=== PATIENT | female | born 1945 | race Caucasian/White ===

== ENCOUNTER 2017-10-25 14:22 | Emergency (ER) | payer MEDICARE, MEDICAID, SELFPAY ==
[2017-10-25 14:23] VITALS: BP 144/94; PULSE 105; RESP 16; TEMP 36.6; O2SAT 96; BMI 36.9
[2017-10-25 14:27] VITALS: O2SAT 96
--- NOTE | 2017-10-25 14:27 | EKG12_ITS ---
Test Reason : AFIB Blood Pressure : / mmHG Vent. Rate : 103 BPM Atrial Rate : 115 BPM P-R Int : 000 ms QRS Dur : 092 ms QT Int : 360 ms P-R-T Axes : 000 -31 049 degrees QTc Int : 471 ms Atrial fibrillation Left axis deviation Septal infarct , age undetermined Abnormal ECG Confirmed by JESSICA MONTE, RANJANA ([id number]), news videotape editor JENARO YOON ([id number]) on 10/27/2017 2:18:30 PM Referred By: VALDO Confirmed By:RANJANA LOPEZ MD
--- NOTE | 2017-10-25 14:29 | RAD_ITS ---
STUDY: X-RAY CHEST REASON FOR EXAM: Female, 72 years old. Increasing shortness of breath. TECHNIQUE: Single AP portable view of the chest. COMPARISON: Comparison is made with prior examination dated March 11, 2014. FINDINGS: Scattered calcified granulomas. Stable mild increased linear markings at the lung bases suggestive of mild bibasilar scarring. There is no demonstrated pleural abnormality. There is moderate cardiac enlargement. Normal mediastinum and destiny. Normal visualized pulmonary arteries. There is atherosclerotic calcification of the aortic arch with tortuosity. There are diffuse degenerative changes of the visualized thoracic spine. Normal visualized ribs, clavicles, and shoulders. There is no demonstrated abnormality of the visualized soft tissue structures of the upper abdomen. RAD/Chest 1 View (Portable) IMPRESSION: Cardiomegaly. Stable mild increased linear markings at the lung bases suggestive of scarring. Electronically Signed: Kristofer Nation MD at 14:45 EDT Tel [phone], Service support ,
[2017-10-25 17:08] LABS: Absolute Neutrophil Count 4.1 X10^3/uL (2.0-7.7); Basophil# 0.02 X10^3/uL; Basophil% 0.3 % (0-1); Eosinophils% 3.2 % (0-5); Hematocrit 26.6 % (37-47); Hemoglobin 8.3 g/dl (12.0-15.0); Lymphocyte % 24.1 % (19-41); Mean Corp Hgb Conc 31.2 g/gl (32-36); Mean Corpuscular Hgb 31.3 pg (27.0-32.0); Mean Corpuscular Volume 100.4 fL (81-99); Mean Platelet Vol. 10.3 fl (6.2-12.0); Monocyte# 0.44 X10^3/uL; Monocyte% 7.1 % (0-10); Neutrophil # 4.06 X10^3/uL (2.7-7.7); Neutrophil % 65.1 % (47-70); Platelet Count 228 K/mm3 (150-450); RBC Distribution Width CV 16.6 % (11.6-14.6); RBC Distribution Width SD 60.5 fl (35.1-43.9); Red Blood Count 2.65 M/mm3 (4.2-5.4); White Blood Count 6.2 K/mm3 (4.4-11.0)
[2017-10-25 17:11] LABS: POSITIVE COUNT NO; POSITIVE DIFFERENTIAL NO; POSITIVE MORPHOLOGY NO
[2017-10-25 17:19] VITALS: BP 132/100; PULSE 106; RESP 19; O2SAT 97
[2017-10-25 17:22] VITALS: O2SAT 98
[2017-10-25 17:27] LABS: Anion Gap 10 (5-15); BUN 23 mg/dL (7-18); BUN/Creat Ratio 15.8 RATIO (10-20); Calcium,Total 9.2 mg/dL (8.5-10.1); Chloride 104 mmol/L (98-107); Creatinine, Serum 1.46 mg/dL (0.55-1.02); EST Glomerular Filtration Rate 38 mL/min (>60); Est Glom Filt Rate - Afr Amer 45 mL/min (>60); Estimated Creatinine Clearance 34.37 ml/min; Glucose 142 mg/dL (74-106); Potassium 4.2 mmol/L (3.5-5.1); Sodium Level 139 mmol/L (136-145)
--- NOTE | 2017-10-25 17:50 | ED.DCSUM_ITS ---
- ER Visit Summary Date of Service: 10/25/17 Chief Complaint: Shortness of breath History of Present Illness: The patient is a 72 F who presents with shortness of breath. She has felt more short of breath over the past 4 days. This is worse when she lays flat. She also can planes of increased dyspnea on exertion. She states she has very little cough. She denies any URI-like illness such as congestion rhinorrhea sore throat. She denies any chest pain. No fevers vomiting diarrhea. She does have a history of atrial fibrillation on Eliquis. This was held because she was developing anemia. She underwent upper and lower endoscopies and had gastritis. She was restarted on low-dose Eliquis. Physical Examination: Afebrile initial heart rate 105 vitals otherwise unremarkable Moist mucous membranes Heart irregularly irregular and slightly tachycardic Lungs are clear Abdomen soft 1+ symmetric pitting lower extremity edema Alert Test Results: EKG shows atrial fibrillation at a rate of 103. Chest x-ray shows cardiomegaly and stable lung base markings likely scarring. Labs notable for hemoglobin of 8.3. Creatinine is 1.46. Troponin is negative. Emergency Department Course and Treatment: I discussed the patient with Dr. Schaefer. He does note that the last hemoglobin was 9.2. We suspect that she is having some recurrent bleeding from gastritis. However pulse oximetry and vital signs are stable and troponin is undetectable with several days of pain. He states she does not have active coronary artery disease. We do not feel that she needs admitted at this time. We will hold off on transfusion but will have the patient hold on her Eliquis and also increase her Lasix for the next couple of days and patient will follow-up closely as an outpatient with Dr. Schaefer. She is Raf scheduled for blood work on . Understands to return for new or worsening symptoms and was instructed on specific signs and symptoms to monitor for. Treatment Plan: [] Disposition: Discharge Impression: Anemia Atrial fibrillation Dyspnea This note was generated with [employer] dictation software. It may contain incorrect words, spelling, and punctuation that were not noted in review of the chart prior to signing ED Disposition - Plan for ED Patient: Chief Complaint: Shortness of Breath Referrals: Anu Fairbanks MD [Primary Care Provider] -
--- NOTE | 2017-10-25 17:50 | ED.DEP ---
ED Disposition - Plan for ED Patient: Chief Complaint: Shortness of Breath Instructions: Anemia, ED Gastritis Referrals: Anu Fairbanks MD [Primary Care Provider] - Additional Instructions: Stop your Eliquis. Double your Lasix for the next 3 days. Follow-up with Dr. Schaefer as an outpatient. Call in the morning for an appointment.
[2017-10-25 18:19] VITALS: BP 143/84; PULSE 92; RESP 18; O2SAT 97
--- NOTE | 2017-10-27 13:49 | CM.ED ---
ED CALLBACK: Follow-up call placed to patient. Patient states she is still not feeling well. She tells me she still has some shortness of breath. She denies swelling of extremities. Patient states her BP today is 136/82 and heart rate of 101. Patient states she had blood work done today, per Dr. Pastor's request. She tells me he ordered a stress test to be performed in one week, on Wednesday. Patient denies black tarry stools or bright red blood in stools. She states understanding to come to ED if symptoms worsen. Patient accepted my phone number to call with any needs. I informed patient that I will contact her tomorrow for further follow-up.
--- NOTE | 2017-10-28 15:15 | CM.ED ---
ED CALLBACK: Second follow-up call placed to patient. Prior call yesterday, 10/27/17. Patient states that she is feeling a little less shortness of breath today. She tells me that Dr. Pastor has asked her to take her Lasix twice a day. Per the patient, her lab work revealed elevated potassium and her hemoglobin is up some from the hospital. She states that Dr. Pastor would like for her to have a stress test performed. Her insurance does not cover having this test performed at [facility]. She tells me she verified this with her insurance company this morning. Dr. Pastor's office is working with [facility] to find a location that is able to perform test in a timely manner. Patient states she will have transportation to [facility] site, stating that her daughter can drive her. Patient acknowledges that she does have CM contact information. She states Dr. Pastor's office has been very helpful and in frequent contact with her. I asked her to please contact me if she needs any other assistance.
== END 2017-10-25 18:20 | disposition home or self-care (01) ==
PROVIDERS: Emergency Provider Emergency Medicine; Family Provider Internal Medicine; PCP Internal Medicine
DX: D64.9 Anemia, unspecified (principal); I48.91 Unspecified atrial fibrillation; R06.00 Dyspnea, unspecified; R05 Cough; I25.10 Atherosclerotic heart disease of native coronary artery without angina pectoris; K21.9 Gastro-esophageal reflux disease without esophagitis; E11.9 Type 2 diabetes mellitus without complications; I10 Essential (primary) hypertension; I25.2 Old myocardial infarction; I51.7 Cardiomegaly
CPT/HCPCS: 71045; 80048; 84484; 85025; 93005; 94760; 99284; A4216

== ENCOUNTER → 2018-05-27 08:21 | Outpatient (CLI) | payer MEDICAID, SELFPAY ==
[2018-05-12 13:48] VITALS: BMI 36.6
[2018-05-27 08:27] LABS: Mucous, Urine 0 SEEN /hpf (<or=2+)
[2018-05-27 10:13] LABS: Absolute Lymphocyte Count 1.37 X10^3/ul (0.83-4.51); Absolute Neutrophil Count 2.6 X10^3/uL (2.0-7.7); Basophil# 0.02 X10^3/uL; Basophil% 0.4 % (0-1); Eosinophil# 0.29 X10^3/uL; Hematocrit 33.3 % (37-47); Hemoglobin 11.1 g/dl (12.0-15.0); Lymphocyte # 1.37 X10^3/ul (4.0); Lymphocyte % 28.2 % (19-41); Mean Corp Hgb Conc 33.3 g/gl (32-36); Mean Platelet Vol. 11.4 fl (6.2-12.0); Monocyte# 0.57 X10^3/uL; Monocyte% 11.8 % (0-10); Neutrophil # 2.59 X10^3/uL (2.7-7.7); Neutrophil % 53.4 % (47-70); POSITIVE COUNT NO; POSITIVE DIFFERENTIAL NO; POSITIVE MORPHOLOGY NO; Platelet Count 189 K/mm3 (150-450); RBC Distribution Width CV 12.5 % (11.6-14.6); White Blood Count 4.9 K/mm3 (4.4-11.0)
[2018-05-27 10:14] LABS: Color, Urine Yellow (Yellow); Glucose, Dipstick Normal (Normal); Ketone-Dipstick Negative (Negative); Leukocyte Esterase-Dipstick 100 /ul (Negative); Nitrite-Dipstick Negative (Negative); Occult Blood-Urine 10 /ul (Negative); Protein-Dipstick 15 mg/dl (Negative); Urine Bilirubin Dipstick Negative (Negative); Urine Clarity Sl. Cloudy (Clear); Urine Urobilinogen Normal (Normal)
[2018-05-27 10:33] LABS: Microalbumin,Random Urine 57.1 mg/L (NO RANGE EST.); Microalbumin:Creatinine Ratio 31.5 mg/g CRE (<30 mg/g CRE); Protein, Urine (Random) 37.7 mg/dL (<11.9); Protein:Creat Ratio 208 mg/g CRE (0-200)
[2018-05-27 10:36] LABS: Bacteria 2+ /hpf (None Seen); Red Blood Cells-Urine 0-5 SEEN /hpf (0-5); Squamous Epithelial Cells - UA 5-10 SEEN /hpf (5-10); White Blood Cells 0-5 SEEN /hpf (0-5)
[2018-05-27 10:47] LABS: PTHIN 35.5 pg/mL (18.4-80.1); Vitamin B12 903 pg/mL (211-911); Vitamin D,25 Hydroxy 29.3 ng/mL (29.95-100.01)
[2018-05-27 10:51] LABS: Hemoglobin A1c 7.9 % (4.2-6.3)
[2018-05-27 10:52] LABS: BUN 19 mg/dL (7-18); Creatinine, Serum 1.11 mg/dL (0.55-1.02); Glucose 211 mg/dL (74-106)
[2018-05-27 10:53] LABS: ALB/GLOB Ratio 0.9 RATIO (0.9-2.4); AST(SGOT) 68 U/L (15-37); Alanine Aminotransfer ALT/SGPT 62 U/L (13-56); Albumin, Serum 3.5 g/dL (3.2-5.0); Alkaline Phosphatase 48 U/L (45-117); Anion Gap 11 (5-15); BUN/Creat Ratio 17.1 RATIO (10-20); Calcium,Total 8.7 mg/dL (8.5-10.1); Chloride 103 mmol/L (98-107); Cholesterol 147 mg/dL (200); EST Glomerular Filtration Rate 51 mL/min (>60); Est Glom Filt Rate - Afr Amer 62 mL/min (>60); Ferritin 55 ng/mL (8-252); High Density Lipoprotein 26 mg/dL; Iron 101 ug/dL (50-170); Iron Binding Capacity,Total 336 ug/dL (250-450); Magnesium 1.4 mg/dL (1.6-2.6); Potassium 4.3 mmol/L (3.5-5.1); Protein, Total 7.5 g/dL (6.4-8.2); Sodium Level 140 mmol/L (136-145); Triglycerides 275 mg/dL; Very Low Density Lipoprotein 55 mg/dL (5-40)
== END ==
PROVIDERS: Family Provider Family Medicine; PCP Family Medicine; Visit Provider Family Medicine
DX: N18.3 Chronic kidney disease, stage 3 (moderate) (principal); E55.9 Vitamin D deficiency, unspecified; E11.9 Type 2 diabetes mellitus without complications; D64.9 Anemia, unspecified
CPT/HCPCS: 80053; 80061; 81001; 82043; 82306; 82570; 82607; 82728; 82746; 83036; 83540; 83550; 83735; 83970; 84156; 85025

== ENCOUNTER → 2018-06-09 10:13 | Outpatient (CLI) | payer MEDICAID, SELFPAY ==
[2018-05-12 13:48] VITALS: BMI 36.6
[2018-06-09 13:20] LABS: Magnesium 1.6 mg/dL (1.6-2.6)
== END ==
PROVIDERS: Family Provider Family Medicine; PCP Family Medicine; Referring Provider Family Medicine; Visit Provider Family Medicine
DX: E83.42 Hypomagnesemia (principal)
CPT/HCPCS: 36415; 83735

== ENCOUNTER → 2018-07-15 13:37 | Outpatient (CLI) | payer MEDICAID, SELFPAY ==
[2018-05-12 13:48] VITALS: BMI 36.6
[2018-07-15 16:21] LABS: Anion Gap 8 (5-15); BUN 22 mg/dL (7-18); BUN/Creat Ratio 14.4 RATIO (10-20); Calcium,Total 8.8 mg/dL (8.5-10.1); Chloride 103 mmol/L (98-107); Creatinine, Serum 1.53 mg/dL (0.55-1.02); EST Glomerular Filtration Rate 36 mL/min (>60); Est Glom Filt Rate - Afr Amer 43 mL/min (>60); Glucose 127 mg/dL (74-106); Magnesium 1.7 mg/dL (1.6-2.6); Potassium 4.3 mmol/L (3.5-5.1); Sodium Level 138 mmol/L (136-145)
== END ==
PROVIDERS: Family Provider Family Medicine; PCP Family Medicine; Referring Provider Family Medicine; Visit Provider Family Medicine
DX: I10 Essential (primary) hypertension (principal); E83.42 Hypomagnesemia
CPT/HCPCS: 36415; 80048; 83735

== ENCOUNTER → 2018-07-25 10:30 | Outpatient (CLI) | payer MEDICAID, SELFPAY ==
[2018-07-22 13:39] VITALS: BMI 36.8
[2018-07-25 12:55] LABS: Anion Gap 6 (5-15); BUN 23 mg/dL (7-18); BUN/Creat Ratio 15.1 RATIO (10-20); Chloride 102 mmol/L (98-107); Creatinine, Serum 1.52 mg/dL (0.55-1.02); EST Glomerular Filtration Rate 36 mL/min (>60); Est Glom Filt Rate - Afr Amer 43 mL/min (>60); Glucose 245 mg/dL (74-106); Potassium 4.5 mmol/L (3.5-5.1); Sodium Level 136 mmol/L (136-145)
== END ==
PROVIDERS: Family Provider Family Medicine; PCP Family Medicine; Referring Provider Family Medicine; Visit Provider Family Medicine
DX: I10 Essential (primary) hypertension (principal)
CPT/HCPCS: 36415; 80048

== ENCOUNTER → 2018-08-08 10:51 | Outpatient (CLI) | payer MEDICAID, SELFPAY ==
[2018-07-22 13:39] VITALS: BMI 36.8
[2018-08-08 13:28] LABS: Magnesium 1.9 mg/dL (1.6-2.6)
== END ==
PROVIDERS: PCP Family Medicine; Visit Provider Family Medicine
DX: E83.42 Hypomagnesemia (principal)
CPT/HCPCS: 36415; 83735

== ENCOUNTER → 2018-09-07 10:13 | Outpatient (CLI) | payer MEDICAID, SELFPAY ==
[2018-07-22 13:39] VITALS: BMI 36.8
[2018-09-07 12:52] LABS: Absolute Lymphocyte Count 1.08 X10^3/ul (0.83-4.51); Absolute Neutrophil Count 4.1 X10^3/uL (2.0-7.7); Basophil# 0.02 X10^3/uL; Basophil% 0.3 % (0-1); Eosinophil# 0.19 X10^3/uL; Eosinophils% 3.2 % (0-5); Hematocrit 32.8 % (37-47); Lymphocyte # 1.08 X10^3/ul (4.0); Mean Corp Hgb Conc 33.5 g/gl (32-36); Mean Corpuscular Hgb 36.2 pg (27.0-32.0); Mean Corpuscular Volume 107.9 fL (81-99); Mean Platelet Vol. 11.5 fl (6.2-12.0); Monocyte# 0.63 X10^3/uL; Monocyte% 10.5 % (0-10); Neutrophil # 4.06 X10^3/uL (2.7-7.7); Neutrophil % 67.8 % (47-70); Platelet Count 192 K/mm3 (150-450); RBC Distribution Width CV 12.6 % (11.6-14.6); RBC Distribution Width SD 48.2 fl (35.1-43.9); Red Blood Count 3.04 M/mm3 (4.2-5.4)
[2018-09-07 12:52] LABS: Color, Urine Yellow (Yellow); Glucose, Dipstick Normal (Normal); Ketone-Dipstick 5 mg/dl (Negative); Leukocyte Esterase-Dipstick 500 /ul (Negative); Nitrite-Dipstick Negative (Negative); Occult Blood-Urine 10 /ul (Negative); Protein-Dipstick 30 mg/dl (Negative); Specific Gravity, Urine 1.015 (1.002-1.030); Urine Bilirubin Dipstick Negative (Negative); Urine Clarity Clear (Clear); Urine Urobilinogen Normal (Normal)
[2018-09-07 12:55] LABS: POSITIVE COUNT NO; POSITIVE DIFFERENTIAL NO; POSITIVE MORPHOLOGY NO
[2018-09-07 13:01] LABS: Microalbumin:Creatinine Ratio 37.1 mg/g CRE (<30 mg/g CRE); Protein, Urine (Random) 29.4 mg/dL (<11.9); Protein:Creat Ratio 168 mg/g CRE (0-200)
[2018-09-07 13:13] LABS: Hemoglobin A1c 7.9 % (4.2-6.3)
[2018-09-07 13:22] LABS: BUN 20 mg/dL (7-18); Creatinine, Serum 1.21 mg/dL (0.55-1.02); Glucose 199 mg/dL (74-106); Vitamin D,25 Hydroxy 64.1 ng/mL (29.95-100.01)
[2018-09-07 13:23] LABS: ALB/GLOB Ratio 0.7 RATIO (0.9-2.4); AST(SGOT) 62 U/L (15-37); Alanine Aminotransfer ALT/SGPT 50 U/L (13-56); Albumin, Serum 3.5 g/dL (3.2-5.0); Alkaline Phosphatase 54 U/L (45-117); Anion Gap 9 (5-15); BUN/Creat Ratio 16.5 RATIO (10-20); Calcium,Total 9.7 mg/dL (8.5-10.1); Chloride 101 mmol/L (98-107); Cholesterol 142 mg/dL (200); EST Glomerular Filtration Rate 47 mL/min (>60); Est Glom Filt Rate - Afr Amer 56 mL/min (>60); Globulin 4.8 g/dL (2.2-4.2); High Density Lipoprotein 24 mg/dL; Magnesium 1.4 mg/dL (1.6-2.6); Potassium 4.5 mmol/L (3.5-5.1); Protein, Total 8.3 g/dL (6.4-8.2); Sodium Level 136 mmol/L (136-145); Triglycerides 261 mg/dL; Very Low Density Lipoprotein 52 mg/dL (5-40)
== END ==
PROVIDERS: Family Provider Family Medicine; PCP Family Medicine; Referring Provider Family Medicine; Visit Provider Family Medicine
DX: E78.5 Hyperlipidemia, unspecified (principal); E83.42 Hypomagnesemia; E55.9 Vitamin D deficiency, unspecified; E11.22 Type 2 diabetes mellitus with diabetic chronic kidney disease; I12.9 Hypertensive chronic kidney disease with stage 1 through stage 4 chronic kidney disease, or unspecified chronic kidney disease; N18.3 Chronic kidney disease, stage 3 (moderate)
CPT/HCPCS: 36415; 80053; 80061; 81001; 81002; 82043; 82306; 82570; 83036; 83735; 84156; 85025

== ENCOUNTER → 2018-09-07 13:33 | Outpatient (CLI) | payer MEDICAID, SELFPAY ==
[2018-07-22 13:39] VITALS: BMI 36.8
[2018-09-07 15:17] LABS: Bacteria 0 SEEN /hpf (None Seen); Mucous, Urine 0 SEEN /hpf (<or=2+); Red Blood Cells-Urine 0 SEEN /hpf (0-5)
[2018-09-07 15:26] LABS: Color, Urine Yellow (Yellow); Glucose, Dipstick Normal (Normal); Ketone-Dipstick Negative (Negative); Leukocyte Esterase-Dipstick 25 /ul (Negative); Nitrite-Dipstick Negative (Negative); Occult Blood-Urine Negative /ul (Negative); Protein-Dipstick 15 mg/dl (Negative); Urine Bilirubin Dipstick Negative (Negative); Urine Clarity Clear (Clear); Urine Urobilinogen Normal (Normal)
[2018-09-07 15:39] LABS: Squamous Epithelial Cells - UA 0-5 SEEN /hpf (5-10); White Blood Cells 0-5 SEEN /hpf (0-5)
== END ==
PROVIDERS: Family Provider Family Medicine; PCP Family Medicine; Referring Provider Family Medicine; Visit Provider Family Medicine
DX: N18.3 Chronic kidney disease, stage 3 (moderate) (principal)
CPT/HCPCS: 81001

== ENCOUNTER → 2018-12-28 08:06 | Outpatient (CLI) | payer MEDICAID, SELFPAY ==
[2018-07-22 13:39] VITALS: BMI 36.8
[2018-12-28 10:16] LABS: Absolute Lymphocyte Count 1.09 X10^3/uL (0.83-4.51); Absolute Neutrophil Count 3.9 X10^3/uL (2.0-7.7); Basophil# 0.04 X10^3/uL; Basophil% 0.7 % (0-1); Eosinophil# 0.24 X10^3/uL; Eosinophils% 4.1 % (0-5); Hematocrit 31.3 % (37-47); Hemoglobin 9.8 g/dL (12.0-15.0); Lymphocyte # 1.09 X10^3/ul (4.0); Lymphocyte % 18.7 % (19-41); Mean Corp Hgb Conc 31.3 g/dL (32-36); Mean Corpuscular Hgb 33.6 pg (27.0-32.0); Mean Corpuscular Volume 107.2 fL (81-99); Mean Platelet Vol. 11.2 fl (6.2-12.0); Monocyte# 0.55 X10^3/uL; Monocyte% 9.4 % (0-10); NRBC Flagged by Analyzer 0 % (0-5); Neutrophil # 3.88 X10^3/uL (2.7-7.7); Neutrophil % 66.6 % (47-70); Platelet Count 201 K/mm3 (150-450); RBC Distribution Width CV 13.9 % (11.6-14.6); RBC Distribution Width SD 55.1 fl (35.1-43.9); Red Blood Count 2.92 M/mm3 (4.2-5.4); White Blood Count 5.8 K/mm3 (4.4-11.0)
[2018-12-28 10:37] LABS: Hemoglobin A1c 8.5 % (4.2-6.3)
[2018-12-28 10:41] LABS: ALB/GLOB Ratio 0.7 RATIO (0.9-2.4); AST(SGOT) 88 U/L (15-37); Alanine Aminotransfer ALT/SGPT 63 U/L (13-56); Albumin, Serum 3.4 g/dL (3.2-5.0); Alkaline Phosphatase 63 U/L (45-117); Anion Gap 11 (5-15); BUN 19 mg/dL (7-18); BUN/Creat Ratio 15.8 RATIO (10-20); Calcium,Total 9.5 mg/dL (8.5-10.1); Chloride 101 mmol/L (98-107); Cholesterol 150 mg/dL (200); EST Glomerular Filtration Rate 47 mL/min (>60); Est Glom Filt Rate - Afr Amer 57 mL/min (>60); Globulin 4.9 g/dL (2.2-4.2); Glucose 225 mg/dL (74-106); High Density Lipoprotein 22 mg/dL; Magnesium 1.8 mg/dL (1.6-2.6); Potassium 4.2 mmol/L (3.5-5.1); Protein, Total 8.3 g/dL (6.4-8.2); Sodium Level 138 mmol/L (136-145); Triglycerides 316 mg/dL; Very Low Density Lipoprotein 63 mg/dL (5-40)
[2018-12-28 10:45] LABS: Vitamin D,25 Hydroxy 66.2 ng/mL (29.95-100.01)
[2018-12-28 17:26] LABS: Ferritin 38 ng/mL (8-252); Iron 121 ug/dL (50-170); Iron Binding Capacity,Total 399 ug/dL (250-450); PERCENT IRON SATURATION 30.3 % (15.0-55.0)
[2018-12-28 18:17] LABS: Vitamin B12 320 pg/mL (211-911)
== END ==
PROVIDERS: Family Provider Family Medicine; PCP Family Medicine; Referring Provider Family Medicine; Visit Provider Family Medicine
DX: E55.9 Vitamin D deficiency, unspecified (principal); E78.5 Hyperlipidemia, unspecified; I10 Essential (primary) hypertension; E11.9 Type 2 diabetes mellitus without complications
CPT/HCPCS: 36415; 80053; 80061; 82306; 82607; 82728; 82746; 83036; 83540; 83550; 83735; 85025

== ENCOUNTER → 2019-01-09 11:41 | Outpatient (CLI) | payer MEDICAID, SELFPAY ==
[2018-07-22 13:39] VITALS: BMI 36.8
[2019-01-09 14:05] LABS: Anion Gap 8 (5-15); BUN 21 mg/dL (7-18); BUN/Creat Ratio 16.4 RATIO (10-20); Calcium,Total 9.7 mg/dL (8.5-10.1); Chloride 102 mmol/L (98-107); Creatinine, Serum 1.28 mg/dL (0.55-1.02); EST Glomerular Filtration Rate 44 mL/min (>60); Est Glom Filt Rate - Afr Amer 53 mL/min (>60); Glucose 295 mg/dL (74-106); Potassium 4.3 mmol/L (3.5-5.1); Sodium Level 137 mmol/L (136-145)
== END ==
PROVIDERS: Family Provider Family Medicine; PCP Family Medicine; Referring Provider Family Medicine; Visit Provider Family Medicine
DX: N18.3 Chronic kidney disease, stage 3 (moderate) (principal)
CPT/HCPCS: 36415; 80048

== ENCOUNTER → 2019-03-27 10:25 | Outpatient (CLI) | payer MEDICAID, SELFPAY ==
[2018-07-22 13:39] VITALS: BMI 36.8
[2019-03-27 12:24] LABS: Absolute Lymphocyte Count 1.36 X10^3/uL (0.83-4.51); Absolute Neutrophil Count 3.8 X10^3/uL (2.0-7.7); Basophil# 0.05 X10^3/uL; Basophil% 0.8 % (0-1); Eosinophil# 0.21 X10^3/uL; Eosinophils% 3.4 % (0-5); Hematocrit 35.8 % (37-47); Hemoglobin 11.9 g/dL (12.0-15.0); Lymphocyte # 1.36 X10^3/ul (4.0); Mean Corp Hgb Conc 33.2 g/dL (32-36); Mean Corpuscular Hgb 37.1 pg (27.0-32.0); Mean Corpuscular Volume 111.5 fL (81-99); Mean Platelet Vol. 11.7 fl (6.2-12.0); Monocyte# 0.64 X10^3/uL; Monocyte% 10.4 % (0-10); NRBC Flagged by Analyzer 0 % (0-5); Neutrophil # 3.83 X10^3/uL (2.7-7.7); Neutrophil % 61.9 % (47-70); Platelet Count 204 K/mm3 (150-450); RBC Distribution Width CV 15.8 % (11.6-14.6); RBC Distribution Width SD 64.9 fl (35.1-43.9); Red Blood Count 3.21 M/mm3 (4.2-5.4); White Blood Count 6.2 K/mm3 (4.4-11.0)
[2019-03-27 12:28] LABS: Protein, Urine (Random) 21.1 mg/dL (<11.9); Protein:Creat Ratio 180 mg/g CRE (0-200)
[2019-03-27 12:34] LABS: Vitamin D,25 Hydroxy 69.2 ng/mL (29.95-100.01)
[2019-03-27 12:47] LABS: ALB/GLOB Ratio 0.7 RATIO (0.9-2.4); AST(SGOT) 119 U/L (15-37); Alanine Aminotransfer ALT/SGPT 96 U/L (13-56); Albumin, Serum 3.7 g/dL (3.2-5.0); Alkaline Phosphatase 65 U/L (45-117); Anion Gap 9 (5-15); BUN 22 mg/dL (7-18); BUN/Creat Ratio 17.9 RATIO (10-20); Calcium,Total 9.6 mg/dL (8.5-10.1); Chloride 101 mmol/L (98-107); Cholesterol 118 mg/dL (200); Creatinine, Serum 1.23 mg/dL (0.55-1.02); EST Glomerular Filtration Rate 46 mL/min (>60); Est Glom Filt Rate - Afr Amer 55 mL/min (>60); Glucose 118 mg/dL (74-106); High Density Lipoprotein 28 mg/dL; Magnesium 1.3 mg/dL (1.6-2.6); Potassium 4.3 mmol/L (3.5-5.1); Protein, Total 8.7 g/dL (6.4-8.2); Sodium Level 136 mmol/L (136-145); Thyroid Stim Hormone (TSH) 3.44 uIU/mL (0.358-3.74); Triglycerides 201 mg/dL; Very Low Density Lipoprotein 40 mg/dL (5-40)
[2019-03-27 13:45] LABS: Hemoglobin A1c 6.7 % (4.2-6.3)
== END ==
PROVIDERS: Family Provider Family Medicine; PCP Family Medicine; Visit Provider Family Medicine
DX: E83.42 Hypomagnesemia (principal); I12.9 Hypertensive chronic kidney disease with stage 1 through stage 4 chronic kidney disease, or unspecified chronic kidney disease; N18.3 Chronic kidney disease, stage 3 (moderate); E78.5 Hyperlipidemia, unspecified; E11.9 Type 2 diabetes mellitus without complications; E55.9 Vitamin D deficiency, unspecified
CPT/HCPCS: 36415; 80053; 80061; 82306; 82570; 83036; 83735; 84156; 84443; 85025

== ENCOUNTER → 2019-04-13 13:40 | Outpatient (CLI) | payer MEDICARE, SELFPAY ==
[2019-04-07 10:41] VITALS: BMI 34.7
[2019-04-13 16:36] LABS: Magnesium 1.7 mg/dL (1.6-2.6)
== END ==
PROVIDERS: Family Provider Family Medicine; PCP Family Medicine; Referring Provider Family Medicine; Visit Provider Family Medicine
DX: E83.42 Hypomagnesemia (principal)
CPT/HCPCS: 36415; 83735

== ENCOUNTER 2019-04-21 10:36 | Day surgery (SDC) | payer MEDICARE, SELFPAY ==
[2019-04-07 10:41] VITALS: BMI 34.7
--- NOTE | 2019-04-17 10:56 | RAD_ITS ---
STUDY: X-RAY CHEST REASON FOR EXAM: Female, 73 years old. ATRIAL FIB, CARDIOVERSION TECHNIQUE: PA and lateral views of the chest. COMPARISON: Comparison is made with prior examination dated October 25, 2017. FINDINGS: Scattered calcified granulomas. Stable mild increased linear markings at the lung bases suggests above the bibasilar scarring. There is no demonstrated pleural abnormality. There is mild cardiac enlargement. Normal mediastinum and destiny. Normal visualized pulmonary arteries. There is atherosclerotic calcification of the aortic arch with tortuosity. There are diffuse degenerative changes of the visualized thoracic spine. Mild degree of dextroscoliosis. Normal visualized ribs, clavicles, and shoulders. There is no demonstrated abnormality of the visualized soft tissue structures of the upper abdomen. RAD/Chest PA and Lateral IMPRESSION: Stable mild increased markings at the lung bases suggestive of scarring. Mild cardiomegaly. Electronically Signed: Kristofer Nation, at 10:51 EST , Service support ,
[2019-04-17 11:51] LABS: Anion Gap 4 (5-15); BUN 23 mg/dL (7-18); BUN/Creat Ratio 18.9 RATIO (10-20); Chloride 106 mmol/L (98-107); Creatinine, Serum 1.22 mg/dL (0.55-1.02); EST Glomerular Filtration Rate 46 mL/min (>60); Est Glom Filt Rate - Afr Amer 56 mL/min (>60); Glucose 113 mg/dL (74-106); Potassium 4.5 mmol/L (3.5-5.1); Sodium Level 137 mmol/L (136-145)
[2019-04-17 12:39] LABS: International Normalized Ratio 1.4; Prothrombin Time (Protime)PT. 16.6 SECONDS (11.7-14.9)
[2019-04-20 08:45] VITALS: BMI 34.7
--- NOTE | 2019-04-21 10:55 | PCM.HP.BLA ---
Problem List (1) Persistent atrial fibrillation Status: Chronic (2) Atherosclerotic heart disease of [place] coronary artery without angina pectoris Status: Chronic Qualifiers: (3) Presence of stent in coronary artery Status: Chronic Comment: PCI/stent of the LAD 1995; PCI/MELISSA of the ostium RCA 12/29/02 (4) Mixed hyperlipidemia Status: Chronic (5) Essential hypertension Status: Chronic (6) CKD (chronic kidney disease) stage 3, GFR 30-59 ml/min Status: Chronic History and Physical Date of Admission: 04/21/19 [facility] [address] [place] [address] OFFICE VISIT Date of Service: 04/07/19 MR#: [id number] Acct: [id number] Name: GRIS RODRIGUEZ Rep #: [id number] : 1945 Provider: TANIA Sommers Age/Sex: 73/F Location: [facility] Status: Signed HPI HPI History of Present Illness Details: GRIS RODRIGUEZ, is a 73 F who presents to the office today for Outpatient cardiovascular consultation to establish outpatient cardiovascular care for a history of underlying CAD, PA, LAD PCI -1995, RCA PCI -2002, atrial fibrillation status post recent DC cardioversion performed at [facility], superimposed on a history of hyperlipidemia, hypertension, and diabetes mellitus. She had been previously followed by [facility] cardiology. She states at the moment she is feeling better since she is back in sinus rhythm. She noted prior to that she was tired and fatigued. Patient recently contacted our office stating that she felt as if she returned to atrial fibrillation. She was asked to present to the office for further evaluation. Her EKG on 04/07/2019, today, showed atrial fibrillation at a rate of 113 bpm and a QTC of [address] or T wave changes. Pt denies chest, arm, jaw, or neck discomfort. His exercise tolerance is stable. Pt denies symptoms of CHF, palpitations, near syncopal or syncopal episodes. Pt denies edema or claudication issues. Pt. denies orthopnea, PND, fever, chills, blood in urine, blood in stool, or myalgia. She states feeling more fatigue, lightheadedness, dizziness, and SOB since PAF. She acknowledges snoring and day time fatigue. She denies napping as a passenger in a car or watching TV. She states difficulty falling and staying asleep. She states waking with her headaches. Intake Vital Signs 04/07/19 Height 5 ft 7 in 04/07/19 Weight: 222 lb 04/07/19 BMI 34.7 04/07/19 BP 117/77 04/07/19 Blood Pressure Location Lt brachial 04/07/19 Position Sitting 04/07/19 Respiration 18 04/07/19 Pulse 93 04/07/19 Pulse Source Monitor 04/07/19 Pulse Oximetry (%) 100 Intake Visit Reasons: A-fib Sediment Remediation Consultant Required: No Is patient in pain?: No Allergies fenofibrate nanocrystallized [From Tricor] Allergy (Verified 04/07/19 10:41) Rash fenofibrate,micronized [From Tricor] Allergy (Verified 04/07/19 10:41) Rash ramipril Allergy (Verified 04/07/19 10:41) Rash adhesive Adverse Reaction (Verified 04/07/19 10:41) Rash sertraline HCl [From Zoloft] Adverse Reaction (Verified 04/07/19 10:41) Other sulindac [From Clinoril] Adverse Reaction (Verified 04/07/19 10:41) Other CARDIAC CATH DYE Allergy (Uncoded 07/22/18 13:40) Rash Medications Albuterol IH (ProAir) [Proair Hfa (SP)Vent Pts] 2 puff INHALATION Q6H PRN PRN 10/25/17 [History Confirmed 04/07/19] atenolol 50 mg tablet 50 mg PO BID tab 05/10/18 [History Confirmed 04/07/19] glimepiride 4 mg tablet 4 mg PO BID tab 05/10/18 [History Confirmed 04/07/19] loperamide 2 mg tablet 2 mg PO Q1-4H PRN 05/10/18 [History Confirmed 04/07/19] losartan 25 mg tablet 25 mg PO DAILY 05/10/18 [History Confirmed 04/07/19] metformin 1,000 mg tablet 1,000 mg PO BID 05/10/18 [History Confirmed 04/07/19] nitroglycerin 0.4 mg sublingual tablet 0.4 mg SUBLINGUAL Q5-15M PRN 05/10/18 [History Confirmed 04/07/19] vitamin E (dl, acetate) 100 unit capsule 100 unit PO DAILY 05/10/18 [History Confirmed 07/22/18] cholecalciferol (vitamin D3) 5,000 unit tablet 5,000 unit PO DAILY 07/22/18 [History Confirmed 04/07/19] furosemide 20 mg tablet 20 mg PO BID tab 07/22/18 [History Confirmed 04/07/19] linagliptin 5 mg tablet 5 mg PO DAILY 07/22/18 [History Confirmed 04/07/19] pantoprazole 40 mg tablet,delayed release 20 mg PO DAILY tab 07/22/18 [History Confirmed 04/07/19] apixaban 5 mg tablet 5 mg PO BID #180 tab 02/06/19 [Rx Confirmed 04/07/19] dulaglutide 0.75 mg/0.5 mL subcutaneous pen injector 0.75 mg SC QWEEK 04/07/19 [History Confirmed 04/07/19] exenatide microspheres 2 mg/0.65 mL subcutaneous pen injector 2 mg SC Q7D 04/07/19 [History Confirmed 04/07/19] magnesium oxide 400 mg (241.3 mg magnesium) tablet 400 mg PO DAILY 04/07/19 [History Confirmed 04/07/19] pravastatin 40 mg tablet 40 mg PO DAILY 04/07/19 [History Confirmed 04/07/19] PFSH Social History (Updated 04/07/19 @ 12:58 by MALGORZATA WardC) Smoking Status: Former smoker alcohol intake: never substance use type: does not use ROS Const Const: Positive for fatigue and headache(s); negative for weakness, body ache, fever(s) or chills ENT ENT: Positive for headache(s) and dizziness Cardio Chest Pain: No Palpitations: No Edema: None Muscle aches with walking: None Resp Respiratory: Positive for SOB with activity and snoring; negative for SOB at rest, SOB orthopnea\SOB lying down or paroxysmal nocturnal dyspnea GI GI: Negative nausea, vomiting blood/hematemesis, bright, red blood in stools or black,tarry stools : Negative for hematuria or frequent nighttime urination/ nocturia Musc Musc: Negative for muscle aches/ myalgia Skin Skin: Negative non-healing lesions or rash Neuro Neuro: Positive for dizziness, lightheadedness and headache(s); negative for near syncope, syncope, orthostatic symptoms or weakness Endo Endo: Positive for fatigue Allergy Allergy/Immunology: Negative for rash Cardiology Exam Const Appearance: cooperative, healthy appearing, comfortable and no acute distress Nutritional Appearance: average body habitus and well nourished Orientation: alert, awake and oriented x3 Head Head: normal to inspection Ears: hearing grossly normal bilaterally Nose: external nose normal Face and Sinus: face symmetric Mouth: oral mucosae normal Eyes General: appearance normal, both eyes and all related structures Eyelids: eyelids normal EOM: EOM intact bilaterally Neck Neck: normal visual inspection and no JVD Carotids: normal carotid upstroke Chest Chest inspection: normal inspection of the chest, symmetric chest movement and normal respiratory effort; negative cough Auscultation: Bilateral: Clear to Auscultation Cardio Rate: tachycardic Rhythm: irregularly irregular Heart sounds: S1 normal and S2 normal; negative rub, gallop or murmur GI GI: normal to inspection Neuro General: alert, awake, oriented x3 and CN's II-XI intact bilaterally Skin Skin: no rashes or lesions noted Extremities Pulses: Normal: Right Posterior Tibial Pulse, Left Posterior Tibial Pulse, Right Radial Pulse, Left Radial Pulse Lower Extremity Edema: None: Bilateral Psych Psychological: normal affect Assessment & Plan 1. Atherosclerosis of creek coronary artery of creek heart without angina pectoris I25.10 Plan Patient denies any chest pain, arm pain, jaw pain, or neck pain suggestive of angina at this time. We will continue to monitor this. We will not make any medication regimen changes and will continue risk factor modification. Her stress test on 11/01/2017 was negative for ischemia. At this time, her symptoms appear consistent with her atrial fibrillation. However, she may require repeat evaluation if symptoms persist despite rhythm improvements. Her last echocardiogram March 2018 showed ejection unction of 51% and mild left atrial enlargement. 2. Presence of stent in coronary artery Z95.5 PCI/stent of the LAD 1995; PCI/MELISSA of the ostium RCA 12/29/02 Plan At this time, she will continue current medical therapy. 3. Paroxysmal atrial fibrillation I48.0 DCCV on 04/29/2018; Plan As noted above, her EKG today in office shows atrial fibrillation at a rate of 113 bpm. It appears that her heart rate has fluctuated between the 90s to 110s. She is currently on atenolol 50 mg p.o. twice daily. Options discussed included repeat cardioversion plus or minus antiarrhythmic medication electrophysiology consult. Given her history of coronary artery disease it was recommended to consider such medication as amiodarone, Tikosyn, or sotalol. She does have slight renal impairment with a creatinine of 1.23 and underlying liver disease. Her case will be reviewed with Dr. Singh for further medical options. Patient does not understand that this may require hospitalization. She will be contacted after office in regards to further plan. She was asked to discuss polysomnogram/REGGIE evaluation with primary care physician. 4. Essential (primary) hypertension I10 Plan Patient's blood pressure is well-controlled. We will continue to monitor. We will not make any medication regimen changes. 5. Mixed hyperlipidemia E78.2 Plan Lipid panel from 03/27/2019 showed cholesterol: 118, HDL: 28, LDL: 50, and triglycerides: 201. She will continue current statin medication. 6. Nonalcoholic steatohepatitis (PATRICK) K75.81 Plan This may complicate such decisions as amiodarone therapy. Her primary care physician will be contacted via fax in regards to reservations with amiodarone therapy. This will help better decide on most appropriate antiarrhythmic medication if indicated. Plan Detail Other Orders Orders: 12 Lead EKG performed by [facility] Today I48.1 Additional Comments She will keep her May [address] Singh for further evaluation. Thank you for allowing us to participate in the patients plan of care, if you have any questions please do not hesitate to call. This note was generated using a voice recognition system and there may be incorrect words, spelling or punctuation that were not noted when reviewing the office note prior to saving. Coding Level of Care Code Off vis,est,level 3 Diagnoses Atherosclerosis of creek coronary artery of creek heart without angina pectoris I25.10 ??[place] vs. transplanted heart: creek heart Presence of stent in coronary artery Z95.5 Paroxysmal atrial fibrillation I48.0 Essential (primary) hypertension I10 Mixed hyperlipidemia E78.2 Nonalcoholic steatohepatitis (PATRICK) K75.81 Coding Level of Care Code Off vis,est,level 3 Diagnoses Atherosclerosis of creek coronary artery of creek heart without angina pectoris I25.10 ??[place] vs. transplanted heart: creek heart Presence of stent in coronary artery Z95.5 Paroxysmal atrial fibrillation I48.0 Essential (primary) hypertension I10 Mixed hyperlipidemia E78.2 Nonalcoholic steatohepatitis (PATRICK) K75.81 Supplemental Info Supplemental Information She did have a transthoracic echocardiogram performed through the [facility] system on 03/18/2018. At that time her left ventricle was reported as demonstrating mild LV hypertrophy, mildly decreased LV systolic function, LVEF of 51%, mild left atrial enlargement, and no significant valvular abnormalities. On 11/01/2017 she had a pharmacologic stress nuclear imaging study performed through the [facility] system. According to her perfusion study is abnormal with a fixed perfusion defect in the LAD territory. She had no evidence of inducible myocardial ischemia. Her most recent cardiac catheterization/PCI procedure appears to been performed at [facility] on 12/29/2002. At that time she had PTCA/stent of the ostial right coronary artery facilitated by a cutting balloon. Labs LDL Cholesterol 50 mg/dL (0-130) 03/27/19 HDL Cholesterol 28 mg/dL (40-) L 03/27/19 Triglycerides 201 mg/dL (-199) H 03/27/19 VLDL Cholesterol 40 mg/dL (5-40) 03/27/19 Diagnostics Electrocardiogram 04/07/19 04/07/19 1258 <Electronically signed by Farhan MARIN> Date Farhan MARIN Cosigner Signature: Date (if applicable) CC: Farhan Mendiola MD ~ I have re-examined the patient. There are no clinical changes since date of exam.
--- NOTE | 2019-04-21 12:14 | CARDIOVERS ---
Cardioversion Cardioversion: Date: 04-21-2019 Procedure: Synchronized Biphasic DC Cardioversion Indications: Atrial fibrillation Consent: Per the Patient Anesthesia: per Dr. Luna of pulmonology and critical care medicine with propofol 40 mg IV push total Procedure: Synchronized Biphasic DC Cardioversion: 200 J x1: Result: Sinus rhythm; PACs Complications: no apparent complications This note was generated with [employer] software. It may contain incorrect words, spelling, and punctuation that were not noted in checking the note before signing.
--- NOTE | 2019-04-21 12:23 | PCM.OP.PRO ---
Problem List (1) Atherosclerotic heart disease of [place] coronary artery without angina pectoris Status: Chronic Qualifiers: (2) CKD (chronic kidney disease) stage 3, GFR 30-59 ml/min Status: Chronic (3) Essential hypertension Status: Chronic (4) Mixed hyperlipidemia Status: Chronic (5) Nonalcoholic steatohepatitis (PATRICK) Status: Chronic (6) Persistent atrial fibrillation Status: Chronic (7) Presence of stent in coronary artery Status: Chronic Comment: PCI/stent of the LAD 1995; PCI/MELISSA of the ostium RCA 12/29/02 Procedure Report Date of Procedure: 04/21/19 - Conscious sedation CONSCIOUS SEDATION REPORT BRIEF HISTORY OF PRESENT ILLNESS: The patient is a 73-year-old [female] who presented to [facility] for an elective outpatient cardioversion due to underlying atrial fibrillation. The patient reports no PO intake since midnight. The patient does [not] have a history of [obstructive sleep apnea]. The patient reports [a] history of smoking, but not COPD. The patient denies any recent constitutional symptoms such as fevers, chills, nausea or vomiting. The patient denies previous anesthetic complications. She has had cardioversion previously in [place] and tolerated well. Patient's last known EF was greater than 50%. PHYSICAL EXAMINATION: VITAL SIGNS: Reviewed and were acceptable. GENERAL: The patient is a [female], in no apparent distress, speaking in full sentences. HEENT: Normocephalic, atraumatic. Mucous membranes are moist and pink. Edentulous with good mouth opening noted. Trachea is midline. Good neck mobility. MP [IV] CHEST: S1, S2 irregularly irregular. No murmurs, rubs or gallops were noted. LUNGS: Clear to auscultation bilaterally without appreciable wheezes, rales or rhonchi. ABDOMEN: Soft, nontender, nondistended. Positive bowel sounds. EXTREMITIES: There is no clubbing, cyanosis or edema. ASA Class: II DESCRIPTION OF PROCEDURE: After confirmation of informed consent, the patient's anesthesia plan was reviewed in detail. [Propofol] was chosen. Risks and benefits were reviewed and the patient agreed to proceed. At 11:28 AM, the patient was given [40 mg of propofol]. The patient achieved an appropriate level of sedation and received 1 attempt synchronized cardioversion, at [200 J respectively] by [Dr. Moodispaw] at the bedside. This was [successful] in achieving normal sinus rhythm. The patient was monitored until 11:38 AM, at which time the patient reached their baseline mental status and function. The patient tolerated the procedure well. COMPLICATIONS: None ESTIMATED BLOOD LOSS: None RECOMMENDATIONS: Okay to recover in usual fashion. Code Visit 9xxxx: Other Procedure See Report - 00442 -10 minutes conscious sedation
== END 2019-04-21 12:50 | disposition home or self-care (01) ==
PROVIDERS: Family Provider Family Medicine; PCP Family Medicine; Referring Provider Internal Medicine Cardiovascular Disease; Visit Provider Internal Medicine Cardiovascular Disease
DX: I48.19 Other persistent atrial fibrillation (principal); I25.10 Atherosclerotic heart disease of native coronary artery without angina pectoris; E78.2 Mixed hyperlipidemia; Z95.5 Presence of coronary angioplasty implant and graft; I12.9 Hypertensive chronic kidney disease with stage 1 through stage 4 chronic kidney disease, or unspecified chronic kidney disease; N18.3 Chronic kidney disease, stage 3 (moderate); E11.22 Type 2 diabetes mellitus with diabetic chronic kidney disease; G47.33 Obstructive sleep apnea (adult) (pediatric); I25.2 Old myocardial infarction; I48.0 Paroxysmal atrial fibrillation; K75.81 Nonalcoholic steatohepatitis (NASH); Z68.34 Body mass index [BMI] 34.0-34.9, adult; Z79.01 Long term (current) use of anticoagulants; Z79.84 Long term (current) use of oral hypoglycemic drugs; Z87.891 Personal history of nicotine dependence
CPT/HCPCS: 36415; 71046; 80048; 85610; 92960; 93005; J7040

== ENCOUNTER → 2019-06-26 08:52 | Outpatient (CLI) | payer MEDICARE, SELFPAY ==
[2019-05-17 15:47] VITALS: BMI 34.9
[2019-06-26 10:03] LABS: Absolute Lymphocyte Count 1.32 X10^3/uL (0.83-4.51); Absolute Neutrophil Count 3.6 X10^3/uL (2.0-7.7); Basophil# 0.04 X10^3/uL; Basophil% 0.7 % (0-1); Eosinophil# 0.24 X10^3/uL; Eosinophils% 4.2 % (0-5); Hematocrit 32.7 % (37-47); Hemoglobin 10.9 g/dL (12.0-15.0); Lymphocyte # 1.32 X10^3/ul (4.0); Lymphocyte % 22.9 % (19-41); Mean Corp Hgb Conc 33.3 g/dL (32-36); Mean Corpuscular Hgb 38.4 pg (27.0-32.0); Mean Corpuscular Volume 115.1 fL (81-99); Mean Platelet Vol. 11.5 fl (6.2-12.0); Monocyte# 0.53 X10^3/uL; Monocyte% 9.2 % (0-10); NRBC Flagged by Analyzer 0 % (0-5); Neutrophil % 62.5 % (47-70); Platelet Count 171 K/mm3 (150-450); RBC Distribution Width CV 12.9 % (11.6-14.6); RBC Distribution Width SD 53.3 fl (35.1-43.9); Red Blood Count 2.84 M/mm3 (4.2-5.4); White Blood Count 5.8 K/mm3 (4.4-11.0)
[2019-06-26 10:37] LABS: Vitamin D,25 Hydroxy 64.6 ng/mL
[2019-06-26 11:13] LABS: ALB/GLOB Ratio 0.7 RATIO (0.9-2.4); AST(SGOT) 124 U/L (15-37); Alanine Aminotransfer ALT/SGPT 82 U/L (13-56); Albumin, Serum 3.3 g/dL (3.2-5.0); Alkaline Phosphatase 68 U/L (45-117); Anion Gap 10 (5-15); BUN 21 mg/dL (7-18); BUN/Creat Ratio 17.8 RATIO (10-20); Calcium,Total 9.4 mg/dL (8.5-10.1); Chloride 104 mmol/L (98-107); Cholesterol 121 mg/dL (200); Creatinine, Serum 1.18 mg/dL (0.55-1.02); EST Glomerular Filtration Rate 48 mL/min (>60); Est Glom Filt Rate - Afr Amer 58 mL/min (>60); Globulin 4.8 g/dL (2.2-4.2); Glucose 221 mg/dL (74-106); High Density Lipoprotein 24 mg/dL; Magnesium 1.4 mg/dL (1.6-2.6); Potassium 4.5 mmol/L (3.5-5.1); Protein, Total 8.1 g/dL (6.4-8.2); Sodium Level 139 mmol/L (136-145); Triglycerides 259 mg/dL; Very Low Density Lipoprotein 52 mg/dL (5-40)
== END ==
PROVIDERS: PCP Family Medicine; Referring Provider Family Medicine; Visit Provider Family Medicine
DX: E55.9 Vitamin D deficiency, unspecified (principal); E83.42 Hypomagnesemia; E78.5 Hyperlipidemia, unspecified; I10 Essential (primary) hypertension; D64.9 Anemia, unspecified; E11.9 Type 2 diabetes mellitus without complications
CPT/HCPCS: 36415; 80053; 80061; 82306; 83036; 83735; 85025

== ENCOUNTER → 2019-09-25 08:35 | Outpatient (CLI) | payer MEDICARE, MEDICAID, SELFPAY ==
[2019-05-17 15:47] VITALS: BMI 34.9
[2019-09-25 10:00] LABS: Absolute Lymphocyte Count 1.22 X10^3/uL (0.83-4.51); Basophil# 0.03 X10^3/uL; Basophil% 0.6 % (0-1); Eosinophil# 0.26 X10^3/uL; Eosinophils% 5.1 % (0-5); Hematocrit 30.4 % (37-47); Hemoglobin 9.9 g/dL (12.0-15.0); Lymphocyte # 1.22 X10^3/ul (4.0); Lymphocyte % 24.1 % (19-41); Mean Corp Hgb Conc 32.6 g/dL (32-36); Mean Corpuscular Hgb 37.5 pg (27.0-32.0); Mean Corpuscular Volume 115.2 fL (81-99); Mean Platelet Vol. 11.1 fl (6.2-12.0); Monocyte# 0.52 X10^3/uL; Monocyte% 10.3 % (0-10); NRBC Flagged by Analyzer 0 % (0-5); Neutrophil # 3.02 X10^3/uL (2.7-7.7); Neutrophil % 59.5 % (47-70); Platelet Count 173 K/mm3 (150-450); RBC Distribution Width CV 13.2 % (11.6-14.6); RBC Distribution Width SD 55.1 fl (35.1-43.9); Red Blood Count 2.64 M/mm3 (4.2-5.4); White Blood Count 5.1 K/mm3 (4.4-11.0)
[2019-09-25 10:20] LABS: Hemoglobin A1c 6.7 % (3.8-5.6)
[2019-09-25 10:22] LABS: ALB/GLOB Ratio 0.7 RATIO (0.9-2.4); AST(SGOT) 65 U/L (15-37); Alanine Aminotransfer ALT/SGPT 55 U/L (13-56); Albumin, Serum 3.4 g/dL (3.2-5.0); Alkaline Phosphatase 55 U/L (45-117); Anion Gap 9 (5-15); BUN 27 mg/dL (7-18); BUN/Creat Ratio 21.4 RATIO (10-20); Calcium,Total 9.5 mg/dL (8.5-10.1); Chloride 103 mmol/L (98-107); Cholesterol 116 mg/dL (200); Creatinine, Serum 1.26 mg/dL (0.55-1.02); EST Glomerular Filtration Rate 44 mL/min (>60); Est Glom Filt Rate - Afr Amer 54 mL/min (>60); Globulin 4.9 g/dL (2.2-4.2); Glucose 175 mg/dL (74-106); High Density Lipoprotein 23 mg/dL; Magnesium 1.3 mg/dL (1.6-2.6); Potassium 4.5 mmol/L (3.5-5.1); Protein, Total 8.3 g/dL (6.4-8.2); Sodium Level 139 mmol/L (136-145); Triglycerides 198 mg/dL; Very Low Density Lipoprotein 40 mg/dL (5-40)
[2019-09-25 10:31] LABS: Microalbumin,Random Urine 46.4 mg/L (NO RANGE EST.); Microalbumin:Creatinine Ratio 28.6 mg/g CRE (<30 mg/g CRE); Protein, Urine (Random) 22.3 mg/dL (<11.9); Protein:Creat Ratio 138 mg/g CRE (0-200)
== END ==
PROVIDERS: PCP Family Medicine; Referring Provider Family Medicine; Visit Provider Family Medicine
DX: I12.9 Hypertensive chronic kidney disease with stage 1 through stage 4 chronic kidney disease, or unspecified chronic kidney disease (principal); N18.3 Chronic kidney disease, stage 3 (moderate); E11.22 Type 2 diabetes mellitus with diabetic chronic kidney disease; E78.5 Hyperlipidemia, unspecified; E83.42 Hypomagnesemia
CPT/HCPCS: 36415; 80053; 80061; 82043; 82570; 83036; 83735; 84156; 85025

== ENCOUNTER → 2019-11-28 09:35 | Outpatient (CLI) | payer MEDICARE, SELFPAY ==
[2019-11-24 15:11] VITALS: BMI 34.3
[2019-11-28 12:30] LABS: Absolute Lymphocyte Count 1.54 X10^3/uL (0.83-4.51); Absolute Neutrophil Count 4.6 X10^3/uL (2.0-7.7); Basophil# 0.04 X10^3/uL; Basophil% 0.6 % (0-1); Eosinophil# 0.27 X10^3/uL; Eosinophils% 3.8 % (0-5); Hematocrit 29.3 % (37-47); Hemoglobin 9.6 g/dL (12.0-15.0); Lymphocyte # 1.54 X10^3/ul (4.0); Lymphocyte % 21.7 % (19-41); Mean Corp Hgb Conc 32.8 g/dL (32-36); Mean Corpuscular Hgb 35.8 pg (27.0-32.0); Mean Corpuscular Volume 109.3 fL (81-99); Mean Platelet Vol. 11.5 fl (6.2-12.0); Monocyte# 0.64 X10^3/uL; NRBC Flagged by Analyzer 0 % (0-5); Neutrophil # 4.56 X10^3/uL (2.7-7.7); Neutrophil % 64.2 % (47-70); Platelet Count 208 K/mm3 (150-450); RBC Distribution Width CV 13.7 % (11.6-14.6); RBC Distribution Width SD 54.8 fl (35.1-43.9); Red Blood Count 2.68 M/mm3 (4.2-5.4); White Blood Count 7.1 K/mm3 (4.4-11.0)
[2019-11-28 12:48] LABS: Vitamin B12 343 pg/mL (211-911)
[2019-11-28 13:03] LABS: ALB/GLOB Ratio 0.7 RATIO (0.9-2.4); AST(SGOT) 72 U/L (15-37); Alanine Aminotransfer ALT/SGPT 65 U/L (13-56); Albumin, Serum 3.3 g/dL (3.2-5.0); Alkaline Phosphatase 60 U/L (45-117); Anion Gap 9 (5-15); BUN 22 mg/dL (7-18); BUN/Creat Ratio 16.3 RATIO (10-20); Calcium,Total 9.4 mg/dL (8.5-10.1); Chloride 103 mmol/L (98-107); Creatinine, Serum 1.35 mg/dL (0.55-1.02); EST Glomerular Filtration Rate 41 mL/min (>60); Est Glom Filt Rate - Afr Amer 49 mL/min (>60); Ferritin 31 ng/mL (8-252); Globulin 4.7 g/dL (2.2-4.2); Glucose 220 mg/dL (74-106); Magnesium 1.4 mg/dL (1.6-2.6); Potassium 4.3 mmol/L (3.5-5.1); Sodium Level 135 mmol/L (136-145)
== END ==
PROVIDERS: PCP Family Medicine; Referring Provider Family Medicine; Visit Provider Family Medicine
DX: R42 Dizziness and giddiness (principal); D64.9 Anemia, unspecified
CPT/HCPCS: 36415; 80053; 82607; 82728; 82746; 83735; 85025

== ENCOUNTER → 2019-12-29 08:31 | Outpatient (CLI) | payer MEDICARE, MEDICAID, SELFPAY ==
[2019-11-28 10:38] VITALS: BMI 34.7
[2019-12-29 10:16] LABS: Absolute Lymphocyte Count 1.29 X10^3/uL (0.83-4.51); Basophil# 0.03 X10^3/uL; Basophil% 0.5 % (0-1); Eosinophils% 3.3 % (0-5); Hematocrit 22.4 % (37-47); Hemoglobin 6.8 g/dL (12.0-15.0); Lymphocyte # 1.29 X10^3/ul (4.0); Lymphocyte % 21.1 % (19-41); Mean Corp Hgb Conc 30.4 g/dL (32-36); Mean Corpuscular Hgb 32.5 pg (27.0-32.0); Mean Corpuscular Volume 107.2 fL (81-99); Mean Platelet Vol. 11.4 fl (6.2-12.0); Monocyte# 0.59 X10^3/uL; Monocyte% 9.7 % (0-10); NRBC Flagged by Analyzer 0 % (0-5); Neutrophil # 3.96 X10^3/uL (2.7-7.7); Neutrophil % 64.9 % (47-70); Platelet Count 199 K/mm3 (150-450); RBC Distribution Width SD 57.9 fl (35.1-43.9); Red Blood Count 2.09 M/mm3 (4.2-5.4); White Blood Count 6.1 K/mm3 (4.4-11.0)
[2019-12-29 10:35] LABS: Hemoglobin A1c 8.4 % (3.8-5.6)
[2019-12-29 10:36] LABS: Vitamin D,25 Hydroxy 64.2 ng/mL
[2019-12-29 10:51] LABS: ALB/GLOB Ratio 0.7 RATIO (0.9-2.4); AST(SGOT) 83 U/L (15-37); Alanine Aminotransfer ALT/SGPT 52 U/L (13-56); Albumin, Serum 3.2 g/dL (3.2-5.0); Alkaline Phosphatase 63 U/L (45-117); Anion Gap 10 (5-15); BUN 22 mg/dL (7-18); BUN/Creat Ratio 17.9 RATIO (10-20); Calcium,Total 9.6 mg/dL (8.5-10.1); Chloride 102 mmol/L (98-107); Cholesterol 116 mg/dL (200); Creatinine, Serum 1.23 mg/dL (0.55-1.02); EST Glomerular Filtration Rate 45 mL/min (>60); Est Glom Filt Rate - Afr Amer 55 mL/min (>60); Globulin 4.7 g/dL (2.2-4.2); Glucose 269 mg/dL (74-106); High Density Lipoprotein 24 mg/dL; Magnesium 1.7 mg/dL (1.6-2.6); Potassium 4.4 mmol/L (3.5-5.1); Protein, Total 7.9 g/dL (6.4-8.2); Sodium Level 135 mmol/L (136-145); Triglycerides 201 mg/dL; Very Low Density Lipoprotein 40 mg/dL (5-40)
[2019-12-29 11:03] LABS: Microalbumin,Random Urine 38.9 mg/L (NO RANGE EST.); Microalbumin:Creatinine Ratio 32.1 mg/g CRE (<30 mg/g CRE); Protein, Urine (Random) 27.3 mg/dL (<11.9); Protein:Creat Ratio 226 mg/g CRE (0-200)
== END ==
PROVIDERS: PCP Family Medicine; Referring Provider Family Medicine; Visit Provider Family Medicine
DX: E11.9 Type 2 diabetes mellitus without complications (principal); N18.3 Chronic kidney disease, stage 3 (moderate); E78.5 Hyperlipidemia, unspecified; E55.9 Vitamin D deficiency, unspecified; I12.9 Hypertensive chronic kidney disease with stage 1 through stage 4 chronic kidney disease, or unspecified chronic kidney disease
CPT/HCPCS: 36415; 80053; 80061; 82043; 82306; 82570; 83036; 83735; 84156; 85025

== ENCOUNTER 2019-12-29 15:44 | Inpatient (IN) | payer MEDICARE, MEDICAID, SELFPAY ==
[2019-11-28 10:38] VITALS: BMI 34.7
[2019-12-29] VITALS (10 sets, daily range): BP systolic 135–183; BP diastolic 63–87; PULSE 78–102; RESP 16–20; TEMP 36.1–36.8; O2SAT 97–99; BMI 34.1
--- NOTE | 2019-12-29 16:11 | EKG12_ITS ---
Test Reason : ABNL LABS Blood Pressure : / mmHG Vent. Rate : 089 BPM Atrial Rate : 089 BPM P-R Int : 190 ms QRS Dur : 090 ms QT Int : 390 ms P-R-T Axes : 080 -31 034 degrees QTc Int : 474 ms Sinus rhythm with Premature atrial complexes Left axis deviation Pulmonary disease pattern Minimal voltage criteria for LVH, may be normal variant Septal infarct , age undetermined Abnormal ECG Confirmed by JESSICA MONTE, RANJANA ([id number]), assignment desk editor JARETT RAMIREZ ([id number]) on 01/01/2020 1:48:41 PM Referred By: EMMETT Confirmed By:RANJANA LOPEZ MD
--- NOTE | 2019-12-29 16:14 | ED.DCSUM_ITS ---
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 Patient had routine outpatient blood work done today which showed a hemoglobin of 6.3. Patient notes that she is been feeling lightheaded for the past week or so, had mild shortness of breath and has been having dark stools for the past week. States her symptoms are worse when she is moving around however she had she was feeling fine today. Patient does note that she gets mild intermittent pain in her mid epigastric area after eating for a while. She is on Eliquis because of a history of atrial fibrillation. She does take Advil approximately twice a week for headaches however. She has had multiple EGDs in the last month because of her neuroendocrine tumor. The most recent was 12/[address] Hall at [facility]. Patient also had a biopsy of her pancreas which was nondiagnostic. She was told that after having body scans she does not have any further tumor. Patient has no other complaints at this time. Past Medical History - Allergies and Home Meds Allergies/Adverse Reactions: Allergies adhesive Allergy (Verified 12/29/19 16:54) Rash fenofibrate nanocrystallized [From Tricor] Allergy (Verified 12/29/19 15:48) Rash fenofibrate,micronized [From Tricor] Allergy (Verified 12/29/19 15:48) Rash Iodinated Contrast Media [CONTRASTS] Allergy (Verified 12/29/19 16:55) Rash ramipril Allergy (Verified 12/29/19 15:48) Rash sertraline HCl [From Zoloft] Adverse Reaction (Verified 12/29/19 16:54) made me more depressed sulindac [From Clinoril] Adverse Reaction (Verified 12/29/19 16:54) PT UNSURE OF REACTION CARDIAC CATH DYE Allergy (Uncoded 12/29/19 15:48) Rash Past Medical History: - - Hypertension, coronary artery disease, atrial fibrillation, diverticular disease, 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 Surgical History: - - History of cholecystectomy and appendectomy, cardiac stents Smoking Status: Former smoker - Family History Maternal Family History: Family History (Last Reviewed 12/29/19 @ 19:[address] Bozena Nash DO) Mother CAD (coronary artery disease) Father CAD (coronary artery disease) Sister CAD (coronary artery disease) Brother Heart disease Brother Heart disease Brother Heart disease Family History: Reports: Unknown Review of Systems General: Reports: Malaise, - - lightheaded . Denies: Chills, Fever, Sweats Eyes: Denies: Visual changes - bilaterally, Diplopia ENT: Denies: Rhinorrhea, Sore throat Cardiovascular: Denies: Chest pain, Palpitations Respiratory: Reports: Dyspnea, Dyspnea on exertion. Denies: Cough, Orthopnea Gastrointestinal: Reports: Abdominal pain - epigastric, Melena. Denies: Nausea, Vomiting, Diarrhea, Hematochezia Genitourinary: Denies: Dysuria, Hematuria, Frequency Musculoskeletal: Denies: Back pain, Extremity Pain Skin: Denies: Rash, Wounds Neurological: Denies: Headache, Weakness, Numbness Physical Exam Vital Signs/Narrative: Vital Signs Temp Pulse Resp BP Pulse Ox 12/29/19 15:45 97.6 F L 102 H 20 H 135/68 H 98 Inital Vital Signs reviewed: Yes General: Well nourished, Well developed, No Acute Distress Head: Normocephalic, Atraumatic Eyes: Perrl, EOMI ENT: Moist mucous membranes, No rhinorrhea Neck: Supple, Nontender, No JVD Cardiovascular: Regular rate, Regular rhythm, No murmurs Respiratory: No distress, CTA bilaterally, Chest nontender Abdomen: Soft, Nontender, Nondistended, Normal bowel sounds Rectal: Guaiac positive, Nontender, - - External hemorrhoids with mild bleeding noted on rectal exam. No thrombosed hemorrhoids. Stool is light brown in color Back: Nontender, Normal Inspection. Negative for: CVA tenderness Extremities: Nontender, No edema Skin: No rash, Pallor - mild Neurological: Alert, Oriented x3, Cranial nerves II-XII grossly intact, Normal Strength, Normal Sensation Psychological: Normal affect, Normal Mood Diagnostic/Tx/Re-eval Laboratory Data 12/29/19 12/29/19 12/29/19 16:18 16:18 16:18 WBC 7.3 RBC 2.05 L Hgb 7.0 L Hct 21.9 L MCV 106.8 H MCH 34.1 H MCHC 32.0 D RDW Std Deviation 57.5 H RDW Coeff of Pina 14.9 H Plt Count 207 MPV 11.2 Immature Gran % (Auto) 1.000 H Neut % (Auto) 68.8 Lymph % (Auto) 18.2 L [place] % (Auto) 9.2 Eos % (Auto) 2.2 Baso % (Auto) 0.6 Absolute Neuts (auto) 5.0 Absolute Lymphs (auto) 1.32 Nucleated RBC % 0 PT INR Sodium 136 Potassium 4.1 Chloride 101 Carbon Dioxide 20.0 L Anion Gap 15 BUN 22 H Creatinine 1.47 H Estim Creat Clear Calc 33.15 Est GFR (MDRD) Af Amer 45 L Est GFR (MDRD) Non-Af 37 L BUN/Creatinine Ratio 15.0 Glucose 299 H Calcium 9.0 Total Bilirubin 0.50 AST 112 H ALT 59 H Alkaline Phosphatase 65 Troponin I < 0.015 B-Natriuretic Peptide Total Protein 7.8 Albumin 3.2 Globulin 4.6 H Albumin/Globulin Ratio 0.7 L Lipase 437 H Blood Type O NEGATIVE Antibody Screen NEGATIVE Crossmatch See Detail 12/29/19 12/29/19 12/29/19 16:18 16:18 16:18 WBC RBC Hgb Hct MCV MCH MCHC RDW Std Deviation RDW Coeff of Pina Plt Count MPV Immature Gran % (Auto) Neut % (Auto) Lymph % (Auto) [place] % (Auto) Eos % (Auto) Baso % (Auto) Absolute Neuts (auto) Absolute Lymphs (auto) Nucleated RBC % PT 16.6 H INR 1.4 Sodium Potassium Chloride Carbon Dioxide Anion Gap BUN Creatinine Estim Creat Clear Calc Est GFR (MDRD) Af Amer Est GFR (MDRD) Non-Af BUN/Creatinine Ratio Glucose Calcium Total Bilirubin AST ALT Alkaline Phosphatase Troponin I B-Natriuretic Peptide 90.7 Total Protein Albumin Globulin Albumin/Globulin Ratio Lipase Blood Type Antibody Screen Crossmatch See Detail - Rhythm Strip Rhythm Strip: Sinus Rhythm Rate: 89 Ectopy: PAC(s) - EKG Initial EKG Interpretation: Sinus Rhythm, - - Normal sinus rhythm with PACs at a rate of 89 Left axis deviation LVH with pulmonary disease pattern Normal ST segments - Medical Decision Making Patient evaluated for lightheadedness, shortness of breath and anemia. Patient's hemoglobin outpatient today was 6.8. Is repeated and is 7.0. She is hemodynamically stable in the emergency room. She states she has had some very dark stools the past few days however on rectal exam she has brown stool but does have a slight bleeding hemorrhoid. Given patient's symptomatology and the fact that she is on Eliquis, she will be admitted for further evaluation of her anemia as well as transfusion. She started on 1 unit of blood in the ER. Patient's BUN is normal which makes out upper GI bleed less likely. Her troponin and other cardiac work-up is largely negative. I suspect her lightheadedness and shortness of breath is associated with her anemia. She has had almost three-point drop in her hemoglobin in the last month. ED Disposition - Plan for ED Patient: Disposition: Acute Care [facility] Diagnosis: Anemia, CKD (chronic kidney disease) stage 3, GFR 30-59 ml/min, Paroxysmal atrial fibrillation, Chronic anticoagulation
[2019-12-29 16:34] LABS: Absolute Lymphocyte Count 1.32 X10^3/uL (0.83-4.51); Basophil# 0.04 X10^3/uL; Basophil% 0.6 % (0-1); Eosinophil# 0.16 X10^3/uL; Eosinophils% 2.2 % (0-5); Hematocrit 21.9 % (37-47); Lymphocyte # 1.32 X10^3/ul (4.0); Lymphocyte % 18.2 % (19-41); Mean Corpuscular Hgb 34.1 pg (27.0-32.0); Mean Corpuscular Volume 106.8 fL (81-99); Mean Platelet Vol. 11.2 fl (6.2-12.0); Monocyte# 0.67 X10^3/uL; Monocyte% 9.2 % (0-10); NRBC Flagged by Analyzer 0 % (0-5); Neutrophil # 5.01 X10^3/uL (2.7-7.7); Neutrophil % 68.8 % (47-70); Platelet Count 207 K/mm3 (150-450); RBC Distribution Width CV 14.9 % (11.6-14.6); RBC Distribution Width SD 57.5 fl (35.1-43.9); Red Blood Count 2.05 M/mm3 (4.2-5.4); White Blood Count 7.3 K/mm3 (4.4-11.0)
[2019-12-29 16:43] LABS: International Normalized Ratio 1.4; Prothrombin Time (Protime)PT. 16.6 SECONDS (11.7-14.9)
--- NOTE | 2019-12-29 17:16 | NURSING ---
DR DEBBIE CHRISTINE
[2019-12-29 17:18] LABS: BNP,B-Type NATRIURETIC PEPTIDE 90.7 pg/mL (0-100)
[2019-12-29 17:23] LABS: ALB/GLOB Ratio 0.7 RATIO (0.9-2.4); AST(SGOT) 112 U/L (15-37); Alanine Aminotransfer ALT/SGPT 59 U/L (13-56); Albumin, Serum 3.2 g/dL (3.2-5.0); Alkaline Phosphatase 65 U/L (45-117); Anion Gap 15 (5-15); BUN 22 mg/dL (7-18); Chloride 101 mmol/L (98-107); Creatinine, Serum 1.47 mg/dL (0.55-1.02); EST Glomerular Filtration Rate 37 mL/min (>60); Est Glom Filt Rate - Afr Amer 45 mL/min (>60); Estimated Creatinine Clearance 33.15 ml/min; Globulin 4.6 g/dL (2.2-4.2); Glucose 299 mg/dL (74-106); Lipase 437 U/L (73-393); Potassium 4.1 mmol/L (3.5-5.1); Protein, Total 7.8 g/dL (6.4-8.2); Sodium Level 136 mmol/L (136-145)
--- NOTE | 2019-12-29 17:27 | NURSING ---
PCU ANEMIA DEBBIE
[2019-12-29] MEDS: 0.9% Normal Saline 1,000 ML 50 ML IV (19:00)
--- NOTE | 2019-12-29 19:10 | HP.PCM_ITS ---
Problem List (1) Anemia Status: Acute (2) JEREMI (acute kidney injury) Status: Acute History of Present Illness Date of Admission: 12/29/19 The patient is a 74 year old F with a medical hx outlined in the assessment and plan who presented to the ED on 12/29/2019 because her doctor called her and told her to come in 2/2 anemia that showed up on routine blood work that was done today. Her CBC showed a hgb of 6.8 with a repeat of 7.0 today (baseline 9-11). She complained of some lightheadedness but was overall feeling like her normal self. She does states that her stool has been darker and sticky over the last few days and she admitted, when asked, to having some nausea this am x2 when she awoke. This however resolved and she was able to eat a normal breakfast and lunch. She states that she gets some intermittent epigastric pain after eating at times. She has had no emesis. She has had multiple EGD's recently as she was dx with an distal esophageal neuroendocrine tumor that was resected by Dr. Rock and that she had a pancreatic bx for what was though to be a mass but the pathology came back negative. PET scan showed no further concern for malignancy. She has also had a recent C-scope in which she was told her colon looked perfect. Her hgb in the ED was 7.0, her plts are WNL and the rest of her lab appears close to baseline for her. She does follow with Dr. De La Vega for chronic macrocytic anemia and tells me he has recommended a BMAB but she doesnt want to do it until COVID is over and she doesn't have to be tested again. She is on Eliquis at baseline for PAF. Past Medical History Past Medical History (Chronic Problems): Chronic Problems (Last Reviewed 12/29/19 @ 19:[address] Bozena Nash, ) Paroxysmal atrial fibrillation (Chronic) DCCV on 04/29/2018; Presence of stent in coronary artery (Chronic ~12/29/02) PCI/stent of the LAD 1995; PCI/MELISSA of the ostium RCA 12/29/02 CKD (chronic kidney disease) stage 3, GFR 30-59 ml/min (Chronic) Nonalcoholic steatohepatitis (PATRICK) (Chronic) Essential hypertension (Chronic) Mixed hyperlipidemia (Chronic) Persistent atrial fibrillation (Chronic) Atherosclerotic heart disease of [place] coronary artery without angina pectoris (Chronic) Medical History: Medical History (Last Reviewed 12/29/19 @ 19:[address] Bozena Nash, DO) Presence of stent in coronary artery (Chronic) Onset Date: ~12/29/02 Z95.5 PCI/stent of the LAD 1995; PCI/MELISSA of the ostium RCA 12/29/02 CKD (chronic kidney disease) stage 3, GFR 30-59 ml/min (Chronic) N18.3 Nonalcoholic steatohepatitis (PATRICK) (Chronic) K75.81 Essential hypertension (Chronic) I10 Mixed hyperlipidemia (Chronic) E78.2 Acute myocardial infarction (Acute) I21.9 Persistent atrial fibrillation (Chronic) I48.1 Atherosclerotic heart disease of [place] coronary artery without angina pectoris (Chronic) I25.10 Vertigo R42 Diverticulosis K57.90 Hepatic cirrhosis K74.60 Neuroendocrine carcinoma C7A.8 lower esophagus History of cardioversion Onset Date: ~04/21/19 Z98.890 Allergies adhesive Allergy (Verified 12/29/19 16:54) Rash fenofibrate nanocrystallized [From Tricor] Allergy (Verified 12/29/19 15:48) Rash fenofibrate,micronized [From Tricor] Allergy (Verified 12/29/19 15:48) Rash Iodinated Contrast Media [CONTRASTS] Allergy (Verified 12/29/19 16:55) Rash ramipril Allergy (Verified 12/29/19 15:48) Rash sertraline HCl [From Zoloft] Adverse Reaction (Verified 12/29/19 16:54) made me more depressed sulindac [From Clinoril] Adverse Reaction (Verified 12/29/19 16:54) PT UNSURE OF REACTION CARDIAC CATH DYE Allergy (Uncoded 12/29/19 15:48) Rash Home Medications: Ambulatory Orders Medication Instructions Recorded Albuterol IH (ProAir) [Proair Hfa 2 puff INHALATION Q6H PRN PRN 10/25/17 (SP)Vent Pts] glimepiride 4 mg tablet 4 mg PO BID tab 05/10/18 losartan 25 mg tablet 25 mg PO DAILY 05/10/18 metformin 1,000 mg tablet 1,000 mg PO BID 05/10/18 nitroglycerin 0.4 mg sublingual 0.4 mg SUBLINGUAL Q5-15M PRN 05/10/18 tablet cholecalciferol (vitamin D3) 125 5,000 unit PO DAILY 07/22/18 mcg (5,000 unit) tablet dulaglutide 0.75 mg/0.5 mL 0.75 mg SC MO 04/07/19 subcutaneous pen injector magnesium oxide 400 mg (241.3 mg 400 mg PO BID 04/07/19 magnesium) tablet pravastatin 40 mg tablet 40 mg PO QHS 04/07/19 furosemide 20 mg tablet 20 mg PO DAILY tab 05/17/19 metoprolol succinate 25 mg 25 mg PO DAILY 11/24/19 tablet,extended release 24 hr Apixaban [Eliquis] 5 mg PO BID 12/29/19 Pantoprazole Sodium [Protonix] 40 mg PO DAILY 12/29/19 Surgical History: Surgical History (Last Reviewed 12/29/19 @ 19:[address] 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 Bozena Nash DO) Mother CAD (coronary artery disease) Father CAD (coronary artery disease) Sister CAD (coronary artery disease) Brother Heart disease Brother Heart disease Brother Heart disease History Items: Unknown Review of Systems Constitutional: Reports: Weakness, Fatigue. Denies: Anorexia, Chills, Fever, Night Sweats, Malaise, Weight Change Eyes: Denies: Blurred vision, Cataracts, Conjunctivae Inflammation, Double vision, Drainage, Eyelid Inflammation, Pain, Redness, Vision Change HEENT: Denies: Difficulty Hearing, Difficulty Swallowing, Head Aches, Nasal bleeding, Nasal Congestion, Post Nasal Drip, Sinus Congestion, Sinus Drainage, Sore Throat, Visual Changes Cardiovascular: Denies: Chest Pain, Claudication, Chest Pressure, Chest Tightness, Edema, Heaviness, Light Headedness, Orthopnea, Palpitations, Paroxysmal Noc. Dyspnea, Syncope Respiratory: Denies: Cough, Hemoptysis, Pleuritic Pain, Shortness of Breath, Shortness of breath at rest, Shortness of breath upon exertion, Sputum production, Wheezing Gastrointestinal: Reports: Melena. Denies: Abdominal Pain, Constipation, Diarrhea, Dyspepsia, Hematemesis, Hematochezia, Nausea, Vomiting Genitourinary: Denies: Dysuria, Frequency, Hematuria, Hesitancy, Incontinence, Nocturia, Retention Musculoskeletal: Denies: Back Pain, Joint Pain, Joint stiffness, Joint swelling, Joint Tenderness, Leg Pain, Muscle pain, Neck Pain, Shoulder Pain Skin: Denies: Dryness, Jaundice, Lesions, Pruritis, Rash, Skin Changes, Wounds Neurological: Denies: Balance problems, Blurred vision, Double vision, Change in Speech, Slurred speech, Confusion, Difficulty swallowing, Focal weakness, Headaches, Incoordination, Numbness, Tingling, Tremor, Seizures Psychiatric: Denies: Anxiety, Depression Endocrine: Denies: Heat/ Cold Intolerance, Polydipsia, Polyuria Hematologic/ Lymphatic: Reports: Anemia, Hx of blood transfusion. Denies: Adenopathy, Easy Bruising, Easy Bleeding, Petechiae, Purpura VTE Information - Inpt Only VTE Present on Admission: No VTE Mechan Device Prophylaxis: None VTE Pharm Prophylaxis ordered?: No Reason prophylaxis not ordered:: Treatment Not Indicated - anemia Patient Problems: Active and Suspected Problems (Last Reviewed 12/29/19 @ 19:[address] Bozena Nash, DO) Anemia (Acute) JEREMI (acute kidney injury) (Acute) - Physical Exam Vitals/I&O's: Vital Signs Temp Pulse Resp BP Pulse Ox 98 F 84 16 142/74 H 97 12/29/19 18:30 12/29/19 18:37 12/29/19 18:30 12/29/19 18:30 12/29/19 18:30 Oxygen Delivery Method Room Air Weight: 98.792 kg Body Mass Index (BMI) 34.1 Intake and Output for Last 24 Hours 12/27/19 12/28/19 12/29/19 23:59 23:59 23:59 Intake Total 35 / 35 Balance General: Alert, Oriented x3, Cooperative, No apparent distress, Well developed, Well nourished, - - older WF lying in bed, appears comfortable, nontoxic and friend at bedside HEENT: Atraumatic, PERRLA, EOMI, Normocephalic, EAC Clear Oral: Moist Mucosa, No Gingival or Mucosal Lesions/ Ulcerations, - - dentures in place Neck: Supple, No JVD, Negative Carotid Bruits, Negative Hepatojugular Reflux, No Nodes, Trachea Midline, Thyroid Normal Size and Texture, Carotid Bruit, Left Lungs: Clear to auscultation, No rhonchi, No wheeze, No rales, Diminished - diffusely Cardiovascular: Regular rate, Normal S1, Normal S2, No murmurs, No Ectopic Ac tivity, - - irreg rhythm Abdomen: Bowel Sounds Present, Soft, Non Tender, Non-Distended, No Hepato- splenomegaly, No hernias noted Extremities: No clubbing, No cyanosis, No edema Skin: No rashes, No breakdown Musculoskeletal: No Tenderness to Palpation of Joints or Extremities, No Muscle Wasting, Arthritic Changes Lymphatic: No Cervical, Supraclavicular, or Inguinal Adenopathy Neurological: Cranial nerves II-XII grossly intact, Deep Tendon Reflexes 2+/4 and Symmetrical, Neuro grossly intact, Motor Exam 5/5 strength throughout, Muscle tone normal, Sensory exam intact to light touch and pain, Coordination normal Psych/Mental Status: Normal Affect, Appropriate, Alert and oriented to time, place, person, mood and affect Microbiology Past 72 Hours 12/29/19 17:10 Stool Stool Occult Blood (KEV) - Final Occult Blood Positive Laboratory Results 12/29/19 16:18: WBC 7.3, RBC 2.05 L, Hgb 7.0 L, Hct 21.9 L, MCV 106.8 H, MCH 34.1 H, MCHC 32.0 D, RDW Std Deviation 57.5 H, RDW Coeff of Pina 14.9 H, Plt Count 207, MPV 11.2, Immature Gran % (Auto) 1.000 H, Neut % (Auto) 68.8, Lymph % (Auto) 18.2 L, [place] % (Auto) 9.2, Eos % (Auto) 2.2, Baso % (Auto) 0.6, Absolute Neuts (auto) 5.0, Absolute Lymphs (auto) 1.32, Nucleated RBC % 0 12/29/19 16:18: Sodium 136, Potassium 4.1, Chloride 101, Carbon Dioxide 20.0 L, Anion Gap 15, BUN 22 H, Creatinine 1.47 H, Estim Creat Clear Calc 33.15, Est GFR (MDRD) Af Amer 45 L, Est GFR (MDRD) Non-Af 37 L, BUN/Creatinine Ratio 15.0, Glucose 299 H, Calcium 9.0, Total Bilirubin 0.50, AST 112 H, ALT 59 H, Alkaline Phosphatase 65, Troponin I < 0.015, Total Protein 7.8, Albumin 3.2, Globulin 4.6 H, Albumin/Globulin Ratio 0.7 L, Lipase 437 H 12/29/19 16:18: Blood Type O NEGATIVE, Antibody Screen NEGATIVE, Crossmatch See Detail 12/29/19 16:18: PT 16.6 H, INR 1.4 12/29/19 16:18: B-Natriuretic Peptide 90.7 12/29/19 16:18: Crossmatch See Detail Current Medications Acetaminophen (Tylenol) 650 mg PO Q6H PRN PRN PRN Reason: Pain Score 1-10/Temp > 100.7 F Albuterol Sulfate (Ventolin Aerosols) 2.5 mg INHALATION Q6H PRN PRN PRN Reason: SOB &/OR WHEEZING Cholecalciferol (Vitamin D (25mcg)) 5,000 unit PO DAILY [facility] Furosemide (Lasix) 20 mg PO DAILY [facility] Sodium Chloride () 1,000 mls @ 50 mls/hr IV .Q20H ADDY Last Admin: 12/29/19 19:00 Dose: 50 mls/hr Documented by: Pantoprazole Sodium 40 mg/ (Sodium Chloride) 110 mls @ 330 mls/hr IV Q12 [facility] Influenza Virus Vaccine Quadrival (Flucelvax /Fluzone ) 0.5 ml IM .ONCE ONE Stop: 12/30/19 10:01 Insulin Human Lispro (Humalog Kwikpen (Bkc)) 0 unit SC TIDAC ADDY; Protocol Losartan Potassium (Cozaar) 25 mg PO DAILY [facility] Metoprolol Succinate (Toprol Xl (Beta Dennis)) 25 mg PO DAILY [facility] Pravastatin Sodium (Pravachol) 40 mg PO QHS ADDY Sodium Chloride () 10 - 40 ml IV UD PRN PRN Reason: SALINE FLUSH Assessment/Plan All Active Problems (Last Reviewed 12/29/19 @ 19:[address] Bozena Nash, DO) Anemia (Acute) JEREMI (acute kidney injury) (Acute) Acute myocardial infarction (Acute) Acute on Chronic Macrocytic Anemia -transfuse 1 unit -trend hgb -check Hemoccult with dark stools -had recent EGD and C-Scope that were unremarkable -case d/w Dr. Black by the ED and states that is she was not actively bleeding she could f/u as out pt -pt has seen Dr. De La Vega for her chronic Macrocytic anemia and he has pushed for a BMAB but she has refused until COVID is over because she does not want another test -will give PPI IV BID for now with recent surgery and h/o neuroendocrine surgery -hold NOAC for now JEREMI on CKD stage 3 -mild sCr elevation -will get blood today and recheck in am DM-2 Uncontrolled -pt states that her BGT have been elevated more lately -? related to recent pancreatic bx -on trulicity at home with glimepiride and metformin -hold oral agents form now and use SSI -Carb controlled diet CAD with h/o PCI 1992 and 2002/HTN/HPL -currently not on any Antiplt therapy at baseline -continue statin -continue lasix, losartan and metoprolol -sees Dr. Singh PAF -curently in Afib but rate is controlled -on NOAC at baseline -hold for now until guaiac back or noted stability of hgb -has had DCC in past Lower Esophageal Neuroendocrine Carcinoma -had surgery done by Dr. Rock recently with pancreatic bx to follow and has had a surgical cure -f/u with Dr. Rock as instructed PATRICK -control risk factors H/O vertigo -monitor COPD -prn inhalers DVT prophylaxis -SCD's Code status -Full Inpatient E&M: 67140 Init Hosp L3
[2019-12-29] MEDS: Pravastatin 40 MG Tablet PO (20:35)
[2019-12-29] MEDS: 0.9% Saline Lock 10 ML Syringe IV (22:04)
[2019-12-29] MEDS: Labetalol (Prefilled) 20 MG/4 ML 10 MG IV (22:05)
[2019-12-30] VITALS (16 sets, daily range): BP systolic 112–166; BP diastolic 62–94; PULSE 70–89; RESP 14–18; TEMP 36.4–36.8; O2SAT 96–98
[2019-12-30 02:19] LABS: Hematocrit 23.1 % (37-47); Hemoglobin 7.2 g/dL (12.0-15.0)
[2019-12-30] MEDS: Insulin Lispro 100 UNIT/ML INSULN.PEN SC ×3 (06:45→17:13)
[2019-12-30 06:50] LABS: Bedside Glucose 224 mg/dL (70-110)
[2019-12-30 06:50] LABS: Absolute Lymphocyte Count 1.31 X10^3/uL (0.83-4.51); Absolute Neutrophil Count 3.4 X10^3/uL (2.0-7.7); Basophil# 0.03 X10^3/uL; Basophil% 0.5 % (0-1); Eosinophil# 0.17 X10^3/uL; Eosinophils% 3.1 % (0-5); Hematocrit 22.2 % (37-47); Lymphocyte # 1.31 X10^3/ul (4.0); Lymphocyte % 23.9 % (19-41); Mean Corp Hgb Conc 31.5 g/dL (32-36); Mean Corpuscular Hgb 31.8 pg (27.0-32.0); Mean Corpuscular Volume 100.9 fL (81-99); Mean Platelet Vol. 11.7 fl (6.2-12.0); Monocyte# 0.54 X10^3/uL; Monocyte% 9.8 % (0-10); NRBC Flagged by Analyzer 0 % (0-5); Neutrophil # 3.39 X10^3/uL (2.7-7.7); Neutrophil % 61.8 % (47-70); POSITIVE MORPHOLOGY YES; Platelet Count 165 K/mm3 (150-450); RBC Distribution Width CV 19.4 % (11.6-14.6); RBC Distribution Width SD 72.2 fl (35.1-43.9); White Blood Count 5.5 K/mm3 (4.4-11.0)
[2019-12-30 07:07] LABS: Anion Gap 9 (5-15); BUN 20 mg/dL (7-18); BUN/Creat Ratio 17.4 RATIO (10-20); Chloride 106 mmol/L (98-107); Creatinine, Serum 1.15 mg/dL (0.55-1.02); EST Glomerular Filtration Rate 49 mL/min (>60); Est Glom Filt Rate - Afr Amer 59 mL/min (>60); Estimated Creatinine Clearance 42.37 ml/min; Glucose 239 mg/dL (74-106); Potassium 3.9 mmol/L (3.5-5.1); Sodium Level 138 mmol/L (136-145)
[2019-12-30 07:09] LABS: Differential Comment SCANNED; Differential Indicated SCAN CRITERIA MET
[2019-12-30 07:11] LABS: Anisocytosis 1+; Macrocytosis 1+
[2019-12-30 07:12] LABS: Hypochromasia RARE; Schistocytes RARE; Tear Drop Cell RARE
--- NOTE | 2019-12-30 09:06 | CASEMGMT ---
RN CM Assessment Note Intro role of CM to patient in room. The patient is awake, alert and able to participate in assessment. Patient states she has no care needs, is independent. Presentation: anemia noted @ doctors office Diagnosis: anemia, JEREMI PCP: Dr. Sumit Winter Specialists: Dr. De La Vega, oncologist; Dr. Cooley, Surgeon Insurance: [employer] Preferred [facility]acy: [facility] Prescription Benefit: yes LNOK: Daughters, Calli Modi and Kim Grace Living Arrangements: Lives in apartment, no stairs into apartment. Patient states she is independent, no care needs. Tranportation: patient drives, however states her daughter drives now as she has had dizziness over past few months. DME: has walker and cane, does not use. HHC: none SNF: none Patient DC Goals: Home DC Plan: Home. CM available for discharge planning coordination. Contact CM for any concerns/needs that may arise. Lico IZAGUIRREN RN ACM
[2019-12-30] MEDS: Losartan Potassium 25 MG Tablet PO (10:07)
[2019-12-30] MEDS: Furosemide 20 MG Tablet PO (10:07)
[2019-12-30] MEDS: Metoprolol(XL)Succ 25 MG Tablet PO (10:07)
[2019-12-30 12:40] LABS: Bedside Glucose 345 mg/dL (70-110)
--- NOTE | 2019-12-30 13:32 | PCM.PN.HOSP ---
<Mitch Ray - Last Filed: 12/30/19 13:32> Patient Problems: Active and Suspected Problems (Last Reviewed 12/29/19 @ 19:[address] Bozena Nash DO) Anemia (Acute) JEREMI (acute kidney injury) (Acute) Chronic anticoagulation (Acute) Reason for Visit: Anemia Subjective: Pt notes improvement in her lightheadedness and tolerance of ambulation. She is concerned about going home too soon as she is home alone. She has no SOB at rest. She has no CP. No fever/chills. No abdominal pain. Vitals/I&O's: Vital Signs Temp Pulse Resp BP Pulse Ox 97.7 F L 88 16 118/74 96 12/30/19 13:05 12/30/19 13:05 12/30/19 13:05 12/30/19 13:05 12/30/19 13:05 Oxygen Delivery Method Room Air Weight: 217 lb 12.8 oz Body Mass Index (BMI) 34.1 Intake and Output for Last 24 Hours 12/28/19 12/29/19 12/30/19 23:59 23:59 23:59 Intake Total 620.83 / 620.83 1538.33 / 1538.33 Balance 620.83 / 620.83 1538.33 / 1538.33 General: Alert, Oriented x3, Cooperative HEENT: Atraumatic, PERRLA, EOMI, Normocephalic Neck: Supple, No JVD, Negative Carotid Bruits Lungs: Clear to auscultation, Normal air movement Cardiovascular: Regular rate, No murmurs Abdomen: Bowel Sounds Present, Soft, Non Tender Extremities: No edema, Capillary Refill Less than 3 Seconds Skin: No rashes, No breakdown Musculoskeletal: No Tenderness to Palpation of Joints or Extremities Neurological: Cranial nerves II-XII grossly intact Psych/Mental Status: Normal Affect, Appropriate, Alert and oriented to time, place, person, mood and affect Microbiology Past 72 Hours 12/29/19 17:10 Stool Stool Occult Blood (KEV) - Final Occult Blood Positive Laboratory Results 12/29/19 16:18: WBC 7.3, RBC 2.05 L, Hgb 7.0 L, Hct 21.9 L, MCV 106.8 H, MCH 34.1 H, MCHC 32.0 D, RDW Std Deviation 57.5 H, RDW Coeff of Pina 14.9 H, Plt Count 207, MPV 11.2, Immature Gran % (Auto) 1.000 H, Neut % (Auto) 68.8, Lymph % (Auto) 18.2 L, [place] % (Auto) 9.2, Eos % (Auto) 2.2, Baso % (Auto) 0.6, Absolute Neuts (auto) 5.0, Absolute Lymphs (auto) 1.32, Nucleated RBC % 0 12/29/19 16:18: Sodium 136, Potassium 4.1, Chloride 101, Carbon Dioxide 20.0 L, Anion Gap 15, BUN 22 H, Creatinine 1.47 H, Estim Creat Clear Calc 33.15, Est GFR (MDRD) Af Amer 45 L, Est GFR (MDRD) Non-Af 37 L, BUN/Creatinine Ratio 15.0, Glucose 299 H, Calcium 9.0, Total Bilirubin 0.50, AST 112 H, ALT 59 H, Alkaline Phosphatase 65, Troponin I < 0.015, Total Protein 7.8, Albumin 3.2, Globulin 4.6 H, Albumin/Globulin Ratio 0.7 L, Lipase 437 H 12/29/19 16:18: Blood Type O NEGATIVE, Antibody Screen NEGATIVE, Crossmatch See Detail 12/29/19 16:18: PT 16.6 H, INR 1.4 12/29/19 16:18: B-Natriuretic Peptide 90.7 12/29/19 16:18: Crossmatch See Detail 12/30/19 02:13: Hgb 7.2 L, Hct 23.1 L 12/30/19 05:35: WBC 5.5, RBC 2.20 L, Hgb 7.0 L, Hct 22.2 L, MCV 100.9 H D, MCH 31.8, MCHC 31.5 L, RDW Std Deviation 72.2 H, RDW Coeff of Pina 19.4 H, Plt Count 165, MPV 11.7, Immature Gran % (Auto) 0.900, Neut % (Auto) 61.8, Lymph % (Auto) 23.9, [place] % (Auto) 9.8, Eos % (Auto) 3.1, Baso % (Auto) 0.5, Absolute Neuts (auto) 3.4, Absolute Lymphs (auto) 1.31, Nucleated RBC % 0, Differential Comment SCANNED, Hypochromasia RARE, Anisocytosis 1+, Macrocytosis 1+, Tear Drop Cells RARE, Schistocytes RARE 12/30/19 05:35: Sodium 138, Potassium 3.9, Chloride 106, Carbon Dioxide 23.0, Anion Gap 9, BUN 20 H, Creatinine 1.15 H, Estim Creat Clear Calc 42.37, Est GFR (MDRD) Af Amer 59 L, Est GFR (MDRD) Non-Af 49 L, BUN/Creatinine Ratio 17.4, Glucose 239 H, Calcium 9.0 12/30/19 06:40: POC Glucose 224 H 12/30/19 11:35: POC Glucose 345 H Current Medications Acetaminophen (Tylenol) 650 mg PO Q6H PRN PRN PRN Reason: Pain Score 1-10/Temp > 100.7 F Albuterol Sulfate (Ventolin Aerosols) 2.5 mg INHALATION Q6H PRN PRN PRN Reason: SOB &/OR WHEEZING Cholecalciferol (Vitamin D (25mcg)) 5,000 unit PO DAILY [facility] Last Admin: 12/30/19 10:07 Dose: 5,000 unit Documented by: Furosemide (Lasix) 20 mg PO DAILY [facility] Last Admin: 12/30/19 10:07 Dose: 20 mg Documented by: Sodium Chloride () 1,000 mls @ 50 mls/hr IV .Q20H [facility] Last Infusion: 12/30/19 10:17 Dose: 0 mls/hr Documented by: Pantoprazole Sodium 40 mg/ (Sodium Chloride) 110 mls @ 330 mls/hr IV Q12 [facility] Last Infusion: 12/29/19 23:55 Dose: Infused Documented by: Insulin Human Lispro (Humalog Kwikpen (Bkc)) 0 unit SC TIDAC [facility]; Protocol Last Admin: 12/30/19 11:40 Dose: 5 u Documented by: Labetalol HCl (Trandate) 10 mg IV Q6H PRN PRN PRN Reason: SBP > 160 OR DBP > 120 Last Admin: 12/29/19 22:05 Dose: 10 mg Documented by: Losartan Potassium (Cozaar) 25 mg PO DAILY [facility] Last Admin: 12/30/19 10:07 Dose: 25 mg Documented by: Metoprolol Succinate (Toprol Xl (Beta Dennis)) 25 mg PO DAILY [facility] Last Admin: 12/30/19 10:07 Dose: 25 mg Documented by: Pravastatin Sodium (Pravachol) 40 mg PO QHS [facility] Last Admin: 12/29/19 20:35 Dose: 40 mg Documented by: Sodium Chloride () 10 - 40 ml IV UD PRN PRN Reason: SALINE FLUSH Last Admin: 12/29/19 22:04 Dose: 20 ml Documented by: STROKE Vital Signs/Narrative: Vital Signs Temp Pulse Resp BP Pulse Ox 12/30/19 13:05 97.7 F L 88 16 118/74 96 12/30/19 12:35 98.2 F 81 16 136/84 H 96 12/30/19 11:35 97.6 F L 75 15 149/81 H 97 12/30/19 10:32 97.8 F 81 18 166/82 H 98 12/30/19 10:07 75 12/30/19 10:05 98 F 75 16 126/68 H 98 Medical Necessity - Tobacco Use Smoking Status: Former smoker Tobacco Use: Cigarettes Assessment/Plan All Active Problems (Last Reviewed 12/29/19 @ 19:[address] Bozena Nash, DO) Anemia (Acute) JEREMI (acute kidney injury) (Acute) Chronic anticoagulation (Acute) Acute myocardial infarction (Acute) 1. Acute on chronic macrocytic anemia 2/2 occult GI blood - she has had extensive endoscopy done in the past and general surgery wants her to follow up as an outpatient for consideration of further studies. The patient follows Dr. De La Vega and has been told she needs a bone marrow biopsy which she has been reluctant to have done - after much discussion this admission with providers and her family she is now agreeable and will need close follow up with Dr. De La Vega to arrange this. Pt with good sympomatic improvement. She has been transfused with 2 units prbc. She is receiving IV protonix and is on this (PO) at home as well.Will keep overnight and recheck H/H. b12 / folate recently normal. Platelets are normal. 2. Hx Neuroendocrine tumor - follow up with Dr. De La Vega 3. pAfib - eliquis held for above. 4. JEREMI on CKDIII - improved. metformin held. 5. CAD - prior stent. continue losartan, metoprolol, statin 6. hx PATRICK - AST/ALT mildly elevated. Platelets normal. 7. COPD - no exacerbation - prn aerosols 8. DMt2 - SSI DVT ppx: SCDs DC planning - home if Hgb stable in AM This patient was seen by Mitch Ray PA-C under the supervision of Doctor Deejay. <Miguel A Villalba F - Last Filed: 12/30/19 13:58> Vitals/I&O's: Vital Signs Temp Pulse Resp BP Pulse Ox 97.7 F L 89 16 122/79 H 97 12/30/19 13:44 12/30/19 13:44 12/30/19 13:44 12/30/19 13:44 12/30/19 13:44 Oxygen Delivery Method Room Air Weight: 217 lb 12.8 oz Body Mass Index (BMI) 34.1 Intake and Output for Last 24 Hours 12/28/19 12/29/19 12/30/19 23:59 23:59 23:59 Intake Total 620.83 / 620.83 1538.33 / 1538.33 Balance 620.83 / 620.83 1538.33 / 1538.33 Microbiology Past 72 Hours 12/29/19 17:10 Stool Stool Occult Blood (KEV) - Final Occult Blood Positive Laboratory Results 12/29/19 16:18: WBC 7.3, RBC 2.05 L, Hgb 7.0 L, Hct 21.9 L, MCV 106.8 H, MCH 34.1 H, MCHC 32.0 D, RDW Std Deviation 57.5 H, RDW Coeff of Pina 14.9 H, Plt Count 207, MPV 11.2, Immature Gran % (Auto) 1.000 H, Neut % (Auto) 68.8, Lymph % (Auto) 18.2 L, [place] % (Auto) 9.2, Eos % (Auto) 2.2, Baso % (Auto) 0.6, Absolute Neuts (auto) 5.0, Absolute Lymphs (auto) 1.32, Nucleated RBC % 0 12/29/19 16:18: Sodium 136, Potassium 4.1, Chloride 101, Carbon Dioxide 20.0 L, Anion Gap 15, BUN 22 H, Creatinine 1.47 H, Estim Creat Clear Calc 33.15, Est GFR (MDRD) Af Amer 45 L, Est GFR (MDRD) Non-Af 37 L, BUN/Creatinine Ratio 15.0, Glucose 299 H, Calcium 9.0, Total Bilirubin 0.50, AST 112 H, ALT 59 H, Alkaline Phosphatase 65, Troponin I < 0.015, Total Protein 7.8, Albumin 3.2, Globulin 4.6 H, Albumin/Globulin Ratio 0.7 L, Lipase 437 H 12/29/19 16:18: Blood Type O NEGATIVE, Antibody Screen NEGATIVE, Crossmatch See Detail 12/29/19 16:18: PT 16.6 H, INR 1.4 12/29/19 16:18: B-Natriuretic Peptide 90.7 12/29/19 16:18: Crossmatch See Detail 12/30/19 02:13: Hgb 7.2 L, Hct 23.1 L 12/30/19 05:35: WBC 5.5, RBC 2.20 L, Hgb 7.0 L, Hct 22.2 L, MCV 100.9 H D, MCH 31.8, MCHC 31.5 L, RDW Std Deviation 72.2 H, RDW Coeff of Pina 19.4 H, Plt Count 165, MPV 11.7, Immature Gran % (Auto) 0.900, Neut % (Auto) 61.8, Lymph % (Auto) 23.9, [place] % (Auto) 9.8, Eos % (Auto) 3.1, Baso % (Auto) 0.5, Absolute Neuts (auto) 3.4, Absolute Lymphs (auto) 1.31, Nucleated RBC % 0, Differential Comment SCANNED, Hypochromasia RARE, Anisocytosis 1+, Macrocytosis 1+, Tear Drop Cells RARE, Schistocytes RARE 12/30/19 05:35: Sodium 138, Potassium 3.9, Chloride 106, Carbon Dioxide 23.0, Anion Gap 9, BUN 20 H, Creatinine 1.15 H, Estim Creat Clear Calc 42.37, Est GFR (MDRD) Af Amer 59 L, Est GFR (MDRD) Non-Af 49 L, BUN/Creatinine Ratio 17.4, Glucose 239 H, Calcium 9.0 12/30/19 06:40: POC Glucose 224 H 12/30/19 11:35: POC Glucose 345 H Current Medications Acetaminophen (Tylenol) 650 mg PO Q6H PRN PRN PRN Reason: Pain Score 1-10/Temp > 100.7 F Albuterol Sulfate (Ventolin Aerosols) 2.5 mg INHALATION Q6H PRN PRN PRN Reason: SOB &/OR WHEEZING Cholecalciferol (Vitamin D (25mcg)) 5,000 unit PO DAILY [facility] Last Admin: 12/30/19 10:07 Dose: 5,000 unit Documented by: Furosemide (Lasix) 20 mg PO DAILY [facility] Last Admin: 12/30/19 10:07 Dose: 20 mg Documented by: Sodium Chloride () 1,000 mls @ 50 mls/hr IV .Q20H [facility] Last Infusion: 12/30/19 10:17 Dose: 0 mls/hr Documented by: Pantoprazole Sodium 40 mg/ (Sodium Chloride) 110 mls @ 330 mls/hr IV Q12 [facility] Last Infusion: 12/29/19 23:55 Dose: Infused Documented by: Insulin Human Lispro (Humalog Kwikpen (Bkc)) 0 unit SC TIDAC [facility]; Protocol Last Admin: 12/30/19 11:40 Dose: 5 u Documented by: Labetalol HCl (Trandate) 10 mg IV Q6H PRN PRN PRN Reason: SBP > 160 OR DBP > 120 Last Admin: 12/29/19 22:05 Dose: 10 mg Documented by: Losartan Potassium (Cozaar) 25 mg PO DAILY [facility] Last Admin: 12/30/19 10:07 Dose: 25 mg Documented by: Metoprolol Succinate (Toprol Xl (Beta Dennis)) 25 mg PO DAILY [facility] Last Admin: 12/30/19 10:07 Dose: 25 mg Documented by: Pravastatin Sodium (Pravachol) 40 mg PO QHS [facility] Last Admin: 12/29/19 20:35 Dose: 40 mg Documented by: Sodium Chloride () 10 - 40 ml IV UD PRN PRN Reason: SALINE FLUSH Last Admin: 12/29/19 22:04 Dose: 20 ml Documented by: STROKE Vital Signs/Narrative: Vital Signs Temp Pulse Resp BP Pulse Ox 12/30/19 13:44 97.7 F L 89 16 122/79 H 97 12/30/19 13:05 97.7 F L 88 16 118/74 96 12/30/19 12:35 98.2 F 81 16 136/84 H 96 12/30/19 11:35 97.6 F L 75 15 149/81 H 97 12/30/19 10:32 97.8 F 81 18 166/82 H 98 12/30/19 10:07 75 12/30/19 10:05 98 F 75 16 126/68 H 98 Addendum: Dr. Villalba I personally examined the patient and reviewed the chart. I agree with the above. 74-year-old female with macrocytic anemia presents with a acute blood loss anemia secondary to recent surgery. She has had multiple EGDs in the last month for an esophageal cancer, neuroendocrine tumor. The case was discussed with surgery and they felt that she had stopped bleeding and therefore did not feel like they needed to perform an EEG while here in the hospital and that she could follow-up with them as an outpatient. We will continue with twice daily PPI, as well as continued blood transfusions. She is already on p.o. Lasix which we will continue and may need another dose of IV Lasix after her packed red blood cells. We will recheck a hemoglobin after her transfusions are finished. She understands that she has had a bone marrow biopsy done to further evaluate her microcytic anemia, since her vitamin B12 and folate are normal. She hesitates because she does not want the discomfort of another COVID test. Inpatient E&M: 90444 Subs Hosp L2
[2019-12-30] MEDS: 0.9% Normal Saline 1,000 ML 50 ML IV (17:17)
[2019-12-30 17:20] LABS: Bedside Glucose 325 mg/dL (70-110)
[2019-12-30 19:11] LABS: Hematocrit 27.1 % (37-47); Hemoglobin 8.8 g/dL (12.0-15.0)
--- NOTE | 2019-12-30 20:40 | NURSING ---
verbal report given to Nataly Davidson RN at this time
[2019-12-30] MEDS: Pravastatin 40 MG Tablet PO (21:58)
[2019-12-31] VITALS (7 sets, daily range): BP systolic 130–156; BP diastolic 77–86; PULSE 61–71; RESP 16; TEMP 36.2–36.8; O2SAT 94–97
[2019-12-31 05:44] LABS: Absolute Lymphocyte Count 1.04 X10^3/uL (0.83-4.51); Absolute Neutrophil Count 3.2 X10^3/uL (2.0-7.7); Basophil# 0.04 X10^3/uL; Basophil% 0.8 % (0-1); Eosinophil# 0.19 X10^3/uL; Eosinophils% 3.7 % (0-5); Hematocrit 25.9 % (37-47); Hemoglobin 8.6 g/dL (12.0-15.0); Lymphocyte # 1.04 X10^3/ul (4.0); Lymphocyte % 20.4 % (19-41); Mean Corp Hgb Conc 33.2 g/dL (32-36); Mean Corpuscular Hgb 31.6 pg (27.0-32.0); Mean Corpuscular Volume 95.2 fL (81-99); Mean Platelet Vol. 10.9 fl (6.2-12.0); Monocyte# 0.55 X10^3/uL; Monocyte% 10.8 % (0-10); NRBC Flagged by Analyzer 0.4 % (0-5); Neutrophil # 3.24 X10^3/uL (2.7-7.7); Neutrophil % 63.7 % (47-70); POSITIVE MORPHOLOGY YES; Platelet Count 161 K/mm3 (150-450); RBC Distribution Width CV 20.5 % (11.6-14.6); RBC Distribution Width SD 69.9 fl (35.1-43.9); Red Blood Count 2.72 M/mm3 (4.2-5.4); White Blood Count 5.1 K/mm3 (4.4-11.0)
[2019-12-31 05:55] LABS: Differential Indicated SCAN CRITERIA MET
[2019-12-31 06:31] LABS: Anisocytosis 1+
[2019-12-31] MEDS: Insulin Lispro 100 UNIT/ML INSULN.PEN SC ×2 (06:56→11:43)
[2019-12-31 07:06] LABS: Bedside Glucose 312 mg/dL (70-110)
[2019-12-31] MEDS: Losartan Potassium 25 MG Tablet PO (09:17)
[2019-12-31] MEDS: Metoprolol(XL)Succ 25 MG Tablet PO (09:17)
[2019-12-31] MEDS: Furosemide 20 MG Tablet PO (09:17)
--- NOTE | 2019-12-31 10:46 | DCINST_ITS ---
- Discharge Diagnoses Current Active Problems: Current Active and Chronic Problems (Last Reviewed 12/29/19 @ 19:[address] Bozena Nash, DO) Anemia (Acute) JEREMI (acute kidney injury) (Acute) Chronic anticoagulation (Acute) Paroxysmal atrial fibrillation (Chronic) DCCV on 04/29/2018; CKD (chronic kidney disease) stage 3, GFR 30-59 ml/min (Chronic) You will use the following diet at home:: Calorie/Carbohydrate Controlled (specify 1200, 1400, etc) - 1800 madyson / day, Cardiac Your food should be the consistency of: Regular Your liquids should be the consistency of: Regular/Thin Discharge Activity: Return to Normal Activity Additional Instructions: Hold eliquis until further instructions which you will need at follow up. You should have a CBC (lab) within a week, call your family medicine doctor to arrange this. Allergies/Adverse Reactions: Allergies adhesive Allergy (Verified 12/29/19 16:54) Rash fenofibrate nanocrystallized [From Tricor] Allergy (Verified 12/29/19 15:48) Rash fenofibrate,micronized [From Tricor] Allergy (Verified 12/29/19 15:48) Rash Iodinated Contrast Media [CONTRASTS] Allergy (Verified 12/29/19 16:55) Rash ramipril Allergy (Verified 12/29/19 15:48) Rash sertraline HCl [From Zoloft] Adverse Reaction (Verified 12/29/19 16:54) made me more depressed sulindac [From Clinoril] Adverse Reaction (Verified 12/29/19 16:54) PT UNSURE OF REACTION CARDIAC CATH DYE Allergy (Uncoded 12/29/19 15:48) Rash Medications to take at Discharge Albuterol IH (ProAir) [Proair Hfa] 2 puff INHALATION Q6H PRN PRN 10/25/17 glimepiride 4 mg tablet 4 mg PO BID tab 05/10/18 losartan 25 mg tablet 25 mg PO DAILY 05/10/18 metformin 1,000 mg tablet 1,000 mg PO BID 05/10/18 nitroglycerin 0.4 mg sublingual tablet 0.4 mg SUBLINGUAL Q5-15M PRN 05/10/18 cholecalciferol (vitamin D3) 125 mcg (5,000 unit) tablet 5,000 unit PO DAILY 07/22/18 dulaglutide 0.75 mg/0.5 mL subcutaneous pen injector 0.75 mg SC MO 04/07/19 magnesium oxide 400 mg (241.3 mg magnesium) tablet 400 mg PO BID 04/07/19 pravastatin 40 mg tablet 40 mg PO QHS 04/07/19 furosemide 20 mg tablet 20 mg PO DAILY tab 05/17/19 metoprolol succinate 25 mg tablet,extended release 24 hr 25 mg PO DAILY 11/24/19 Pantoprazole Sodium [Protonix] 40 mg PO DAILY 12/29/19 Primary Care Physician: Farhan Mendiola MD [Primary Care Provider] - Please follow up with your Primary Care Physician in: 1 week Test Results: Test results from this visit will be discussed in further detail at your follow- up appointment, if applicable. Please Follow Up With: Joe De La Vega DO When: 1 week Proposed Discharge Date: 12/31/19
--- NOTE | 2019-12-31 11:13 | DS.PCM_ITS ---
<Mitch Ray - Last Filed: 12/31/19 11:13> Discharge Date and Diagnosis - Problem List Patient Problems: Active and Suspected Problems (Last Reviewed 12/29/19 @ 19:[address] Bozena Nash DO) Anemia (Acute) JEREMI (acute kidney injury) (Acute) Chronic anticoagulation (Acute) Date of Admission: 12/29/19 Date of Discharge: 12/31/19 - Primary Discharge Diagnosis Acute Problems: Active Problems (Last Reviewed 12/29/19 @ 19:[address] Bozena Nash DO) Acute on chronic blood loss Anemia (Acute) JEREMI (acute kidney injury) (Acute) - Secondary Discharge Diagnosis Chronic Problems: Chronic Problems (Last Reviewed 12/29/19 @ 19:[address] Bozena Nash DO) Paroxysmal atrial fibrillation (Chronic) DCCV on 04/29/2018; Presence of stent in coronary artery (Chronic ~12/29/02) PCI/stent of the LAD 1995; PCI/MELISSA of the ostium RCA 12/29/02 CKD (chronic kidney disease) stage 3, GFR 30-59 ml/min (Chronic) Nonalcoholic steatohepatitis (PATRICK) (Chronic) Essential hypertension (Chronic) Mixed hyperlipidemia (Chronic) Persistent atrial fibrillation (Chronic) Atherosclerotic heart disease of [place] coronary artery without angina pectoris (Chronic) Hospital Course and Treatment Operations: None Procedures: None Summary of Care Provided: Hospital course: The patient is a 74 year old F with pmhx of neuroendocrine tumor on EGD previously resected, GI bleed, extensive GI workup, chronic anticoagulation for pAfib, PATRICK, CAD with prior stent, who presented to the ER with c/o abnormal labs - low Hgb. She normally runs 9-11 however she had Hgb of 6.8 and in the ER was 7.0 She did have c/o LH and dark stools. She follows with Dr. De La Vega and is supposed to have a bone marrow bx however has been putting it off. She has had recent upper and lower endoscopies. Hemoccult was +. She was taken off eliquis and admitted to the PCU. She was transfused with 2 units of PRBC. Hgb remained stable. She agreed to follow up with Dr. De La Vega and at this time states that she plans to pursue the bone marrow Bx. I have advised her to hold her eliquis until she follows up and has her blood counts rechecked. She should follow up with her PCP this week and with Dr. Correa in 1 week. She was discharged home in stable condition. This patient was seen by Mitch Ray PA-C under the supervision of Doctor []. [] Patient Problems: Active and Suspected Problems (Last Reviewed 12/29/19 @ 19:[address] Bozena Nash, DO) Anemia (Acute) JEREMI (acute kidney injury) (Acute) Chronic anticoagulation (Acute) - Physical Exam Vitals/I&O's: Vital Signs Temp Pulse Resp BP Pulse Ox 97.1 F L 61 16 156/86 H 97 12/31/19 09:06 12/31/19 11:06 12/31/19 09:06 12/31/19 09:06 12/31/19 09:06 Oxygen Delivery Method Room Air Weight: 217 lb 12.8 oz Body Mass Index (BMI) 34.1 Intake and Output for Last 24 Hours 12/29/19 12/30/19 12/31/19 23:59 23:59 23:59 Intake Total 620.83 / 620.83 3419.17 / 3479.17 960 / 960 Balance 620.83 / 620.83 3419.17 / 3479.17 960 / 960 General: Alert, Oriented x3, Cooperative HEENT: Atraumatic, PERRLA, EOMI, Normocephalic Neck: Supple, No JVD, Negative Carotid Bruits Lungs: Clear to auscultation, Normal air movement Cardiovascular: Regular rate, No murmurs Abdomen: Bowel Sounds Present, Soft, Non Tender Extremities: No edema, Capillary Refill Less than 3 Seconds Skin: No rashes, No breakdown Musculoskeletal: No Tenderness to Palpation of Joints or Extremities Neurological: Cranial nerves II-XII grossly intact Psych/Mental Status: Normal Affect, Appropriate, Alert and oriented to time, place, person, mood and affect Microbiology Past 72 Hours 12/29/19 17:10 Stool Stool Occult Blood (KEV) - Final Occult Blood Positive Laboratory Results 12/29/19 16:18: Crossmatch See Detail 12/29/19 16:18: Crossmatch See Detail 12/30/19 11:35: POC Glucose 345 H 12/30/19 17:11: POC Glucose 325 H 12/30/19 18:44: Hgb 8.8 L, Hct 27.1 L 12/31/19 05:10: WBC 5.1, RBC 2.72 L, Hgb 8.6 L, Hct 25.9 L, MCV 95.2 D, MCH 31.6, MCHC 33.2 D, RDW Std Deviation 69.9 H, RDW Coeff of Pina 20.5 H, Plt Count 161, MPV 10.9, Immature Gran % (Auto) 0.600, Neut % (Auto) 63.7, Lymph % (Auto) 20.4, Butler % (Auto) 10.8 H, Eos % (Auto) 3.7, Baso % (Auto) 0.8, Absolute Neuts (auto) 3.2, Absolute Lymphs (auto) 1.04, Nucleated RBC % 0.4, Anisocytosis 1+ 12/31/19 06:55: POC Glucose 312 H Current Medications Acetaminophen (Tylenol) 650 mg PO Q6H PRN PRN PRN Reason: Pain Score 1-10/Temp > 100.7 F Albuterol Sulfate (Ventolin Aerosols) 2.5 mg INHALATION Q6H PRN PRN PRN Reason: SOB &/OR WHEEZING Cholecalciferol (Vitamin D (25mcg)) 5,000 unit PO DAILY [facility] Last Admin: 12/31/19 09:18 Dose: 5,000 unit Documented by: Furosemide (Lasix) 20 mg PO DAILY [facility] Last Admin: 12/31/19 09:17 Dose: 20 mg Documented by: Sodium Chloride () 1,000 mls @ 50 mls/hr IV .Q20H [facility] Last Infusion: 12/31/19 09:40 Dose: 50 mls/hr Documented by: Pantoprazole Sodium 40 mg/ (Sodium Chloride) 110 mls @ 330 mls/hr IV Q12 [facility] Last Infusion: 12/31/19 09:40 Dose: Infused Documented by: Insulin Human Lispro (Humalog Kwikpen (Bkc)) 0 unit SC TIDAC [facility]; Protocol Last Admin: 12/31/19 06:56 Dose: 5 u Documented by: Labetalol HCl (Trandate) 10 mg IV Q6H PRN PRN PRN Reason: SBP > 160 OR DBP > 120 Last Admin: 12/29/19 22:05 Dose: 10 mg Documented by: Losartan Potassium (Cozaar) 25 mg PO DAILY [facility] Last Admin: 12/31/19 09:17 Dose: 25 mg Documented by: Metoprolol Succinate (Toprol Xl (Beta Dennis)) 25 mg PO DAILY [facility] Last Admin: 12/31/19 09:17 Dose: 25 mg Documented by: Pravastatin Sodium (Pravachol) 40 mg PO QHS [facility] Last Admin: 12/30/19 21:58 Dose: 40 mg Documented by: Sodium Chloride () 10 - 40 ml IV UD PRN PRN Reason: SALINE FLUSH Last Admin: 12/29/19 22:04 Dose: 20 ml Documented by: Discharge Diet: Low fat/ Low Cholesterol, 2000 mg Sodium Diet Discharge Activity: Return to Normal Activity Home Medications: Medications to take at Discharge Albuterol IH (ProAir) [Proair Hfa] 2 puff INHALATION Q6H PRN PRN 10/25/17 glimepiride 4 mg tablet 4 mg PO BID tab 05/10/18 losartan 25 mg tablet 25 mg PO DAILY 05/10/18 metformin 1,000 mg tablet 1,000 mg PO BID 05/10/18 nitroglycerin 0.4 mg sublingual tablet 0.4 mg SUBLINGUAL Q5-15M PRN 05/10/18 cholecalciferol (vitamin D3) 125 mcg (5,000 unit) tablet 5,000 unit PO DAILY 07/22/18 dulaglutide 0.75 mg/0.5 mL subcutaneous pen injector 0.75 mg SC MO 04/07/19 magnesium oxide 400 mg (241.3 mg magnesium) tablet 400 mg PO BID 04/07/19 pravastatin 40 mg tablet 40 mg PO QHS 04/07/19 furosemide 20 mg tablet 20 mg PO DAILY tab 05/17/19 metoprolol succinate 25 mg tablet,extended release 24 hr 25 mg PO DAILY 11/24/19 Pantoprazole Sodium [Protonix] 40 mg PO DAILY 12/29/19 Primary Care Physician: Farhan Mendiola MD [Primary Care Provider] - Please follow up with your Primary Care Physician in: 1 week Please Follow Up With: Joe De La Vega DO When: 1 week Please Follow Up With: Farhan Mendiola MD Disposition: Home Minutes spent on discharge:: 35 Patient Condition:: Stable Medical Necessity - Tobacco Use Smoking Status: Former smoker Tobacco Use: Cigarettes Meaningful Use Info Meaningful Use Diagnoses (Choose all that apply): None applicable <Miguel A Villalba - Last Filed: 12/31/19 11:44> Discharge Date and Diagnosis - Primary Discharge Diagnosis Acute Problems: Active Problems (Last Reviewed 12/29/19 @ 19:[address] Bozena Nash DO) Anemia (Acute) JEREMI (acute kidney injury) (Acute) Chronic anticoagulation (Acute) - Secondary Discharge Diagnosis Chronic Problems: Chronic Problems (Last Reviewed 12/29/19 @ 19:[address] Bozena Nash DO) Paroxysmal atrial fibrillation (Chronic) DCCV on 04/29/2018; Presence of stent in coronary artery (Chronic ~12/29/02) PCI/stent of the LAD 1995; PCI/MELISSA of the ostium RCA 12/29/02 CKD (chronic kidney disease) stage 3, GFR 30-59 ml/min (Chronic) Nonalcoholic steatohepatitis (PATRICK) (Chronic) Essential hypertension (Chronic) Mixed hyperlipidemia (Chronic) Persistent atrial fibrillation (Chronic) Atherosclerotic heart disease of [place] coronary artery without angina pectoris (Chronic) Hospital Course and Treatment Summary of Care Provided: The patient is a 74 year old F [] - Physical Exam Vitals/I&O's: Vital Signs Temp Pulse Resp BP Pulse Ox 97.1 F L 61 16 156/86 H 97 12/31/19 09:06 12/31/19 11:06 12/31/19 09:06 12/31/19 09:06 12/31/19 09:06 Oxygen Delivery Method Room Air Weight: 217 lb 12.8 oz Body Mass Index (BMI) 34.1 Intake and Output for Last 24 Hours 12/29/19 12/30/19 12/31/19 23:59 23:59 23:59 Intake Total 620.83 / 620.83 3419.17 / 3479.17 960 / 960 Balance 620.83 / 620.83 3419.17 / 3479.17 960 / 960 Microbiology Past 72 Hours 12/29/19 17:10 Stool Stool Occult Blood (KEV) - Final Occult Blood Positive Laboratory Results 12/29/19 16:18: Crossmatch See Detail 12/29/19 16:18: Crossmatch See Detail 12/30/19 11:35: POC Glucose 345 H 12/30/19 17:11: POC Glucose 325 H 12/30/19 18:44: Hgb 8.8 L, Hct 27.1 L 12/31/19 05:10: WBC 5.1, RBC 2.72 L, Hgb 8.6 L, Hct 25.9 L, MCV 95.2 D, MCH 31.6, MCHC 33.2 D, RDW Std Deviation 69.9 H, RDW Coeff of Pina 20.5 H, Plt Count 161, MPV 10.9, Immature Gran % (Auto) 0.600, Neut % (Auto) 63.7, Lymph % (Auto) 20.4, Butler % (Auto) 10.8 H, Eos % (Auto) 3.7, Baso % (Auto) 0.8, Absolute Neuts (auto) 3.2, Absolute Lymphs (auto) 1.04, Nucleated RBC % 0.4, Anisocytosis 1+ 12/31/19 06:55: POC Glucose 312 H Current Medications Acetaminophen (Tylenol) 650 mg PO Q6H PRN PRN PRN Reason: Pain Score 1-10/Temp > 100.7 F Albuterol Sulfate (Ventolin Aerosols) 2.5 mg INHALATION Q6H PRN PRN PRN Reason: SOB &/OR WHEEZING Cholecalciferol (Vitamin D (25mcg)) 5,000 unit PO DAILY [facility] Last Admin: 12/31/19 09:18 Dose: 5,000 unit Documented by: Furosemide (Lasix) 20 mg PO DAILY [facility] Last Admin: 12/31/19 09:17 Dose: 20 mg Documented by: Sodium Chloride () 1,000 mls @ 50 mls/hr IV .Q20H [facility] Last Infusion: 12/31/19 09:40 Dose: 50 mls/hr Documented by: Pantoprazole Sodium 40 mg/ (Sodium Chloride) 110 mls @ 330 mls/hr IV Q12 [facility] Last Infusion: 12/31/19 09:40 Dose: Infused Documented by: Insulin Human Lispro (Humalog Kwikpen (Bkc)) 0 unit SC TIDAC [facility]; Protocol Last Admin: 12/31/19 06:56 Dose: 5 u Documented by: Labetalol HCl (Trandate) 10 mg IV Q6H PRN PRN PRN Reason: SBP > 160 OR DBP > 120 Last Admin: 12/29/19 22:05 Dose: 10 mg Documented by: Losartan Potassium (Cozaar) 25 mg PO DAILY [facility] Last Admin: 12/31/19 09:17 Dose: 25 mg Documented by: Metoprolol Succinate (Toprol Xl (Beta Dennis)) 25 mg PO DAILY [facility] Last Admin: 12/31/19 09:17 Dose: 25 mg Documented by: Pravastatin Sodium (Pravachol) 40 mg PO QHS [facility] Last Admin: 12/30/19 21:58 Dose: 40 mg Documented by: Sodium Chloride () 10 - 40 ml IV UD PRN PRN Reason: SALINE FLUSH Last Admin: 12/29/19 22:04 Dose: 20 ml Documented by: Addendum: Dr. Villalba I personally examined the patient and reviewed the chart. I agree with the above. 74-year-old female with macrocytic anemia presents with a acute blood loss anemia secondary to recent surgery. She has had multiple EGDs in the last month for an esophageal cancer, neuroendocrine tumor. The case was discussed with surgery and they felt that she had stopped bleeding and therefore did not feel like they needed to perform an EEG while here in the hospital and that she could follow-up with them as an outpatient. We will continue with twice daily PPI, as well as continued blood transfusions. She is already on p.o. Lasix which we will continue and may need another dose of IV Lasix after her packed r ed blood cells. We will recheck a hemoglobin after her transfusions are finished. She understands that she has had a bone marrow biopsy done to further evaluate her microcytic anemia, since her vitamin B12 and folate are normal. She hesitates because she does not want the discomfort of another COVID test. 12/31/2019: Feels much better today and wants to go home. Her hemoglobin is 8.6 up from 6.8. The case was discussed with surgery in the ER and did not feel like she was continuing to bleed and she states today that her stool was not dark and did not know how to bright red blood. She will follow-up as an outpatient with her PCP on Wednesday she already has an appointment on [facility] her that she needs to have lab work done before she sees him. Also she will pr oceed with getting a bone marrow biopsy and therefore can hopefully get an answer as to why she is continually so anemic. Her vitamin B12 and folate levels are normal. I discussed with the plan for discharge and she expressed understanding of the risk and benefits of going home today. I expressed to her that if she continues to bleed or get lightheaded that she is to return back to the hospital. Inpatient E&M: [id number] Disch Hosp
[2019-12-31 12:16] LABS: Bedside Glucose 409 mg/dL (70-110)
--- NOTE | 2020-01-01 13:15 | CASEMGMT ---
[facility] CM DC PHONE CALL DC DATE: 12/31/2019 DC DISPOSITION: Home DC DIAGNOSIS: LACE/STRATA: anemia, JEREMI, F/U APPTS MADE PRIOR TO DC: no, weekend dc. PRESCRIPTIONS ACQUIRED BY PT: no new medications Intro role of CM and purpose of DC call to patient via phone. Patient states she is doing well and does not have questions re: dc instructions. Appointment with PCP, Dr. Mendiola is made for tomorrow am, and appt with Dr. De La Vega is in afternoon. Patient states she needs to get another COVID test prior to scheduling the bone marrow biopsy and this will be completed tomorrow. Pt states she was appreciative of the care received at [facility] and no care improvement suggestions were given. Lico IZAGUIRREN RN ACM
--- NOTE | 2020-01-01 13:24 | CASEMGMT ---
[facility] CM DC PHONE CALL DC DATE: 12/31/2019 DC DISPOSITION: Home DC DIAGNOSIS: anemia, JEREMI LACE/STRATA: 01/12 F/U APPTS MADE PRIOR TO DC: no, weekend dc. PRESCRIPTIONS ACQUIRED BY PT: no new medications Intro role of CM and purpose of DC call to patient via phone. Patient states she is doing well and does not have questions re: dc instructions. Appointment with PCP, Dr. Mendiola is made for tomorrow am, and appt with Dr. De La Vega is in afternoon. Patient states she needs to get another COVID test prior to scheduling the bone marrow biopsy and this will be completed tomorrow. Pt states she was appreciative of the care received at [facility] and no care improvement suggestions were given. Lico IZAGUIRREN RN ACM
== END 2019-12-31 13:52 | disposition home or self-care (01) | DRG 812 ==
LOC: ED 16:25 → PCU 17:59
PROVIDERS: Physician Assistant; Admitting Provider Internal Medicine; Emergency Provider Emergency Medicine; PCP Family Medicine; Visit Provider Family Medicine
DX: D62 Acute posthemorrhagic anemia (principal); I48.19 Other persistent atrial fibrillation; N17.9 Acute kidney failure, unspecified; D3A.8 Other benign neuroendocrine tumors; D53.9 Nutritional anemia, unspecified; I25.10 Atherosclerotic heart disease of native coronary artery without angina pectoris; E11.22 Type 2 diabetes mellitus with diabetic chronic kidney disease; J44.9 Chronic obstructive pulmonary disease, unspecified; I12.9 Hypertensive chronic kidney disease with stage 1 through stage 4 chronic kidney disease, or unspecified chronic kidney disease; N18.3 Chronic kidney disease, stage 3 (moderate); E78.2 Mixed hyperlipidemia; K75.81 Nonalcoholic steatohepatitis (NASH); Z95.5 Presence of coronary angioplasty implant and graft; Z79.01 Long term (current) use of anticoagulants; Z82.49 Family history of ischemic heart disease and other diseases of the circulatory system; Z85.01 Personal history of malignant neoplasm of esophagus; Z90.49 Acquired absence of other specified parts of digestive tract; Z87.891 Personal history of nicotine dependence; Z23 Encounter for immunization
CPT/HCPCS: 36415; 80048; 80053; 80061; 82043; 82274; 82306; 82570; 82962; 83036; 83690; 83735; 83880; 84156; 84484; 85014; 85018; 85025; 85610; 86850; 86900; 86901; 86920; 86922; 93005; 97162; 99251; 99284; G0008; J7030; P9016; 90686; A4216; G0463; J3490

== ENCOUNTER 2020-02-29 10:20 | Outpatient (RCR) | payer MEDICARE, MEDICAID, SELFPAY ==
[2019-12-29 18:38] VITALS: BMI 34.1
== END 2020-03-11 23:59 ==
LOC: DC 10:20
PROVIDERS: PCP Family Medicine; Visit Provider Family Medicine
DX: Z71.3 Dietary counseling and surveillance (principal); E11.9 Type 2 diabetes mellitus without complications
CPT/HCPCS: 97802

== ENCOUNTER 2020-03-20 13:42 | Outpatient (RCR) | payer MEDICARE, MEDICAID, SELFPAY ==
[2019-12-29 18:38] VITALS: BMI 34.1
== END 2020-04-11 23:59 ==
LOC: DC 13:42
PROVIDERS: PCP Family Medicine; Visit Provider Family Medicine
DX: Z71.3 Dietary counseling and surveillance (principal); E11.9 Type 2 diabetes mellitus without complications
CPT/HCPCS: G0108

== ENCOUNTER → 2020-03-29 14:00 | Outpatient (CLI) | payer MEDICARE, MEDICAID, SELFPAY ==
[2019-12-29 18:38] VITALS: BMI 34.1
[2020-03-29 16:05] LABS: Absolute Lymphocyte Count 1.39 X10^3/uL (0.83-4.51); Absolute Neutrophil Count 3.2 X10^3/uL (2.0-7.7); Basophil# 0.03 X10^3/uL; Basophil% 0.6 % (0-1); Eosinophil# 0.21 X10^3/uL; Eosinophils% 3.9 % (0-5); Hematocrit 28.6 % (37-47); Hemoglobin 9.4 g/dL (12.0-15.0); Lymphocyte # 1.39 X10^3/ul (4.0); Lymphocyte % 26.1 % (19-41); Mean Corp Hgb Conc 32.9 g/dL (32-36); Mean Corpuscular Hgb 37.3 pg (27.0-32.0); Mean Corpuscular Volume 113.5 fL (81-99); Mean Platelet Vol. 11.1 fl (6.2-12.0); Monocyte# 0.51 X10^3/uL; Monocyte% 9.6 % (0-10); NRBC Flagged by Analyzer 0 % (0-5); Neutrophil # 3.17 X10^3/uL (2.7-7.7); Neutrophil % 59.4 % (47-70); Platelet Count 200 K/mm3 (150-450); RBC Distribution Width CV 14.9 % (11.6-14.6); RBC Distribution Width SD 61.7 fl (35.1-43.9); Red Blood Count 2.52 M/mm3 (4.2-5.4); White Blood Count 5.3 K/mm3 (4.4-11.0)
[2020-03-29 16:38] LABS: Microalbumin,Random Urine 29.7 mg/L (NO RANGE EST.); Microalbumin:Creatinine Ratio 38.1 mg/g CRE (<30 mg/g CRE); Protein, Urine (Random) 12.5 mg/dL (<11.9); Protein:Creat Ratio 160 mg/g CRE (0-200)
[2020-03-29 16:40] LABS: Vitamin D,25 Hydroxy 79.2 ng/mL
[2020-03-29 16:41] LABS: ALB/GLOB Ratio 0.7 RATIO (0.9-2.4); AST(SGOT) 62 U/L (15-37); Alanine Aminotransfer ALT/SGPT 53 U/L (13-56); Albumin, Serum 3.4 g/dL (3.2-5.0); Alkaline Phosphatase 89 U/L (45-117); Anion Gap 10 (5-15); BUN 28 mg/dL (7-18); BUN/Creat Ratio 22.8 RATIO (10-20); Calcium,Total 9.8 mg/dL (8.5-10.1); Chloride 106 mmol/L (98-107); Cholesterol 113 mg/dL (200); Creatinine, Serum 1.23 mg/dL (0.55-1.02); EST Glomerular Filtration Rate 45 mL/min (>60); Est Glom Filt Rate - Afr Amer 55 mL/min (>60); Globulin 4.9 g/dL (2.2-4.2); Glucose 110 mg/dL (74-106); High Density Lipoprotein 25 mg/dL; Magnesium 1.9 mg/dL (1.6-2.6); Phosphorus 3.2 mg/dL (2.5-4.9); Protein, Total 8.3 g/dL (6.4-8.2); Sodium Level 140 mmol/L (136-145); Triglycerides 183 mg/dL; Very Low Density Lipoprotein 37 mg/dL (5-40)
[2020-03-29 16:46] LABS: Hemoglobin A1c 6.3 % (3.8-5.6)
== END ==
PROVIDERS: PCP Family Medicine; Referring Provider Family Medicine; Visit Provider Family Medicine
DX: E55.9 Vitamin D deficiency, unspecified (principal); E11.9 Type 2 diabetes mellitus without complications; N18.30 Chronic kidney disease, stage 3 unspecified; I12.9 Hypertensive chronic kidney disease with stage 1 through stage 4 chronic kidney disease, or unspecified chronic kidney disease; E78.5 Hyperlipidemia, unspecified
CPT/HCPCS: 36415; 80053; 80061; 82043; 82306; 82570; 83036; 83735; 84100; 84156; 85025

== ENCOUNTER 2020-04-30 14:30 | Outpatient (RCR) | payer MEDICARE, MEDICAID, SELFPAY ==
[2019-12-29 18:38] VITALS: BMI 34.1
== END 2020-05-12 23:59 ==
LOC: DC 14:30
PROVIDERS: PCP Family Medicine; Visit Provider Family Medicine
DX: Z71.3 Dietary counseling and surveillance (principal); E11.9 Type 2 diabetes mellitus without complications
CPT/HCPCS: 97803; G0108

== ENCOUNTER → 2020-05-02 08:43 | Outpatient (CLI) | payer MEDICARE, MEDICAID, SELFPAY ==
[2019-12-29 18:38] VITALS: BMI 34.1
[2020-05-02] VITALS (9 sets, daily range): BP systolic 109–145; BP diastolic 60–91; PULSE 63–106; RESP 16–18; TEMP 35.8–36.2; O2SAT 94–98; BMI 32.9
[2020-05-02] MEDS: 0.9% NaCl Peripheral Flush Adult/Peds IV (08:58)
[2020-05-02] MEDS: Furosemide 20 MG/2 ML VIAL IV (12:41)
== END ==
PROVIDERS: PCP Family Medicine; Referring Provider Internal Medicine Hematology & Oncology; Visit Provider Internal Medicine Hematology & Oncology
DX: D53.9 Nutritional anemia, unspecified (principal); N18.30 Chronic kidney disease, stage 3 unspecified; D63.1 Anemia in chronic kidney disease
CPT/HCPCS: 36430; 86850; 86900; 86901; 86920; 86922; J7040; P9016; A4216; J1940

== ENCOUNTER 2020-05-21 14:00 | Outpatient (RCR) | payer MEDICARE, MEDICAID, SELFPAY ==
[2020-05-02 08:53] VITALS: BMI 32.9
== END 2020-06-09 23:59 ==
LOC: DC 14:00
PROVIDERS: PCP Family Medicine; Visit Provider Family Medicine
DX: Z71.3 Dietary counseling and surveillance (principal); E11.9 Type 2 diabetes mellitus without complications
CPT/HCPCS: 97803; G0109

== ENCOUNTER 2020-06-13 14:44 | Outpatient (RCR) | payer MEDICARE, SELFPAY ==
[2020-05-02 08:53] VITALS: BMI 32.9
[2020-06-12 14:23] VITALS: BMI 34.0
== END 2020-07-10 23:59 ==
LOC: DC 14:44
PROVIDERS: PCP Family Medicine; Visit Provider Family Medicine
DX: Z71.3 Dietary counseling and surveillance (principal); E11.9 Type 2 diabetes mellitus without complications
CPT/HCPCS: G0109

== ENCOUNTER → 2020-06-24 08:32 | Outpatient (CLI) | payer MEDICARE, SELFPAY ==
[2020-06-12 14:23] VITALS: BMI 34.0
[2020-06-24 10:14] LABS: Vitamin B12 485 pg/mL (211-911)
[2020-06-24 10:35] LABS: Ferritin 24 ng/mL (8-252); Iron Binding Capacity,Total 431 ug/dL (250-450)
== END ==
PROVIDERS: PCP Family Medicine; Visit Provider Family Medicine
DX: D64.9 Anemia, unspecified (principal)
CPT/HCPCS: 36415; 82607; 82728; 82746; 83550

== ENCOUNTER → 2020-06-27 14:37 | Outpatient (CLI) | payer MEDICARE, SELFPAY ==
[2020-06-12 14:23] VITALS: BMI 34.0
[2020-06-27 14:43] LABS: Mucous, Urine 0 SEEN /hpf (<or=2+); Red Blood Cells-Urine 0 SEEN /hpf (0-5)
[2020-06-27 17:33] LABS: Color, Urine Yellow (Yellow); Glucose, Dipstick Normal (Normal); Ketone-Dipstick Negative (Negative); Leukocyte Esterase-Dipstick 100 /ul (Negative); Nitrite-Dipstick Negative (Negative); Occult Blood-Urine Negative /ul (Negative); Protein-Dipstick Negative (Negative); Urine Bilirubin Dipstick Negative (Negative); Urine Clarity Clear (Clear); Urine Urobilinogen Normal (Normal)
[2020-06-27 17:39] LABS: Bacteria 1+ /hpf (None Seen); Squamous Epithelial Cells - UA 5-10 SEEN /hpf (5-10); White Blood Cells 0-5 SEEN /hpf (0-5)
[2020-06-27 18:01] LABS: Vitamin D,25 Hydroxy 79.2 ng/mL
[2020-06-27 18:04] LABS: Microalbumin,Random Urine 32.1 mg/L (NO RANGE EST.); Microalbumin:Creatinine Ratio 49.4 mg/g CRE (<30 mg/g CRE); Protein, Urine (Random) 10.6 mg/dL (<11.9); Protein:Creat Ratio 163 mg/g CRE (0-200)
[2020-06-27 18:09] LABS: Hemoglobin A1c 6.4 % (3.8-5.6)
[2020-06-27 18:13] LABS: Cholesterol 125 mg/dL (200); High Density Lipoprotein 28 mg/dL; Magnesium 1.4 mg/dL (1.6-2.6); Phosphorus 4.1 mg/dL (2.5-4.9); Triglycerides 298 mg/dL; Very Low Density Lipoprotein 60 mg/dL (5-40)
[2020-06-28 08:47] LABS: PTHIN 29.4 pg/mL (18.4-80.1)
== END ==
PROVIDERS: PCP Family Medicine; Referring Provider Family Medicine; Visit Provider Family Medicine
DX: E11.22 Type 2 diabetes mellitus with diabetic chronic kidney disease (principal); E11.69 Type 2 diabetes mellitus with other specified complication; E55.9 Vitamin D deficiency, unspecified
CPT/HCPCS: 36415; 80061; 81001; 82043; 82306; 82570; 83036; 83735; 83970; 84100; 84156

== ENCOUNTER → 2020-07-04 12:49 | Outpatient (CLI) | payer MEDICARE, MEDICAID, SELFPAY ==
[2020-06-12 14:23] VITALS: BMI 34.0
[2020-07-04] MEDS: 0.9% NaCl Peripheral Flush Adult/Peds IV (12:58)
[2020-07-04 13:12] VITALS: BP 136/75; PULSE 63; RESP 16; TEMP 36.5; O2SAT 97; BMI 34.4
[2020-07-04 13:48] VITALS: BP 134/71; PULSE 59; RESP 18; TEMP 36.3; O2SAT 96
[2020-07-04 14:54] VITALS: BP 131/76; PULSE 77; RESP 16; TEMP 36.3; O2SAT 97
[2020-07-04 15:28] VITALS: BP 145/87; PULSE 65; RESP 16; TEMP 36.5; O2SAT 98
== END ==
PROVIDERS: PCP Family Medicine; Referring Provider Internal Medicine Hematology & Oncology; Visit Provider Internal Medicine Hematology & Oncology
DX: D53.1 Other megaloblastic anemias, not elsewhere classified (principal); N18.30 Chronic kidney disease, stage 3 unspecified; D63.1 Anemia in chronic kidney disease; E53.8 Deficiency of other specified B group vitamins
CPT/HCPCS: 36430; 86850; 86900; 86901; 86920; 86922; J7040; P9016; A4216

== ENCOUNTER 2020-07-11 16:25 | Outpatient (RCR) | payer MEDICARE, MEDICAID, SELFPAY ==
[2020-07-04 13:12] VITALS: BMI 34.4
== END 2020-08-09 23:59 ==
LOC: DC 16:25
PROVIDERS: PCP Family Medicine; Visit Provider Family Medicine
DX: E11.9 Type 2 diabetes mellitus without complications (principal)
CPT/HCPCS: G0109

== ENCOUNTER → 2020-10-08 08:14 | Outpatient (CLI) | payer MEDICARE, MEDICAID, SELFPAY ==
[2020-07-04 13:12] VITALS: BMI 34.4
[2020-10-08 08:18] LABS: Mucous, Urine 0 SEEN /hpf (<or=2+); Red Blood Cells-Urine 0 SEEN /hpf (0-5)
[2020-10-08 10:01] LABS: Absolute Lymphocyte Count 1.33 X10^3/uL (0.83-4.51); Absolute Neutrophil Count 2.9 X10^3/uL (2.0-7.7); Basophil# 0.04 X10^3/uL; Basophil% 0.8 % (0-1); Eosinophil# 0.22 X10^3/uL; Eosinophils% 4.4 % (0-5); Hematocrit 35.2 % (37-47); Hemoglobin 11.5 g/dL (12.0-15.0); Lymphocyte # 1.33 X10^3/ul (0.83-4.51); Lymphocyte % 26.4 % (19-41); Mean Corp Hgb Conc 32.7 g/dL (32-36); Mean Corpuscular Hgb 37.6 pg (27.0-32.0); Mean Platelet Vol. 11.2 fl (6.2-12.0); Monocyte# 0.53 X10^3/uL; Monocyte% 10.5 % (0-10); NRBC Flagged by Analyzer 0 % (0-5); Neutrophil % 57.7 % (47-70); Platelet Count 176 K/mm3 (150-450); RBC Distribution Width CV 14.8 % (11.6-14.6); RBC Distribution Width SD 62.7 fl (35.1-43.9); Red Blood Count 3.06 M/mm3 (4.2-5.4)
[2020-10-08 10:13] LABS: Color, Urine Yellow (Yellow); Glucose, Dipstick Normal (Normal); Ketone-Dipstick 5 mg/dl (Negative); Leukocyte Esterase-Dipstick 100 /ul (Negative); Nitrite-Dipstick Negative (Negative); Occult Blood-Urine Negative /ul (Negative); Protein-Dipstick Negative (Negative); Urine Bilirubin Dipstick Negative (Negative); Urine Clarity Sl. Cloudy (Clear); Urine Urobilinogen Normal (Normal); Urine pH 6.5 (5.0 - 8.0)
[2020-10-08 10:20] LABS: PTHIN 29.3 pg/mL (18.4-80.1)
[2020-10-08 10:22] LABS: Vitamin D,25 Hydroxy 83.1 ng/mL
[2020-10-08 10:27] LABS: Squamous Epithelial Cells - UA 0-5 SEEN /hpf (5-10); White Blood Cells 0-5 SEEN /hpf (0-5)
[2020-10-08 10:28] LABS: Bacteria RARE /hpf (None Seen)
[2020-10-08 10:30] LABS: Hemoglobin A1c 6.1 % (3.8-5.6)
[2020-10-08 10:39] LABS: ALB/GLOB Ratio 0.7 RATIO (0.9-2.4); AST(SGOT) 59 U/L (15-37); Alanine Aminotransfer ALT/SGPT 45 U/L (13-56); Albumin, Serum 3.5 g/dL (3.2-5.0); Alkaline Phosphatase 78 U/L (45-117); Anion Gap 8 (5-15); BUN 28 mg/dL (7-18); BUN/Creat Ratio 18.5 RATIO (10-20); Calcium,Total 9.6 mg/dL (8.5-10.1); Chloride 103 mmol/L (98-107); Cholesterol 148 mg/dL (200); Creatinine, Serum 1.51 mg/dL (0.55-1.02); EST Glomerular Filtration Rate 36 mL/min (>60); Est Glom Filt Rate - Afr Amer 43 mL/min (>60); Glucose 135 mg/dL (74-106); High Density Lipoprotein 31 mg/dL; Magnesium 1.9 mg/dL (1.6-2.6); Microalbumin,Random Urine 43.5 mg/L (NO RANGE EST.); Microalbumin:Creatinine Ratio 63.6 mg/g CRE (<30 mg/g CRE); Phosphorus 4.1 mg/dL (2.5-4.9); Potassium 4.3 mmol/L (3.5-5.1); Protein, Total 8.5 g/dL (6.4-8.2); Protein:Creat Ratio 219 mg/g CRE (0-200); Sodium Level 137 mmol/L (136-145); Triglycerides 173 mg/dL; Very Low Density Lipoprotein 35 mg/dL (5-40)
== END ==
PROVIDERS: PCP Family Medicine; Visit Provider Family Medicine
DX: E55.9 Vitamin D deficiency, unspecified (principal); E11.22 Type 2 diabetes mellitus with diabetic chronic kidney disease
CPT/HCPCS: 36415; 80053; 80061; 81001; 82043; 82306; 82570; 83036; 83735; 83970; 84100; 84156; 85025

== ENCOUNTER → 2020-11-08 06:33 | Outpatient (CLI) | payer MEDICARE, MEDICAID, SELFPAY ==
[2020-10-23 11:25] VITALS: BMI 33.7
--- NOTE | 2020-11-08 06:37 | ECHOD_ITS ---
Reason For Study: DYSPNEA Procedure This was a 2D Doppler, Color Flow transthoracic echocardiogram. The exam was of adequate technical quality. Exam performed in department. Left Ventricle Mildly dilated left ventricle. Moderate segmental systolic dysfunction (see wall motion). The estimated ejection fraction is 35 %. Unable to assess diastolic dysfunction. Basal inferoseptal: Akinetic. Basal anteroseptal: Hypokinetic. Mid-Anterior : Hypokinetic. Mid-Lateral : Hypokinetic. Mid-Posterior: Hypokinetic. Mid-Inferior: Hypokinetic. Mid-inferoseptal : Akinetic. Mid- anteroseptal : Akinetic. Anterior Capron : Akinetic. Inferior Capron : Akinetic. Lateral Capron : Hypokinetic. Septal Capron : Akinetic. Right Ventricle Normal RV size. Normal systolic function. Atria The left atrium is moderately enlarged. The right atrium is moderately enlarged. No doppler evidence for ASD. Mitral Valve There is no mitral annular calcification. The mitral valve chordae are thickened and/or calcified. Moderately severe (3+) mitral valve insufficiency. Tricuspid Valve Normal tricuspid valve. Moderate (2+) tricuspid valve insufficiency. Right ventricular systolic pressure estimated to be 50 mmHg. Aortic Valve Trisinus/trileaflet aortic valve. Mild diffuse aortic valve thickening. Mild focal aortic valve calcification. Pulmonic Valve The pulmonic valve is not well visualized. Mild (1+) pulmonic valve insufficiency. Great Vessels Normal sized aortic root. Pericardium/Pleural No pericardial effusion. MMode/2D Measurements & Calculations LVIDd: 5.7 cm IVSd: 0.95 cm Ao root diam: 3.3 cm LVIDs: 4.6 cm LVPWd: 0.99 cm RVDd: 3.5 cm FS: 18.9 % LAV(MOD-bp): 90.5 ml LVAd ap4: 29.6 cm2 LVAd ap2: 26.0 cm2 LAV(MOD-bp) Indexed: 42.8 ml/m2 LVLd ap4: 7.5 cm LVLd ap2: 7.1 cm LAV(MOD-sp2): 88.5 ml EDV(MOD-sp4): 97.3 ml EDV(MOD-sp2): 82.4 ml LAV(MOD-sp4): 85.2 ml EDV(sp4-el): 99.3 ml EDV(sp2-el): 80.9 ml LVAs ap4: 22.1 cm2 LVAs ap2: 20.1 cm2 LVLs ap4: 6.9 cm LVLs ap2: 7.0 cm ESV(MOD-sp4): 58.5 ml ESV(MOD-sp2): 50.4 ml ESV(sp4-el): 60.4 ml ESV(sp2-el): 49.3 ml EF(MOD-sp4): 39.8 % EF(MOD-sp2): 38.9 % EF(sp4-el): 39.1 % SV(MOD-sp4): 38.7 ml SV(MOD-sp2): 32.1 ml SV(sp4-el): 38.9 ml LA dimension(2D): 4.5 cm LA A4 area: 26.7 cm2 RA A4 area: 24.6 cm2 Time Measurements MV dec time: 0.16 sec Doppler Measurements & Calculations MV E max darrin: 130.1 cm/sec Ao V2 max: 119.3 cm/sec LV V1 max: 97.9 cm/sec Ao max P.8 mmHg LV V1 max P.9 mmHg PA V2 max: 103.6 cm/sec PI end-d darrin: 151.1 cm/sec TR max darrin: 340.9 cm/sec TR max P.7 mmHg ECHO/Echo Complete Interpretation Summary Mildly dilated left ventricle. Moderate segmental systolic dysfunction (see wall motion). The estimated ejection fraction is 35 %. The left atrium is moderately enlarged. The right atrium is moderately enlarged. The mitral valve chordae are thickened and/or calcified. Moderately severe (3+) mitral valve insufficiency. Moderate (2+) tricuspid valve insufficiency. Mild diffuse aortic valve thickening. Mild focal aortic valve calcification. Mild (1+) pulmonic valve insufficiency. Right ventricular systolic pressure estimated to be 50 mmHg. Unable to assess diastolic dysfunction. Ordering Physician: Sydney Sommers/Joe Singh Referring Physician: SYDNEY GODWIN Performed By: Krystnya Sandoval, RDCS, RVT
--- NOTE | 2020-11-08 08:17 | STRESSREP_ITS ---
Stress Test Report Date: 11-08-2020 Procedure: Pharmacologic stress nuclear imaging study Indications: Chest pain; shortness of breath/dyspnea on exertion; atrial fibrillation; CAD; PCI Consent: Per the patient Procedure: The patient underwent pharmacologic (Regadenoson 0.4mg ) evaluation with a peak heart rate of 115 beats per minute (78%predicted maximal heart rate) and a peak blood pressure of 134/96 mmHg. The baseline ECG demonstrated atrial fibrillation; nonspecific IVCD. The peak pharmacologic ECG demonstrated no obvious ECG changes. There were no cardiac dysrhythmias pretest, during pharmacologic infusion, or recovery. There was no complaint of chest discomfort during pharmacologic infusion or recovery. The examination was discontinued secondary to completion of protocol. Impression: 1. Pharmacologic (Regadenoson) evaluation 2. Peak pharmacologic ECG with continued atrial fibrillation with nonspecific IVCD with no obvious ECG changes. 3. There were no cardiac dysrhythmias pretest, during pharmacologic infusion, or recovery. 4. Nuclear images pending Myocardial perfusion imaging study: Technique: The patient was injected with 15.0 millicuries of technetium 99m Cardiolite and subsequently rest SPECT Cardiolite nuclear imaging was obtained in the horizontal long, vertical long, and short axis views. The patient underwent pharmacologic (Regadenoson) evaluation with a peak heart rate of 115 beats per minute (78% percent predicted maximal heart rate) and a peak blood pressure of 134/90 mmHg. The patient was injected with 45.0 millicuries of technetium 99m Cardiolite and subsequently stress SPECT Cardiolite nuclear imaging was obtained in the horizontal long, vertical long, and short axis views. A gated Cardiolite study at peak stress was obtained. Interpretation: Rest and stress SPECT Cardiolite nuclear imaging status post realignment, normalization, and attenuation correction demonstrate the appearance of diminished absence of myocardial perfusion/tracer uptake in portions of the mid to distal anterior septal/septal apical segments which status post stress appears to be somewhat more prominent. There is diminished end systolic thickening and brightening in the aforementioned areas. The gated Cardiolite study demonstrates myocardial thickening and inward wall motion. The reported LVEF is 37%. Impression: 1. Rest and stress SPECT her nuclear imaging demonstrate myocardial perfusion changes appearing compatible with an area of previous myocardial injury/infarction in portions of the mid to distal anteroseptal/septal apical segments with post-rest myocardial perfusion changes compatible with mild emmie- infarct related myocardial ischemia. 2. The gated Cardiolite study reports an LVEF of 37%. This note was generated with Instant Opinionation software. It may contain incorrect words, spelling, and punctuation that were not noted in checking the note before signing.
== END ==
PROVIDERS: PCP Family Medicine; Referring Provider Nurse Practitioner Family; Visit Provider Nurse Practitioner Family
DX: I25.10 Atherosclerotic heart disease of native coronary artery without angina pectoris (principal); E07.9 Disorder of thyroid, unspecified; Z95.5 Presence of coronary angioplasty implant and graft; I48.0 Paroxysmal atrial fibrillation
CPT/HCPCS: 78452; 93017; 93306; A9500; A4216; J2785

== ENCOUNTER 2020-11-22 18:12 | Observation (INO) | payer MEDICARE, MEDICAID, SELFPAY ==
[2020-10-23 11:25] VITALS: BMI 33.7
[2020-11-22] VITALS (11 sets, daily range): BP systolic 132–232; BP diastolic 83–112; PULSE 61–128; RESP 12–20; TEMP 36.5–37.3; O2SAT 91–99; BMI 32.8; BMI 33.8
--- NOTE | 2020-11-22 18:50 | ED.RN ---
RN CALLED FOR EKG, PULLED OLD EKGS FOR
--- NOTE | 2020-11-22 18:54 | RAD_ITS ---
STUDY: X-RAY CHEST REASON FOR EXAM: Female, 75 years old. chest pain TECHNIQUE: Single AP portable view of the chest. COMPARISON: 04/17/2019. FINDINGS: The lungs are clear and expanded. There is no demonstrated pleural abnormality. Normal size heart. Normal mediastinum and destiny. Normal visualized pulmonary arteries. Normal visualized aortic arch and descending thoracic aorta. Normal visualized thoracic spine. Normal visualized ribs, clavicles, and shoulders. There is no demonstrated abnormality of the visualized soft tissue structures of the upper abdomen. RAD/Chest 1 View (Portable) IMPRESSION: Normal x-ray examination of the chest. Electronically Signed: Umberto Laird MD at 19:56 EDT , Service support ,
--- NOTE | 2020-11-22 18:54 | EKG12_ITS ---
Test Reason : CP Blood Pressure : / mmHG Vent. Rate : 120 BPM Atrial Rate : 129 BPM P-R Int : 000 ms QRS Dur : 112 ms QT Int : 344 ms P-R-T Axes : 000 -56 087 degrees QTc Int : 486 ms Atrial fibrillation Left anterior fascicular block Septal infarct , age undetermined Abnormal ECG Confirmed by JESSICA MONTE, RANJANA ([id number]), story editor JARETT RAMIREZ ([id number]) on 11/26/2020 9:48:17 AM Referred By: Confirmed By:RANJANA LOPEZ MD
[2020-11-22 19:28] LABS: Absolute Lymphocyte Count 1.03 X10^3/uL (0.83-4.51); Absolute Neutrophil Count 3.7 X10^3/uL (2.0-7.7); Basophil# 0.05 X10^3/uL; Basophil% 0.8 % (0-1); Eosinophils% 1.7 % (0-5); Hematocrit 36.2 % (37-47); Lymphocyte # 1.03 X10^3/ul (0.83-4.51); Lymphocyte % 17.5 % (19-41); Mean Corp Hgb Conc 33.1 g/dL (32-36); Mean Corpuscular Hgb 38.3 pg (27.0-32.0); Mean Corpuscular Volume 115.7 fL (81-99); Mean Platelet Vol. 11.3 fl (6.2-12.0); Monocyte# 0.98 X10^3/uL; Monocyte% 16.6 % (0-10); NRBC Flagged by Analyzer 0 % (0-5); Neutrophil # 3.72 X10^3/uL (2.7-7.7); Neutrophil % 63.1 % (47-70); Platelet Count 170 K/mm3 (150-450); RBC Distribution Width CV 13.9 % (11.6-14.6); RBC Distribution Width SD 58.5 fl (35.1-43.9); Red Blood Count 3.13 M/mm3 (4.2-5.4); White Blood Count 5.9 K/mm3 (4.4-11.0)
[2020-11-22 19:44] LABS: Anion Gap 11 (5-15); BUN 30 mg/dL (7-18); BUN/Creat Ratio 18.2 RATIO (10-20); Calcium,Total 9.7 mg/dL (8.5-10.1); Chloride 102 mmol/L (98-107); Creatinine, Serum 1.65 mg/dL (0.55-1.02); EST Glomerular Filtration Rate 32 mL/min (>60); Est Glom Filt Rate - Afr Amer 39 mL/min (>60); Estimated Creatinine Clearance 30.18 ml/min; Glucose 114 mg/dL (74-106); Potassium 4.1 mmol/L (3.5-5.1); Sodium Level 136 mmol/L (136-145); Troponin-I HS 20.5 pg/mL (3.0-53.7)
--- NOTE | 2020-11-22 19:45 | EX.ED.DYSGE1 ---
HPI History of Present Illness Chief Complaint: Chest Pain Informant: patient Onset/Context/Timing Onset: Yesterday Context: Gradual Onset Timing: Waxes and wanes Current Severity: Moderate Maximum Severity: Moderate Narrative Narrative: Patient presents secondary to chest pressure which she describes as an elephant sitting on her chest. She also complains of feeling achy all over with a mild cough and short of breath. She reports nausea but no vomiting. She denies any ill exposures and did receive the Covid vaccine. Patient has a history of paroxysmal A. fib. She feels that she has been in A. fib for the last month. She is an appointment this coming week to meet with an emc storage architect at [facility]. She will undergo a heart cath with Dr. Singh on the of this month. [facility] Medical History Acute myocardial infarction Atherosclerotic heart disease of [place] coronary artery without angina pectoris CKD (chronic kidney disease) stage 3, GFR 30-59 ml/min Diverticulosis Essential hypertension Hepatic cirrhosis History of cardioversion (~04/21/19) Macrocytic anemia Mixed hyperlipidemia Neuroendocrine carcinoma Nonalcoholic steatohepatitis (PATRICK) Persistent atrial fibrillation Presence of stent in coronary artery (~12/29/02) Vertigo Home Medications losartan 25 mg tablet 25 mg PO DAILY 05/10/18 [History Last Taken 12/29/19] nitroglycerin 0.4 mg sublingual tablet 0.4 mg SUBLINGUAL Q5-15M PRN 05/10/18 [History Last Taken Unknown] cholecalciferol (vitamin D3) 125 mcg (5,000 unit) tablet 5,000 unit PO DAILY 07/22/18 [History Last Taken 12/22/19] pravastatin 40 mg tablet 40 mg PO QHS 04/07/19 [History Last Taken 12/28/19] pantoprazole 40 mg PO DAILY 12/29/19 [History Last Taken 12/29/19] furosemide 20 mg tablet 20 mg PO DAILY tab 06/12/20 [History Last Taken Unknown] dulaglutide 0.75 mg SQ QWEEK 07/04/20 [History Last Taken Unknown] metoprolol succinate 25 mg tablet,extended release 24 hr 50 mg PO DAILY tab 10/08/20 [History Last Taken Unknown] insulin lispro 100 unit/mL subcutaneous pen See Rx Instructions SC TID 10/23/20 [History Last Taken Unknown] magnesium oxide 400 mg (241.3 mg magnesium) tablet 800 mg PO BID tab 10/23/20 [History Last Taken Unknown] metformin 500 mg tablet 1,000 mg PO BID tab 10/23/20 [History Last Taken Unknown] apixaban 5 mg tablet 5 mg PO BID #180 tab 11/14/20 [Rx Last Taken Unknown] aspirin 81 mg chewable tablet 81 mg PO ONCE #30 tab 11/19/20 [Rx Last Taken Unknown] clopidogrel 75 mg tablet 75 mg PO .COMPLEX #90 tab 11/19/20 [Rx Last Taken Unknown] diphenhydramine HCl 25 mg tablet 25 mg PO .COMPLEX #4 tab 11/19/20 [Rx Last Taken Unknown] famotidine 20 mg tablet 20 mg PO DAILY #2 tab 11/19/20 [Rx Last Taken Unknown] prednisone 20 mg tablet 20 mg PO .COMPLEX #9 tab 11/19/20 [Rx Last Taken Unknown] Allergy/AdvReac Type Severity Reaction Status Date / Time adhesive Allergy Rash Verified 11/22/20 18:14 fenofibrate nanocrystallized Allergy Rash Verified 11/22/20 18:14 [From Tricor] fenofibrate,micronized Allergy Rash Verified 11/22/20 18:14 [From Tricor] Iodinated Contrast Media Allergy Rash Verified 11/22/20 18:14 [CONTRASTS] ramipril Allergy Rash Verified 11/22/20 18:14 sertraline HCl [From Zoloft] AdvReac made me Verified 11/22/20 18:14 more depressed sulindac [From Clinoril] AdvReac PT UNSURE Verified 11/22/20 18:14 OF REACTION CARDIAC CATH DYE Allergy Rash Uncoded 11/22/20 18:14 Family History Mother CAD (coronary artery disease) Father CAD (coronary artery disease) Sister CAD (coronary artery disease) Brother Heart disease Brother Heart disease Brother Heart disease Surgical History History of appendectomy History of cataract surgery History of laparoscopic cholecystectomy History of liver biopsy Presence of coronary angioplasty implant and graft (~12/29/02) Social History Smoking Status: Former smoker alcohol intake: never substance use type: does not use ROS ROS ED Constitutional Constitutional ED: Denies chills or fever(s) Eyes Eyes: Denies change in vision ENT ENT ED: Denies sore throat Cardiovascular Cardiovascular: Reports chest pain Respiratory/Chest Respiratory/Chest: Reports cough and dyspnea Gastrointestinal Gastrointestinal: Reports nausea; Denies abdominal pain, diarrhea or vomiting Genitourinary Genitourinary ED: Denies dysuria Musculoskeletal Musculoskeletal: Denies back pain Integumentary Denies rash Neurologic Neurologic: Denies headache(s) or weakness Psychiatric Psychiatric: Denies anxiety or depression Allergic/Immunologic Allergic/Immunologic ED: Denies urticaria EXAM Physical Exam Const Vital Signs: 11/22/20 18:12 11/22/20 19:02 11/22/20 19:06 Temperature 99.1 F Temperature Source Temporal Pulse Rate 128 H 119 H Respiratory Rate 16 12 Respiratory Effort Non-Labored Respiratory Pattern Tachypnea Blood Pressure 151/112 H 157/97 H Blood Pressure Mean 125 117 Pulse Ox 97 93 Oxygen Delivery Method Room Air Room Air 11/22/20 19:43 11/22/20 20:00 11/22/20 21:00 Temperature Temperature Source Pulse Rate 120 H 88 87 Respiratory Rate 20 H 16 16 Respiratory Effort Respiratory Pattern Blood Pressure 145/106 H 133/88 H 134/90 H Blood Pressure Mean 119 103 104 Pulse Ox 91 94 93 Oxygen Delivery Method Room Air Room Air Room Air 11/22/20 21:51 11/22/20 21:52 Temperature Temperature Source Pulse Rate 61 92 Respiratory Rate 19 H 20 H Respiratory Effort Respiratory Pattern Blood Pressure 232/94 H 132/83 H Blood Pressure Mean 140 99 Pulse Ox 99 94 Oxygen Delivery Method Room Air Room Air Positive well nourished and well developed General Appearance ED: well developed HEENT Reports normocephalic and head/scalp atraumatic Eyes PERRL and EOMs intact bilaterally Neck supple Chest Wall inspection of chest normal and palpation of chest normal Resp normal respiratory effort and clear to auscultation bilaterally Cardio Rate: tachycardic Rhythm: abnormal rhythm irregularly irregular GI non-tender Auscultation: hypoactive bowel sounds Palpation: soft Extremity normal to inspection Neuro oriented x3 and no sensory deficits noted Sensorium / Orientation: alert Motor Exam: strength 5/5 throughout Psych mental status grossly normal Skin no rashes or lesions noted MDM MDM MDM Narrative Medical decision making narrative: Lab work, EKG, chest x-ray obtained. Covid swab obtained. Aspirin, Zofran, and 10 mg of Cardizem are ordered. Lab Data Attestation: I reviewed the patient's lab results. Labs: Laboratory Results - last 24 hr 11/22/20 11/22/20 18:30 18:30 WBC 5.9 RBC 3.13 L Hgb 12.0 Hct 36.2 L MCV 115.7 H MCH 38.3 H MCHC 33.1 RDW Std Deviation 58.5 H RDW Coeff of Pina 13.9 Plt Count 170 MPV 11.3 Immature Gran % (Auto) 0.300 Neut % (Auto) 63.1 Lymph % (Auto) 17.5 L [place] % (Auto) 16.6 H Eos % (Auto) 1.7 Baso % (Auto) 0.8 Absolute Neuts (auto) 3.7 Absolute Lymphs (auto) 1.03 Nucleated RBC % 0 Sodium 136 Potassium 4.1 Chloride 102 Carbon Dioxide 23.0 Anion Gap 11 BUN 30 H Creatinine 1.65 H Estim Creat Clear Calc 30.18 Est GFR (MDRD) Af Amer 39 L Est GFR (MDRD) Non-Af 32 L BUN/Creatinine Ratio 18.2 Glucose 114 H Calcium 9.7 Troponin I High Sens 20.5 Radiography Chest X-Ray - ED: 1 View, Read by ED Physician and Chronic Changes Diagnostic Testing: Radiology Impression Chest X-Ray 11/22/20 18:54 IMPRESSION: Normal x-ray examination of the chest. Electronically Signed: Umberto Laird MD at 19:56 EDT , Service support , EKG Initial EKG: Attestation: I personally reviewed and interpreted this EKG as follows: Interpretation: Atrial Fibrillation (A. fib at 120. No acute ST change.) Treatment and Re-Evaluation Comments:: On repeat evaluation heart rate is in the 90s. Patient does report the chest pressure is improved. With the patient having symptoms currently and scheduled for stress test later this month I did recommend observation for cycling of enzymes at the least. Patient be discussed with the hospitalist. Discharge Plan Triage Chief Complaint: Chest Pain ED Provider: Marlene Arenas Dx/Rx/DC Orders Clinical Impression: Chest pain Prescriptions: No Action losartan 25 mg tablet 25 mg PO DAILY RF: 0 nitroglycerin 0.4 mg tablet, sublingual 0.4 mg sublingual Q5-15M PRN (Reason: Cardiac/Chest Pain) RF: 0 cholecalciferol (vitamin D3) 5,000 unit tablet 5,000 unit PO DAILY RF: 0 pravastatin 40 mg tablet 40 mg PO QHS RF: 0 magnesium oxide 400 mg (241.3 mg magnesium) tablet 800 mg PO BID RF: 0 insulin lispro [Humalog KwikPen Insulin] 100 unit/mL insulin pen See Rx Instructions SC TID RF: 0 metformin 500 mg tablet 1,000 mg PO BID RF: 0 furosemide 20 mg tablet 20 mg PO DAILY RF: 0 pantoprazole 40 MG tablet 40 mg PO DAILY RF: 0 dulaglutide 0.75 MG/0.5 ML pen injector 0.75 mg SQ QWEEK RF: 0 metoprolol succinate 25 mg tablet extended release 24 hr 50 mg PO DAILY RF: 0 Eliquis 5 mg tablet 5 mg PO BID Qty: 180 RF: 3 prednisone 20 mg tablet 20 mg PO .COMPLEX Qty: 9 RF: 0 diphenhydramine HCl [Benadryl Allergy] 25 mg tablet 25 mg PO .COMPLEX Qty: 4 RF: 0 famotidine [Pepcid] 20 mg tablet 20 mg PO DAILY Qty: 2 RF: 0 clopidogrel [Plavix] 75 mg tablet 75 mg PO .COMPLEX Qty: 90 RF: 3 aspirin 81 mg tablet,chewable 81 mg PO ONCE Qty: 30 RF: 12 Primary Care Provider: Farhan Mendiola Referrals: Farhan Mendiola MD [Primary Care Provider] - Disposition Disposition: Acute Care Hospital [facility]
[2020-11-22] MEDS: dilTIAZem 25 MG/5 ML Vial 10 MG IV BOLUS (19:59)
[2020-11-22] MEDS: Ondansetron 4 MG/2 ML Vial IV (19:59)
[2020-11-22] MEDS: Aspirin 81 MG TAB.CHEW 324 MG PO (19:59)
--- NOTE | 2020-11-22 22:53 | HP.PCM_ITS ---
Documented by User: TANIA Nazario 11/22/20 23:10 HPI - General General Date of Admission: 11/22/20 Date of Service: 11/22/20 Chief Complaint: Chest pain HPI Narrative GRIS RODRIGUEZ, is a 75 F who presents with complaints of chest pain that started yesterday evening. Patient states that she feels like she has a crushing pressure sensation to her midsternal area that occasionally radiates through to her back. Patient denies radiation of pain to jaw or arm and denies numbness or tingling. Patient states that she has had improvement in symptoms since her heart rate has slowed down following administration of Cardizem in ER. Patient reports that she is supposed to be seeing an clinical psychiatrist on Wednesday regarding her atrial fibrillation and undergoing a heart catheterization with Dr. Singh on December 10. Patient denies fever, chills, shortness of breath, cough, nausea, vomiting. [facility] Medical History Acute myocardial infarction Atherosclerotic heart disease of [place] coronary artery without angina pectoris Atrial fibrillation Chronic pain CKD (chronic kidney disease) stage 3, GFR 30-59 ml/min Diabetes Diverticulosis Essential hypertension Former smoker GERD (gastroesophageal reflux disease) Hepatic cirrhosis History of cardioversion (~04/21/19) Hypertension Macrocytic anemia Mixed hyperlipidemia Neuroendocrine carcinoma Nonalcoholic steatohepatitis (PATRICK) Persistent atrial fibrillation Presence of stent in coronary artery (~12/29/02) Vertigo Home Medications losartan 25 mg tablet 25 mg PO DAILY 05/10/18 [History Last Taken 12/29/19] nitroglycerin 0.4 mg sublingual tablet 0.4 mg SUBLINGUAL Q5-15M PRN 05/10/18 [H istory Last Taken Unknown] cholecalciferol (vitamin D3) 125 mcg (5,000 unit) tablet 5,000 unit PO DAILY 07/22/18 [History Last Taken 12/22/19] pravastatin 40 mg tablet 40 mg PO QHS 04/07/19 [History Last Taken 12/28/19] pantoprazole 40 mg PO DAILY 12/29/19 [History Last Taken 12/29/19] furosemide 20 mg tablet 20 mg PO DAILY tab 06/12/20 [History Last Taken Unknown] dulaglutide 0.75 mg SQ QWEEK 07/04/20 [History Last Taken Unknown] metoprolol succinate 25 mg tablet,extended release 24 hr 50 mg PO DAILY tab 10/08/20 [History Last Taken Unknown] insulin lispro 100 unit/mL subcutaneous pen See Rx Instructions SC TID 10/23/20 [History Last Taken Unknown] magnesium oxide 400 mg (241.3 mg magnesium) tablet 800 mg PO BID tab 10/23/20 [History Last Taken Unknown] metformin 500 mg tablet 1,000 mg PO BID tab 10/23/20 [History Last Taken Unknown] apixaban 5 mg tablet 5 mg PO BID #180 tab 11/14/20 [Rx Last Taken Unknown] aspirin 81 mg chewable tablet 81 mg PO ONCE #30 tab 11/19/20 [Rx Last Taken Unknown] clopidogrel 75 mg tablet 75 mg PO .COMPLEX #90 tab 11/19/20 [Rx Last Taken Unknown] diphenhydramine HCl 25 mg tablet 25 mg PO .COMPLEX #4 tab 11/19/20 [Rx Last Taken Unknown] famotidine 20 mg tablet 20 mg PO DAILY #2 tab 11/19/20 [Rx Last Taken Unknown] prednisone 20 mg tablet 20 mg PO .COMPLEX #9 tab 11/19/20 [Rx Last Taken Unknown] Allergy/AdvReac Type Severity Reaction Status Date / Time adhesive Allergy Rash Verified 11/22/20 23:22 fenofibrate nanocrystallized Allergy Rash Verified 11/22/20 23:22 [From Tricor] fenofibrate,micronized Allergy Rash Verified 11/22/20 23:22 [From Tricor] Iodinated Contrast Media Allergy Rash Verified 11/22/20 23:22 [CONTRASTS] ramipril Allergy Rash Verified 11/22/20 23:22 sertraline HCl [From Zoloft] AdvReac made me Verified 11/22/20 23:22 more depressed sulindac [From [place]] AdvReac PT UNSURE Verified 11/22/20 23:22 OF REACTION CARDIAC CATH DYE Allergy Rash Uncoded 11/22/20 23:22 Family History Mother CAD (coronary artery disease) Father CAD (coronary artery disease) Sister CAD (coronary artery disease) Brother Heart disease Brother Heart disease Brother Heart disease Surgical History History of appendectomy History of cataract surgery History of cholecystectomy History of coronary artery stent placement History of laparoscopic cholecystectomy History of liver biopsy Presence of coronary angioplasty implant and graft (~12/29/02) Social History Smoking Status: Former smoker alcohol intake: never substance use type: does not use ROS Constitutional Constitutional: Denies anorexia, chills, fatigue, malaise or weakness Cardiovascular Cardiovascular: Reports chest pain; Denies edema, radiating jaw, neck or arm pain or syncope Respiratory/Chest Respiratory/Chest: Denies cough, shortness of breath at rest or shortness of breath with exertion Gastrointestinal Gastrointestinal: Denies abdominal pain, constipation, diarrhea, nausea or vomiting Genitourinary Genitourinary: Denies dysuria Musculoskeletal Musculoskeletal: Denies back pain, extremity pain, joint pain, joint stiffness or joint swelling Integumentary Integumentary: Denies dry skin Neurologic Neurologic: Denies abnormal gait, abnormal speech, confusion, dizziness or focal weakness Psychiatric Psychiatric: Denies anxiety or depression Endocrine Endocrinology: Denies change in body appearance Hematologic/Lymphatic Hematologic/Lymphatic: Denies easy bleeding or easy bruising Vital Signs Vital Signs Vital Signs: 11/22/20 18:12 11/22/20 19:02 11/22/20 19:06 Temperature 99.1 F Temperature Source Temporal Pulse Rate 128 H 119 H Respiratory Rate 16 12 Respiratory Effort Non-Labored Respiratory Pattern Tachypnea Blood Pressure 151/112 H 157/97 H Blood Pressure Mean 125 117 Pulse Ox 97 93 Oxygen Delivery Method Room Air Room Air 11/22/20 19:43 11/22/20 20:00 11/22/20 21:00 Temperature Temperature Source Pulse Rate 120 H 88 87 Respiratory Rate 20 H 16 16 Respiratory Effort Respiratory Pattern Blood Pressure 145/106 H 133/88 H 134/90 H Blood Pressure Mean 119 103 104 Pulse Ox 91 94 93 Oxygen Delivery Method Room Air Room Air Room Air 11/22/20 21:51 11/22/20 21:52 Temperature Temperature Source Pulse Rate 61 92 Respiratory Rate 19 H 20 H Respiratory Effort Respiratory Pattern Blood Pressure 232/94 H 132/83 H Blood Pressure Mean 140 99 Pulse Ox 99 94 Oxygen Delivery Method Room Air Room Air Weight Weight: 216 lb 0.848 oz Body Mass Index (BMI) 32.8 Physical Exam Const alert and oriented x3 General Appearance: cooperative HEENT normocephalic and head/scalp atraumatic Eyes conjunctivae normal and no scleral icterus Neck supple and no JVD General: trachea midline Resp normal respiratory effort, normal air movement and clear to auscultation bilaterally Cardio S1 normal heart sound, S2 normal heart sound and peripheral pulses 2+ throughout Rhythm: abnormal rhythm irregularly irregular (Patient history of atrial fibrillation) GI normal to inspection, nondistended, normoactive bowel sounds, soft to palpation and non-tender Extremity normal capillary refill and no clubbing, cyanosis or edema General Extremity: no tenderness to palpation of joints or extremities Skin General Skin Exam: no breakdown and turgor normal Lesions: no lesions Rashes: no rashes Neuro no focal motor deficits and no sensory deficits noted Speech: speech normal Motor Exam: Negative for general weakness Psych thought process normal, cooperative and affect normal Appearance: appropriate Results Lab / Micro Data Result Diagrams: 11/22/20 18:30 11/22/20 18:30 Labs: Laboratory Results - last 24 hr 11/22/20 18:30: WBC 5.9, RBC 3.13 L, Hgb 12.0, Hct 36.2 L, MCV 115.7 H, MCH 38.3 H, MCHC 33.1, RDW Std Deviation 58.5 H, RDW Coeff of Pina 13.9, Plt Count 170, MPV 11.3, Immature Gran % (Auto) 0.300, Neut % (Auto) 63.1, Lymph % (Auto) 17.5 L, [place] % (Auto) 16.6 H, Eos % (Auto) 1.7, Baso % (Auto) 0.8, Absolute Neuts (auto) 3.7, Absolute Lymphs (auto) 1.03, Nucleated RBC % 0 11/22/20 18:30: Sodium 136, Potassium 4.1, Chloride 102, Carbon Dioxide 23.0, Anion Gap 11, BUN 30 H, Creatinine 1.65 H, Estim Creat Clear Calc 30.18, Est GFR (MDRD) Af Amer 39 L, Est GFR (MDRD) Non-Af 32 L, BUN/Creatinine Ratio 18.2, Glucose 114 H, Calcium 9.7, Troponin I High Sens 20.5 Micro: Microbiology 11/22/20 20:10 Mucosa - Nose SARS-CoV-2 Antigen (Rapid) - Final Radiology Impression Chest X-Ray 11/22/20 18:54 IMPRESSION: Normal x-ray examination of the chest. Electronically Signed: Umberto Laird MD at 19:56 EDT , Service support , Assessment & Plan Assessment/Plan (1) Chest pain: QUALIFIERS: Chest pain type: unspecified Qualified Code(s): R07.9 - Chest pain, unspecified PLAN: 1. Chest pain -Admit to PCU for cardiac monitoring -Patient had stress test 11/08/2020 which shows LVEF of 37% as well as myocardial perfusion changes appearing compatible with an area of previous myocardial injury/infarction in portions of the mid to distal anteroseptal/septal apical segments with post?rest myocardial perfusion changes compatible with mild emmie-infarct related myocardial ischemia. -Patient reports that she has appointment with an clinical psychiatrist 11/26/2020 and a heart catheterization scheduled with Dr. Singh on 12/10/2020. -Will trend cardiac enzymes, initial value 20.5 -Patient received dose of IV Cardizem in ER and reports improvement of symptoms, current heart rate 92, rhythm atrial fibrillation -CBC, CMP, PT/INR ordered for a.m. 2. Acute on chronic renal insufficiency -Creatinine slightly elevated 1.61 -Normal saline 100ml/hr ordered -Daily CMP ordered, will trend 3. Hypertension -Continue home medication regimen including metoprolol, losartan, furosemide -Vital signs per protocol 4. Diabetes mellitus type 2 -Continue Lantus and mealtime Humalog -AC at bedtime blood sugars with sliding scale insulin ordered as well -Will hold Metformin due to increased creatinine 5. CAD with history of 2 stents -Continue Eliquis DVT prophylaxis-no pharmacological prophylaxis indicated, patient currently anticoagulated on Eliquis This patient was seen by TANIA Nazario under the supervision of Dr. Easton. Documented by User: Dr. Anthony Easton MD 11/22/20 23:39 HPI - General General Date of Admission: 11/22/20 Date of Service: 11/22/20 Chief Complaint: Chest pain HPI Narrative This 75-year-old female with history of paroxysmal A. fib came to ED with chest pain midsternal in location and shortness of breath. She described as constant that started yesterday for about 24 hours. She could not identify any precipitating, aggravating or relieving factor. Complain of exertional dyspnea, gets worse on laying down and slept yesterday on recliner. She denies fever or chills, cough or cold. She is COVID vaccinated. She is scheduled to see EP in [facility] on Wednesday but was told that she will need preprocedure cardiac cath if she goes for EDU for A. fib. Her heart rate in ER fluctuates between 90-100 tens. Denies dizziness, syncope. No fever or chills. She is Covid vaccinated. [facility] Medical History Acute myocardial infarction Atherosclerotic heart disease of [place] coronary artery without angina pectoris Atrial fibrillation Chronic pain CKD (chronic kidney disease) stage 3, GFR 30-59 ml/min Diabetes Diverticulosis Essential hypertension Former smoker GERD (gastroesophageal reflux disease) Hepatic cirrhosis History of cardioversion (~04/21/19) Hypertension Macrocytic anemia Mixed hyperlipidemia Neuroendocrine carcinoma Nonalcoholic steatohepatitis ([place]RICK) Persistent atrial fibrillation Presence of stent in coronary artery (~12/29/02) Vertigo Home Medications losartan 25 mg tablet 25 mg PO DAILY 05/10/18 [History Last Taken 12/29/19] nitroglycerin 0.4 mg sublingual tablet 0.4 mg SUBLINGUAL Q5-15M PRN 05/10/18 [History Last Taken Unknown] cholecalciferol (vitamin D3) 125 mcg (5,000 unit) tablet 5,000 unit PO DAILY 07/22/18 [History Last Taken 12/22/19] pravastatin 40 mg tablet 40 mg PO QHS 04/07/19 [History Last Taken 12/28/19] pantoprazole 40 mg PO DAILY 12/29/19 [History Last Taken 12/29/19] furosemide 20 mg tablet 20 mg PO DAILY tab 06/12/20 [History Last Taken Unknown] dulaglutide 0.75 mg SQ QWEEK 07/04/20 [History Last Taken Unknown] metoprolol succinate 25 mg tablet,extended release 24 hr 50 mg PO DAILY tab 10/08/20 [History Last Taken Unknown] insulin lispro 100 unit/mL subcutaneous pen See Rx Instructions SC TID 10/23/20 [History Last Taken Unknown] magnesium oxide 400 mg (241.3 mg magnesium) tablet 800 mg PO BID tab 10/23/20 [History Last Taken Unknown] metformin 500 mg tablet 1,000 mg PO BID tab 10/23/20 [History Last Taken Unknown] apixaban 5 mg tablet 5 mg PO BID #180 tab 11/14/20 [Rx Last Taken Unknown] aspirin 81 mg chewable tablet 81 mg PO ONCE #30 tab 11/19/20 [Rx Last Taken Unknown] clopidogrel 75 mg tablet 75 mg PO .COMPLEX #90 tab 11/19/20 [Rx Last Taken Unknown] diphenhydramine HCl 25 mg tablet 25 mg PO .COMPLEX #4 tab 11/19/20 [Rx Last Taken Unknown] famotidine 20 mg tablet 20 mg PO DAILY #2 tab 11/19/20 [Rx Last Taken Unknown] prednisone 20 mg tablet 20 mg PO .COMPLEX #9 tab 11/19/20 [Rx Last Taken Unknown] Allergy/AdvReac Type Severity Reaction Status Date / Time adhesive Allergy Rash Verified 11/22/20 23:22 fenofibrate nanocrystallized Allergy Rash Verified 11/22/20 23:22 [From Tricor] fenofibrate,micronized Allergy Rash Verified 11/22/20 23:22 [From Tricor] Iodinated Contrast Media Allergy Rash Verified 11/22/20 23:22 [CONTRASTS] ramipril Allergy Rash Verified 11/22/20 23:22 sertraline HCl [From Zoloft] AdvReac made me Verified 11/22/20 23:22 more depressed sulindac [From [place]] AdvReac PT UNSURE Verified 11/22/20 23:22 OF REACTION CARDIAC CATH DYE Allergy Rash Uncoded 11/22/20 23:22 Family History Mother CAD (coronary artery disease) Father CAD (coronary artery disease) Sister CAD (coronary artery disease) Brother Heart disease Brother Heart disease Brother Heart disease Surgical History History of appendectomy History of cataract surgery History of cholecystectomy History of coronary artery stent placement History of laparoscopic cholecystectomy History of liver biopsy Presence of coronary angioplasty implant and graft (~12/29/02) Social History Smoking Status: Former smoker alcohol intake: never substance use type: does not use Physical Exam Narrative General: Alert, Oriented x3, Cooperative HEENT: Atraumatic, PERRLA, EOMI, Normocephalic Oral: No Gingival or Mucosal Lesions/ Ulcerations Neck: Supple, No JVD, Negative Carotid Bruits Lungs: Air entry equal in bilateral lung bases. No crepitation/rhonchi Cardiovascular: Irregular rate and rhythm, tachycardia, normal S1, Normal S2, systolic murmur over cardiac apex Abdomen: Bowel Sounds Present, Soft, Non Tender, Non-Distended : No renal angle tenderness. No suprapubic tenderness. Extremities: No edema, Capillary Refill Less than 3 Seconds Skin: No rashes, No breakdown Musculoskeletal: No Tenderness to Palpation of Joints or Extremities Neurological: Cranial nerves II-XII grossly intact, DTR 2+/4 and Symmetrical, Neuro grossly intact Psych/Mental Status: Normal Affect, Appropriate. Results Lab / Micro Data Result Diagrams: 11/22/20 18:30 11/22/20 18:30 Assessment & Plan Assessment/Plan (1) Atypical chest pain: PLAN: This patient was seen in conjunction with LIZABETH Noe. I have independently interviewed and examined the patient and reviewed pertinent history, examination findings, laboratory and plan of management. I have reviewed the note and agree with the documented findings with the few additional points. In brief, patient is admitted to PCU for atypical chest pain, persistent for 24 hours. Serial troponin enzymes and EKG. EKG in ER and in PCU is similar shows atrial fibrillation, LAFB at rate of 97 bpm. In ER heart rate was elevated, 120/min. Patient had Cardizem 10 mg IV in ED. At home she is on Toprol-XL 50 mg daily and will change to metoprolol tartrate 50 mg twice daily for better heart rate control. Continue Eliquis. Patient requested to see Dr. Singh therefore consulted if she needs sooner heart cath. She had myocardial stress test in October 2020 which showed emmie-infarct ischemia around anteroseptal/septal apical segments. Acute kidney injury on CKD stage IIIb: Baseline creatinine runs around 1.5 with estimated creatinine clearance 42 mils per minute. IV fluid normal saline. Monitor kidney for electrolytes. Other comorbidities as mentioned above which includes hypertension, diabetes mellitus type 2, coronary artery status post 2 stents. Home medication re conciliation done Living will/advanced directive/end of life care: Patient does have living will or advanced directive. Her daughter near the bedside is next to kin. After discussion of benefits/risks procedures involved with full code, DNR CC arrest and DNR CC, the patient opted for DNR-CC Arrest with no intubation Patient does not want artificial life support including intubation, tube feed, ventilator and/chest compression, central venous catheter, vasopressor and DC shock if needed Total time spent in [id number] encounter in discussion of advanced directive 16 minutes. I have discussed my assessment with LIZABETH Noe and orders have been reviewed. Charges/Coding Visit Charges OBSV E&M: 86871 Initial observation care L3 Procedures Hospitalists Procedures: [id number] Advncd Care Plan 30 Min
--- NOTE | 2020-11-22 22:54 | EKG12_ITS ---
Test Reason : CP ADMIT Blood Pressure : / mmHG Vent. Rate : 097 BPM Atrial Rate : 288 BPM P-R Int : 000 ms QRS Dur : 112 ms QT Int : 382 ms P-R-T Axes : 000 -55 009 degrees QTc Int : 485 ms Atrial fibrillation Left anterior fascicular block Incomplete left bundle branch block Abnormal ECG Confirmed by ROMA MONTE, ILEANA ([id number]), film editor JARETT RAMIREZ ([id number]) on 11/27/2020 11:00:01 AM Referred By: DR OVALLE Confirmed By:ILEANA BRANDON MD
[2020-11-23] VITALS (13 sets, daily range): BP systolic 100–152; BP diastolic 75–114; PULSE 80–106; RESP 18; TEMP 36.4–36.9; O2SAT 93–98
[2020-11-23 00:03] LABS: Troponin-I HS 22.9 pg/mL (3.0-53.7)
[2020-11-23] MEDS: 0.9% Normal Saline 1,000 ML 100 ML IV ×3 (00:19→18:06)
[2020-11-23] MEDS: Metoprolol Tartrate 50 MG Tablet PO ×3 (00:20→21:13)
[2020-11-23 01:23] LABS: Troponin-I HS 21.8 pg/mL (3.0-53.7)
--- NOTE | 2020-11-23 05:55 | EKG12_ITS ---
Test Reason : AM EKG Blood Pressure : / mmHG Vent. Rate : 074 BPM Atrial Rate : 375 BPM P-R Int : 000 ms QRS Dur : 114 ms QT Int : 434 ms P-R-T Axes : 000 -55 -56 degrees QTc Int : 481 ms Atrial fibrillation Left anterior fascicular block Septal infarct , age undetermined ST & T wave abnormality, consider anterolateral ischemia Abnormal ECG Confirmed by ROMA MONTE, ILEANA ([id number]), editorial cartoonist JARETT RAMIREZ ([id number]) on 11/27/2020 10:16:58 AM Referred By: DR OVALLE Confirmed By:ILEANA BRANDON MD
--- NOTE | 2020-11-23 06:55 | CON.PCM.CA_ITS ---
Assessment & Plan Assessment/Plan (1) Angina pectoris: PLAN: The patient has symptoms concerning for angina pectoris. At the present time the patient is undergoing the rule out PR protocol. Her initial cardiac enzymes are negative. Her ECG is as noted. Her previous noninvasive studies were reviewed. At the present time she will continue to be followed. She will continue medical therapy. This may include the addition of nitrates. Her anticoagulation therapy will be placed on hold in anticipation of upcoming diagnostic cardiac catheterization. (2) CAD (coronary artery disease): PLAN: The patient has a history of underlying CAD. She has recently undergone noninvasive evaluation. At the moment she will continue to be followed, continue medical therapy, have her anticoagulation therapy placed on hold, and be considered for upcoming diagnostic cardiac catheterization. (3) Presence of stent in coronary artery: PLAN: The patient has a history of previous LAD and RCA PCI. Her recent stress test does raise concern of myocardial ischemia. She will continue her evaluation care as noted above. (4) Persistent atrial fibrillation: PLAN: The patient is already scheduled for outpatient EP consultation as noted to assist with evaluation and care of her atrial dysrhythmia as she continues to have issues with it despite medical therapy and despite multiple synchronized biphasic DC cardioversion attempts. Depending upon her clinical course her EP appointment may need to be altered. However she does need to follow through with it to gain the EP opinion to assist in her ongoing atrial fibrillation evaluation care. In the meantime she will continue medical therapy with rate control. Her anticoagulation is going to be temporarily interrupted in order to proceed with further evaluation with diagnostic cardiac catheterization. (5) Mixed hyperlipidemia: PLAN: The patient will continue risk factor evaluation and care. (6) Essential hypertension: PLAN: The patient's antihypertensive therapy may need to be adjusted based upon concerns of hypertension. (7) Abnormal stress test: PLAN: The patient does have a recent abnormal stress test. She had been scheduled for upcoming outpatient diagnostic cardiac catheterization. However now that she is in the hospital for the aforementioned concerns her anticoagulation therapy will be placed on hold with anticipation of an inpatient diagnostic cardiac catheterization procedure. Addt'l Comments The patient's case was discussed and reviewed with the patient with her daughter present. They were agreeable to this approach. This note was generated using a voice recognition system and there may be incorrect words, spelling or punctuation that were not noted when reviewing the office note prior to saving. HPI Consult Data Date of Consult: 11/23/20 HPI Narrative HPI Narrative: GRIS RODRIGUEZ, is a 75 year old white female who presents for evaluation of chest discomfort concerning for angina pectoris superimposed upon a history of CAD, previous PR, previous LAD PCI (1995), previous RCA PCI (2002), atrial fibrillation (status post previous synchronized biphasic DC cardioversion)-pending [facility] electrophysiology consultation on 11-26-2020, hyperlipidemia, hypertension, and diabetes mellitus. She notes recently she has been having increasing episodes of chest discomfort where she felt as if there was a heavy pressure sensation sitting on her precordium. She felt somewhat short of breath and dyspneic. She states this waxes and wanes especially over the last 1 to 2 days. She did not complain of orthopnea or PND or worsening peripheral pitting edema. There was no loss of consciousness reported. She states that she has been otherwise tired and fatigued which she has attributed to her atrial fibrillation. She presented to the emergency department for further evaluation. Her troponin I levels have been negative. Her ECG demonstrated atrial fibrillation with left axis deviation with possible left anterior fascicular block anteroseptal PR pattern of indeterminate age which cannot be excluded and a T wave abnormality potentially compatible myocardial ischemia-anterolateral. Her chest x-ray is as noted below. She has recently undergone evaluation with a transthoracic echocardiogram and an exercise tolerance test/nuclear imaging study. The results are as noted below. She has also undergone previous [facility] evaluation with echocardiogram, pharmacologic stress nuclear imaging study, and diagnostic cardiac catheterization/PCI. The results are as noted below: She did have a transthoracic echocardiogram performed through the [facility] system on 03/18/2018. At that time her left ventricle was reported as demonstrating mild LV hypertrophy, mildly decreased LV systolic function, LVEF of 51%, mild left atrial enlargement, and no significant valvular abnormalities. On 11/01/2017 she had a pharmacologic stress nuclear imaging study performed through the [facility] system. According to her perfusion study is abnormal with a fixed perfusion defect in the LAD territory. She had no evidence of inducible myocardial ischemia. Her most recent cardiac catheterization/PCI procedure appears to been performed at [facility] on 12/29/2002. At that time she had PTCA/stent of the ostial right coronary artery facilitated by a cutting balloon. [facility] Medical History (Updated 11/23/20 @ 12:[address] Joe Singh MD) Acute myocardial infarction Angina pectoris Atherosclerotic heart disease of [place] coronary artery without angina pectoris Atrial fibrillation CAD (coronary artery disease) Chronic pain CKD (chronic kidney disease) stage 3, GFR 30-59 ml/min Diabetes Diverticulosis Essential hypertension Former smoker GERD (gastroesophageal reflux disease) Hepatic cirrhosis History of cardioversion (~04/21/19) Hypertension Macrocytic anemia Mixed hyperlipidemia Neuroendocrine carcinoma Nonalcoholic steatohepatitis (PATRICK) Persistent atrial fibrillation Presence of stent in coronary artery (~12/29/02) Vertigo Home Medications losartan 25 mg tablet 25 mg PO DAILY 05/10/18 [History Last Taken 11/22/20 09:00] nitroglycerin 0.4 mg sublingual tablet 0.4 mg SUBLINGUAL Q5-15M PRN 05/10/18 [History Last Taken Unknown] cholecalciferol (vitamin D3) 125 mcg (5,000 unit) tablet 5,000 unit PO DAILY 07/22/18 [History Last Taken 11/22/20 09:00] pravastatin 40 mg tablet 40 mg PO QHS 04/07/19 [History Last Taken 11/22/20 17:00] pantoprazole 40 mg PO DAILY 12/29/19 [History Last Taken 11/22/20 09:00] furosemide 20 mg tablet 20 mg PO DAILY tab 06/12/20 [History Last Taken 11/22/20 09:00] dulaglutide 0.75 mg SQ QWEEK 07/04/20 [History Last Taken 11/18/20 09:00] metoprolol succinate 25 mg tablet,extended release 24 hr 50 mg PO DAILY tab 10/08/20 [History Last Taken 11/22/20 09:00] insulin lispro 100 unit/mL subcutaneous pen See Rx Instructions SC TID 10/23/20 [History Last Taken 11/22/20 17:00] magnesium oxide 400 mg (241.3 mg magnesium) tablet 800 mg PO BID tab 10/23/20 [History Last Taken 11/22/20 17:00] metformin 500 mg tablet 1,000 mg PO BID tab 10/23/20 [History Last Taken 11/22/20 17:00] apixaban 5 mg tablet 5 mg PO BID #180 tab 11/14/20 [Rx Last Taken 11/22/20 17:00] aspirin 81 mg chewable tablet 81 mg PO ONCE #30 tab 11/19/20 [Rx Last Taken Unknown] clopidogrel 75 mg tablet 75 mg PO .COMPLEX #90 tab 11/19/20 [Rx Last Taken Unknown] diphenhydramine HCl 25 mg tablet 25 mg PO .COMPLEX #4 tab 11/19/20 [Rx Last Taken Unknown] famotidine 20 mg tablet 20 mg PO DAILY #2 tab 11/19/20 [Rx Last Taken Unknown] prednisone 20 mg tablet 20 mg PO .COMPLEX #9 tab 11/19/20 [Rx Last Taken Unknown] Allergy/AdvReac Type Severity Reaction Status Date / Time adhesive Allergy Rash Verified 11/22/20 23:22 fenofibrate nanocrystallized Allergy Rash Verified 11/22/20 23:22 [From Tricor] fenofibrate,micronized Allergy Rash Verified 11/22/20 23:22 [From Tricor] Iodinated Contrast Media Allergy Rash Verified 11/22/20 23:22 [CONTRASTS] ramipril Allergy Rash Verified 11/22/20 23:22 sertraline HCl [From Zoloft] AdvReac made me Verified 11/22/20 23:22 more depressed sulindac [From Clinoril] AdvReac PT UNSURE Verified 11/22/20 23:22 OF REACTION CARDIAC CATH DYE Allergy Rash Uncoded 11/22/20 23:22 Family History Mother CAD (coronary artery disease) Father CAD (coronary artery disease) Sister CAD (coronary artery disease) Brother Heart disease Brother Heart disease Brother Heart disease Surgical History History of appendectomy History of cataract surgery History of cholecystectomy History of coronary artery stent placement History of laparoscopic cholecystectomy History of liver biopsy Presence of coronary angioplasty implant and graft (~12/29/02) Social History Smoking Status: Former smoker alcohol intake: never substance use type: does not use ROS Constitutional Constitutional: Reports as per HPI Eyes Eyes: Reports as per HPI ENT HEENT: Reports as per HPI Cardiovascular Cardiovascular: Reports chest pain, chest pain at rest, dyspnea and dyspnea at rest Respiratory/Chest Respiratory/Chest: Reports dyspnea Gastrointestinal Gastrointestinal: Reports as per HPI Genitourinary Genitourinary: Reports as per HPI Musculoskeletal Musculoskeletal: Reports as per HPI Integumentary Integumentary: Reports as per HPI Neurologic Neurologic: Reports as per HPI Psychiatric Psychiatric: Reports as per HPI Physical Exam Const alert, oriented x3, no apparent distress and healthy appearing Orientation / Consciousness: awake HEENT normocephalic, head/scalp atraumatic and hearing grossly normal bilaterally Eyes PERRL, EOMs intact bilaterally and conjunctivae normal Neck full ROM, supple and no JVD Resp clear to auscultation bilaterally Cardio Palpation: abnormal PMI Rhythm: abnormal rhythm irregularly irregular Heart Sounds: S1 normal and S2 normal GI normal to inspection, nondistended, normoactive bowel sounds Extremity no pedal edema Skin no rashes or lesions noted Neuro oriented x3, CN's II-XII intact bilaterally and moves all extremities Psych mental status grossly normal Objective Data Vital Signs: Vital Signs Temp Pulse Resp BP Pulse Ox 97.5 F L 84 18 107/75 93 11/23/20 05:20 11/23/20 05:20 11/23/20 05:20 11/23/20 05:20 11/23/20 05:20 Oxygen Delivery Method Room Air Weight: 216 lb 0.848 oz Body Mass Index (BMI) 33.8 Intake & Output: Intake and Output for Last 24 Hours 11/21/20 11/22/20 11/23/20 23:59 23:59 23:59 Intake Total 240 / 240 Balance 240 / 240 Lab / Micro Data Result Diagrams: 11/23/20 08:33 11/23/20 08:33 Labs: Laboratory Results - last 24 hr 11/22/20 18:30: WBC 5.9, RBC 3.13 L, Hgb 12.0, Hct 36.2 L, MCV 115.7 H, MCH 38.3 H, MCHC 33.1, RDW Std Deviation 58.5 H, RDW Coeff of Pina 13.9, Plt Count 170, MPV 11.3, Immature Gran % (Auto) 0.300, Neut % (Auto) 63.1, Lymph % (Auto) 17.5 L, [place] % (Auto) 16.6 H, Eos % (Auto) 1.7, Baso % (Auto) 0.8, Absolute Neuts (auto) 3.7, Absolute Lymphs (auto) 1.03, Nucleated RBC % 0 11/22/20 18:30: Sodium 136, Potassium 4.1, Chloride 102, Carbon Dioxide 23.0, Anion Gap 11, BUN 30 H, Creatinine 1.65 H, Estim Creat Clear Calc 30.18, Est GFR (MDRD) Af Amer 39 L, Est GFR (MDRD) Non-Af 32 L, BUN/Creatinine Ratio 18.2, Glucose 114 H, Calcium 9.7, Troponin I High Sens 20.5 11/22/20 23:25: Troponin I High Sens 22.9 11/23/20 00:45: Troponin I High Sens 21.8 Micro: Microbiology 11/22/20 20:10 Mucosa - Nose SARS-CoV-2 Antigen (Rapid) - Final Cardiology Labs/Tests 11/22/20 18:30: WBC 5.9, RBC 3.13 L, Hgb 12.0, Hct 36.2 L, MCV 115.7 H, MCH 38.3 H, MCHC 33.1, Plt Count 170, MPV 11.3, Immature Gran % (Auto) 0.300, Neut % (Auto) 63.1, Lymph % (Auto) 17.5 L, [place] % (Auto) 16.6 H, Eos % (Auto) 1.7, Baso % (Auto) 0.8, Absolute Neuts (auto) 3.7, Nucleated RBC % 0 11/22/20 18:30: Sodium 136, Potassium 4.1, Chloride 102, Carbon Dioxide 23.0, Anion Gap 11, BUN 30 H, Creatinine 1.65 H, Est GFR (MDRD) Af Amer 39 L, Est GFR (MDRD) Non-Af 32 L, BUN/Creatinine Ratio 18.2, Glucose 114 H, Calcium 9.7 Rhythm: EKG: ECHO: 11/08/2020 Interpretation Summary Mildly dilated left ventricle. Moderate segmental systolic dysfunction (see wall motion). The estimated ejection fraction is 35 %. The left atrium is moderately enlarged. The right atrium is moderately enlarged. The mitral valve chordae are thickened and/or calcified. Moderately severe (3+) mitral valve insufficiency. Moderate (2+) tricuspid valve insufficiency. Mild diffuse aortic valve thickening. Mild focal aortic valve calcification. Mild (1+) pulmonic valve insufficiency. Right ventricular systolic pressure estimated to be 50 mmHg. Unable to assess diastolic dysfunction. Stress Test: Stress Test Report Date: 11-08-2020 Procedure: Pharmacologic stress nuclear imaging study Indications: Chest pain; shortness of breath/dyspnea on exertion; atrial fibrillation; CAD; PCI Consent: Per the patient Procedure: The patient underwent pharmacologic (Regadenoson 0.4mg ) evaluation with a peak heart rate of 115 beats per minute (78%predicted maximal heart rate) and a peak blood pressure of 134/96 mmHg. The baseline ECG demonstrated atrial fibrillation; nonspecific IVCD. The peak pharmacologic ECG demonstrated no obvious ECG changes. There were no cardiac dysrhythmias pretest, during pharmacologic infusion, or recovery. There was no complaint of chest discomfort during pharmacologic infusion or recovery. The examination was discontinued secondary to completion of protocol. Impression: 1. Pharmacologic (Regadenoson) evaluation 2. Peak pharmacologic ECG with continued atrial fibrillation with nonspecific IVCD with no obvious ECG changes. 3. There were no cardiac dysrhythmias pretest, during pharmacologic infusion, or recovery. 4. Nuclear images pending Myocardial perfusion imaging study: Technique: The patient was injected with 15.0 millicuries of technetium 99m Cardiolite and subsequently rest SPECT Cardiolite nuclear imaging was obtained in the horizontal long, vertical long, and short axis views. The patient underwent pharmacologic (Regadenoson) evaluation with a peak heart rate of 115 beats per minute (78% percent predicted maximal heart rate) and a peak blood pressure of 134/90 mmHg. The patient was injected with 45.0 millicuries of technetium 99m Cardiolite and subsequently stress SPECT Cardiolite nuclear imaging was obtained in the horizontal long, vertical long, and short axis views. A gated Cardiolite study at peak stress was obtained. Interpretation: Rest and stress SPECT Cardiolite nuclear imaging status post realignment, normalization, and attenuation correction demonstrate the appearance of diminished absence of myocardial perfusion/tracer uptake in portions of the mid to distal anterior septal/septal apical segments which status post stress appears to be somewhat more prominent. There is diminished end systolic thickening and brightening in the aforementioned areas. The gated Cardiolite study demonstrates myocardial thickening and inward wall motion. The reported LVEF is 37%. Impression: 1. Rest and stress SPECT her nuclear imaging demonstrate myocardial perfusion changes appearing compatible with an area of previous myocardial injury/infarc tion in portions of the mid to distal anteroseptal/septal apical segments with post-rest myocardial perfusion changes compatible with mild emmie-infarct related myocardial ischemia. 2. The gated Cardiolite study reports an LVEF of 37%. Cardiac Cath/PCI: Her most recent cardiac catheterization/PCI procedure appears to been performed at [facility] on 12/29/2002. At that time she had PTCA/stent of the ostial right coronary artery facilitated by a cutting balloon. Radiography Diagnostic Testing: Radiology Impression Chest X-Ray 11/22/20 18:54 IMPRESSION: Normal x-ray examination of the chest. Electronically Signed: Umberto Laird MD at 19:56 EDT , Service support ,
[2020-11-23 08:31] LABS: Bedside Glucose 98 mg/dL (70-110)
[2020-11-23 08:53] LABS: Absolute Lymphocyte Count 0.88 X10^3/uL (0.83-4.51); Absolute Neutrophil Count 2.6 X10^3/uL (2.0-7.7); Basophil# 0.03 X10^3/uL; Basophil% 0.7 % (0-1); Eosinophil# 0.11 X10^3/uL; Eosinophils% 2.6 % (0-5); Hematocrit 34.9 % (37-47); Hemoglobin 11.3 g/dL (12.0-15.0); Lymphocyte # 0.88 X10^3/ul (0.83-4.51); Lymphocyte % 20.9 % (19-41); Mean Corp Hgb Conc 32.4 g/dL (32-36); Mean Corpuscular Hgb 38.2 pg (27.0-32.0); Mean Corpuscular Volume 117.9 fL (81-99); Mean Platelet Vol. 10.9 fl (6.2-12.0); Monocyte# 0.62 X10^3/uL; Monocyte% 14.7 % (0-10); NRBC Flagged by Analyzer 0 % (0-5); Neutrophil # 2.55 X10^3/uL (2.7-7.7); Neutrophil % 60.6 % (47-70); Platelet Count 144 K/mm3 (150-450); RBC Distribution Width CV 13.9 % (11.6-14.6); RBC Distribution Width SD 60.7 fl (35.1-43.9); Red Blood Count 2.96 M/mm3 (4.2-5.4); White Blood Count 4.2 K/mm3 (4.4-11.0)
[2020-11-23 09:18] LABS: ALB/GLOB Ratio 0.7 RATIO (0.9-2.4); AST(SGOT) 60 U/L (15-37); Alanine Aminotransfer ALT/SGPT 45 U/L (13-56); Albumin, Serum 3.1 g/dL (3.2-5.0); Alkaline Phosphatase 65 U/L (45-117); Anion Gap 8 (5-15); BUN 30 mg/dL (7-18); BUN/Creat Ratio 23.3 RATIO (10-20); Chloride 104 mmol/L (98-107); Cholesterol 102 mg/dL (200); Creatinine, Serum 1.29 mg/dL (0.55-1.02); EST Glomerular Filtration Rate 43 mL/min (>60); Est Glom Filt Rate - Afr Amer 52 mL/min (>60); Estimated Creatinine Clearance 37.21 ml/min; Globulin 4.6 g/dL (2.2-4.2); Glucose 108 mg/dL (74-106); High Density Lipoprotein 28 mg/dL; Potassium 4.5 mmol/L (3.5-5.1); Protein, Total 7.7 g/dL (6.4-8.2); Sodium Level 136 mmol/L (136-145); Thyroid Stim Hormone (TSH) 2.66 uIU/mL (0.358-3.74); Triglycerides 133 mg/dL; Very Low Density Lipoprotein 27 mg/dL (5-40)
[2020-11-23 11:46] LABS: Bedside Glucose 124 mg/dL (70-110)
[2020-11-23] MEDS: Losartan Potassium 25 MG Tablet PO (12:06)
[2020-11-23] MEDS: Furosemide 20 MG Tablet PO (12:07)
[2020-11-23] MEDS: Magnesium Chloride 64 MG Delay Rel.Tablet 256 MG PO ×2 (12:08→21:07)
[2020-11-23] MEDS: Cholecalciferol (VIT D3) 25 MCG TABLET (1,000 UNITS) 125 MCG PO (12:09)
[2020-11-23] MEDS: Pantoprazole Sodium 40 MG Tablet PO (12:09)
[2020-11-23] MEDS: Insulin Lispro 100 UNIT/ML INSULN.PEN 10 UNIT SC ×2 (12:21→16:09)
[2020-11-23] MEDS: Ibuprofen 400 MG Tablet PO (13:04)
--- NOTE | 2020-11-23 15:57 | PN.HOSP_ITS ---
Subjective Subjective Patient seen and examined. She was admitted with a complaint of chest pain. that started on the night before admission. Chest pain was midsternal, with radiation to her back. Patient seen and examined. She complains of feeling a bit lightheaded, but felt well otherwise. Chest pain hadnt recurred. Review of systems is otherwise negative. She has remained hemodynamically stable. She says she had an abnormal stress on outpatient basis and is scheduled to have a heart cath on 12/10/2020. Review of systems otherwise negative. Objective Data Objective Data Vital Signs: Vital Signs Temp Pulse Resp BP Pulse Ox 98.2 F 106 H 18 152/114 H 98 11/23/20 11:20 11/23/20 12:07 11/23/20 11:20 11/23/20 12:07 11/23/20 11:20 Oxygen Delivery Method Room Air Weight: 216 lb 14.958 oz Body Mass Index (BMI) 33.8 Intake & Output: Intake and Output for Last 24 Hours 11/21/20 11/22/20 11/23/20 23:59 23:59 23:59 Intake Total 1285 / 1285 Balance 1285 / 1285 Lab / Micro Data Result Diagrams: 11/23/20 08:33 11/23/20 08:33 Labs: Laboratory Results - last 24 hr 11/22/20 18:30: WBC 5.9, RBC 3.13 L, Hgb 12.0, Hct 36.2 L, MCV 115.7 H, MCH 38.3 H, MCHC 33.1, RDW Std Deviation 58.5 H, RDW Coeff of Pina 13.9, Plt Count 170, MPV 11.3, Immature Gran % (Auto) 0.300, Neut % (Auto) 63.1, Lymph % (Auto) 17.5 L, [place] % (Auto) 16.6 H, Eos % (Auto) 1.7, Baso % (Auto) 0.8, Absolute Neuts (a uto) 3.7, Absolute Lymphs (auto) 1.03, Nucleated RBC % 0 11/22/20 18:30: Sodium 136, Potassium 4.1, Chloride 102, Carbon Dioxide 23.0, Anion Gap 11, BUN 30 H, Creatinine 1.65 H, Estim Creat Clear Calc 30.18, Est GFR (MDRD) Af Amer 39 L, Est GFR (MDRD) Non-Af 32 L, BUN/Creatinine Ratio 18.2, Glucose 114 H, Calcium 9.7, Troponin I High Sens 20.5 11/22/20 23:25: Troponin I High Sens 22.9 11/23/20 00:45: Troponin I High Sens 21.8 11/23/20 08:15: POC Glucose 98 11/23/20 08:33: WBC 4.2 L, RBC 2.96 L, Hgb 11.3 L, Hct 34.9 L, MCV 117.9 H, MCH 38.2 H, MCHC 32.4, RDW Std Deviation 60.7 H, RDW Coeff of Pina 13.9, Plt Count 144 L, MPV 10.9, Immature Gran % (Auto) 0.500, Neut % (Auto) 60.6, Lymph % (Auto) 20.9, [place] % (Auto) 14.7 H, Eos % (Auto) 2.6, Baso % (Auto) 0.7, Absolute Neuts (auto) 2.6, Absolute Lymphs (auto) 0.88, Nucleated RBC % 0 11/23/20 08:33: Sodium 136, Potassium 4.5, Chloride 104, Carbon Dioxide 24.0, Anion Gap 8, BUN 30 H, Creatinine 1.29 H, Estim Creat Clear Calc 37.21, Est GFR (MDRD) Af Amer 52 L, Est GFR (MDRD) Non-Af 43 L, BUN/Creatinine Ratio 23.3 H, Glucose 108 H, Calcium 9.0, Magnesium 2.0, Total Bilirubin 0.70, AST 60 H, ALT 45, Alkaline Phosphatase 65, Total Protein 7.7, Albumin 3.1 L, Globulin 4.6 H, Albumin/Globulin Ratio 0.7 L, Triglycerides 133, Cholesterol 102, LDL Choles terol 47, VLDL Cholesterol 27, HDL Cholesterol 28 L, TSH 2.66 11/23/20 11:17: POC Glucose 124 H Micro: Microbiology 11/22/20 20:10 Mucosa - Nose SARS-CoV-2 Antigen (Rapid) - Final Radiography Diagnostic Testing: Radiology Impression Chest X-Ray 11/22/20 18:54 IMPRESSION: Normal x-ray examination of the chest. Electronically Signed: Umberto Laird MD at 19:56 EDT , Service support , Physical Exam Const alert, oriented x3 and no apparent distress General Appearance: cooperative Exam Limitations: no limitations HEENT normocephalic, head/scalp atraumatic and moist oral mucous membranes Head and Scalp: normocephalic Eyes conjunctivae normal and no scleral icterus Neck no lymphadenopathy, supple and no JVD General: trachea midline Resp normal respiratory effort, normal air movement, no retractions, no use of accessory muscles and clear to auscultation bilaterally Cardio regular rate, regular rhythm, S1 normal heart sound, S2 normal heart sound and peripheral pulses 2+ throughout Rhythm: abnormal rhythm irregularly irregular (Patient history of atrial fibrillation) GI normal to inspection, nondistended, normoactive bowel sounds, soft to palpation and non-tender Extremity normal to inspection, full ROM, normal capillary refill and no clubbing, cyanosis or edema General Extremity: no tenderness to palpation of joints or extremities Peripheral Pulses: Yes pulses 2+ throughout Skin no rashes or lesions noted General Skin Exam: no breakdown and turgor normal Lesions: no lesions Rashes: no rashes Neuro oriented x3, CN's II-XII intact bilaterally, no focal motor deficits and no sensory deficits noted Sensorium / Orientation: awake and alert Speech: speech normal Motor Exam: Negative for general weakness Psych thought process normal, cooperative and affect normal Appearance: appropriate Assessment & Plan Assessment/Plan (1) Atypical chest pain: PLAN: #Chest pain * Troponins x3 were negative. Stress test done on 11/08/2020 showed EF of 37% with concerns for mild emmie-infarct related myocardial ischemia. * Cardiology on board. For cardiac cath on Wednesday. * Sublingual nitroglycerin as needed. P.o. aspirin 81 mg daily. * #CAD s/p stents x2: On aspirin and statin as well as metoprolol and losartan #CKD stage 3: sttable #Type 2 diabetes mellitus: On Lantus. Insulin sliding scale. ACHS DVT prophylaxis: hold eliquis as she will have cardiac cath on Wednesday, and place on therapeutic lovenox #Persistent afib * scheduled to have outpatient EP consultation as afib remains poorly controlled despite medical therapy and multiple attempts at cardioversion. Charges/Coding Visit Charges OBSV E&M: 85994 Subsequent observation care L2
[2020-11-23] MEDS: Nitroglycerin Oint 1 INCH PACKET TD ×2 (16:05→23:49)
[2020-11-23 16:45] LABS: Bedside Glucose 127 mg/dL (70-110)
--- NOTE | 2020-11-23 17:45 | CASEMGMT ---
Insurance review for hospitals In-network with [facility] Plan Insurance if transfer is recommended is as follows: [facility], [facility], CC, [facility], [facility], [facility], [facility] ([facility]), and . Elena BSN RN CM
--- NOTE | 2020-11-23 18:56 | NURSING ---
Charting by student nurse Rocky Romero reviewed by this RN
[2020-11-23] MEDS: Pravastatin 40 MG Tablet PO (21:07)
[2020-11-23] MEDS: Insulin Lispro 100 UNIT/ML INSULN.PEN SC (21:09)
[2020-11-23 22:21] LABS: Bedside Glucose 183 mg/dL (70-110)
[2020-11-24] VITALS (13 sets, daily range): BP systolic 104–131; BP diastolic 64–84; PULSE 76–98; RESP 14–18; TEMP 36.4–37.1; O2SAT 95–97
[2020-11-24] MEDS: 0.9% Normal Saline 1,000 ML 100 ML IV ×3 (04:22→23:59)
[2020-11-24] MEDS: Nitroglycerin Oint 1 INCH PACKET TD ×4 (05:35→23:56)
[2020-11-24 06:35] LABS: Absolute Lymphocyte Count 0.91 X10^3/uL (0.83-4.51); Absolute Neutrophil Count 2.7 X10^3/uL (2.0-7.7); Basophil# 0.02 X10^3/uL; Basophil% 0.4 % (0-1); Eosinophil# 0.11 X10^3/uL; Eosinophils% 2.5 % (0-5); Hematocrit 30.3 % (37-47); Hemoglobin 10.1 g/dL (12.0-15.0); Lymphocyte # 0.91 X10^3/ul (0.83-4.51); Lymphocyte % 20.3 % (19-41); Mean Corp Hgb Conc 33.3 g/dL (32-36); Mean Corpuscular Hgb 38.5 pg (27.0-32.0); Mean Corpuscular Volume 115.6 fL (81-99); Monocyte# 0.77 X10^3/uL; Monocyte% 17.2 % (0-10); NRBC Flagged by Analyzer 0 % (0-5); Neutrophil # 2.65 X10^3/uL (2.7-7.7); Neutrophil % 59.2 % (47-70); Platelet Count 135 K/mm3 (150-450); RBC Distribution Width CV 13.8 % (11.6-14.6); RBC Distribution Width SD 58.3 fl (35.1-43.9); Red Blood Count 2.62 M/mm3 (4.2-5.4); White Blood Count 4.5 K/mm3 (4.4-11.0)
[2020-11-24 07:08] LABS: Anion Gap 9 (5-15); BUN 30 mg/dL (7-18); BUN/Creat Ratio 24.2 RATIO (10-20); Calcium,Total 8.3 mg/dL (8.5-10.1); Chloride 103 mmol/L (98-107); Creatinine, Serum 1.24 mg/dL (0.55-1.02); EST Glomerular Filtration Rate 45 mL/min (>60); Est Glom Filt Rate - Afr Amer 54 mL/min (>60); Estimated Creatinine Clearance 38.71 ml/min; Glucose 147 mg/dL (74-106); Potassium 4.2 mmol/L (3.5-5.1); Sodium Level 134 mmol/L (136-145)
[2020-11-24] MEDS: Insulin Lispro 100 UNIT/ML INSULN.PEN 14 UNIT SC (08:28)
[2020-11-24] MEDS: Enoxaparin 40 MG/0.4 ML Syringe SC (08:29)
[2020-11-24] MEDS: Metoprolol Tartrate 50 MG Tablet PO ×2 (08:30→21:45)
[2020-11-24] MEDS: Furosemide 20 MG Tablet PO (08:30)
[2020-11-24] MEDS: Pantoprazole Sodium 40 MG Tablet PO (08:30)
[2020-11-24] MEDS: Losartan Potassium 25 MG Tablet PO (08:30)
[2020-11-24] MEDS: Magnesium Chloride 64 MG Delay Rel.Tablet 256 MG PO ×2 (08:31→21:44)
[2020-11-24] MEDS: Cholecalciferol (VIT D3) 25 MCG TABLET (1,000 UNITS) 125 MCG PO (08:31)
[2020-11-24 09:06] LABS: Bedside Glucose 146 mg/dL (70-110)
[2020-11-24] MEDS: Insulin Lispro 100 UNIT/ML INSULN.PEN 10 UNIT SC ×2 (11:56→16:35)
[2020-11-24] MEDS: Insulin Lispro 100 UNIT/ML INSULN.PEN SC ×3 (11:58→21:52)
[2020-11-24 12:10] LABS: Bedside Glucose 154 mg/dL (70-110)
--- NOTE | 2020-11-24 12:44 | PCM.PN.HOSP ---
Documented by User: Serenity Ramos NP, SEWING MACHINE OPERATOR [employer] 11/24/20 12:59 Subjective Subjective Patient seen and examined. Reports mild continuous chest pressure. Denies significant chest pain or worsening of symptoms. Denies shortness of breath. Plan for heart cath in a.m. Objective Data Objective Data Vital Signs: Vital Signs Temp Pulse Resp BP Pulse Ox 97.6 F L 98 14 121/80 H 95 11/24/20 08:00 11/24/20 08:30 11/24/20 08:00 11/24/20 08:00 11/24/20 08:05 Oxygen Delivery Method Room Air Weight: 223 lb 1.725 oz Body Mass Index (BMI) 33.8 Intake & Output: Intake and Output for Last 24 Hours 11/22/20 11/23/20 11/24/20 23:59 23:59 23:59 Intake Total 3098.33 / 3098.33 2099 Balance 3098.33 / 3098.33 2099 Lab / Micro Data Result Diagrams: 11/24/20 05:15 11/24/20 05:15 Labs: Laboratory Results - last 24 hr 11/23/20 16:06: POC Glucose 127 H 11/23/20 21:01: POC Glucose 183 H 11/24/20 05:15: Sodium 134 L, Potassium 4.2, Chloride 103, Carbon Dioxide 22.0, Anion Gap 9, BUN 30 H, Creatinine 1.24 H, Estim Creat Clear Calc 38.71, Est GFR (MDRD) Af Amer 54 L, Est GFR (MDRD) Non-Af 45 L, BUN/Creatinine Ratio 24.2 H, Glucose 147 H, Calcium 8.3 L 11/24/20 05:15: WBC 4.5, RBC 2.62 L, Hgb 10.1 L, Hct 30.3 L, MCV 115.6 H, MCH 38.5 H, MCHC 33.3, RDW Std Deviation 58.3 H, RDW Coeff of Pina 13.8, Plt Count 135 L, MPV 11.0, Immature Gran % (Auto) 0.400, Neut % (Auto) 59.2, Lymph % (Auto) 20.3, [place] % (Auto) 17.2 H, Eos % (Auto) 2.5, Baso % (Auto) 0.4, Absolute Neuts (auto) 2.7, Absolute Lymphs (auto) 0.91, Nucleated RBC % 0 11/24/20 08:01: POC Glucose 146 H 11/24/20 11:50: POC Glucose 154 H Micro: Microbiology 11/22/20 20:10 Mucosa - Nose SARS-CoV-2 Antigen (Rapid) - Final Physical Exam Const alert, oriented x3 and no apparent distress Orientation / Consciousness: awake, oriented to person, oriented to place and oriented to time HEENT normocephalic and moist oral mucous membranes Eyes PERRL, EOMs intact bilaterally and conjunctivae normal Neck no lymphadenopathy Resp normal respiratory effort and clear to auscultation bilaterally Cardio Cardio Narrative: Atrial fibrillation, rate controlled Heart Sounds: murmur Peripheral Pulses: pulses 2+ throughout GI normal to inspection, nondistended, normoactive bowel sounds, non-tender and non-distended Extremity normal to inspection Skin no rashes or lesions noted Lesions: no lesions Rashes: no rashes Trauma: no lacerations or abrasions Neuro CN's II-XII intact bilaterally, no focal motor deficits, no sensory deficits noted and deep tendon reflexes 2+ bilaterally Psych mental status grossly normal and affect normal Assessment & Plan Assessment/Plan (1) Chest pain: QUALIFIERS: Chest pain type: unspecified Qualified Code(s): R07.9 - Chest pain, unspecified PLAN: 1. Chest pain-troponin negative. Cardiology consulted. Recent stress test 11/08/2020 demonstrated an EF of 37% with concern for mild emmie-infarct related to myocardial ischemia. Plan for heart cath in a.m. Continue medical management. Echocardiogram 11/08/2020 demonstrated an EF of 35%, moderately severe mitral valve insufficiency, moderate tricuspid valve insufficiency, mild pulmonic valve insufficiency, RVSP estimated be 50 mmHg. 2. CAD with history of stents-on aspirin, Plavix, statin, beta-chun. Follows with Dr. Singh. 3. Hypertension-continue losartan, metoprolol. 4. Hyperlipidemia-continue statin. 5. Type 2 diabetes [id number] with sliding scale insulin. Hold oral regimen. Continue home insulin regimen. 6. Chronic kidney disease stage IIIb-at baseline, trend BMP. 7. Persistent atrial fibrillation-Eliquis on hold. On therapeutic Lovenox. Continue metoprolol. Patient is to follow-up with EP as outpatient. DVT prophylaxis-Lovenox, Eliquis on hold This patient was seen by TANIA Mai under the supervision of Dr. Sharma. Documented by User: Dr. Cely Sharma MD 11/24/20 14:14 Objective Data Lab / Micro Data Result Diagrams: 11/24/20 05:15 11/24/20 05:15 Charges/Coding Addendum Addendum: Patient seen by Serenity MARIN under my supervision Patient seen and examined. She felt well today and had no complaints. Review of systems otherwise negative. She has remained hemodynamically stable O/E: Const alert, oriented x3 and no apparent distress General Appearance: cooperative Exam Limitations: no limitations HEENT normocephalic, head/scalp atraumatic and moist oral mucous membranes Head and Scalp: normocephalic Eyes conjunctivae normal and no scleral icterus Neck no lymphadenopathy, supple and no JVD General: trachea midline Resp normal respiratory effort, normal air movement, no retractions, no use of accessory muscles and clear to auscultation bilaterally Cardio regular rate, regular rhythm, S1 normal heart sound, S2 normal heart sound and peripheral pulses 2+ throughout Rhythm: abnormal rhythm irregularly irregular (Patient history of atrial fibrillation) GI normal to inspection, nondistended, normoactive bowel sounds, soft to palpation and non-tender Extremity normal to inspection, full ROM, normal capillary refill and no clubbing, cyanosis or edema General Extremity: no tenderness to palpation of joints or extremities Peripheral Pulses: Yes pulses 2+ throughout Skin no rashes or lesions noted General Skin Exam: no breakdown and turgor normal Lesions: no lesions Rashes: no rashes Neuro oriented x3, CN's II-XII intact bilaterally, Sensorium / Orientation: awake and alert Speech: speech normal Motor Exam: Negative for general weakness Psych thought process normal, cooperative and affect normal Appearance: appropriate Plan is for cardiac cath tomorrow. Continue p.o. aspirin 81 mg daily, statin and metoprolol as well as losartan. continue ISS. Accuchecks ACHS. Rest as per Serenity Ramos SEWING MACHINE OPERATOR [employer]'s note, which I have reviewed and endorsed, Visit Charges OBSV E&M: [id number] Subsequent observation care L2
--- NOTE | 2020-11-24 12:52 | PN.CARD_ITS ---
Subjective Subjective The patient is awake and alert. She denies any ongoing chest discomfort or difficulty breathing at this time. Objective Data Vital Signs: Vital Signs Temp Pulse Resp BP Pulse Ox 97.6 F L 98 14 121/80 H 95 11/24/20 08:00 11/24/20 08:30 11/24/20 08:00 11/24/20 08:00 11/24/20 08:05 Oxygen Delivery Method Room Air Weight: 223 lb 1.725 oz Body Mass Index (BMI) 33.8 Intake & Output: Intake and Output for Last 24 Hours 11/22/20 11/23/20 11/24/20 23:59 23:59 23:59 Intake Total 3098.33 / 3098.33 2099 Balance 3098.33 / 3098.33 2099 Lab / Micro Data Result Diagrams: 11/24/20 05:15 11/24/20 05:15 Labs: Laboratory Results - last 24 hr 11/23/20 16:06: POC Glucose 127 H 11/23/20 21:01: POC Glucose 183 H 11/24/20 05:15: Sodium 134 L, Potassium 4.2, Chloride 103, Carbon Dioxide 22.0, Anion Gap 9, BUN 30 H, Creatinine 1.24 H, Estim Creat Clear Calc 38.71, Est GFR (MDRD) Af Amer 54 L, Est GFR (MDRD) Non-Af 45 L, BUN/Creatinine Ratio 24.2 H, Glucose 147 H, Calcium 8.3 L 11/24/20 05:15: WBC 4.5, RBC 2.62 L, Hgb 10.1 L, Hct 30.3 L, MCV 115.6 H, MCH 38.5 H, MCHC 33.3, RDW Std Deviation 58.3 H, RDW Coeff of Pina 13.8, Plt Count 135 L, MPV 11.0, Immature Gran % (Auto) 0.400, Neut % (Auto) 59.2, Lymph % (Auto) 20.3, [place] % (Auto) 17.2 H, Eos % (Auto) 2.5, Baso % (Auto) 0.4, Absolute Neuts (auto) 2.7, Absolute Lymphs (auto) 0.91, Nucleated RBC % 0 11/24/20 08:01: POC Glucose 146 H 11/24/20 11:50: POC Glucose 154 H Cardiology Labs/Tests 11/24/20 05:15: Sodium 134 L, Potassium 4.2, Chloride 103, Carbon Dioxide 22.0, Anion Gap 9, BUN 30 H, Creatinine 1.24 H, Est GFR (MDRD) Af Amer 54 L, Est GFR (MDRD) Non-Af 45 L, BUN/Creatinine Ratio 24.2 H, Glucose 147 H, Calcium 8.3 L 11/24/20 05:15: WBC 4.5, RBC 2.62 L, Hgb 10.1 L, Hct 30.3 L, MCV 115.6 H, MCH 38.5 H, MCHC 33.3, Plt Count 135 L, MPV 11.0, Immature Gran % (Auto) 0.400, Neut % (Auto) 59.2, Lymph % (Auto) 20.3, [place] % (Auto) 17.2 H, Eos % (Auto) 2.5, Baso % (Auto) 0.4, Absolute Neuts (auto) 2.7, Nucleated RBC % 0 Rhythm: Atrial fibrillation Physical Exam Const alert, oriented x3, no apparent distress and healthy appearing Orientation / Consciousness: awake HEENT normocephalic, head/scalp atraumatic and hearing grossly normal bilaterally Eyes PERRL, EOMs intact bilaterally and conjunctivae normal Neck full ROM, supple and no JVD Resp clear to auscultation bilaterally Cardio Palpation: abnormal PMI Rhythm: abnormal rhythm irregularly irregular Heart Sounds: S1 normal and S2 normal GI normal to inspection, nondistended, normoactive bowel sounds Extremity no pedal edema Skin no rashes or lesions noted Neuro oriented x3, CN's II-XII intact bilaterally and moves all extremities Psych mental status grossly normal Assessment & Plan Assessment/Plan (1) Angina pectoris: PLAN: The patient has symptoms concerning for angina pectoris. At the present time the patient is undergoing the rule out [place] protocol. Her initial cardiac enzymes are negative. Her ECG is as noted. Her previous noninvasive studies were reviewed. At the present time she will continue to be followed. She will continue medical therapy. Her anticoagulation therapy has been placed on hold in anticipation of upcoming diagnostic cardiac catheterization. (2) CAD (coronary artery disease): PLAN: The patient has a history of underlying CAD. She has recently undergone noninvasive evaluation. She will continue with plans for diagnostic cardiac catheterization. (3) Presence of stent in coronary artery: PLAN: The patient has a history of previous LAD and RCA PCI. Her recent stress test does raise concern of myocardial ischemia. She will continue her evaluation care as noted above. (4) Persistent atrial fibrillation: PLAN: The patient is already scheduled for outpatient EP consultation as noted to assist with evaluation and care of her atrial dysrhythmia as she myriam nues to have issues with it despite medical therapy and despite multiple synchronized biphasic DC cardioversion attempts. Depending upon her clinical course her EP appointment may need to be altered. However she does need to follow through with it to gain the EP opinion to assist in her ongoing atrial fibrillation evaluation care. In the meantime she will continue medical therapy with rate control. Her anticoagulation is going to be temporarily interrupted in order to proceed with further evaluation with diagnostic cardiac catheterization. (5) Mixed hyperlipidemia: PLAN: The patient will continue risk factor evaluation and care. (6) Essential hypertension: PLAN: The patient's antihypertensive therapy may need to be adjusted based upon concerns of hypertension. (7) Abnormal stress test: PLAN: The patient does have a recent abnormal stress test. She had been scheduled for upcoming outpatient diagnostic cardiac catheterization. However now that she is in the hospital for the aforementioned concerns her anticoagulation therapy has been placed on hold with anticipation of an inpatient diagnostic cardiac catheterization procedure. Addt'l Comments The above was discussed and reviewed with the patient. The patient's case was also discussed and reviewed with the [facility] staff. Procedure Criteria Type of Procedure Procedure Type: Elective Elective Risks - COVID COVID Risk Discussion: The surgeon/proceduralist and patient have discussed in detail the risk of exposure to and/or potential harm posed by the COVID-19 virus with having a surgery/procedure at this time versus the risk of delaying the surgery/procedure. It is not possible to know either the risk of delaying the surgery or procedure or chance of getting an infection with perfect accuracy, but a joint decision was made between the patient and the surgeon/proceduralist to proceed at this time with the scheduled surgery/procedure as indicated on the consent form.
[2020-11-24] MEDS: Ibuprofen 400 MG Tablet PO (14:26)
[2020-11-24] MEDS: Aspirin 81 MG TAB.CHEW PO (14:42)
[2020-11-24 17:26] LABS: Bedside Glucose 152 mg/dL (70-110)
[2020-11-24] MEDS: Famotidine 20 MG Tablet PO (21:43)
[2020-11-24] MEDS: predniSONE 20 MG Tablet 60 MG PO (21:44)
[2020-11-24] MEDS: DiphenhydrAMINE 25 MG Capsule 50 MG PO (21:44)
[2020-11-24] MEDS: Pravastatin 40 MG Tablet PO (21:45)
[2020-11-24] MEDS: TICAGRELOR 90 MG TABLET 180 MG PO (21:45)
[2020-11-24 22:05] LABS: Bedside Glucose 150 mg/dL (70-110)
[2020-11-25] VITALS (15 sets, daily range): BP systolic 122–165; BP diastolic 81–110; PULSE 78–94; RESP 18; TEMP 36.6–36.9; O2SAT 94–98
[2020-11-25] MEDS: Nitroglycerin Oint 1 INCH PACKET TD (06:03)
[2020-11-25] MEDS: Losartan Potassium 25 MG Tablet PO (06:04)
[2020-11-25] MEDS: Aspirin 81 MG TAB.CHEW PO (06:04)
[2020-11-25] MEDS: Famotidine 20 MG Tablet PO (06:04)
[2020-11-25] MEDS: MethylPREDNISolone 125 MG/2 ML Vial IV (06:04)
[2020-11-25] MEDS: DiphenhydrAMINE 25 MG Capsule 50 MG PO (06:05)
[2020-11-25] MEDS: Metoprolol Tartrate 50 MG Tablet PO (06:05)
[2020-11-25] MEDS: TICAGRELOR 90 MG TABLET PO (06:05)
[2020-11-25] MEDS: predniSONE 20 MG Tablet 60 MG PO (06:06)
[2020-11-25 06:20] LABS: Bedside Glucose 294 mg/dL (70-110)
[2020-11-25 07:17] LABS: Absolute Neutrophil Count 2.6 X10^3/uL (2.0-7.7); Basophil# 0.01 X10^3/uL; Basophil% 0.3 % (0-1); Eosinophil# 0.01 X10^3/uL; Eosinophils% 0.3 % (0-5); Hematocrit 34.3 % (37-47); Hemoglobin 11.2 g/dL (12.0-15.0); Lymphocyte % 17.4 % (19-41); Mean Corp Hgb Conc 32.7 g/dL (32-36); Mean Corpuscular Volume 116.3 fL (81-99); Mean Platelet Vol. 11.1 fl (6.2-12.0); Monocyte# 0.16 X10^3/uL; Monocyte% 4.7 % (0-10); NRBC Flagged by Analyzer 0 % (0-5); Neutrophil # 2.64 X10^3/uL (2.7-7.7); Neutrophil % 76.7 % (47-70); POSITIVE DIFFERENTIAL YES; Platelet Count 153 K/mm3 (150-450); RBC Distribution Width CV 13.7 % (11.6-14.6); RBC Distribution Width SD 58.9 fl (35.1-43.9); Red Blood Count 2.95 M/mm3 (4.2-5.4); White Blood Count 3.4 K/mm3 (4.4-11.0)
[2020-11-25 07:20] LABS: Differential Indicated SCAN CRITERIA MET
[2020-11-25 07:31] LABS: Anion Gap 7 (5-15); BUN 31 mg/dL (7-18); BUN/Creat Ratio 24.2 RATIO (10-20); Chloride 107 mmol/L (98-107); Creatinine, Serum 1.28 mg/dL (0.55-1.02); EST Glomerular Filtration Rate 43 mL/min (>60); Est Glom Filt Rate - Afr Amer 52 mL/min (>60); Glucose 307 mg/dL (74-106); Potassium 4.9 mmol/L (3.5-5.1); Sodium Level 135 mmol/L (136-145)
[2020-11-25 07:42] LABS: International Normalized Ratio 1.1; Prothrombin Time (Protime)PT. 13.9 SECONDS (11.7-14.9)
--- NOTE | 2020-11-25 08:29 | PCM.PN.CARD ---
Subjective Subjective The patient is now status post diagnostic cardiac catheterization. She is awake and alert. She denies any new acute symptoms. She states that last night she did not sleep well and did feel somewhat short of breath. Objective Data Vital Signs: Vital Signs Temp Pulse Resp BP Pulse Ox 97.8 F 92 18 148/99 H 95 11/25/20 03:30 11/25/20 07:00 11/25/20 03:30 11/25/20 06:05 11/25/20 07:17 Oxygen Delivery Method Room Air Weight: 223 lb 1.725 oz Body Mass Index (BMI) 33.8 Intake & Output: Intake and Output for Last 24 Hours 11/23/20 11/24/20 11/25/20 23:59 23:59 23:59 Intake Total 3098.33 / 3098.33 4655 / 4655 Balance 3098.33 / 3098.33 4655 / 4655 Lab / Micro Data Result Diagrams: 11/25/20 06:46 11/25/20 06:46 Labs: Laboratory Results - last 24 hr 11/24/20 08:01: POC Glucose 146 H 11/24/20 11:50: POC Glucose 154 H 11/24/20 16:30: POC Glucose 152 H 11/24/20 21:49: POC Glucose 150 H 11/25/20 06:15: POC Glucose 294 H 11/25/20 06:46: WBC 3.4 L, RBC 2.95 L, Hgb 11.2 L, Hct 34.3 L, MCV 116.3 H, MCH 38.0 H, MCHC 32.7, RDW Std Deviation 58.9 H, RDW Coeff of Pina 13.7, Plt Count 153, MPV 11.1, Immature Gran % (Auto) 0.600, Neut % (Auto) 76.7 H, Lymph % (Auto) 17.4 L, [place] % (Auto) 4.7, Eos % (Auto) 0.3, Baso % (Auto) 0.3, Absolute Neuts (auto) 2.6, Absolute Lymphs (auto) 0.60 L, Nucleated RBC % 0, Diff Path Review August11/25/20 06:46: PT 13.9, INR 1.1 11/25/20 06:46: Sodium 135 L, Potassium 4.9, Chloride 107, Carbon Dioxide 21.0, Anion Gap 7, BUN 31 H, Creatinine 1.28 H, Estim Creat Clear Calc 37.50, Est GFR (MDRD) Af Amer 52 L, Est GFR (MDRD) Non-Af 43 L, BUN/Creatinine Ratio 24.2 H, Glucose 307 H, Calcium 9.0 Cardiology Labs/Tests 11/25/20 06:46: WBC 3.4 L, RBC 2.95 L, Hgb 11.2 L, Hct 34.3 L, MCV 116.3 H, MCH 38.0 H, MCHC 32.7, Plt Count 153, MPV 11.1, Immature Gran % (Auto) 0.600, Neut % (Auto) 76.7 H, Lymph % (Auto) 17.4 L, [place] % (Auto) 4.7, Eos % (Auto) 0.3, Baso % (Auto) 0.3, Absolute Neuts (auto) 2.6, Nucleated RBC % 0 11/25/20 06:46: PT 13.9, INR 1.1 11/25/20 06:46: Sodium 135 L, Potassium 4.9, Chloride 107, Carbon Dioxide 21.0, Anion Gap 7, BUN 31 H, Creatinine 1.28 H, Est GFR (MDRD) Af Amer 52 L, Est GFR (MDRD) Non-Af 43 L, BUN/Creatinine Ratio 24.2 H, Glucose 307 H, Calcium 9.0 Rhythm: Atrial fibrillation Physical Exam Const alert, oriented x3, no apparent distress and healthy appearing Orientation / Consciousness: awake HEENT normocephalic, head/scalp atraumatic and hearing grossly normal bilaterally Eyes PERRL, EOMs intact bilaterally and conjunctivae normal Neck full ROM, supple and no JVD Resp clear to auscultation bilaterally Cardio Palpation: abnormal PMI Rhythm: abnormal rhythm irregularly irregular Heart Sounds: S1 normal and S2 normal GI normal to inspection, nondistended, normoactive bowel sounds Extremity no pedal edema Skin no rashes or lesions noted Neuro oriented x3, CN's II-XII intact bilaterally and moves all extremities Psych mental status grossly normal Assessment & Plan Assessment/Plan (1) Angina pectoris: PLAN: The patient has symptoms concerning for angina pectoris. At the present time the patient is undergoing the rule out [place] protocol. Her initial cardiac enzymes are negative. Her ECG is as noted. Her previous noninvasive studies were reviewed. At the present time she will continue to be followed. She will continue medical therapy. She has undergone further evaluation with diagnostic cardiac catheterization. She did not require additional percutaneous revascularization therapy nor was she referred for surgical based revascularization therapy. (2) CAD (coronary artery disease): QUALIFIERS: Coronary Disease-Associated Artery/Lesion type: [place] artery [place] vs. transplanted heart: [place] heart PLAN: The patient has a history of underlying CAD. She has recently undergone noninvasive evaluation. Based upon her cardiac catheterization procedure she will need to continue medical management. (3) Presence of stent in coronary artery: PLAN: The patient has a history of previous LAD and RCA PCI. Her recent stress test does raise concern of myocardial ischemia. Based upon her cardiac catheterization procedure does not appear that she required additional coronary artery revascularization therapy. She will continue medical therapy. (4) Cardiomyopathy: QUALIFIERS: Cardiomyopathy type: unspecified Qualified Code(s): I42.9 - Cardiomyopathy, unspecified PLAN: She does have based upon her noninvasive and her invasive studies finding compatible with an underlying cardiomyopathy. The etiology may be a combined ischemic and nonischemic (secondary to her atrial fibrillation). At the present time she will continue medical therapy which has included the addition of nitrates and adjustment of her diuretic therapy. This finding may play a role in her upcoming EP evaluation with respect to further EP procedures/therapies. (5) Persistent atrial fibrillation: PLAN: The patient is already scheduled for outpatient EP consultation as noted to assist with evaluation and care of her atrial dysrhythmia as she continues to have issues with it despite medical therapy and despite multiple synchronized biphasic DC cardioversion attempts. Depending upon her clinical course her EP appointment may need to be altered. However she does need to follow through with it to gain the EP opinion to assist in her ongoing atrial fibrillation evaluation care. (6) Mixed hyperlipidemia: PLAN: The patient will continue risk factor evaluation and care. (7) Essential hypertension: PLAN: The patient's antihypertensive therapy may need to be adjusted based upon concerns of hypertension. (8) Abnormal stress test: PLAN: The patient does have a recent abnormal stress test. Based upon her cardiac catheterization she will continue medical management. Addt'l Comments The case was reviewed with the patient and her daughter is present. The present time the plan is for continued medical management. Hopefully if the patient remains stable on her medication she will be able to be released home for continued outpatient cardiovascular follow-up including her [facility] EP consultation scheduled for tomorrow. This note was generated using a voice recognition system and there may be incorrect words, spelling or punctuation that were not noted when reviewing the office note prior to saving.
[2020-11-25] MEDS: Insulin Lispro 100 UNIT/ML INSULN.PEN 14 UNIT SC (08:50)
[2020-11-25] MEDS: Insulin Lispro 100 UNIT/ML INSULN.PEN SC ×2 (08:50→12:44)
[2020-11-25] MEDS: Magnesium Chloride 64 MG Delay Rel.Tablet 256 MG PO (08:53)
[2020-11-25] MEDS: Cholecalciferol (VIT D3) 25 MCG TABLET (1,000 UNITS) 125 MCG PO (08:53)
[2020-11-25] MEDS: Pantoprazole Sodium 40 MG Tablet PO (08:53)
--- NOTE | 2020-11-25 08:55 | CL.D_ITS ---
Patient Name: GRIS RODRIGUEZ Study Date: 11/25/2020 Performing: Joe Singh MD Ht: 67 inches 170 cm : 1945 Wt: 223 lbs 101 kg Age: 75 Gender: female BSA: 2.11 PROCEDURE(S) PERFORMED [id number]/LV CLINICAL PROFILE AND INDICATIONS Indications: Suspected CAD, Cardiomyopathy, Cardiac Arrythmia Heart Failure: None Stress/Imaging Date: 11/08/2020tress Test with SPECT MPI: Positive Intermediate Risk Angina Classification Anginal Classification w/in 2 Weeks: Anginal Equivalent Dyspnea CAD Presentations: Other: chest pain / dyspnea on exertion CONCLUSIONS Elevated Left Ventricular End Diastolic Pressure Segmented LV systolic dysfunction- Moderate LVEF: by LV gram 30 % [place] Multivessel CAD RECOMMENDATIONS Risk factor modification Medical therapy EP consultation DESCRIPTION OF PROCEDURE The patient arrived to the procedure lab. The risks and benefits of the procedure as well as a full d escription of our services here and current unavailability of surgical backup were fully explained to the patient and/or their significant other prior to the catheterization. The Timeout was completed, verifying the correct patient and procedure. The patient's procedural site was prepped and draped in the usual fashion. Local anesthetic was given subcutaneously to right radial region with Lidocaine 2% . Using a modified Seldinger technique, arterial access was obtained via the right radial artery, a 6 Fr sheath was inserted. Left Coronary Artery selective angiography was performed in multiple views u sing a 5 Fr. 4.0 [place] catheter. Right Coronary Artery selective angiography was then performed in mu ltiple views using a 5 Fr. 4.0 [place] catheter. Left Coronary Artery selective angiography was perform ed in multiple views using a 5 Fr. JL4 catheter. Left Ventriculography was performed in GANT projection using a 5 Fr. [place] catheter. LV to AO pullback pressures were then recorded.The art erial sheath was pulled and a TR Band was applied for hemostasis w/ 12ml air CORONARY ANGIOGRAPHY DOMINANCE: Right Dominant LEFT HEART ASSESSMENT Left Ventricular Ejection Fraction: by LV Gram 30 % Anterior Hypokinesis. Inferior Mid Hypokinesis. Apical Hypokinesis Elevated Left Ventricular End Diastolic Pressure LVEDP: 20 mmHg LEFT MAIN: Mild calcification LEFT ANTERIOR DESCENDING ARTERY: PROX LAD: Previously placed stent is patent with mild luminal irregularities MID LAD: Mild luminal irregularities, 25 % Stenosis CIRCUMFLEX ARTERY: PROX CIRC: 25 % Stenosis RIGHT CORONARY ARTERY: OSTIAL RCA: 25 % Stenosis PROX RCA: Previously placed stent is patent with angiographically findings appearing c/w a chronic ul cerated plaque MID RCA: Mild calcification, Mild luminal irregularities DISTAL RCA: Mild calcification, Mild luminal irregularities AORTIC ROOT: Angiographically normal COMPLICATIONS No Complications PROCEDURE MEDICATIONS Versed 1 mg IV Fentanyl 50 mcg IV Oxygen: 2 L/min via nasal cannula Heparin given IA 11/25/2020 07:53:57 Verapamil 2.5mg, Ntg 100mcgs, 3000 units of Heparin given IA 11/25/2020 07:53:57 SUMMARY OF HEMODYNAMIC DATA Time AIR REST ECG 07:36:39 Art 174/112 (136) 07:51:10 AO 144/94 (118) SA 07:56:31 LV 150/4, 25 08:11:17 LV 157/4, 20 08:11:23 LV 153/5, 27 08:12:28 LV 154/3, 24 08:12:34 LVp 144/0, 17 08:12:42 AOp 150/91 (118) 08:12:47 Signed By Joe Singh MD On 11/25/2020 8:54:36 AM Joe Singh MD
[2020-11-25] MEDS: Furosemide 40 MG/4 ML Vial IV (08:58)
[2020-11-25] MEDS: Isosorbide Mononitrate 30 MG Tablet PO (08:58)
[2020-11-25] MEDS: 0.9% Normal Saline 1,000 ML 50 ML IV (08:59)
[2020-11-25] MEDS: Furosemide 40 MG Tablet PO (09:02)
--- NOTE | 2020-11-25 10:30 | CASEMGMT ---
This STANFORD MOLINA to room with BLISS form, explanation done-pt voices understanding, and daughter signs BLISS form as pt just had radial heart cath and she is right-handed. Original to chart and copy to pt. Pt states has copy of MCR IP vs OBS booklet. Pt/daughter voice no further questions/concerns/needs. [place] MOLINA
--- NOTE | 2020-11-25 11:04 | PCM.DC ---
Discharge Instructions Diet Discharge Diet: Low fat / Low cholesterol Activity Discharge Activity: Return to Normal Activity Additional Activity Instructions:: Follow post cath instructions. Dressing / Incision Call your doctor if you observe: Shortness of breath, Dizziness, Chest pain and Increased palpitations (irregular heartbeat) Follow Up Care Test Results: Test results from this visit will be discussed in further detail at your follow-up appointment, if applicable. Discharge Plan Admission Admit Date/Time: 11/22/20 22:53 Primary Reason for Your Visit: Chest pain Attending Provider: Cely Sharma Primary Care Provider: Farhan Mendiola Consulting Providers: Joe Singh Instructions Additional Instructions / Restrictions: May resume Eliquis 11/26/2020. Hold metformin for 48 hours following heart cath, august resume 11/27/2020. Discharge Orders/Prescriptions Prescriptions: New furosemide 40 mg Tablet 40 mg PO DAILY Qty: 30 RF: 0 isosorbide mononitrate 30 mg Tablet Extended Release 24 Hr 30 mg PO DAILY Qty: 30 RF: 0 metoprolol tartrate 50 mg Tablet 50 mg PO BID Qty: 60 RF: 0 Continued losartan 25 mg tablet 25 mg PO DAILY RF: 0 nitroglycerin 0.4 mg tablet, sublingual 0.4 mg sublingual Q5-15M PRN (Reason: Cardiac/Chest Pain) RF: 0 cholecalciferol (vitamin D3) 5,000 unit tablet 5,000 unit PO DAILY RF: 0 pravastatin 40 mg tablet 40 mg PO QHS RF: 0 magnesium oxide 400 mg (241.3 mg magnesium) tablet 800 mg PO BID RF: 0 insulin lispro [Humalog KwikPen Insulin] 100 unit/mL insulin pen See Rx Instructions SC TID RF: 0 metformin 500 mg tablet 1,000 mg PO BID RF: 0 pantoprazole 40 MG tablet 40 mg PO DAILY RF: 0 dulaglutide 0.75 MG/0.5 ML pen injector 0.75 mg SQ QWEEK RF: 0 Eliquis 5 mg tablet 5 mg PO BID Qty: 180 RF: 3 famotidine [Pepcid] 20 mg tablet 20 mg PO DAILY Qty: 2 RF: 0 aspirin 81 mg tablet,chewable 81 mg PO ONCE Qty: 30 RF: 12 Discontinued furosemide 20 mg tablet 20 mg PO DAILY RF: 0 metoprolol succinate 25 mg tablet extended release 24 hr 50 mg PO DAILY RF: 0 prednisone 20 mg tablet 20 mg PO .COMPLEX Qty: 9 RF: 0 diphenhydramine HCl [Benadryl Allergy] 25 mg tablet 25 mg PO .COMPLEX Qty: 4 RF: 0 clopidogrel [Plavix] 75 mg tablet 75 mg PO .COMPLEX Qty: 90 RF: 3 Referrals / Follow Up: Tanesha SEVERINO [Other] - See Referral Note (As scheduled 11/26/20) Farhan Mendiola MD [Primary Care Provider] - In 1 Week Joe Singh MD [STAFF PHYSICIAN] - See Referral Note (As scheduled ) Disposition Disposition (needs filled in before D/C Order can be placed): Home, Self Care
--- NOTE | 2020-11-25 11:30 | PCM.DC.SUM ---
Documented by User: Serenity Ramos NP, RECLAMATION FURNACE OPERATOR-C 11/25/20 11:36 Providers Date of Admission: 11/22/20 Date of Discharge: 11/25/20 Primary Care Physician: Dr. Farhan Mendiola MD Consultations 11/22/20 22:54 Consult: Cardiology Routine Consulting Provider: Joe Singh Reason for Consult: Chest pain/pressure EMERGENT Consult: No MD Notified: Yes Date Notified: 11/22/20 Time Notified: 06:07 Method of Notification: Text Comments:: per patients request Reason For Visit: chest pain Diagnosis Discharge Diagnosis (1) Angina pectoris: Status: Acute Code(s): I20.9 - Angina pectoris, unspecified (2) CAD (coronary artery disease): Status: Acute Code(s): I25.10 - Atherosclerotic heart disease of menominee coronary artery without angina pectoris Qualifiers: Coronary Disease-Associated Artery/Lesion type: menominee artery [place] vs. transplanted heart: menominee heart (3) Presence of stent in coronary artery: Status: Chronic Code(s): Z95.5 - Presence of coronary angioplasty implant and graft (4) Cardiomyopathy: Status: Acute Code(s): I42.9 - Cardiomyopathy, unspecified Qualifiers: Cardiomyopathy type: unspecified Qualified Code(s): I42.9 - Cardiomyopathy, unspecified (5) Persistent atrial fibrillation: Status: Chronic Code(s): I48.1 - Persistent atrial fibrillation (6) Mixed hyperlipidemia: Status: Chronic Code(s): E78.2 - Mixed hyperlipidemia (7) Essential hypertension: Status: Chronic Code(s): I10 - Essential (primary) hypertension (8) Abnormal stress test: Status: Acute Code(s): R94.39 - Abnormal result of other cardiovascular function study Medications at Discharge Home Medications losartan 25 mg tablet 25 mg PO DAILY 05/10/18 nitroglycerin 0.4 mg sublingual tablet 0.4 mg SUBLINGUAL Q5-15M PRN 05/10/18 cholecalciferol (vitamin D3) 125 mcg (5,000 unit) tablet 5,000 unit PO DAILY 07/22/18 pravastatin 40 mg tablet 40 mg PO QHS 04/07/19 pantoprazole 40 mg PO DAILY 12/29/19 dulaglutide 0.75 mg SQ QWEEK 07/04/20 insulin lispro 100 unit/mL subcutaneous pen See Rx Instructions SC TID 10/23/20 magnesium oxide 400 mg (241.3 mg magnesium) tablet 800 mg PO BID tab 10/23/20 metformin 500 mg tablet 1,000 mg PO BID tab 10/23/20 apixaban 5 mg tablet 5 mg PO BID #180 tab 11/14/20 aspirin 81 mg chewable tablet 81 mg PO ONCE #30 tab 11/19/20 famotidine 20 mg tablet 20 mg PO DAILY #2 tab 11/19/20 furosemide 40 mg PO DAILY #30 tab 11/25/20 isosorbide mononitrate 30 mg PO DAILY #30 tab 11/25/20 metoprolol tartrate 50 mg PO BID #60 tab 11/25/20 Hospital Course Operations None Procedures Cardiac catheterization Summary of Care Provided Minutes Spent on Discharge: 35 Hospital Course: Patient is a 75-year-old female admitted 11/22/2020 due to chest pain. 1. Chest pain, ACS ruled out-troponin negative. Cardiology consulted during admission. Recent stress test 11/08/2020 demonstrated an EF of 37% with concern for mild emmie-infarct related to myocardial ischemia. Echocardiogram 11/08/2020 demonstrated an EF of 35%, moderately severe mitral valve insufficiency, moderate tricuspid valve insufficiency, mild pulmonic valve insufficiency, RVSP estimated be 50 mmHg. Patient underwent heart cath which showed nonobstructive CAD. Continue medical management. Continue outpatient EP eval. Follow-up with cardiology as scheduled. 2. CAD with history of stents-on aspirin, statin, beta-chun. Follows with Dr. Singh. 3. Hypertension-continue losartan, metoprolol. 4. Hyperlipidemia-continue statin. 5. Type 2 diabetes mellitus- Continue home insulin regimen. Resume Metformin 11/27/2020. 6. Chronic kidney disease stage IIIb-at baseline. 7. Persistent atrial fibrillation-continue Eliquis,. Patient is to follow-up with EP as outpatient at [facility] 11/26/2020. Physical Exam Const alert, oriented x3 and no apparent distress Orientation / Consciousness: awake, oriented to person, oriented to place and oriented to time HEENT normocephalic and moist oral mucous membranes Eyes PERRL, EOMs intact bilaterally and conjunctivae normal Neck no lymphadenopathy Resp normal respiratory effort and clear to auscultation bilaterally Cardio Cardio Narrative: Atrial fibrillation, rate controlled Heart Sounds: murmur Peripheral Pulses: pulses 2+ throughout GI normal to inspection, nondistended, normoactive bowel sounds, non-tender and non-distended Extremity normal to inspection Skin no rashes or lesions noted Lesions: no lesions Rashes: no rashes Trauma: no lacerations or abrasions Neuro CN's II-XII intact bilaterally, no focal motor deficits, no sensory deficits noted and deep tendon reflexes 2+ bilaterally Psych mental status grossly normal and affect normal Patient seen and examined prior to discharge. Physical assessment as noted above. Patient is stable for discharge with follow up recommendations as noted above. This patient was seen by TANIA Mai under the supervision of Dr. Sharma. Weight / BMI Weight Weight: 223 lb 1.725 oz Body Mass Index (BMI) 33.8 ABG / Lab / Microbiology Data Result Diagrams: 11/25/20 06:46 11/25/20 06:46 Laboratory: Laboratory Results - last 24 hr 11/24/20 11:50: POC Glucose 154 H 11/24/20 16:30: POC Glucose 152 H 11/24/20 21:49: POC Glucose 150 H 11/25/20 06:15: POC Glucose 294 H 11/25/20 06:46: WBC 3.4 L, RBC 2.95 L, Hgb 11.2 L, Hct 34.3 L, MCV 116.3 H, MCH 38.0 H, MCHC 32.7, RDW Std Deviation 58.9 H, RDW Coeff of Pina 13.7, Plt Count 153, MPV 11.1, Immature Gran % (Auto) 0.600, Neut % (Auto) 76.7 H, Lymph % (Auto) 17.4 L, Hemphill % (Auto) 4.7, Eos % (Auto) 0.3, Baso % (Auto) 0.3, Absolute Neuts (auto) 2.6, Absolute Lymphs (auto) 0.60 L, Nucleated RBC % 0, Diff Path Review August11/25/20 06:46: PT 13.9, INR 1.1 11/25/20 06:46: Sodium 135 L, Potassium 4.9, Chloride 107, Carbon Dioxide 21.0, Anion Gap 7, BUN 31 H, Creatinine 1.28 H, Estim Creat Clear Calc 37.50, Est GFR (MDRD) Af Amer 52 L, Est GFR (MDRD) Non-Af 43 L, BUN/Creatinine Ratio 24.2 H, Glucose 307 H, Calcium 9.0 Microbiology: Microbiology 11/22/20 20:10 Mucosa - Nose SARS-CoV-2 Antigen (Rapid) - Final D/C Instructions Discharge Diet: Low fat / Low cholesterol Additional Activity Instructions: Follow post cath instructions. Call your doctor if you observe: Shortness of breath, Dizziness, Chest pain and Increased palpitations (irregular heartbeat) Meaningful Use Info Meaningful Use Diagnoses (Choose all that apply): None applicable Discharge Plan Admission Admit Date/Time: 11/22/20 22:53 Primary Reason for Your Visit: Chest pain Attending Provider: Cely Sharma Primary Care Provider: Farhan Mendiola Consulting Providers: Joe Singh Instructions Additional Instructions / Restrictions: Patient Problems: Altered Health Status related to Hospitalization Patient Goals: *Optimal Level of Health *Keep Appointments *Medication Compliance *Remain SafeMay resume Eliquis 11/26/2020. Hold metformin for 48 hours following heart cath, august resume 11/27/2020. Discharge Orders/Prescriptions Prescriptions: New furosemide 40 mg Tablet 40 mg PO DAILY Qty: 30 RF: 0 isosorbide mononitrate 30 mg Tablet Extended Release 24 Hr 30 mg PO DAILY Qty: 30 RF: 0 metoprolol tartrate 50 mg Tablet 50 mg PO BID Qty: 60 RF: 0 Continued losartan 25 mg tablet 25 mg PO DAILY RF: 0 nitroglycerin 0.4 mg tablet, sublingual 0.4 mg sublingual Q5-15M PRN (Reason: Cardiac/Chest Pain) RF: 0 cholecalciferol (vitamin D3) 5,000 unit tablet 5,000 unit PO DAILY RF: 0 pravastatin 40 mg tablet 40 mg PO QHS RF: 0 magnesium oxide 400 mg (241.3 mg magnesium) tablet 800 mg PO BID RF: 0 insulin lispro [Humalog KwikPen Insulin] 100 unit/mL insulin pen See Rx Instructions SC TID RF: 0 metformin 500 mg tablet 1,000 mg PO BID RF: 0 pantoprazole 40 MG tablet 40 mg PO DAILY RF: 0 dulaglutide 0.75 MG/0.5 ML pen injector 0.75 mg SQ QWEEK RF: 0 Eliquis 5 mg tablet 5 mg PO BID Qty: 180 RF: 3 famotidine [Pepcid] 20 mg tablet 20 mg PO DAILY Qty: 2 RF: 0 aspirin 81 mg tablet,chewable 81 mg PO ONCE Qty: 30 RF: 12 Discontinued furosemide 20 mg tablet 20 mg PO DAILY RF: 0 metoprolol succinate 25 mg tablet extended release 24 hr 50 mg PO DAILY RF: 0 prednisone 20 mg tablet 20 mg PO .COMPLEX Qty: 9 RF: 0 diphenhydramine HCl [Benadryl Allergy] 25 mg tablet 25 mg PO .COMPLEX Qty: 4 RF: 0 clopidogrel [Plavix] 75 mg tablet 75 mg PO .COMPLEX Qty: 90 RF: 3 Referrals / Follow Up: Tanesha SEVERINO [Other] - See Referral Note (As scheduled 11/26/20) Farhan Mendiola MD [Primary Care Provider] - In 1 Week Joe Singh MD [STAFF PHYSICIAN] - See Referral Note (As scheduled ) Disposition Disposition (needs filled in before D/C Order can be placed): Home, Self Care Documented by User: Dr. Cely Sharma MD 11/25/20 17:21 Providers Date of Admission: 11/22/20 Reason For Visit: chest pain Medications at Discharge Home Medications losartan 25 mg tablet 25 mg PO DAILY 05/10/18 nitroglycerin 0.4 mg sublingual tablet 0.4 mg SUBLINGUAL Q5-15M PRN 05/10/18 cholecalciferol (vitamin D3) 125 mcg (5,000 unit) tablet 5,000 unit PO DAILY 07/22/18 pravastatin 40 mg tablet 40 mg PO QHS 04/07/19 pantoprazole 40 mg PO DAILY 12/29/19 dulaglutide 0.75 mg SQ QWEEK 07/04/20 insulin lispro 100 unit/mL subcutaneous pen See Rx Instructions SC TID 10/23/20 magnesium oxide 400 mg (241.3 mg magnesium) tablet 800 mg PO BID tab 10/23/20 metformin 500 mg tablet 1,000 mg PO BID tab 10/23/20 apixaban 5 mg tablet 5 mg PO BID #180 tab 11/14/20 aspirin 81 mg chewable tablet 81 mg PO ONCE #30 tab 11/19/20 famotidine 20 mg tablet 20 mg PO DAILY #2 tab 11/19/20 furosemide 40 mg PO DAILY #30 tab 11/25/20 isosorbide mononitrate 30 mg PO DAILY #30 tab 11/25/20 metoprolol tartrate 50 mg PO BID #60 tab 11/25/20 ABG / Lab / Microbiology Data Result Diagrams: 11/25/20 06:46 11/25/20 06:46 Discharge Plan Admission Admit Date/Time: 11/22/20 22:53 Primary Reason for Your Visit: Chest pain Attending Provider: Cely Sharma Primary Care Provider: Farhan Mendiola Consulting Providers: Joe Singh Instructions Additional Instructions / Restrictions: Patient Problems: Altered Health Status related to Hospitalization Patient Goals: *Optimal Level of Health *Keep Appointments *Medication Compliance *Remain SafeMay resume Eliquis 11/26/2020. Hold metformin for 48 hours following heart cath, august resume 11/27/2020. Discharge Orders/Prescriptions Prescriptions: New furosemide 40 mg Tablet 40 mg PO DAILY Qty: 30 RF: 0 isosorbide mononitrate 30 mg Tablet Extended Release 24 Hr 30 mg PO DAILY Qty: 30 RF: 0 metoprolol tartrate 50 mg Tablet 50 mg PO BID Qty: 60 RF: 0 Continued losartan 25 mg tablet 25 mg PO DAILY RF: 0 nitroglycerin 0.4 mg tablet, sublingual 0.4 mg sublingual Q5-15M PRN (Reason: Cardiac/Chest Pain) RF: 0 cholecalciferol (vitamin D3) 5,000 unit tablet 5,000 unit PO DAILY RF: 0 pravastatin 40 mg tablet 40 mg PO QHS RF: 0 magnesium oxide 400 mg (241.3 mg magnesium) tablet 800 mg PO BID RF: 0 insulin lispro [Humalog KwikPen Insulin] 100 unit/mL insulin pen See Rx Instructions SC TID RF: 0 metformin 500 mg tablet 1,000 mg PO BID RF: 0 pantoprazole 40 MG tablet 40 mg PO DAILY RF: 0 dulaglutide 0.75 MG/0.5 ML pen injector 0.75 mg SQ QWEEK RF: 0 Eliquis 5 mg tablet 5 mg PO BID Qty: 180 RF: 3 famotidine [Pepcid] 20 mg tablet 20 mg PO DAILY Qty: 2 RF: 0 aspirin 81 mg tablet,chewable 81 mg PO ONCE Qty: 30 RF: 12 Discontinued furosemide 20 mg tablet 20 mg PO DAILY RF: 0 metoprolol succinate 25 mg tablet extended release 24 hr 50 mg PO DAILY RF: 0 prednisone 20 mg tablet 20 mg PO .COMPLEX Qty: 9 RF: 0 diphenhydramine HCl [Benadryl Allergy] 25 mg tablet 25 mg PO .COMPLEX Qty: 4 RF: 0 clopidogrel [Plavix] 75 mg tablet 75 mg PO .COMPLEX Qty: 90 RF: 3 Referrals / Follow Up: Tanesha SEVERINO [Other] - See Referral Note (As scheduled 11/26/20) Farhan Mendiola MD [Primary Care Provider] - In 1 Week Joe Signh MD [STAFF PHYSICIAN] - See Referral Note (As scheduled ) Disposition Disposition (needs filled in before D/C Order can be placed): Home, Self Care Charges/Coding Addendum Addendum: Patient seen by Serenity MARIN under my supervision Patient is 75-year-old female with an extensive past medical history as outlined was admitted through the ED on 11/22/2020 with complaint of chest pain that started the evening of admission which was pressure-like in question and radiated to her back. She had no aggravating or relieving factors and review of systems otherwise negative. She had had a cath scheduled on outpatient basis on December 10 on account of an abnormal stress test done on outpatient basis was also due to have an appointment with email marketing assistant on 11/26/2020 for review about her poorly controlled A. fib. Troponins x3 were negative. Patient was admitted for chest pain rule out ACS. She had an EKG which showed no acute ST changes. She had cardiac cath done on 11/25/2020 which showed moderate segmental left ventricular systolic dysfunction with [place] multivessel CAD and plan was for risk factor modification and medical therapy. Patient was discharged home on 11/25/2020 and is to follow-up with her email marketing assistant as scheduled on 11/26/2020. Patient was seen and examined prior to discharge. She had no complaints. Daughters were by her bedside. Review of systems otherwise negative. Labs and vitals reviewed. Home medication reviewed and reconciled. O/E: Const alert, oriented x3 and no apparent distress Orientation / Consciousness: awake, oriented to person, oriented to place and oriented to time HEENT normocephalic and moist oral mucous membranes Eyes PERRL, EOMs intact bilaterally and conjunctivae normal Neck no lymphadenopathy Resp normal respiratory effort and clear to auscultation bilaterally Cardio Cardio Narrative: Atrial fibrillation, rate controlled Heart Sounds: murmur Peripheral Pulses: pulses 2+ throughout GI normal to inspection, nondistended, normoactive bowel sounds, non-tender and non-distended Extremity normal to inspection Skin no rashes or lesions noted Lesions: no lesions Rashes: no rashes Trauma: no lacerations or abrasions Neuro CN's II-XII intact bilaterally, no focal motor deficits, no sensory deficits noted and deep tendon reflexes 2+ bilaterally Psych mental status grossly normal and affect normal Plan is for discharge home today. Rest as per Serenity Ramos RECLAMATION FURNACE OPERATOR-C under my supervision. Visit Charges Inpatient E&M: 10381 Disch Hosp
--- NOTE | 2020-11-25 11:51 | PHA.DC.MC ---
Pharmacy Service has performed discharge medication reconciliation and counseling for this patient. 1. ISOSORBIDE MONONITRATE 30MG PO DAILY 2. METOPROLOL TARTRATE 50MG PO BID The patient's discharge medication list was reviewed for discrepancies and discrepancies were resolved. This [facility] notified patient to resume Eliquis tomorrow and metformin 11/27 per discharge summary. Home Medications losartan 25 mg tablet 25 mg PO DAILY 05/10/18 nitroglycerin 0.4 mg sublingual tablet 0.4 mg SUBLINGUAL Q5-15M PRN 05/10/18 cholecalciferol (vitamin D3) 125 mcg (5,000 unit) tablet 5,000 unit PO DAILY 07/22/18 pravastatin 40 mg tablet 40 mg PO QHS 04/07/19 pantoprazole 40 mg PO DAILY 12/29/19 dulaglutide 0.75 mg SQ QWEEK 07/04/20 insulin lispro 100 unit/mL subcutaneous pen See Rx Instructions SC TID 10/23/20 magnesium oxide 400 mg (241.3 mg magnesium) tablet 800 mg PO BID tab 10/23/20 metformin 500 mg tablet 1,000 mg PO BID tab 10/23/20 apixaban 5 mg tablet 5 mg PO BID #180 tab 11/14/20 aspirin 81 mg chewable tablet 81 mg PO ONCE #30 tab 11/19/20 famotidine 20 mg tablet 20 mg PO DAILY #2 tab 11/19/20 furosemide 40 mg PO DAILY #30 tab 11/25/20 isosorbide mononitrate 30 mg PO DAILY #30 tab 11/25/20 metoprolol tartrate 50 mg PO BID #60 tab 11/25/20 The patient was counseled on the following discharge medications and changes in medications for homegoing were reviewed. The Reason for Use, instructions for use, and potential side effects were reviewed for all new medications. The patient's questions regarding all of their medications were answered. The patient was able to verbally demonstrate an understanding of their discharge medications.
[2020-11-25 12:26] LABS: Bedside Glucose 413 mg/dL (70-110)
[2020-11-25] MEDS: Insulin Lispro 100 UNIT/ML INSULN.PEN 10 UNIT SC (12:45)
[2020-11-25 15:49] LABS: Pathologist Review Reviewed
== END 2020-11-25 11:28 | disposition home or self-care (01) ==
LOC: ED 22:15 → PCU 22:36
PROVIDERS: Internal Medicine Cardiovascular Disease; Nurse Practitioner Family; Admitting Provider Internal Medicine; Emergency Provider Emergency Medicine; PCP Family Medicine; Visit Provider Student in an Organized Health Care Education/Training Program
DX: R07.89 Other chest pain (principal); I25.119 Atherosclerotic heart disease of native coronary artery with unspecified angina pectoris; N18.32 Chronic kidney disease, stage 3b; I12.9 Hypertensive chronic kidney disease with stage 1 through stage 4 chronic kidney disease, or unspecified chronic kidney disease; I25.2 Old myocardial infarction; I48.19 Other persistent atrial fibrillation; E78.2 Mixed hyperlipidemia; K21.9 Gastro-esophageal reflux disease without esophagitis; E11.22 Type 2 diabetes mellitus with diabetic chronic kidney disease; K75.81 Nonalcoholic steatohepatitis (NASH); I42.9 Cardiomyopathy, unspecified; Z79.899 Other long term (current) drug therapy; Z95.5 Presence of coronary angioplasty implant and graft; Z79.4 Long term (current) use of insulin; Z79.01 Long term (current) use of anticoagulants; Z79.02 Long term (current) use of antithrombotics/antiplatelets; Z79.82 Long term (current) use of aspirin; Z87.891 Personal history of nicotine dependence
CPT/HCPCS: 36415; 71045; 80048; 80053; 80061; 82962; 83735; 84443; 84484; 85025; 85610; 87426; 93005; 93458; 96361; 96372; 96374; 96375; 99152; 99153; 99218; 99285; J7030; Q9967; A4216; C1769; C1894; G0378; J1940; J2405

== ENCOUNTER → 2020-11-27 16:58 | Outpatient (CLI) | payer MEDICARE, MEDICAID, SELFPAY | PROVIDERS: Visit Provider Family Medicine | DX: U07.1 COVID-19 (principal) | CPT/HCPCS: 87635; U0005; U0003 ==

== ENCOUNTER → 2020-12-23 11:57 | Outpatient (CLI) | payer MEDICARE, MEDICAID, SELFPAY ==
--- NOTE | 2020-12-23 12:01 | RAD_ITS ---
STUDY: X-RAY CHEST REASON FOR EXAM: Female, 75 years old. Fever and cough TECHNIQUE: PA and lateral views of the chest. COMPARISON: 11/22/2020 FINDINGS: The lungs are clear and expanded. There is no demonstrated pleural abnormality. Normal size heart. Normal mediastinum and destiny. Normal visualized pulmonary arteries. There is atherosclerotic calcification of the aortic arch with tortuosity. There are diffuse degenerative changes of the visualized thoracic spine. Normal visualized ribs, clavicles, and shoulders. There is no demonstrated abnormality of the visualized soft tissue structures of the upper abdomen. RAD/Chest PA and Lateral IMPRESSION: No acute pulmonary process Electronically Signed: Aaron Cheng MD at 16:49 EDT , Service support ,
== END ==
PROVIDERS: PCP Family Medicine; Referring Provider Family Medicine; Visit Provider Family Medicine
DX: U07.1 COVID-19 (principal)
CPT/HCPCS: 71046

== ENCOUNTER → 2021-01-28 07:50 | Outpatient (CLI) | payer MEDICARE, MEDICAID, SELFPAY ==
[2021-01-28 09:57] LABS: Absolute Lymphocyte Count 1.47 X10^3/uL (0.83-4.51); Absolute Neutrophil Count 3.4 X10^3/uL (2.0-7.7); Basophil# 0.05 X10^3/uL; Basophil% 0.8 % (0-1); Eosinophil# 0.32 X10^3/uL; Eosinophils% 5.3 % (0-5); Hematocrit 29.2 % (37-47); Hemoglobin 9.4 g/dL (12.0-15.0); Lymphocyte # 1.47 X10^3/ul (0.83-4.51); Lymphocyte % 24.5 % (19-41); Mean Corp Hgb Conc 32.2 g/dL (32-36); Mean Corpuscular Hgb 36.9 pg (27.0-32.0); Mean Corpuscular Volume 114.5 fL (81-99); Mean Platelet Vol. 10.6 fl (6.2-12.0); Monocyte# 0.76 X10^3/uL; Monocyte% 12.7 % (0-10); NRBC Flagged by Analyzer 0 % (0-5); Neutrophil # 3.38 X10^3/uL (2.7-7.7); Neutrophil % 56.4 % (47-70); Platelet Count 211 K/mm3 (150-450); RBC Distribution Width CV 14.3 % (11.6-14.6); RBC Distribution Width SD 59.7 fl (35.1-43.9); Red Blood Count 2.55 M/mm3 (4.2-5.4)
[2021-01-28 10:43] LABS: ALB/GLOB Ratio 0.5 RATIO (0.9-2.4); AST(SGOT) 46 U/L (15-37); Alanine Aminotransfer ALT/SGPT 33 U/L (13-56); Alkaline Phosphatase 65 U/L (45-117); Anion Gap 10 (5-15); BUN 32 mg/dL (7-18); BUN/Creat Ratio 23.4 RATIO (10-20); Chloride 101 mmol/L (98-107); Cholesterol 126 mg/dL (200); Creatinine, Serum 1.37 mg/dL (0.55-1.02); EST Glomerular Filtration Rate 40 mL/min (>60); Est Glom Filt Rate - Afr Amer 48 mL/min (>60); Globulin 5.6 g/dL (2.2-4.2); Glucose 144 mg/dL (74-106); High Density Lipoprotein 33 mg/dL; Magnesium 1.7 mg/dL (1.6-2.6); Potassium 4.3 mmol/L (3.5-5.1); Protein, Total 8.6 g/dL (6.4-8.2); Sodium Level 139 mmol/L (136-145); Triglycerides 142 mg/dL; Very Low Density Lipoprotein 28 mg/dL (5-40)
[2021-01-28 14:30] LABS: Hemoglobin A1c 6.1 % (3.8-5.6)
== END ==
PROVIDERS: PCP Family Medicine; Referring Provider Family Medicine; Visit Provider Family Medicine
DX: E11.59 Type 2 diabetes mellitus with other circulatory complications (principal); I48.91 Unspecified atrial fibrillation; E55.9 Vitamin D deficiency, unspecified
CPT/HCPCS: 36415; 80053; 80061; 82306; 83036; 83735; 85025

== ENCOUNTER → 2021-02-13 10:44 | Outpatient (CLI) | payer MEDICARE, MEDICAID, SELFPAY ==
[2021-02-13 10:52] VITALS: BP 127/84; PULSE 107; RESP 16; TEMP 36.1; O2SAT 99
[2021-02-13] MEDS: 0.9% NaCl Peripheral Flush Adult/Peds IV (11:03)
[2021-02-13 11:28] VITALS: BP 136/76; PULSE 104; RESP 16; TEMP 36.4; O2SAT 99
[2021-02-13 12:28] VITALS: BP 139/87; PULSE 98; RESP 16; TEMP 36.4; O2SAT 98
[2021-02-13 13:41] VITALS: BP 122/98; PULSE 96; RESP 16; TEMP 36.3
== END ==
PROVIDERS: PCP Family Medicine; Referring Provider Internal Medicine Hematology & Oncology; Visit Provider Internal Medicine Hematology & Oncology
DX: D64.9 Anemia, unspecified (principal)
CPT/HCPCS: 36430; 86850; 86900; 86901; 86920; 86922; J7040; P9016; A4216

== ENCOUNTER 2021-05-21 08:50 | Outpatient (CLI) | payer MEDICARE, MEDICAID, SELFPAY ==
[2021-05-21 10:26] LABS: Absolute Lymphocyte Count 1.17 X10^3/uL (0.83-4.51); Absolute Neutrophil Count 3.8 X10^3/uL (2.0-7.7); Basophil# 0.03 X10^3/uL; Basophil% 0.5 % (0-1); Eosinophil# 0.39 X10^3/uL; Eosinophils% 6.5 % (0-5); Hematocrit 33.7 % (37-47); Hemoglobin 11.4 g/dL (12.0-15.0); Lymphocyte # 1.17 X10^3/ul (0.83-4.51); Lymphocyte % 19.4 % (19-41); Mean Corp Hgb Conc 33.8 g/dL (32-36); Mean Corpuscular Volume 112.3 fL (81-99); Mean Platelet Vol. 11.2 fl (6.2-12.0); Monocyte# 0.65 X10^3/uL; Monocyte% 10.8 % (0-10); NRBC Flagged by Analyzer 0 % (0-5); Neutrophil # 3.75 X10^3/uL (2.7-7.7); Neutrophil % 62.3 % (47-70); Platelet Count 173 K/mm3 (150-450); RBC Distribution Width CV 14.6 % (11.6-14.6); RBC Distribution Width SD 59.2 fl (35.1-43.9)
[2021-05-21 10:45] LABS: ALB/GLOB Ratio 0.6 RATIO (0.9-2.4); AST(SGOT) 51 U/L (15-37); Alanine Aminotransfer ALT/SGPT 40 U/L (13-56); Albumin, Serum 3.1 g/dL (3.2-5.0); Alkaline Phosphatase 77 U/L (45-117); Anion Gap 11 (5-15); BUN 33 mg/dL (7-18); BUN/Creat Ratio 27.3 RATIO (10-20); Calcium,Total 9.9 mg/dL (8.5-10.1); Chloride 103 mmol/L (98-107); Cholesterol 113 mg/dL (200); Creatinine, Serum 1.21 mg/dL (0.55-1.02); EST Glomerular Filtration Rate 46 mL/min (>60); Est Glom Filt Rate - Afr Amer 56 mL/min (>60); Globulin 5.2 g/dL (2.2-4.2); Glucose 142 mg/dL (74-106); High Density Lipoprotein 29 mg/dL; Potassium 4.3 mmol/L (3.5-5.1); Protein, Total 8.3 g/dL (6.4-8.2); Sodium Level 138 mmol/L (136-145); Triglycerides 154 mg/dL; Very Low Density Lipoprotein 31 mg/dL (5-40)
[2021-05-21 10:58] LABS: Microalbumin:Creatinine Ratio 99.2 mg/g CRE (<30 mg/g CRE)
[2021-05-21 11:20] LABS: Vitamin D,25 Hydroxy 83.4 ng/mL
[2021-05-21 11:24] LABS: Hemoglobin A1c 6.2 % (3.8-5.6)
[2021-05-22 10:07] LABS: MG Sendout 1.6 mg/dL (1.6-2.3)
== END 2021-05-21 23:59 | disposition home or self-care (01) ==
LOC: MFPLAB 08:54
PROVIDERS: PCP Family Medicine; Referring Provider Family Medicine; Visit Provider Family Medicine
DX: E11.9 Type 2 diabetes mellitus without complications (principal); E55.9 Vitamin D deficiency, unspecified
CPT/HCPCS: 36415; 80053; 80061; 82043; 82306; 82570; 83036; 83735; 85025

== ENCOUNTER 2021-06-07 20:32 | Emergency (ER) | payer MEDICARE, MEDICAID, SELFPAY ==
[2021-06-07] VITALS (7 sets, daily range): BP systolic 106–168; BP diastolic 69–120; PULSE 67–141; RESP 16–23; TEMP 36.1; O2SAT 94–96; BMI 34.2
--- NOTE | 2021-06-07 20:35 | EKG12_ITS ---
Test Reason : CP Blood Pressure : / mmHG Vent. Rate : 141 BPM Atrial Rate : 141 BPM P-R Int : 136 ms QRS Dur : 116 ms QT Int : 312 ms P-R-T Axes : 000 -58 112 degrees QTc Int : 477 ms Sinus tachycardia with occasional Premature ventricular complexes Left anterior fascicular block Left ventricular hypertrophy with QRS widening and repolarization abnormality Abnormal ECG Confirmed by JESSICA MONTE, RANJANA ([id number]), rewrite editor JARETT RAMIREZ ([id number]) on 06/10/2021 10:54:48 AM Referred By: ANA LILIA Confirmed By:RANJANA LOPEZ MD
--- NOTE | 2021-06-07 20:49 | ED.RN ---
Patient has 4 baby asa ordered and coming up with override d/t allergy. Pt confirms she takes as home med and tolerates well. MAR will not let me make override comment. called and talked to SYDNEY, in pharmacy, for him to correct so can be noted as given in EMR.
--- NOTE | 2021-06-07 20:49 | ED.VIS.CHEST ---
HPI History of Present Illness Chief Complaint: Chest Pain Informant: patient Onset/Context/Timing Onset: Days Activity at onset: gradual Timing: Continuous Quality: Positive for Aching and Heaviness Location: Substernal Current Severity: Mild Maximum Severity: Mild Worsened By: Nothing Relieved By: Nothing Associated Symptoms: Negative for Nausea, Vomiting, Diaphoresis, Dyspnea, Cough, Fever, Lightheadedness, Acid Reflux and Palpitations Narrative Narrative: 75-year-old female extensive past medical history of of A. fib, VT, CAD with cardiac stents. She also has not nonalcoholic liver cirrhosis and diabetes. She is currently and has been on Eliquis. Approximately 2 weeks ago she was at a local hospital was admitted overnight and had a ablation procedure for A. fib. States the last couple days she has had mild midsternal chest discomfort that was worse tonight. Pain radiates to her shoulders. She denies any back pain. Prior Similar Symptoms: Yes Recent Illness/Hospitalization: Yes CVD Risk Factors: Positive for Hypertension and Diabetes; Negative for Smoking PE Risk Factors: Positive for Recent Immobilization; Negative for Recent Travel/Surgery, Prior DVT or PE, Cancer and OCP + Smoking + >/=35 TAD Risk Factors: Negative for Marfan's Syndrome PFSH PFS Medical History Abnormal stress test Acute myocardial infarction Angina pectoris Atherosclerotic heart disease of [place] coronary artery without angina pectoris Atrial fibrillation CAD (coronary artery disease) Cardiomyopathy Chronic pain CKD (chronic kidney disease) stage 3, GFR 30-59 ml/min COVID-19 (11/27/20) Diabetes Diverticulosis Essential hypertension Former smoker GERD (gastroesophageal reflux disease) Hepatic cirrhosis History of cardioversion (~04/21/19) History of left heart catheterization (LHC) (~11/25/20) Hypertension Macrocytic anemia Mixed hyperlipidemia Neuroendocrine carcinoma Nonalcoholic steatohepatitis (PATRICK) Persistent atrial fibrillation Presence of stent in coronary artery (~12/29/02) Vertigo Home Medications losartan 25 mg tablet 25 mg PO DAILY 05/10/18 [History Last Taken 11/22/20 09:00] nitroglycerin 0.4 mg sublingual tablet 0.4 mg SUBLINGUAL Q5-15M PRN 05/10/18 [History Last Taken Unknown] cholecalciferol (vitamin D3) 125 mcg (5,000 unit) tablet 5,000 unit PO DAILY 07/22/18 [History Last Taken 11/22/20 09:00] pravastatin 40 mg tablet 40 mg PO QHS 04/07/19 [History Last Taken 11/22/20 17:00] dulaglutide [Trulicity] 0.75 mg SQ QWEEK 07/04/20 [History Last Taken 11/18/20 09:00] magnesium oxide 400 mg (241.3 mg magnesium) tablet 800 mg PO BID tab 10/23/20 [History Last Taken 11/22/20 17:00] metformin 500 mg tablet 500 mg PO BID tab 10/23/20 [History Last Taken 11/22/20 17:00] apixaban 5 mg tablet 5 mg PO BID #180 tab 11/14/20 [Rx Last Taken 11/22/20 17:00] aspirin 81 mg chewable tablet 81 mg PO ONCE #30 tab 11/19/20 [Rx Last Taken Unknown] metoprolol tartrate 50 mg tablet 50 mg PO DAILY tab 01/28/21 [History Last Taken Unknown] albuterol sulfate 90 mcg/actuation aerosol inhaler 2 puff INHALATION Q6H PRN 04/16/21 [History Last Taken Unknown] furosemide 20 mg tablet 20 mg PO DAILY 04/16/21 [History Last Taken Unknown] pantoprazole 40 mg tablet,delayed release 20 mg PO DAILY tab 04/16/21 [History Last Taken Unknown] Allergy/AdvReac Type Severity Reaction Status Date / Time adhesive Allergy Rash Verified 06/07/21 20:39 fenofibrate nanocrystallized Allergy Rash Verified 06/07/21 20:39 [From Tricor] fenofibrate,micronized Allergy Rash Verified 06/07/21 20:39 [From Tricor] Iodinated Contrast Media Allergy Rash Verified 06/07/21 20:39 [CONTRASTS] ramipril Allergy Rash Verified 06/07/21 20:39 sertraline HCl [From Zoloft] AdvReac made me Verified 06/07/21 20:39 more depressed sulindac [From Clinoril] AdvReac PT UNSURE Verified 06/07/21 20:39 OF REACTION CARDIAC CATH DYE Allergy Rash Uncoded 06/07/21 20:39 Family History Mother CAD (coronary artery disease) Father CAD (coronary artery disease) Sister CAD (coronary artery disease) Brother Heart disease Brother Heart disease Brother Heart disease Surgical History History of appendectomy History of cataract surgery History of cholecystectomy History of coronary artery stent placement History of laparoscopic cholecystectomy History of liver biopsy Presence of coronary angioplasty implant and graft (~12/29/02) Social History Smoking Status: Former smoker alcohol intake: never substance use type: does not use ROS ROS ED ROS Narrative Chest pain. Review of Systems ROS Unobtainable: Denies due to encephalopathy Constitutional Constitutional ED: Denies fever(s) Eyes Eyes: Denies none ENT ENT ED: Denies ear pain Cardiovascular Cardiovascular: Reports as per HPI, chest pain and racing heartbeat Respiratory/Chest Respiratory/Chest: Denies dyspnea Gastrointestinal Gastrointestinal: Denies abdominal pain, diarrhea, nausea or vomiting Genitourinary Genitourinary ED: Denies dysuria Musculoskeletal Musculoskeletal: Denies myalgias Integumentary Denies rash Neurologic Neurologic: Denies headache(s) Psychiatric Psychiatric: Denies depression Endocrine Endocrinology: Denies polyuria Hematologic/Lymphatic Hematologic/Lymphatic: Denies easy bruising Allergic/Immunologic Allergic/Immunologic ED: Denies urticaria EXAM Physical Exam Narrative Exam Narrative: 75-year-old female vital signs heart rates accelerated 141. Initial blood pressure 168/120. Pulse ox 96% on room air no hypoxia. She is actually tolerating the pain, elevated pressure and elevated heart rate quite well. H EENT exam unremarkable. Neck nontender no JVD. Lungs clear to auscultation bilaterally. Heart tachycardic no murmur appreciated. Chest wall nontender. On the monitor appears to be either in A. fib or flutter again rate about 140. Abdomen soft nontender. Moving all 4 extremities. Calves are nontender without edema. Neurologically she is awake and alert with no focal motor deficits. Const Vital Signs: 06/07/21 20:32 06/07/21 20:35 06/07/21 20:37 Temperature 97 F L Temperature Source Temporal Pulse Rate 141 H Respiratory Rate 18 Respiratory Effort Normal Non-Labored Respiratory Pattern Normal Blood Pressure 168/120 H Blood Pressure Mean 136 Pulse Ox 96 96 Oxygen Delivery Method Room Air Room Air 06/07/21 20:59 06/07/21 21:00 06/07/21 21:13 Temperature Temperature Source Pulse Rate 136 H 95 75 Respiratory Rate 20 H 18 Respiratory Effort Respiratory Pattern Blood Pressure 106/69 139/80 H Blood Pressure Mean 81 99 Pulse Ox 94 Oxygen Delivery Method Room Air Positive well nourished and well developed; Negative for obese, cachectic, contractures or unkempt General Appearance ED: well developed and NAD; Negative for unkempt, cachectic, contractures or pallor Nutritional Appearance: Negative for cachectic or obese HEENT Reports moist mucous membranes normocephalic and atraumatic Eyes PERRL and EOMs intact bilaterally Neck no lymphadenopathy, supple and no JVD General: Negative for tenderness Chest Wall inspection of chest normal and palpation of chest normal Chest: Negative for tenderness Resp normal respiratory effort and clear to auscultation bilaterally Effort and Inspection: respiratory distress Auscultation: Negative for rales, rhonchi or wheezes Cardio S1 normal heart sound, S2 normal heart sound and no murmurs; Negative for regular rate or regular rhythm Rate: tachycardic GI normal to inspection, nondistended, normoactive bowel sounds, soft to palpation, non-tender, non-distended and no masses; Negative for hepatosplenomegaly Auscultation: Negative for hyperactive bowel sounds Back/Spine no CVA tenderness Extremity normal to inspection General Extremety ED: Negative for edema or tenderness General Extremity: Negative for edema Neuro oriented x3 Sensorium / Orientation: awake, alert, oriented to person, oriented to place and oriented to time Motor Exam: strength 5/5 throughout Psych mental status grossly normal Appearance: Negative for unkempt Skin no rashes or lesions noted and no wounds General Skin Exam: Negative for jaundice or pallor Heart Score History: Moderately Suspicious Age: >/= 65 years Risk Factors: >/= 3 Risk Factors or History of CAD Troponin: </= Normal Limit Score: 5 MDM MDM MDM Narrative Medical decision making narrative: 75-year-old female decelerated heart rate and chest pain. I suspect she is in A. fib RVR a flutter. She will be given IV Cardizem. She will undergo cardiac work-up. She is also been treated with aspirin. Repeat exam patient was given IV Cardizem 25 mg. Her heart rate went from around 140 to currently 90. Parched pain resolved. Currently she is in a sinus rhythm in the 70s. Patient doing well at 9:28 PM. She will be observed for the next 30 minutes. If she continues to stay in a sinus rhythm at a controlled rate she will be discharged home. Continue her current medications she is on a beta-chun at home. And follow-up with her sports broadcaster on Wednesday. She knows to return if she has recurrent chest pain, accelerated heart rate or feels worse. Lab Data Attestation: I reviewed the patient's lab results. Lab results narrative: CBC shows a white count of 6.9. H&H 11.1 and 32. Electrolytes show a gap of 7 BUN and creatinine of 25 and 1.3. Glucose 185. Troponin of 54. Compared to her prior labs he is her baseline. Patient is chronic anemia chronic renal insufficiency. Labs: Laboratory Results - last 24 hr 06/07/21 06/07/21 20:45 20:45 WBC 6.9 RBC 2.82 L Hgb 11.1 L Hct 32.7 L MCV 116.0 H MCH 39.4 H MCHC 33.9 RDW Std Deviation 61.4 H RDW Coeff of Pina 14.6 Plt Count 197 MPV 10.8 Immature Gran % (Auto) 0.400 Neut % (Auto) 58.8 Lymph % (Auto) 22.9 Gregory % (Auto) 10.6 H Eos % (Auto) 6.4 H Baso % (Auto) 0.9 Absolute Neuts (auto) 4.1 Absolute Lymphs (auto) 1.58 Nucleated RBC % 0 Sodium 137 Potassium 4.0 Chloride 105 Carbon Dioxide 25.0 Anion Gap 7 BUN 25 H Creatinine 1.34 H Estim Creat Clear Calc 35.82 Est GFR (MDRD) Af Amer 50 L Est GFR (MDRD) Non-Af 41 L BUN/Creatinine Ratio 18.7 Glucose 185 H Calcium 9.6 Troponin I High Sens 54 Radiography Chest X-Ray - ED: 1 View, Read by ED Physician, Lungs, Mediastinum, Bony Structures, No Acute Disease, Chronic Changes and Cardiomegaly Diagnostic Testing: Clinical Impression(s) from Imaging Studies Chest X-Ray 06/07/21 20:55 IMPRESSION: Nonacute portable x-ray examination of the chest. Electronically Signed: Bashir Quintero MD ([place]) at 21:17 EST , Chest x-ray, portable, single view interpreted by myself shows cardiomegaly with chronic changes but no acute process. Rhythm Strip Rhythm Strip: A-fib Rate: 141 Ectopy: None EKG Initial EKG: Attestation: I personally reviewed and interpreted this EKG as follows: Interpretation: No Acute Injury Pattern, Atrial Fibrillation and Atrial Flutter Comments: Patient is a tachycardia with a left anterior fascicular block. I suspect this is either A. fib or a flutter. There is no signs of acute VT. There is no significant ST depression. Treatment and Re-Evaluation Comments:: Repeat EKG after patient was given IV Cardizem showed normal sinus rhythm rate of 69 with no acute signs of VT or ischemia. LVH with a left anterior fascicular block. Discharge Plan Triage Chief Complaint: Chest Pain ED Provider: Magdi Umana Dx/Rx/DC Orders Clinical Impression: Atrial fibrillation with RVR, Chronic anticoagulation, History of atrial fibrillation, Chest pain, History of coronary artery disease Instructions: ED AFIB Prescriptions: No Action losartan 25 mg tablet 25 mg PO DAILY RF: 0 nitroglycerin 0.4 mg tablet, sublingual 0.4 mg sublingual Q5-15M PRN (Reason: Cardiac/Chest Pain) RF: 0 cholecalciferol (vitamin D3) 5,000 unit tablet 5,000 unit PO DAILY RF: 0 pravastatin 40 mg tablet 40 mg PO QHS RF: 0 magnesium oxide 400 mg (241.3 mg magnesium) tablet 800 mg PO BID RF: 0 furosemide 20 mg tablet 20 mg PO DAILY RF: 0 albuterol sulfate [Ventolin HFA] 90 mcg/actuation HFA aerosol inhaler 2 puff inhalation Q6H PRN (Reason: Shortness Of Breath) RF: 0 metformin 500 mg tablet 500 mg PO BID RF: 0 metoprolol tartrate 50 mg tablet 50 mg PO DAILY RF: 0 pantoprazole 40 mg tablet,delayed release (DR/EC) 20 mg PO DAILY RF: 0 Trulicity 0.75 MG/0.5 ML pen injector 0.75 mg SQ QWEEK RF: 0 Eliquis 5 mg tablet 5 mg PO BID Qty: 180 RF: 3 aspirin 81 mg tablet,chewable 81 mg PO ONCE Qty: 30 RF: 12 Primary Care Provider: Farhan Mendiola Referrals: Farhan Mendiola MD [Primary Care Provider] - Joe Singh MD [STAFF PHYSICIAN] - As soon as possible Activity Restrictions/Additional Instructions: Continue your current medications. Call and follow-up with Dr. Joe Singh on Wednesday and/or your sports broadcaster at [facility]. Return to the emergency department if you develop recurrent chest pain, feeling worse or an accelerated heart rate. This could mean that you are back into atrial fibrillation with a rapid rate and you need to be reassessed and possibly admitted. Disposition Disposition: Home, Self Care
[2021-06-07] MEDS: Aspirin 81 MG TAB.CHEW 324 MG PO (20:51)
[2021-06-07] MEDS: dilTIAZem 25 MG/5 ML Vial IV BOLUS (20:53)
[2021-06-07 20:54] LABS: Absolute Lymphocyte Count 1.58 X10^3/uL (0.83-4.51); Absolute Neutrophil Count 4.1 X10^3/uL (2.0-7.7); Basophil# 0.06 X10^3/uL; Basophil% 0.9 % (0-1); Eosinophil# 0.44 X10^3/uL; Eosinophils% 6.4 % (0-5); Hematocrit 32.7 % (37-47); Hemoglobin 11.1 g/dL (12.0-15.0); Lymphocyte # 1.58 X10^3/ul (0.83-4.51); Lymphocyte % 22.9 % (19-41); Mean Corp Hgb Conc 33.9 g/dL (32-36); Mean Corpuscular Hgb 39.4 pg (27.0-32.0); Mean Platelet Vol. 10.8 fl (6.2-12.0); Monocyte# 0.73 X10^3/uL; Monocyte% 10.6 % (0-10); NRBC Flagged by Analyzer 0 % (0-5); Neutrophil # 4.07 X10^3/uL (2.7-7.7); Neutrophil % 58.8 % (47-70); Platelet Count 197 K/mm3 (150-450); RBC Distribution Width CV 14.6 % (11.6-14.6); RBC Distribution Width SD 61.4 fl (35.1-43.9); Red Blood Count 2.82 M/mm3 (4.2-5.4); White Blood Count 6.9 K/mm3 (4.4-11.0)
--- NOTE | 2021-06-07 20:55 | RAD_ITS ---
STUDY: X-RAY CHEST REASON FOR EXAM: Female, 75 years old. chest pain TECHNIQUE: AP COMPARISON: 12/23/2020 FINDINGS: EKG leads project over the chest. The lungs are clear and expanded. There is no demonstrated pleural abnormality. There is borderline cardiomegaly. Normal mediastinum and destiny. Normal visualized pulmonary arteries. There is atherosclerotic calcification of the aortic arch with tortuosity. There are diffuse degenerative changes of the visualized thoracic spine. Normal visualized ribs, clavicles, and shoulders. There is no demonstrated abnormality of the visualized soft tissue structures of the upper abdomen. RAD/Chest 1 View (Portable) IMPRESSION: Nonacute portable x-ray examination of the chest. Electronically Signed: Bashir Quintero MD ([place]) at 21:17 EST ,
--- NOTE | 2021-06-07 21:06 | EKG12_ITS ---
Test Reason : REPEAT CP Blood Pressure : / mmHG Vent. Rate : 069 BPM Atrial Rate : 069 BPM P-R Int : 176 ms QRS Dur : 122 ms QT Int : 440 ms P-R-T Axes : 000 -50 099 degrees QTc Int : 471 ms Normal sinus rhythm Left anterior fascicular block Left ventricular hypertrophy with QRS widening Abnormal ECG Confirmed by JESSICA MONTE, RANJANA ([id number]), science editor JARETT RAMIREZ ([id number]) on 06/10/2021 10:55:20 AM Referred By: ANA LILIA Confirmed By:RANJANA LOPEZ MD
[2021-06-07 21:11] LABS: Anion Gap 7 (5-15); BUN 25 mg/dL (7-18); BUN/Creat Ratio 18.7 RATIO (10-20); Calcium,Total 9.6 mg/dL (8.5-10.1); Chloride 105 mmol/L (98-107); Creatinine, Serum 1.34 mg/dL (0.55-1.02); EST Glomerular Filtration Rate 41 mL/min (>60); Est Glom Filt Rate - Afr Amer 50 mL/min (>60); Estimated Creatinine Clearance 35.82 ml/min; Glucose 185 mg/dL (74-106); Sodium Level 137 mmol/L (136-145); Troponin-I HS 54 pg/mL (3.0-54.0)
== END 2021-06-07 22:01 | disposition home or self-care (01) ==
PROVIDERS: Emergency Provider Emergency Medicine; PCP Family Medicine; Visit Provider Emergency Medicine
DX: I48.91 Unspecified atrial fibrillation (principal); I42.9 Cardiomyopathy, unspecified; E11.22 Type 2 diabetes mellitus with diabetic chronic kidney disease; N18.30 Chronic kidney disease, stage 3 unspecified; E78.2 Mixed hyperlipidemia; Z79.01 Long term (current) use of anticoagulants; Z87.891 Personal history of nicotine dependence; I12.9 Hypertensive chronic kidney disease with stage 1 through stage 4 chronic kidney disease, or unspecified chronic kidney disease; I25.10 Atherosclerotic heart disease of native coronary artery without angina pectoris
CPT/HCPCS: 71045; 80048; 84484; 85025; 93005; 99283; A4216

== ENCOUNTER 2021-07-25 11:07 | Inpatient (IN) | payer MEDICARE, MEDICAID, SELFPAY ==
[2021-07-25] VITALS (21 sets, daily range): BP systolic 87–156; BP diastolic 57–91; PULSE 72–103; RESP 16–18; TEMP 36.2–36.9; O2SAT 94–99; BMI 32.7; BMI 33.2
--- NOTE | 2021-07-25 11:23 | EDS_ITS ---
HPI History of Present Illness Chief Complaint: Abn Labs Informant: patient Narrative Narrative: 76-year-old female states that today she was told to come to the emergency department because her low hemoglobin. She states that she discontinued her Eliquis several days ago because her stool was getting darker brown than normal. Paperwork that accompanies the patient shows that on 10 July her hemoglobin was 11.2 on 22 July was 9.9. Today was reported at lab to be 6.6. White count 7.47. Platelet count of 181. Patient states that she has had 6 or 7 blood transfusions in the past. She states she has had endoscopy and colonoscopy had no source of bleeding has been found. She notes that she is very lightheaded and weak when she goes to walk around. [facility] Medical History Abnormal stress test Acute myocardial infarction Angina pectoris Atherosclerotic heart disease of [place] coronary artery without angina pectoris Atrial fibrillation CAD (coronary artery disease) Cardiomyopathy Chronic pain CKD (chronic kidney disease) stage 3, GFR 30-59 ml/min COVID-19 (11/27/20) Diabetes Diverticulosis Essential hypertension Former smoker GERD (gastroesophageal reflux disease) Hepatic cirrhosis History of cardioversion (~04/21/19) History of left heart catheterization (LHC) (~11/25/20) Hypertension Macrocytic anemia Mixed hyperlipidemia Neuroendocrine carcinoma Nonalcoholic steatohepatitis (PATRICK) Persistent atrial fibrillation Presence of stent in coronary artery (~12/29/02) Vertigo Home Medications nitroglycerin 0.4 mg sublingual tablet 0.4 mg SUBLINGUAL Q5-15M PRN 05/10/18 [History Last Taken Unknown] cholecalciferol (vitamin D3) 125 mcg (5,000 unit) tablet 5,000 unit PO DAILY 07/22/18 [History Last Taken 07/25/21 08:30] pravastatin 40 mg tablet 40 mg PO QHS 04/07/19 [History Last Taken 07/24/21 18:30] dulaglutide [Trulicity] 0.75 mg SQ QWEEK 07/04/20 [History Last Taken 07/21/21 10:00] magnesium oxide 400 mg (241.3 mg magnesium) tablet 800 mg PO BID tab 10/23/20 [History Last Taken 07/25/21 08:30] metformin 500 mg tablet 500 mg PO BID tab 10/23/20 [History Last Taken 07/25/21 08:30] aspirin 81 mg chewable tablet 81 mg PO ONCE #30 tab 11/19/20 [Rx Last Taken 07/25/21 08:30] albuterol sulfate 90 mcg/actuation aerosol inhaler 2 puff INHALATION Q6H PRN 04/16/21 [History Last Taken Unknown] pantoprazole 40 mg tablet,delayed release 20 mg PO QODAY tab 04/16/21 [History Last Taken 07/24/21 08:30] amiodarone 200 mg tablet 200 mg PO DAILY 06/09/21 [History Last Taken 07/25/21 08:30] furosemide 40 mg tablet 40 mg PO DAILY #90 tab 06/09/21 [Rx Last Taken 07/24/21 08:30] Allergy/AdvReac Type Severity Reaction Status Date / Time adhesive Allergy Rash Verified 07/25/21 11:08 fenofibrate nanocrystallized Allergy Rash Verified 07/25/21 11:08 [From Tricor] fenofibrate,micronized Allergy Rash Verified 07/25/21 11:08 [From Tricor] Iodinated Contrast Media Allergy Rash Verified 07/25/21 11:08 [CONTRASTS] ramipril Allergy Rash Verified 07/25/21 11:08 sertraline HCl [From Zoloft] AdvReac made me Verified 07/25/21 11:08 more depressed sulindac [From Clinoril] AdvReac PT UNSURE Verified 07/25/21 11:08 OF REACTION CARDIAC CATH DYE Allergy Rash Uncoded 07/25/21 11:08 Family History Mother CAD (coronary artery disease) Father CAD (coronary artery disease) Sister CAD (coronary artery disease) Brother Heart disease Brother Heart disease Brother Heart disease Surgical History History of appendectomy History of cataract surgery History of cholecystectomy History of coronary artery stent placement History of laparoscopic cholecystectomy History of liver biopsy Presence of coronary angioplasty implant and graft (~12/29/02) Social History Smoking Status: Former smoker alcohol intake: never substance use type: does not use ROS ROS ED ROS Narrative Fatigue/weakness Constitutional Constitutional ED: Denies chills, fever(s) or weight loss Eyes Eyes: Denies change in vision or diplopia ENT ENT ED: Denies ear pain, rhinorrhea or sore throat Cardiovascular Cardiovascular: Denies chest pain, orthopnea, palpitations or racing heartbeat Respiratory/Chest Respiratory/Chest: Denies cough, dyspnea or orthopnea Gastrointestinal Gastrointestinal: Denies abdominal pain, diarrhea, nausea or vomiting Genitourinary Genitourinary ED: Denies dysuria, hematuria or urinary frequency Musculoskeletal Musculoskeletal: Denies arthralgias or myalgias Integumentary Denies abscess or rash Neurologic Neurologic: Denies headache(s) or weakness Psychiatric Psychiatric: Denies anxiety, depression, suicidal ideation or suicidal thoughts Endocrine Endocrinology: Denies polydipsia, polyphagia or polyuria Allergic/Immunologic Allergic/Immunologic ED: Denies mouth swelling, tongue swelling or urticaria EXAM Physical Exam Const Vital Signs: 07/25/21 11:08 07/25/21 11:23 07/25/21 11:33 Temperature 97.2 F L Temperature Source Temporal Pulse Rate 91 Pulse Rate [Lying] 78 Pulse Rate [Sitting (for 1 minute prior to obtaining)] 89 Pulse Rate [Standing (for 1 minute prior to obtaining)] 103 H Respiratory Rate 18 Respiratory Effort Normal Non-Labored Respiratory Pattern Normal Blood Pressure 124/72 H Blood Pressure [Lying] 121/64 H Blood Pressure [Sitting (for 1 minute prior to obtaining)] 116/74 Blood Pressure [Standing (for 1 minute prior to obtaining)] 94/63 Blood Pressure Mean 89 Blood Pressure Mean [Lying] 83 Blood Pressure Mean [Sitting (for 1 minute prior to obtaining)] 88 Blood Pressure Mean [Standing (for 1 minute prior to obtaining)] 73 Pulse Ox 99 Oxygen Delivery Method Room Air Positive well nourished and well developed General Appearance ED: well developed HEENT Reports normocephalic, head/scalp atraumatic, TM's clear and moist mucous membranes Negative for trauma Tympanic Membrane ED: Yes TM's clear Eyes PERRL and EOMs intact bilaterally Neck no lymphadenopathy, supple and no JVD Resp normal respiratory effort and clear to auscultation bilaterally Cardio regular rate, regular rhythm and no murmurs GI normal to inspection, nondistended, normoactive bowel sounds and non-tender Palpation: soft Back/Spine no CVA tenderness and normal ROM Extremity normal to inspection General Extremety ED: Negative for edema General Extremity: Negative for edema Neuro oriented x3 and CN's II-XII intact bilaterally Sensorium / Orientation: alert Motor Exam: strength 5/5 throughout Psych Psych Narrative: No suicidal or homicidal ideation Mood & Affect: depressed and tearful Skin no rashes or lesions noted and no wounds MDM MDM MDM Narrative Medical decision making narrative: Patient has orthostatic hypotension. Her hemoglobin was confirmed to be 6.6 with an MCV of 114.5. BUN of 46 with creatinine of 1.23. Plan will be admission for transfusion and further evaluation. Lab Data Attestation: I reviewed the patient's lab results. Labs: Laboratory Results - last 24 hr 07/25/21 07/25/21 07/25/21 11:30 11:30 11:30 WBC 7.7 RBC 1.73 L Hgb 6.6 L Hct 19.8 L MCV 114.5 H MCH 38.2 H MCHC 33.3 RDW Std Deviation 57.5 H RDW Coeff of Pina 14.0 Plt Count 208 MPV 10.0 Immature Gran % (Auto) 0.500 Neut % (Auto) 69.0 Lymph % (Auto) 17.6 L [place] % (Auto) 8.2 Eos % (Auto) 4.3 Baso % (Auto) 0.4 Absolute Neuts (auto) 5.3 Absolute Lymphs (auto) 1.35 Nucleated RBC % 0.3 Sodium 136 Potassium 4.4 Chloride 103 Carbon Dioxide 22.0 Anion Gap 11 BUN 46 H Creatinine 1.23 H Estim Creat Clear Calc 38.43 Est GFR (MDRD) Af Amer 55 L Est GFR (MDRD) Non-Af 45 L BUN/Creatinine Ratio 37.4 H Glucose 175 H Calcium 8.6 Total Bilirubin 0.40 Direct Bilirubin 0.18 AST 40 H ALT 29 Alkaline Phosphatase 53 Total Protein 6.9 Albumin 2.9 L Globulin 4.0 Lipase 298 Crossmatch See Detail Discharge Plan Triage Chief Complaint: Abn Labs ED Provider: Robert Soler Dx/Rx/DC Orders Clinical Impression: Chronic anticoagulation, Acute blood loss anemia, Anemia requiring transfusions, Acute upper GI bleed Prescriptions: No Action nitroglycerin 0.4 mg tablet, sublingual 0.4 mg sublingual Q5-15M PRN (Reason: Cardiac/Chest Pain) RF: 0 cholecalciferol (vitamin D3) 5,000 unit tablet 5,000 unit PO DAILY RF: 0 pravastatin 40 mg tablet 40 mg PO QHS RF: 0 magnesium oxide 400 mg (241.3 mg magnesium) tablet 800 mg PO BID RF: 0 albuterol sulfate [Ventolin HFA] 90 mcg/actuation HFA aerosol inhaler 2 puff inhalation Q6H PRN (Reason: Shortness Of Breath) RF: 0 metformin 500 mg tablet 500 mg PO BID RF: 0 pantoprazole 40 mg tablet,delayed release (DR/EC) 20 mg PO QODAY RF: 0 Trulicity 0.75 MG/0.5 ML pen injector 0.75 mg SQ QWEEK RF: 0 aspirin 81 mg tablet,chewable 81 mg PO ONCE Qty: 30 RF: 12 furosemide 40 mg tablet 40 mg PO DAILY Qty: 90 RF: 3 amiodarone 200 mg tablet 200 mg PO DAILY RF: 0 Primary Care Provider: Farhan Mendiola Referrals: Farhan Mendiola MD [Primary Care Provider] - Disposition Disposition: Acute Care Hospital [facility]
[2021-07-25 11:41] LABS: Absolute Lymphocyte Count 1.35 X10^3/uL (0.83-4.51); Absolute Neutrophil Count 5.3 X10^3/uL (2.0-7.7); Basophil# 0.03 X10^3/uL; Basophil% 0.4 % (0-1); Eosinophil# 0.33 X10^3/uL; Eosinophils% 4.3 % (0-5); Hematocrit 19.8 % (37-47); Hemoglobin 6.6 g/dL (12.0-15.0); Lymphocyte # 1.35 X10^3/ul (0.83-4.51); Lymphocyte % 17.6 % (19-41); Mean Corp Hgb Conc 33.3 g/dL (32-36); Mean Corpuscular Hgb 38.2 pg (27.0-32.0); Mean Corpuscular Volume 114.5 fL (81-99); Monocyte# 0.63 X10^3/uL; Monocyte% 8.2 % (0-10); NRBC Flagged by Analyzer 0.3 % (0-5); Platelet Count 208 K/mm3 (150-450); RBC Distribution Width SD 57.5 fl (35.1-43.9); Red Blood Count 1.73 M/mm3 (4.2-5.4); White Blood Count 7.7 K/mm3 (4.4-11.0)
[2021-07-25 11:52] LABS: International Normalized Ratio 1.2; Partial Thromboplast Time 29.1 Seconds (24.1-36.2); Prothrombin Time (Protime)PT. 14.8 SECONDS (11.7-14.9)
[2021-07-25 11:58] LABS: AST(SGOT) 40 U/L (15-37); Alanine Aminotransfer ALT/SGPT 29 U/L (13-56); Albumin, Serum 2.9 g/dL (3.2-5.0); Alkaline Phosphatase 53 U/L (45-117); Anion Gap 11 (5-15); BUN 46 mg/dL (7-18); BUN/Creat Ratio 37.4 RATIO (10-20); Bilirubin, Direct 0.18 mg/dL (0.00-0.30); Calcium,Total 8.6 mg/dL (8.5-10.1); Chloride 103 mmol/L (98-107); Creatinine, Serum 1.23 mg/dL (0.55-1.02); EST Glomerular Filtration Rate 45 mL/min (>60); Est Glom Filt Rate - Afr Amer 55 mL/min (>60); Estimated Creatinine Clearance 38.43 ml/min; Glucose 175 mg/dL (74-106); Lipase 298 U/L (73-393); Potassium 4.4 mmol/L (3.5-5.1); Protein, Total 6.9 g/dL (6.4-8.2); Sodium Level 136 mmol/L (136-145)
--- NOTE | 2021-07-25 12:35 | HP.PCM.HOS_ITS ---
HPI - General HPI Narrative GRIS RODRIGUEZ, is a 76 F who presented to the emergency department [facility] on 07/25/2021 with a chief complaint of abnormal labs. She was evidently told to come the emergency department by her primary care physician secondary to anemia. The patient reports that last week she had some diarrhea that was dark and this lasted for several days however she has not had a bowel movement since Wednesday at this time. She reports she has a known history of anemia and has had multiple EGD and colonoscopies but never had a small bowel capsule endoscopy. She is followed with Dr. Rock previously and her last scope was approximately 1 year ago at which time no pathology explaining her anemia was identified. She is had multiple previous blood transfusions. The last hemoglobin we have documented in our system was from 06/07/2021 at which time she had a hemoglobin of 11.1. It looks like this was close to her baseline at that time. She evidently had a follow-up hemoglobin drawn as an outpatient on Wednesday and at that time it was 9.9. She states on Wednesday and Wednesday she had increasing shortness of breath, lightheadedness, and overwhelming fatigue and that is why she presented for further lab work to be done and was identified with a worsening anemia. She reports that she was told last week iron studies were performed by Dr. De La Vega, with whom she follows for her anemia and history of neuroendocrine tumor, and based on last lab work she was found to be markedly iron deficient and scheduled for outpatient iron infusions x5 that were to start next week. She denies any nausea or vomiting, hematochezia, chest pain, tingling numbness or weakness and states that her diarrhea that she had last week is since resolved. Upon presentation to the emergency department her vital signs showed that she was afebrile with a temp of 97.2 heart rate was 91 blood pressure was 124/72 respiratory 18 and oxygen saturations were 99% on room air. Orthostatic vitals were obtained and found to be markedly positive. A CBC was obtained and she was found of a white count of 7.7 however she was markedly anemic with a hemoglobin of 6.6, and her platelets were normal. Coagulation studies were drawn but pending on admission. A CMP was obtained and her electrolytes were normal however she has an elevated BUN higher than her baseline of 1.2-1.4. Her serum glucose was 175. She has chronic AST elevations with current AST of 40 and her lipase was normal at 298. A type and screen was performed and a blood transfusion was ordered by the emergency department and is pending upon admission. We have discussed the case with gastroenterology and they agree that she needs to be evaluated and will see her on the floor. [facility] Medical History Abnormal stress test Acute myocardial infarction Angina pectoris Atherosclerotic heart disease of [place] coronary artery without angina pectoris Atrial fibrillation CAD (coronary artery disease) Cardiomyopathy Chronic pain CKD (chronic kidney disease) stage 3, GFR 30-59 ml/min COVID-19 (11/27/20) Diabetes Diverticulosis Essential hypertension Former smoker GERD (gastroesophageal reflux disease) Hepatic cirrhosis History of cardioversion (~04/21/19) History of left heart catheterization (LHC) (~11/25/20) Hypertension Macrocytic anemia Microcytic anemia Mixed hyperlipidemia Neuroendocrine carcinoma Nonalcoholic steatohepatitis (PATRICK) Persistent atrial fibrillation Presence of stent in coronary artery (~12/29/02) Vertigo Home Medications nitroglycerin 0.4 mg sublingual tablet 0.4 mg SUBLINGUAL Q5-15M PRN 05/10/18 [History Last Taken Unknown] cholecalciferol (vitamin D3) 125 mcg (5,000 unit) tablet 5,000 unit PO DAILY 07/22/18 [History Last Taken 07/25/21 08:30] pravastatin 40 mg tablet 40 mg PO QHS 04/07/19 [History Last Taken 07/24/21 18:30] dulaglutide [Trulicity] 0.75 mg SQ QWEEK 07/04/20 [History Last Taken 07/21/21 10:00] magnesium oxide 400 mg (241.3 mg magnesium) tablet 800 mg PO BID tab 10/23/20 [History Last Taken 07/25/21 08:30] metformin 500 mg tablet 500 mg PO BID tab 10/23/20 [History Last Taken 07/25/21 08:30] aspirin 81 mg chewable tablet 81 mg PO ONCE #30 tab 11/19/20 [Rx Last Taken 07/25/21 08:30] albuterol sulfate 90 mcg/actuation aerosol inhaler 2 puff INHALATION Q6H PRN 04/16/21 [History Last Taken Unknown] pantoprazole 40 mg tablet,delayed release 20 mg PO QODAY tab 04/16/21 [History Last Taken 07/24/21 08:30] amiodarone 200 mg tablet 200 mg PO DAILY 06/09/21 [History Last Taken 07/25/21 08:30] furosemide 40 mg tablet 40 mg PO DAILY #90 tab 06/09/21 [Rx Last Taken 07/24/21 08:30] Allergy/AdvReac Type Severity Reaction Status Date / Time adhesive Allergy Rash Verified 07/25/21 11:08 fenofibrate nanocrystallized Allergy Rash Verified 07/25/21 11:08 [From Tricor] fenofibrate,micronized Allergy Rash Verified 07/25/21 11:08 [From Tricor] Iodinated Contrast Media Allergy Rash Verified 07/25/21 11:08 [CONTRASTS] ramipril Allergy Rash Verified 07/25/21 11:08 sertraline HCl [From Zoloft] AdvReac made me Verified 07/25/21 11:08 more depressed sulindac [From [place]] AdvReac PT UNSURE Verified 07/25/21 11:08 OF REACTION CARDIAC CATH DYE Allergy Rash Uncoded 07/25/21 11:08 Family History Mother CAD (coronary artery disease) Father CAD (coronary artery disease) Sister CAD (coronary artery disease) Brother Heart disease Brother Heart disease Brother Heart disease Surgical History History of appendectomy History of cataract surgery History of cholecystectomy History of coronary artery stent placement History of laparoscopic cholecystectomy History of liver biopsy Presence of coronary angioplasty implant and graft (~12/29/02) Social History Smoking Status: Former smoker alcohol intake: never substance use type: does not use ROS Constitutional Constitutional: Denies anorexia, change in weight, chills, fatigue, fever(s), malaise, night sweats, weakness or other Eyes Eyes: Denies blurry vision, change in eye color, change in vision, discharge from eye(s), double vision, erythema, eye pain, loss of vision or other ENT HEENT: Denies abnormal hearing, dysphagia, ear pain, epistaxis, headache(s), hearing loss, nasal congestion, nasal discharge, post nasal drip, sinus pressure, sore throat or other Cardiovascular Cardiovascular: Reports dyspnea on exertion and lightheadedness; Denies chest pain, claudication, edema, orthopnea, palpitations, paroxysmal nocturnal dyspnea, rapid heart rate, syncope or other Respiratory/Chest Respiratory/Chest: Denies cough, dyspnea, excessive phlegm production, hemoptysi s, productive cough, shortness of breath at rest, shortness of breath with exertion, wheezing or other Gastrointestinal Gastrointestinal: Reports diarrhea, loose stools and melena; Denies abdominal pain, coffee ground emesis, constipation, dyspepsia, hematemesis, hematochezia, nausea, vomiting or other Genitourinary Genitourinary: Denies burning urination, difficulty urinating, dysuria, hematuria, nocturia, urinary frequency, urinary hesitancy, urinary incontinence, urinary urgency or other Musculoskeletal Musculoskeletal: Denies arthralgias, back pain, joint pain, joint stiffness, joint swelling, myalgias, neck pain or other Neurologic Neurologic: Denies abnormal gait, abnormal speech, confusion, disequilibrium, dizziness, focal weakness, headache(s), numbness, paresthesias, seizure-like activity, seizures, syncope, tingling, tremor(s) or other Psychiatric Psychiatric: Reports anxiety; Denies depression, homicidal ideation, suicidal ideation or other Endocrine Endocrinology: Denies change in body appearance, cold intolerance, excessive sweating, heat intolerance, polydipsia, polyuria or other Hematologic/Lymphatic Hematologic/Lymphatic: Reports anemia; Denies easy bleeding, easy bruising, lymphadenopathy or other Allergic/Immunologic Allergic/Immunologic: Denies rhinitis, hives, eczemia, asthma or other Vital Signs Vital Signs Vital Signs: 07/25/21 11:08 07/25/21 11:23 07/25/21 11:33 Temperature 97.2 F L Temperature Source Temporal Pulse Rate 91 Pulse Rate [Lying] 78 Pulse Rate [Sitting (for 1 minute prior to obtaining)] 89 Pulse Rate [Standing (for 1 minute prior to obtaining)] 103 H Respiratory Rate 18 Respiratory Effort Normal Non-Labored Respiratory Pattern Normal Blood Pressure 124/72 H Blood Pressure [Lying] 121/64 H Blood Pressure [Sitting (for 1 minute prior to obtaining)] 116/74 Blood Pressure [Standing (for 1 minute prior to obtaining)] 94/63 Blood Pressure Mean 89 Blood Pressure Mean [Lying] 83 Blood Pressure Mean [Sitting (for 1 minute prior to obtaining)] 88 Blood Pressure Mean [Standing (for 1 minute prior to obtaining)] 73 Pulse Ox 99 Oxygen Delivery Method Room Air Weight Weight: 94.801 kg Body Mass Index (BMI) 32.7 Physical Exam Const alert, oriented x3, no apparent distress and well nourished Constitutional Narrative: Obese, pale appearing older white female sitting up in bed with family at the bedside, patient appears nontoxic but fatigued General Appearance: cooperative HEENT normocephalic, head/scalp atraumatic, hearing grossly normal bilaterally and moist oral mucous membranes HEENT Narrative: Upper and lower dentures in place, Mallampati 2, no thrush Eyes PERRL and EOMs intact bilaterally; Negative for conjunctivae normal Eyes Narrative: Pale conjunctiva bilaterally, no scleral icterus Neck no lymphadenopathy, supple, no JVD and no carotid bruits Neck Narrative: Trachea midline without thyroid enlargement Resp normal respiratory effort, no retractions, no use of accessory muscles and clear to auscultation bilaterally Auscultation: Negative for crackles, rales, rhonchi or wheezes Cardio regular rate, regular rhythm, S1 normal heart sound, S2 normal heart sound, no rub, no gallops, no clicks and no JVD Cardio Narrative: 2 out of 6 systolic murmur loudest at left lower sternal raúl rder GI normal to inspection, nondistended, normoactive bowel sounds, soft to palpation, non-tender and non-distended Extremity normal to inspection and no clubbing, cyanosis or edema Peripheral Pulses: Yes pulses 2+ throughout Skin no rashes or lesions noted, no wounds, skin turgor normal, no jaundice, no petechiae and no mottling Skin Narrative: Pale Neuro oriented x3, CN's II-XII intact bilaterally, moves all extremities and no focal motor deficits Neuro Narrative: Mild generalized weakness Sensorium / Orientation: awake and alert Speech: speech normal Psych Psych Narrative: Affect is slightly labile but patient is pleasant and appropriately interactive Results Lab / Micro Data Attestation: I reviewed the patient's lab results. Result Diagrams: 07/25/21 11:30 07/25/21 11:30 Labs: Laboratory Results - last 24 hr 07/25/21 11:30: WBC 7.7, RBC 1.73 L, Hgb 6.6 L, Hct 19.8 L, MCV 114.5 H, MCH 38.2 H, MCHC 33.3, RDW Std Deviation 57.5 H, RDW Coeff of Pina 14.0, Plt Count 208, MPV 10.0, Immature Gran % (Auto) 0.500, Neut % (Auto) 69.0, Lymph % (Auto) 17.6 L, [place] % (Auto) 8.2, Eos % (Auto) 4.3, Baso % (Auto) 0.4, Absolute Neuts (auto) 5.3, Absolute Lymphs (auto) 1.35, Nucleated RBC % 0.3 07/25/21 11:30: Sodium 136, Potassium 4.4, Chloride 103, Carbon Dioxide 22.0, Anion Gap 11, BUN 46 H, Creatinine 1.23 H, Estim Creat Clear Calc 38.43, Est GFR (MDRD) Af Amer 55 L, Est GFR (MDRD) Non-Af 45 L, BUN/Creatinine Ratio 37.4 H, Glucose 175 H, Calcium 8.6, Total Bilirubin 0.40, Direct Bilirubin 0.18, AST 40 H, ALT 29, Alkaline Phosphatase 53, Total Protein 6.9, Albumin 2.9 L, Globulin 4.0, Lipase 298 07/25/21 11:30: Crossmatch See Detail Assessment & Plan Assessment/Plan (1) Acute blood loss anemia: (2) Acute upper GI bleed: (3) GI bleed: (4) Orthostatic hypotension: PLAN: GI bleed -Suspect upper with disproportionately elevated BUN in comparison to serum creatinine -Patient with multiple EGDs and colonoscopies previously related to microcytic anemia with no found resultant pathology -Has been on Eliquis on and off--> recently restarted after ablation was performed and cardioversion performed in May -Stopped Eliquis 3 days ago when she had changes in her stools -Hold Eliquis -hold aspirin per GI recommendation -Protonix bolus with drip -N.p.o. -1 unit packed red blood cells ordered for hemoglobin of 6.6 -Monitor for Lasix needs following transfusion as patient does have cardiomyopathy at baseline -If no pathology found causing acute blood loss anemia will likely need a capsule endoscopy as an outpatient -GI consult placed for scopes--> Case discussed with GI Acute blood loss anemia on chronic microcytic anemia -Baseline hemoglobin recently appears to be in the 11's -Hgb was tested on 07/22/2021 and was 9.9 at that time -Hemoglobin now 6.6 -Every 6 hour hemoglobins -Transfuse 1 unit packed red blood cells -Keep hemoglobin greater than 7 -Patient very symptomatic with regards to her anemia Orthostatic hypotension -Secondary to the above -Transfusion in progress -Repeat Ortho is in a.m. -Hold Lasix for now DM-2 -controlled with most recent hemoglobin A1c at 6.2 -Hold home Metformin and Trulicity -Every 6 hours sliding scale while patient is n.p.o. then before meals and at bedtime -Accu-Cheks before meals and at bedtime -Carb controlled/cardiac diet when able to initiate p.o. CAD with h/o PCI 1992 and 2002/HTN/HPL -Hold aspirin with GI bleed -continue statin -Hold home Lasix for now and monitor with orthostatic hypotension -sees Dr. Singh Ischemic cardiomyopathy -Most recent echo is from October 2020 -Showed an EF of 35% with moderate segmental systolic dysfunction as well as a mildly dilated LV, moderate biatrial enlargement, moderately severe mitral valve insufficiency, moderate tricuspid valve insufficiency and right ventricular systolic pressure of 50 mmHg -Stress test on 11/08/2020 that showed stable appearing area of myocardial perfusion changes consistent with previous myocardial injury/infarction in portions of the mid and distal anteroseptal/septal apical segments -Continue home medical therapy as appropriate PAF -Currently in normal sinus rhythm -Recent DCC and ablation in May 2021 -Hold Eliquis with GI bleed and will defer for GI for reinitiation -Continue amiodarone Lower Esophageal Neuroendocrine Carcinoma -had surgery done by Dr. Rock and pancreatic bx to follow -surgical cure -Follow-up with Dr. De La Vega -It appears from previous note that she has an MRI pending for later this year however this may be able to be deferred given current need for EGD PATRICK -control risk factors -GI to follow Vitamin D deficiency -Continue vitamin D supplementation -Outpatient follow-up H/O vertigo -monitor COPD -prn inhalers DVT prophylaxis -SCD's Code status -DNR CCA as per discussion in the emergency department prior to admission Charges/Coding Visit Charges Inpatient E&M: 76999 Init Hosp L3
[2021-07-25 16:31] LABS: Bedside Glucose 142 mg/dL (74-106)
[2021-07-25 16:51] LABS: Hemoglobin 7.1 g/dL (12.0-15.0)
--- NOTE | 2021-07-25 18:19 | OP.CCLET_ITS ---
01/08/2022 Farhan Mendiola [address] [place] [address] Re : Upper GI endoscopy procedure for Shanna Modi Dear Dr. Mendiola This procedure was performed on Sunday, July 25, 2021. My impressions and recommendations are as follows: Impressions : - Normal esophagus. - Portal hypertensive gastropathy. - Dieulafoy lesion of stomach. - Normal fourth portion of the duodenum. - No specimens collected. Recommendations : - [facility]. - Clear liquid diet today. - Continue present medications. - Give Protonix (pantoprazole): initiate therapy with 80 mg IV bolus, then 8 mg/hr IV by continuous infusion today. - Octreotide drip x24 hours - Metoclopramide 5 mg every 6 hours x7 days My findings are described in the full procedure note, which is enclosed. If I can be of further assistance, please feel free to contact me at . Sincerely, Gilberto Rangel, 07/25/2021 6:18:56 PM This report has been signed electronically.
--- NOTE | 2021-07-25 18:19 | OP.EGD_ITS ---
Patient Name: Shanna Modi Procedure Date: 07/25/2021 5:47 PM Date of : 1945 Age: 76 Procedure: Upper GI endoscopy Indications: Iron deficiency anemia Providers: Gilberto Rangel DO Medicines: Sedation Required Anesthesia Staff Assistance Patient Profile: This is a 76 year old female. Refer to note in patient chart for documentation of history and physical. Patient has symptoms. She is status post EGD for Guzman's biopsy within the past six months. Complications: No immediate complications. Procedure: Pre-Anesthesia Assessment: - Prior to the procedure, a History and Physical was performed, and patient medications and allergies were reviewed. The risks and benefits of the procedure and the sedation options and risks were discussed with the patient. All questions were answered and informed consent was obtained. Patient identification and proposed procedure were verified by the physician in the pre-procedure area. Mental Status Examination: alert and oriented. Airway Examination: normal oropharyngeal airway and neck mobility. Respiratory Examination: clear to auscultation. CV Examination: normal. Prophylactic Antibiotics: The patient does not require prophylactic antibiotics. Prior Anticoagulants: The patient has taken no previous anticoagulant or antiplatelet agents. ASA Grade Assessment: II - A patient with mild systemic disease. After reviewing the risks and benefits, the patient was deemed in satisfactory condition to undergo the procedure. The anesthesia plan was to use moderate sedation / analgesia (conscious sedation). Immediately prior to administration of medications, the patient was re-assessed for adequacy to receive sedatives. The heart rate, respiratory rate, oxygen saturations, blood pressure, adequacy of pulmonary ventilation, and response to care were monitored throughout the procedure. The physical status of the patient was re-assessed after the procedure. After obtaining informed consent, the endoscope was passed under direct vision. Throughout the procedure, the patient's blood pressure, pulse, and oxygen saturations were monitored continuously. The colonoscope was introduced through the mouth, and advanced to the second part of duodenum. The upper GI endoscopy was accomplished without difficulty. The patient tolerated the procedure well. Moderate Sedation: Moderate (conscious) sedation was administered by the endoscopy nurse and supervised by the endoscopist. The patient's oxygen saturation, heart rate, blood pressure and response to care were monitored. Total physician intraservice time was 15 minutes. Scope In: 5:50:34 PM Scope Out: 6:11:10 PM Total Procedure Duration Time 0 hours 20 minutes 36 seconds Findings: The examined esophagus was normal. Moderate portal hypertensive gastropathy was found in the cardia, in the gastric fundus, in the gastric body and on the greater curvature of the stomach. A Dieulafoy lesion with oozing bleeding and stigmata of recent bleeding was found in the cardia. Area was successfully injected with 5 mL of a 1:10,000 solution of epinephrine for drug delivery. Coagulation for hemostasis using monopolar probe was successful. The fourth portion of the duodenum was normal. There was retained food in the stomach and the duodenum consistent with gastroparesis with delayed small bowel dysmotility. Impression: - Normal esophagus. - Portal hypertensive gastropathy. - Dieulafoy lesion of stomach. - Normal fourth portion of the duodenum. - No specimens collected. Recommendation: - [facility]. - Clear liquid diet today. - Continue present medications. - Give Protonix (pantoprazole): initiate therapy with 80 mg IV bolus, then 8 mg/hr IV by continuous infusion today. - Octreotide drip x24 hours - Metoclopramide 5 mg every 6 hours x7 days Procedure Code(s): --- Professional --- 98038, Esophagogastroduodenoscopy, flexible, transoral; with control of bleeding, any method 30691, 59, Esophagogastroduodenoscopy, flexible, transoral; with directed submucosal injection(s), any substance G0500, Moderate sedation services provided by the same physician or other qualified health certified social workers in health care performing a gastrointestinal endoscopic service that sedation supports, requiring the presence of an independent trained observer to assist in the monitoring of the patient's level of consciousness and physiological status; initial 15 minutes of intra-service time; patient age 5 years or older (additional time may be reported with 89636, as appropriate) CPT copyright 2017 [employer]. All rights reserved. The codes documented in this report are preliminary and upon flying shear operator review may be revised to meet current compliance requirements. Gilberto Rangel DO 07/25/2021 6:18:56 PM This report has been signed electronically. Number of Addenda: 1 Note Initiated On: 07/25/2021 5:47 PM Addendum Number: 1 Addendum Date: 01/08/2022 6:34:12 AM MAC was used as sedation for this procedure. Gilberto Rangel DO 01/08/2022 6:34:16 AM This report has been signed electronically.
--- NOTE | 2021-07-25 18:21 | CON.PCM.GI_ITS ---
HPI Consult Data Date of Consult: 07/25/21 HPI Narrative HPI Narrative: GRIS RODRIGUEZ, is a 76 F who presents from [facility] with abnormal labs. She was discovered to have a hemoglobin of 6.6 which is down from 9.6 in 3 days. She has a past medical history of underlying CAD, [place], LAD PCI-1995, RCA PCI-2002, atrial fibrillation recently started back on Eliquis ,status post synchronized biphasic DC cardioversion (2018 and 2019), superimposed upon hyperlipidemia, hypertension, diabetes mellitus, and anemia for which she has continued to receive intermittent PRBC transfusions. I was consulted due to her anemia and recent black stools after being started back on Eliquis. She complains of fatigue and weakness without chest pain or shortness of breath. [facility] Medical History Abnormal stress test Acute myocardial infarction Angina pectoris Atherosclerotic heart disease of [place] coronary artery without angina pectoris Atrial fibrillation CAD (coronary artery disease) Cardiomyopathy Chronic pain CKD (chronic kidney disease) stage 3, GFR 30-59 ml/min COVID-19 (11/27/20) Diabetes Diverticulosis Essential hypertension Former smoker GERD (gastroesophageal reflux disease) Hepatic cirrhosis History of cardioversion (~04/21/19) History of left heart catheterization (LHC) (~11/25/20) Hypertension Macrocytic anemia Microcytic anemia Mixed hyperlipidemia Neuroendocrine carcinoma Nonalcoholic steatohepatitis (PATRICK) Persistent atrial fibrillation Presence of stent in coronary artery (~12/29/02) Vertigo Home Medications nitroglycerin 0.4 mg sublingual tablet 0.4 mg SUBLINGUAL Q5-15M PRN 05/10/18 [History Last Taken Unknown] cholecalciferol (vitamin D3) 125 mcg (5,000 unit) tablet 5,000 unit PO DAILY 07/22/18 [History Last Taken 07/25/21 08:30] pravastatin 40 mg tablet 40 mg PO QHS 04/07/19 [History Last Taken 07/24/21 18:30] dulaglutide [Trulicity] 0.75 mg SQ QWEEK 07/04/20 [History Last Taken 07/21/21 10:00] magnesium oxide 400 mg (241.3 mg magnesium) tablet 800 mg PO BID tab 10/23/20 [History Last Taken 07/25/21 08:30] metformin 500 mg tablet 500 mg PO BID tab 10/23/20 [History Last Taken 07/25/21 08:30] aspirin 81 mg chewable tablet 81 mg PO ONCE #30 tab 11/19/20 [Rx Last Taken 07/25/21 08:30] albuterol sulfate 90 mcg/actuation aerosol inhaler 2 puff INHALATION Q6H PRN 04/16/21 [History Last Taken Unknown] pantoprazole 40 mg tablet,delayed release 20 mg PO QODAY tab 04/16/21 [History Last Taken 07/24/21 08:30] amiodarone 200 mg tablet 200 mg PO DAILY 06/09/21 [History Last Taken 07/25/21 08:30] furosemide 40 mg tablet 40 mg PO DAILY #90 tab 06/09/21 [Rx Last Taken 07/24/21 08:30] Allergy/AdvReac Type Severity Reaction Status Date / Time adhesive Allergy Rash Verified 07/25/21 11:08 fenofibrate nanocrystallized Allergy Rash Verified 07/25/21 11:08 [From Tricor] fenofibrate,micronized Allergy Rash Verified 07/25/21 11:08 [From Tricor] Iodinated Contrast Media Allergy Rash Verified 07/25/21 11:08 [CONTRASTS] ramipril Allergy Rash Verified 07/25/21 11:08 sertraline HCl [From Zoloft] AdvReac made me Verified 07/25/21 11:08 more depressed sulindac [From Clinoril] AdvReac PT UNSURE Verified 07/25/21 11:08 OF REACTION CARDIAC CATH DYE Allergy Rash Uncoded 07/25/21 11:08 Family History Mother CAD (coronary artery disease) Father CAD (coronary artery disease) Sister CAD (coronary artery disease) Brother Heart disease Brother Heart disease Brother Heart disease Surgical History History of appendectomy History of cataract surgery History of cholecystectomy History of coronary artery stent placement History of laparoscopic cholecystectomy History of liver biopsy Presence of coronary angioplasty implant and graft (~12/29/02) Social History Smoking Status: Former smoker alcohol intake: never substance use type: does not use ROS Gastrointestinal Gastrointestinal: Reports melena Physical Exam Const alert General Appearance: cooperative Orientation / Consciousness: oriented to person HEENT hearing grossly normal bilaterally Head and Scalp: normal to inspection Face and Sinus: face symmetric Nose: external nose normal Mouth: oral and palatal mucosa normal Eyes conjunctivae normal General Eye: normal appearance of both eyes Neck full ROM General: normal visual inspection Lymph Lymphatic: no lymphadenopathy noted Chest inspection of chest normal and palpation of chest normal Chest: symmetrical chest wall rise Resp normal respiratory effort Effort and Inspection: able to speak in complete sentences Cardio regular rate GI non-distended Percussion: normal to percussion Rectal Exam: deferred Neuro Speech: speech normal Gait (Neuro): normal gait Lab / Micro Data Result Diagrams: 07/25/21 16:33 07/25/21 11:30 Labs: Laboratory Results - last 24 hr 07/25/21 11:30: WBC 7.7, RBC 1.73 L, Hgb 6.6 L, Hct 19.8 L, MCV 114.5 H, MCH 38.2 H, MCHC 33.3, RDW Std Deviation 57.5 H, RDW Coeff of Pina 14.0, Plt Count 208, MPV 10.0, Immature Gran % (Auto) 0.500, Neut % (Auto) 69.0, Lymph % (Auto) 17.6 L, [place] % (Auto) 8.2, Eos % (Auto) 4.3, Baso % (Auto) 0.4, Absolute Neuts (auto) 5.3, Absolute Lymphs (auto) 1.35, Nucleated RBC % 0.3 07/25/21 11:30: PT 14.8, INR 1.2, APTT 29.1 07/25/21 11:30: Sodium 136, Potassium 4.4, Chloride 103, Carbon Dioxide 22.0, Anion Gap 11, BUN 46 H, Creatinine 1.23 H, Estim Creat Clear Calc 38.43, Est GFR (MDRD) Af Amer 55 L, Est GFR (MDRD) Non-Af 45 L, BUN/Creatinine Ratio 37.4 H, Glucose 175 H, Calcium 8.6, Total Bilirubin 0.40, Direct Bilirubin 0.18, AST 40 H, ALT 29, Alkaline Phosphatase 53, Total Protein 6.9, Albumin 2.9 L, Globulin 4.0, Lipase 298 07/25/21 11:30: Blood Type O NEGATIVE, Antibody Screen NEGATIVE, Crossmatch See Detail 07/25/21 16:28: POC Glucose 142 H 07/25/21 16:33: Hgb 7.1 L, Hct 21.0 L Assessment & Plan Assessment/Plan (1) GI bleed: PLAN: The differential diagnosis for acute GI bleed would be AVM, peptic ulcer disease, esophageal web. She should undergo an upper endoscopy and possibly capsule endoscopy. She was explained alternatives, risk, benefits including understanding bleeding, infection, sepsis, perforation, need for emergent surgery . She have an ASA of 3. Charges/Coding Visit Charges Inpatient E&M: 43507 Init Hosp L2
--- NOTE | 2021-07-25 18:27 | US_ITS ---
EXAM: US ABDOMEN LIMITED, RIGHT UPPER QUADRANT CLINICAL INDICATION: cirrhosis TECHNIQUE: Real-time ultrasound of the right upper quadrant with image documentation. This report was created using PowerMag report generation technology. COMPARISON: None. FINDINGS: LIVER: Nodular liver contour. There is normal echotexture. No intrahepatic biliary ductal dilation. GALLBLADDER: Status post cholecystectomy. COMMON BILE DUCT: Common bile duct borderline enlarged at 7 mm. PANCREAS: Unremarkable as visualized. No focal abnormality is demonstrated in the pancreas. No pancreatic ductal dilatation. RIGHT KIDNEY: Unremarkable. There is no hydronephrosis. No shadowing calculus. No focal lesion or perinephric collection is demonstrated. US/Liver IMPRESSION: 1. Cholecystectomy. Borderline dilated common bile duct likely chronic postcholecystectomy. No intrahepatic biliary dilatation. 2. Nodular liver contour suggesting cirrhosis. Electronically Signed: Sourav Prado MD at 21:12 EDT ,
[2021-07-25 19:40] LABS: Hematocrit 20.2 % (37-47); Hemoglobin 6.7 g/dL (12.0-15.0)
[2021-07-25] MEDS: 0.9% Saline Lock 10 ML Syringe IV ×2 (20:00→20:32)
[2021-07-25] MEDS: Magnesium Chloride 64 MG Delay Rel.Tablet 128 MG PO (21:42)
[2021-07-25] MEDS: Pravastatin 40 MG Tablet PO (21:42)
[2021-07-25 23:25] LABS: Bedside Glucose 166 mg/dL (74-106)
[2021-07-25] MEDS: Insulin Lispro 100 UNIT/ML INSULN.PEN SC (23:27)
[2021-07-26] VITALS (18 sets, daily range): BP systolic 105–154; BP diastolic 62–86; PULSE 64–79; RESP 16–18; TEMP 36.3–36.8; O2SAT 95–98
[2021-07-26] MEDS: 0.9% Saline Lock 10 ML Syringe IV (02:37)
[2021-07-26] MEDS: Insulin Lispro 100 UNIT/ML INSULN.PEN SC ×3 (05:35→18:50)
[2021-07-26 05:40] LABS: Absolute Lymphocyte Count 1.07 X10^3/uL (0.83-4.51); Absolute Neutrophil Count 6.9 X10^3/uL (2.0-7.7); Basophil# 0.03 X10^3/uL; Basophil% 0.3 % (0-1); Eosinophil# 0.34 X10^3/uL; Eosinophils% 3.7 % (0-5); Hematocrit 24.9 % (37-47); Hemoglobin 8.6 g/dL (12.0-15.0); Lymphocyte # 1.07 X10^3/ul (0.83-4.51); Lymphocyte % 11.6 % (19-41); Mean Corp Hgb Conc 34.5 g/dL (32-36); Mean Corpuscular Volume 98.4 fL (81-99); Monocyte# 0.77 X10^3/uL; Monocyte% 8.4 % (0-10); NRBC Flagged by Analyzer 0.2 % (0-5); Neutrophil # 6.94 X10^3/uL (2.7-7.7); Neutrophil % 75.5 % (47-70); POSITIVE MORPHOLOGY YES; Platelet Count 142 K/mm3 (150-450); RBC Distribution Width CV 22.3 % (11.6-14.6); RBC Distribution Width SD 74.4 fl (35.1-43.9); Red Blood Count 2.53 M/mm3 (4.2-5.4); White Blood Count 9.2 K/mm3 (4.4-11.0)
[2021-07-26 05:42] LABS: Differential Indicated SCAN CRITERIA MET
[2021-07-26 05:59] LABS: ALB/GLOB Ratio 0.7 RATIO (0.9-2.4); AST(SGOT) 48 U/L (15-37); Alanine Aminotransfer ALT/SGPT 29 U/L (13-56); Albumin, Serum 2.7 g/dL (3.2-5.0); Alkaline Phosphatase 54 U/L (45-117); Anion Gap 6 (5-15); Anisocytosis 1+; BUN 40 mg/dL (7-18); BUN/Creat Ratio 28.6 RATIO (10-20); Calcium,Total 8.2 mg/dL (8.5-10.1); Chloride 104 mmol/L (98-107); Differential Comment SCANNED; EST Glomerular Filtration Rate 39 mL/min (>60); Est Glom Filt Rate - Afr Amer 47 mL/min (>60); Estimated Creatinine Clearance 33.76 ml/min; Globulin 3.7 g/dL (2.2-4.2); Glucose 166 mg/dL (74-106); Hypochromasia 1+; Magnesium 2.7 mg/dL (1.6-2.6); Phosphorus 2.6 mg/dL (2.5-4.9); Polychromasia RARE; Potassium 4.8 mmol/L (3.5-5.1); Protein, Total 6.4 g/dL (6.4-8.2); Sodium Level 135 mmol/L (136-145)
--- NOTE | 2021-07-26 05:59 | PCM.PN.BLA ---
Progress Note Patient with orthostatic hypotension in the setting of anemia and with dieulafoy lesions. Of note patient is on Lasix that has been held. Will order normal saline 100 MLS per hour for 1 L
[2021-07-26] MEDS: 0.9% Normal Saline 1,000 ML 100 ML IV (06:10)
[2021-07-26 06:11] LABS: Bedside Glucose 157 mg/dL (74-106)
[2021-07-26] MEDS: Acetaminophen 325 MG Tablet 650 MG PO ×3 (08:07→21:46)
[2021-07-26] MEDS: Magnesium Chloride 64 MG Delay Rel.Tablet 128 MG PO ×2 (08:08→21:37)
[2021-07-26] MEDS: Cholecalciferol (Vit D3) 125 MCG CAPSULE (5,000 UNITS) PO (08:08)
--- NOTE | 2021-07-26 09:08 | PCM.PROGNOTE ---
Subjective Subjective Patient denies any abdominal pain and did not have any issues overnight.She did have a couple episodes of black stools. Objective Data Objective Data Vital Signs: Vital Signs Temp Pulse Resp BP Pulse Ox 98.2 F 75 18 131/70 H 95 07/26/21 04:25 07/26/21 05:38 07/26/21 04:25 07/26/21 05:38 07/26/21 07:25 Oxygen Delivery Method Room Air Weight: 212 lb 4.882 oz Body Mass Index (BMI) 33.2 Intake & Output: Intake and Output for Last 24 Hours 07/24/21 07/25/21 07/26/21 23:59 23:59 23:59 Intake Total 657 / 657 1375 / 1375 Output Total 600 / 600 1100 / 1100 Balance 57 / 57 275 / 275 Lab / Micro Data Result Diagrams: 07/26/21 05:34 07/26/21 05:34 Labs: Laboratory Results - last 24 hr 07/25/21 11:30: WBC 7.7, RBC 1.73 L, Hgb 6.6 L, Hct 19.8 L, MCV 114.5 H, MCH 38.2 H, MCHC 33.3, RDW Std Deviation 57.5 H, RDW Coeff of Pina 14.0, Plt Count 208, MPV 10.0, Immature Gran % (Auto) 0.500, Neut % (Auto) 69.0, Lymph % (Auto) 17.6 L, [place] % (Auto) 8.2, Eos % (Auto) 4.3, Baso % (Auto) 0.4, Absolute Neuts (auto) 5.3, Absolute Lymphs (auto) 1.35, Nucleated RBC % 0.3 07/25/21 11:30: PT 14.8, INR 1.2, APTT 29.1 07/25/21 11:30: Sodium 136, Potassium 4.4, Chloride 103, Carbon Dioxide 22.0, Anion Gap 11, BUN 46 H, Creatinine 1.23 H, Estim Creat Clear Calc 38.43, Est GFR (MDRD) Af Amer 55 L, Est GFR (MDRD) Non-Af 45 L, BUN/Creatinine Ratio 37.4 H, Glucose 175 H, Calcium 8.6, Total Bilirubin 0.40, Direct Bilirubin 0.18, AST 40 H, ALT 29, Alkaline Phosphatase 53, Total Protein 6.9, Albumin 2.9 L, Globulin 4.0, Lipase 298 07/25/21 11:30: Blood Type O NEGATIVE, Antibody Screen NEGATIVE, Crossmatch See Detail 07/25/21 11:30: Crossmatch See Detail 07/25/21 16:28: POC Glucose 142 H 07/25/21 16:33: Hgb 7.1 L, Hct 21.0 L 07/25/21 19:33: Hgb 6.7 L, Hct 20.2 L 07/25/21 23:23: POC Glucose 166 H 07/26/21 05:34: WBC 9.2, RBC 2.53 L, Hgb 8.6 L, Hct 24.9 L, MCV 98.4 D, MCH 34.0 H, MCHC 34.5, RDW Std Deviation 74.4 H, RDW Coeff of Pina 22.3 H, Plt Count 142 L, MPV 10.0, Immature Gran % (Auto) 0.500, Neut % (Auto) 75.5 H, Lymph % (Auto) 11.6 L, [place] % (Auto) 8.4, Eos % (Auto) 3.7, Baso % (Auto) 0.3, Absolute Neuts (auto) 6.9, Absolute Lymphs (auto) 1.07, Nucleated RBC % 0.2, Differential Comment SCANNED, Polychromasia RARE, Hypochromasia 1+, Anisocytosis 1+ 07/26/21 05:34: Sodium 135 L, Potassium 4.8, Chloride 104, Carbon Dioxide 25.0, Anion Gap 6, BUN 40 H, Creatinine 1.40 H, Estim Creat Clear Calc 33.76, Est GFR (MDRD) Af Amer 47 L, Est GFR (MDRD) Non-Af 39 L, BUN/Creatinine Ratio 28.6 H, Glucose 166 H, Calcium 8.2 L, Phosphorus 2.6, Magnesium 2.7 H, Total Bilirubin 2.10 H, AST 48 H, ALT 29, Alkaline Phosphatase 54, Total Protein 6.4, Albumin 2.7 L, Globulin 3.7, Albumin/Globulin Ratio 0.7 L 07/26/21 05:34: POC Glucose 157 H Radiography Diagnostic Testing: Radiology Impression Liver Ultrasound 07/25/21 18:27 IMPRESSION: 1. Cholecystectomy. Borderline dilated common bile duct likely chronic postcholecystectomy. No intrahepatic biliary dilatation. 2. Nodular liver contour suggesting cirrhosis. Electronically Signed: Sourav Prado MD at 21:12 EDT , Physical Exam Const alert General Appearance: cooperative Orientation / Consciousness: oriented to person HEENT hearing grossly normal bilaterally Head and Scalp: normal to inspection Face and Sinus: face symmetric Nose: external nose normal Mouth: oral and palatal mucosa normal Eyes conjunctivae normal General Eye: normal appearance of both eyes Neck full ROM General: normal visual inspection Lymph Lymphatic: no lymphadenopathy noted Chest inspection of chest normal and palpation of chest normal Chest: symmetrical chest wall rise Resp normal respiratory effort Effort and Inspection: able to speak in complete sentences Cardio regular rate GI non-distended Percussion: normal to percussion Rectal Exam: deferred Neuro Speech: speech normal Gait (Neuro): normal gait Assessment & Plan Assessment/Plan (1) Cirrhosis: PLAN: Sykes 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 Blood sugars have not been out of control. At the talking to her daughter she has been requiring less and less insulin and is now only on on Trulicity. That is very common for patients with cirrhosis to require less insulin as glucose 6 phosphatase is depleted. Her current meld is 14. She is not showing any other signs of decompensation at this time. No encephalopathy clinically. (2) GI bleed: PLAN: GI bleed secondary to dielaFoy lesion. Status post treatment with epinephrine and cautery. Hemoglobin at 8.6 this morning. (3) Acute blood loss anemia: PLAN: Her ferritin is low. I would give her 2 iron transfusions. (4) Thrombocytopenia: PLAN: Thrombocytopenia secondary to cirrhosis. Charges/Coding Visit Charges Inpatient E&M: 69106 Subs Hosp L2
--- NOTE | 2021-07-26 10:01 | PN.HOSP_ITS ---
Subjective Subjective Patient reports she is feeling better today. Orthostatic vitals were done and were negative by the numbers. She reported she was a slightly lightheaded with sitting to standing but overall much improved since admission. She has tolerated a full liquid diet without any problems and we will go ahead and advance her to regular diet and assess tolerance today. Objective Data Objective Data Vital Signs: Vital Signs Temp Pulse Resp BP Pulse Ox 98.2 F 75 18 131/70 H 95 07/26/21 04:25 07/26/21 05:38 07/26/21 04:25 07/26/21 05:38 07/26/21 07:25 Oxygen Delivery Method Room Air Weight: 96.3 kg Body Mass Index (BMI) 33.2 Intake & Output: Intake and Output for Last 24 Hours 07/24/21 07/25/21 07/26/21 23:59 23:59 23:59 Intake Total 657 / 657 1375 / 1375 Output Total 600 / 600 1100 / 1100 Balance 57 / 57 275 / 275 Lab / Micro Data Result Diagrams: 07/26/21 05:34 07/26/21 05:34 Labs: Laboratory Results - last 24 hr 07/25/21 11:30: WBC 7.7, RBC 1.73 L, Hgb 6.6 L, Hct 19.8 L, MCV 114.5 H, MCH 38.2 H, MCHC 33.3, RDW Std Deviation 57.5 H, RDW Coeff of Pina 14.0, Plt Count 208, MPV 10.0, Immature Gran % (Auto) 0.500, Neut % (Auto) 69.0, Lymph % (Auto) 17.6 L, [place] % (Auto) 8.2, Eos % (Auto) 4.3, Baso % (Auto) 0.4, Absolute Neuts (auto) 5.3, Absolute Lymphs (auto) 1.35, Nucleated RBC % 0.3 07/25/21 11:30: PT 14.8, INR 1.2, APTT 29.1 07/25/21 11:30: Sodium 136, Potassium 4.4, Chloride 103, Carbon Dioxide 22.0, Anion Gap 11, BUN 46 H, Creatinine 1.23 H, Estim Creat Clear Calc 38.43, Est GFR (MDRD) Af Amer 55 L, Est GFR (MDRD) Non-Af 45 L, BUN/Creatinine Ratio 37.4 H, Glucose 175 H, Calcium 8.6, Total Bilirubin 0.40, Direct Bilirubin 0.18, AST 40 H, ALT 29, Alkaline Phosphatase 53, Total Protein 6.9, Albumin 2.9 L, Globulin 4.0, Lipase 298 07/25/21 11:30: Blood Type O NEGATIVE, Antibody Screen NEGATIVE, Crossmatch See Detail 07/25/21 11:30: Crossmatch See Detail 07/25/21 16:28: POC Glucose 142 H 07/25/21 16:33: Hgb 7.1 L, Hct 21.0 L 07/25/21 19:33: Hgb 6.7 L, Hct 20.2 L 07/25/21 23:23: POC Glucose 166 H 07/26/21 05:34: WBC 9.2, RBC 2.53 L, Hgb 8.6 L, Hct 24.9 L, MCV 98.4 D, MCH 34.0 H, MCHC 34.5, RDW Std Deviation 74.4 H, RDW Coeff of Pina 22.3 H, Plt Count 142 L, MPV 10.0, Immature Gran % (Auto) 0.500, Neut % (Auto) 75.5 H, Lymph % (Auto) 11.6 L, [place] % (Auto) 8.4, Eos % (Auto) 3.7, Baso % (Auto) 0.3, Absolute Neuts (auto) 6.9, Absolute Lymphs (auto) 1.07, Nucleated RBC % 0.2, Differential Comment SCANNED, Polychromasia RARE, Hypochromasia 1+, Anisocytosis 1+ 07/26/21 05:34: Sodium 135 L, Potassium 4.8, Chloride 104, Carbon Dioxide 25.0, Anion Gap 6, BUN 40 H, Creatinine 1.40 H, Estim Creat Clear Calc 33.76, Est GFR (MDRD) Af Amer 47 L, Est GFR (MDRD) Non-Af 39 L, BUN/Creatinine Ratio 28.6 H, G lucose 166 H, Calcium 8.2 L, Phosphorus 2.6, Magnesium 2.7 H, Total Bilirubin 2.10 H, AST 48 H, ALT 29, Alkaline Phosphatase 54, Total Protein 6.4, Albumin 2.7 L, Globulin 3.7, Albumin/Globulin Ratio 0.7 L 07/26/21 05:34: POC Glucose 157 H Radiography Diagnostic Testing: Radiology Impression Liver Ultrasound 07/25/21 18:27 IMPRESSION: 1. Cholecystectomy. Borderline dilated common bile duct likely chronic postcholecystectomy. No intrahepatic biliary dilatation. 2. Nodular liver contour suggesting cirrhosis. Electronically Signed: Sourav Prado MD at 21:12 EDT , Physical Exam Const alert, oriented x3, no apparent distress and well nourished Constitutional Narrative: Obese, older white female sitting up in bed watching television, appears comfortable nontoxic, coloring is improved today General Appearance: cooperative Exam Limitations: no limitations Nutritional Appearance: obese HEENT normocephalic, head/scalp atraumatic, hearing grossly normal bilaterally and moist oral mucous membranes HEENT Narrative: Mallampati 2, dentures in place Head and Scalp: normocephalic Resp normal respiratory effort, no retractions, no use of accessory muscles and clear to auscultation bilaterally Auscultation: Negative for crackles, rales, rhonchi or wheezes Cardio regular rate, regular rhythm, S1 normal heart sound, S2 normal heart sound, no rub, no gallops, no clicks and no JVD Cardio Narrative: 2 out of 6 systolic murmur loudest at left lower sternal border GI normal to inspection, nondistended, normoactive bowel sounds, soft to palpation, non-tender and non-distended Extremity normal to inspection and no clubbing, cyanosis or edema Peripheral Pulses: Yes pulses 2+ throughout Neuro oriented x3, moves all extremities and no focal motor deficits Neuro Narrative: Mild generalized weakness Sensorium / Orientation: awake and alert Speech: speech normal Assessment & Plan Assessment/Plan (1) Acute blood loss anemia: (2) Acute upper GI bleed: (3) GI bleed: (4) Orthostatic hypotension: PLAN: UGIB 2/2 dual Ale lesion of the stomach -Patient with multiple EGDs and colonoscopies previously related to microcytic anemia with no found resultant pathology -Has been on Eliquis on and off--> recently restarted after ablation was performed and cardioversion performed in May -Stopped Eliquis 3 days ago when she had changes in her stools -EGD showed normal esophagus, portal hypertensive gastropathy, Dula Ale lesion of the stomach, normal fourth portion of the duodenum, there was food retained in the stomach that was consistent with gastroparesis and delayed small bowel of dysmotility -Lesion had stigmata of recent bleeding and was in the cardia of the stomach -Injected with epi and coagulation for hemostasis using a monopolar probe -Continue to hold Eliquis -Continue to hold aspirin -Continue Protonix drip through this evening and then initiate Protonix 40 mg p.o. twice daily until patient follows up with GI -Octreotide drip for 24 hours per GI -We will initiate Carafate at discharge -Advance to regular diet - appreciate GI input Acute blood loss anemia on chronic microcytic anemia -Baseline hemoglobin recently appears to be in the 11's -Hgb was tested on 07/22/2021 and was 9.9 at that time -Hemoglobin has stabilized at 8.6 -Repeat CBC in a.m. -Patient received a total of 3 units packed red blood cells -Keep hemoglobin greater than 7 -Patient overall feeling better today with improved hemoglobin Gastroparesis -Retained food products found in the stomach on EGD with no recent oral intake -Start Reglan 5 mg every 6 hours x7 days -We will check a.m. EKG for QT prolongation given amiodarone use at baseline -Post recent EKG is from 06/07/2021 and the patient had a QTC of 471ms Orthostatic hypotension -Resolved -A.m. orthostatic vitals were not positive DM-2 -controlled with most recent hemoglobin A1c at 6.2 -Hold home Metformin and Trulicity -Convert sliding scale to 3 times daily with meals -Accu-Cheks before meals and at bedtime -Initiate cardiac carb controlled diet CAD with h/o PCI 1992 and 2002/HTN/HPL -Hold aspirin with GI bleed -continue statin -Hold home Lasix for now and monitor with orthostatic hypotension -sees Dr. Singh Ischemic cardiomyopathy -Most recent echo is from October 2020 -Showed an EF of 35% with moderate segmental systolic dysfunction as well as a mildly dilated LV, moderate biatrial enlargement, moderately severe mitral valve insufficiency, moderate tricuspid valve insufficiency and right ventricular systolic pressure of 50 mmHg -Stress test on 11/08/2020 that showed stable appearing area of myocardial perfusion changes consistent with previous myocardial injury/infarction in portions of the mid and distal anteroseptal/septal apical segments -Continue home medical therapy as appropriate - We will continue to hold Lasix until volume status is overall recovered and restart at discharge PAF -Currently in normal sinus rhythm -Recent DCC and ablation in May 2021 -Hold Eliquis with GI bleed and will defer for GI for reinitiation -Continue amiodarone Lower Esophageal Neuroendocrine Carcinoma -had surgery done by Dr. Rock and pancreatic bx to follow -surgical cure -Follow-up with Dr. De La Vega -It appears from previous note that she has an MRI pending for later this year however this may be able to be deferred given current need for EGD -We will leave up to oncology PATRICK cirrhosis -Right upper quadrant ultrasound performed and shows cirrhotic liver -Child's Heath score is 8/class B -1 year survival rate is 81% with 2-year survival rate of 57% -control risk factors -GI to follow Vitamin D deficiency -Continue vitamin D supplementation -Outpatient follow-up H/O vertigo -monitor COPD -prn inhalers DVT prophylaxis -SCD's Code status -DNR CCA as per discussion in the emergency department prior to admission Charges/Coding Visit Charges Inpatient E&M: 27866 Subs Hosp L2
--- NOTE | 2021-07-26 10:40 | CASEMGMT ---
RN CM Face to Face with patient for initial transition planning/care coordination assessment. RN CM introduced self and role at [facility]. Patient lying in bed, alert and oriented. Patient willing to participate in assessment and is able to answer all questions appropriately. Care providers, pharmacy, and demographics verified. Patient wishes to discharge home, denies need for home health at this time. Patient states she has no further needs or concerns at this time. CM to follow for discharge planning needs that may arise. PCP: Maury Specialists: Yolette, oncologist; Samantha clinical laboratory aide [facility]erred [facility]acy:[facility] Insurance: [employer] [facility] Prescription Benefit: yes Living Will/HPOA: none LNOK: daughter Living Arrangements: Patient states she lives alone in a first floor apartment with one step to enter. Patient states she is independent at home. Transportation: self, daughter DME/HHC: Patient has shower chair, raised toilet, grab bars, walker, rollator at home. Patient denies previous HHC or SNF. Disposition Plan: Patient to discharge home with family support and follow-up plans in place. Julissa LEE, RN, CM
[2021-07-26] MEDS: Metoclopramide 5 MG TABLET PO ×2 (11:19→18:46)
[2021-07-26] MEDS: Amiodarone 200 MG Tablet 400 MG PO (11:19)
[2021-07-26 11:30] LABS: Bedside Glucose 198 mg/dL (74-106)
[2021-07-26] MEDS: Senna/Docusate Sodium 1 Tablet 2 TABLET PO (18:45)
[2021-07-26 18:55] LABS: Bedside Glucose 246 mg/dL (74-106)
[2021-07-26] MEDS: Pravastatin 40 MG Tablet PO (21:37)
[2021-07-26 23:36] LABS: Bedside Glucose 180 mg/dL (74-106)
[2021-07-27] MEDS: Metoclopramide 5 MG TABLET PO ×2 (00:14→06:43)
[2021-07-27 02:54] VITALS: PULSE 58
[2021-07-27 04:14] VITALS: BP 121/69; PULSE 66; RESP 18; TEMP 36.2; O2SAT 95
[2021-07-27 04:17] VITALS: BP 114/74; BP 121/69; BP 86/61; PULSE 65; PULSE 69; PULSE 80
[2021-07-27 05:47] LABS: Absolute Lymphocyte Count 1.18 X10^3/uL (0.83-4.51); Absolute Neutrophil Count 4.8 X10^3/uL (2.0-7.7); Basophil# 0.05 X10^3/uL; Basophil% 0.7 % (0-1); Eosinophil# 0.39 X10^3/uL; Eosinophils% 5.5 % (0-5); Hematocrit 27.4 % (37-47); Hemoglobin 9.4 g/dL (12.0-15.0); Lymphocyte # 1.18 X10^3/ul (0.83-4.51); Lymphocyte % 16.8 % (19-41); Mean Corp Hgb Conc 34.3 g/dL (32-36); Mean Corpuscular Hgb 34.6 pg (27.0-32.0); Mean Corpuscular Volume 100.7 fL (81-99); Monocyte# 0.57 X10^3/uL; Monocyte% 8.1 % (0-10); NRBC Flagged by Analyzer 0.6 % (0-5); Neutrophil # 4.79 X10^3/uL (2.7-7.7); POSITIVE MORPHOLOGY YES; Platelet Count 173 K/mm3 (150-450); RBC Distribution Width CV 22.7 % (11.6-14.6); RBC Distribution Width SD 79.5 fl (35.1-43.9); Red Blood Count 2.72 M/mm3 (4.2-5.4)
--- NOTE | 2021-07-27 06:00 | EKG12_ITS ---
Test Reason : AM EKG Blood Pressure : / mmHG Vent. Rate : 058 BPM Atrial Rate : 058 BPM P-R Int : 212 ms QRS Dur : 126 ms QT Int : 492 ms P-R-T Axes : 081 -48 -36 degrees QTc Int : 482 ms Sinus bradycardia with sinus arrhythmia with 1st degree A-V block Non-specific intra-ventricular conduction block T wave abnormality, consider anterior ischemia Abnormal ECG Confirmed by ROMA MONTE, ILEANA ([id number]), photograph editor JARETT RAMIREZ ([id number]) on 07/28/2021 12:59:44 PM Referred By: DEBBIE Confirmed By:ILEANA BRANDON MD
[2021-07-27 06:21] LABS: Differential Indicated SCAN CRITERIA MET
[2021-07-27 06:38] LABS: ALB/GLOB Ratio 0.7 RATIO (0.9-2.4); AST(SGOT) 66 U/L (15-37); Alanine Aminotransfer ALT/SGPT 37 U/L (13-56); Albumin, Serum 2.8 g/dL (3.2-5.0); Alkaline Phosphatase 70 U/L (45-117); Anion Gap 9 (5-15); BUN 32 mg/dL (7-18); BUN/Creat Ratio 20.3 RATIO (10-20); Calcium,Total 8.4 mg/dL (8.5-10.1); Chloride 104 mmol/L (98-107); Creatinine, Serum 1.58 mg/dL (0.55-1.02); EST Glomerular Filtration Rate 34 mL/min (>60); Est Glom Filt Rate - Afr Amer 41 mL/min (>60); Estimated Creatinine Clearance 29.92 ml/min; Globulin 4.1 g/dL (2.2-4.2); Glucose 212 mg/dL (74-106); Potassium 4.4 mmol/L (3.5-5.1); Protein, Total 6.9 g/dL (6.4-8.2); Sodium Level 135 mmol/L (136-145)
[2021-07-27 06:43] LABS: Anisocytosis 2+; Macrocytosis 1+
[2021-07-27 06:51] LABS: Bedside Glucose 201 mg/dL (74-106)
[2021-07-27 06:59] VITALS: PULSE 62
[2021-07-27] MEDS: Insulin Lispro 100 UNIT/ML INSULN.PEN SC (09:30)
[2021-07-27] MEDS: Cholecalciferol (Vit D3) 125 MCG CAPSULE (5,000 UNITS) PO (09:36)
[2021-07-27] MEDS: Magnesium Chloride 64 MG Delay Rel.Tablet 128 MG PO (09:36)
[2021-07-27] MEDS: Amiodarone 200 MG Tablet 400 MG PO (09:36)
--- NOTE | 2021-07-27 09:54 | DS.PCM_ITS ---
Providers Date of Admission: 07/25/21 Date of Discharge: 07/27/21 Primary Care Physician: Dr. Farhan Mendiola MD Consultations 07/25/21 13:06 Consult: Gastroenterology Routine Consulting Provider: [facility] Reason for Consult: GIB EMERGENT Consult: No MD Notified: Yes Date Notified: 07/25/21 Time Notified: 12:19 Method of Notification: Verbal Reason For Visit: GIB Diagnosis Discharge Diagnosis (1) Acute blood loss anemia: Status: Acute Code(s): D62 - Acute posthemorrhagic anemia (2) Acute upper GI bleed: Status: Deleted Code(s): K92.2 - Gastrointestinal hemorrhage, unspecified (3) GI bleed: Status: Acute Code(s): K92.2 - Gastrointestinal hemorrhage, unspecified (4) Orthostatic hypotension: Status: Acute Code(s): I95.1 - Orthostatic hypotension Medications at Discharge Home Medications nitroglycerin 0.4 mg sublingual tablet 0.4 mg SUBLINGUAL Q5-15M PRN 05/10/18 cholecalciferol (vitamin D3) 125 mcg (5,000 unit) tablet 5,000 unit PO DAILY 07/22/18 pravastatin 40 mg tablet 40 mg PO QHS 04/07/19 Trulicity 0.75 mg SQ QWEEK 07/04/20 magnesium oxide 400 mg (241.3 mg magnesium) tablet 800 mg PO BID tab 10/23/20 metformin 500 mg tablet 500 mg PO BID tab 10/23/20 albuterol sulfate 90 mcg/actuation aerosol inhaler 2 puff INHALATION Q6H PRN 04/16/21 amiodarone 200 mg tablet 200 mg PO DAILY 06/09/21 aspirin 81 mg PO ONCE 07/27/21 furosemide 40 mg PO DAILY #90 tab 07/27/21 metoclopramide HCl 5 mg PO Q6 #20 tab 07/27/21 pantoprazole [Protonix] 40 mg PO BID #60 tab 07/27/21 sucralfate [Carafate] 10 ml PO Q4H #1000 ml 07/27/21 Hospital Course Operations None Procedures EGD Summary of Care Provided Minutes Spent on Discharge: 38 Hospital Course: GRIS RODRIGUEZ, is a 76 F who presented to the emergency department [facility] on 07/25/2021 with a chief complaint of abnormal labs. She was evidently told to come the emergency department by her primary care titus caldwell secondary to anemia. The patient reported that last week she had some diarrhea that was dark and this lasted for several days however she has not had a bowel movement since Wednesday at the time of presentation. She reported she has a known history of anemia and has had multiple EGD and colonoscopies but never had a small bowel capsule endoscopy. She has followed with Dr. Rock previously and her last scope was approximately 1 year ago at which time no pathology explaining her anemia was identified. She is had multiple previous blood transfusions. The last hemoglobin we have documented in our system was from 06/07/2021 at which time she had a hemoglobin of 11.1. It looks like this was close to her baseline at that time. She evidently had a follow-up hemoglobin drawn as an outpatient on Wednesday prior to presentation and at that time it was 9.9. She stated on Wednesday and Wednesday she had increasing shortness of breath, lightheadedness, and overwhelming fatigue and that is why she presented for further lab work to be done and was identified with a worsening anemia. She reports that she was told last week iron studies were performed by Dr. De La Vega, with whom she follows for her anemia and history of neuroendocrine tumor, and based on last lab work she was found to be markedly iron deficient and scheduled for outpatient iron infusions x5 that were to start next week. She denied any nausea or vomiting, hematochezia, chest pain, tingling numbness or weakness and states that her diarrhea that she had last week is since resolved. Upon presentation to the emergency department her vital signs showed that she was afebrile with a temp of 97.2 heart rate was 91 blood pressure was 124/72 respiratory 18 and oxygen saturations were 99% on room air. Orthostatic vitals were obtained and found to be markedly positive. A CBC was obtained and she was found of a white count of 7.7 however she was markedly anemic with a hemoglobin of 6.6, and her platelets were normal. Coagulation studies were unremarkable with an INR of 1.2. A CMP was obtained and her electrolytes were normal however she has an elevated BUN higher than her baseline of 1.2-1.4. Her serum glucose was 175. She has chronic AST elevations with current AST of 40 and her lipase was normal at 298. A type and screen was performed and a blood transfusion was ordered by the emergency department. She was placed on a Protonix drip and made n.p.o. with a gastroenterology consult for probable EGD. Hemoglobins were obtained every 6 hours. After 1 unit of blood her hemoglobin improved to 7.1 however her repeat was at 6.8 and she was given 2 more units of blood at that time. An EGD was done on 07/25/2021 at which time she was found to have a normal esophagus, moderate portal hypertensive gastropathy in the cardia in the gastric fundus, a Dieulafoy lesion with oozing and stigmata of recent bleeding in the gastric cardia was noted and it was injected with 5 mL of epinephrine and coagulation using a monopolar probe was utilized for hemostasis. The fourth portion of the duodenum was normal but there was retained food in the stomach and the duodenum consistent with gastroparesis and delayed small bowel dysmotility. After colonoscopy she was maintained on a Protonix drip for no 24 hours and an octreotide drip was added for additional 24 hours. Reglan was initiated 5 mg every 6 hours and to be continued for 7 days. An EKG was obtained prior to discharge to evaluate her QTC given the addition of Reglan on top of her amiodarone. QTC on her EKG at discharge was 482 ms. Her hemoglobin improved to 8.6 after the 2 units of blood and further increased to 9.4 on the day of discharge. Given her history of Sykes with portal hypertensive gastropathy noted on exam and ultrasound of her right upper quadrant was performed to evaluate her liver further. This showed history of cholecystectomy with borderline dilated common bile duct related to chronic postcholecystectomy, no intrahepatic biliary dilation, and a nodular liver suggesting cirrhosis. Her child's Heath score was 8/class B and her meld score was low giving her an overall survival in the next year of 87%. We do anticipate that some of her chronic anemia may be related to this. She was discharged home in stable condition on 07/27/2021. Her prescriptions for Protonix 40 mg p.o. twice daily, Carafate 4 times daily, and 5 more days of Reglan were given to her at discharge. She is to follow-up with gastroenterology within 2 weeks for her GI bleed and her cirrhosis and it was recommended she follow-up with her PCP within the next 2 weeks. She is to proceed with iron infusions as ordered by Dr. De La Vega. Discharge diagnoses: Upper GI bleed secondary to Dieulafoy lesion of the stomach Portal hypertensive gastropathy Acute on chronic microcytic anemia Iron deficiency Gastroparesis Orthostatic hypotension-resolved DM-2 CAD Hypertension Hyperlipidemia Ischemic cardiomyopathy PAF History of lower esophageal neuroendocrine carcinoma Sykes cirrhosis Vitamin D deficiency History of vertigo COPD Physical Exam Const alert, oriented x3, no apparent distress and well nourished Constitutional Narrative: Obese, older white female sitting up in bed watching television, appears comfortable nontoxic, at the bedside, patient states she is ready to go home General Appearance: cooperative, comfortable, well kempt and well developed Exam Limitations: no limitations Nutritional Appearance: obese HEENT normocephalic, head/scalp atraumatic, hearing grossly normal bilaterally and moist oral mucous membranes Eyes PERRL and EOMs intact bilaterally; Negative for conjunctivae normal Eyes Narrative: Pale conjunctiva bilaterally, no scleral icterus Neck no lymphadenopathy, supple, no JVD and no carotid bruits Neck Narrative: Trachea midline without thyroid enlargement Resp normal respiratory effort, no retractions, no use of accessory muscles and clear to auscultation bilaterally Auscultation: Negative for crackles, rales, rhonchi or wheezes Cardio regular rate, regular rhythm, S1 normal heart sound, S2 normal heart sound, no rub, no gallops, no clicks and no JVD; Negative for no murmurs Cardio Narrative: 2 out of 6 systolic murmur loudest at left lower sternal border GI normal to inspection, nondistended, normoactive bowel sounds, soft to palpation, non-tender and non-distended Extremity normal to inspection and no clubbing, cyanosis or edema Skin no rashes or lesions noted, no wounds, skin turgor normal, no jaundice, no petechiae and no mottling Skin Narrative: Pale Neuro oriented x3, moves all extremities and no focal motor deficits Neuro Narrative: Mild generalized weakness Sensorium / Orientation: awake and alert Speech: speech normal Psych affect normal Psych Narrative: Very pleasant and appropriately interactive Weight / BMI Weight Weight: 96.3 kg Body Mass Index (BMI) 33.2 ABG / Lab / Microbiology Data Result Diagrams: 07/27/21 05:28 07/27/21 05:28 Laboratory: Laboratory Results - last 24 hr 07/26/21 11:22: POC Glucose 198 H 07/26/21 18:49: POC Glucose 246 H 07/26/21 21:42: POC Glucose 180 H 07/27/21 05:28: WBC 7.0, RBC 2.72 L, Hgb 9.4 L, Hct 27.4 L, MCV 100.7 H, MCH 34.6 H, MCHC 34.3, RDW Std Deviation 79.5 H, RDW Coeff of Pina 22.7 H, Plt Count 173, MPV 10.0, Immature Gran % (Auto) 0.900, Neut % (Auto) 68.0, Lymph % (Auto) 16.8 L, [place] % (Auto) 8.1, Eos % (Auto) 5.5 H, Baso % (Auto) 0.7, Absolute Neuts (auto) 4.8, Absolute Lymphs (auto) 1.18, Nucleated RBC % 0.6, Anisocytosis 2+, Macrocytosis 1+ 07/27/21 05:28: Sodium 135 L, Potassium 4.4, Chloride 104, Carbon Dioxide 22.0, Anion Gap 9, BUN 32 H, Creatinine 1.58 H, Estim Creat Clear Calc 29.92, Est GFR (MDRD) Af Amer 41 L, Est GFR (MDRD) Non-Af 34 L, BUN/Creatinine Ratio 20.3 H, Glucose 212 H, Calcium 8.4 L, Total Bilirubin 1.10 H, AST 66 H, ALT 37, Alkaline Phosphatase 70, Total Protein 6.9, Albumin 2.8 L, Globulin 4.1, Albumin/ Globulin Ratio 0.7 L 07/27/21 06:36: POC Glucose 201 H D/C Instructions Discharge Diet: Low fat / Low cholesterol and 1800 Calorie Control Diet Discharge Activity: Return to Normal Activity Meaningful Use Info Meaningful Use Diagnoses (Choose all that apply): None applicable Discharge Plan Admission Admit Date/Time: 07/25/21 12:11 Primary Reason for Your Visit: Anemia Attending Provider: Bozena Nash Primary Care Provider: Farhan Mendiola Discharge Orders/Prescriptions Prescriptions: New pantoprazole [Protonix] 40 mg tablet,delayed release (DR/EC) 40 mg PO BID Qty: 60 RF: 0 sucralfate [Carafate] 100 mg/mL suspension 10 ml PO Q4H Qty: 1000 RF: 0 metoclopramide HCl 5 mg Tablet 5 mg PO Q6 Qty: 20 RF: 0 Continued nitroglycerin 0.4 mg tablet, sublingual 0.4 mg sublingual Q5-15M PRN (Reason: Cardiac/Chest Pain) RF: 0 cholecalciferol (vitamin D3) 5,000 unit tablet 5,000 unit PO DAILY RF: 0 pravastatin 40 mg tablet 40 mg PO QHS RF: 0 magnesium oxide 400 mg (241.3 mg magnesium) tablet 800 mg PO BID RF: 0 albuterol sulfate [Ventolin HFA] 90 mcg/actuation HFA aerosol inhaler 2 puff inhalation Q6H PRN (Reason: Shortness Of Breath) RF: 0 metformin 500 mg tablet 500 mg PO BID RF: 0 Trulicity 0.75 MG/0.5 ML pen injector 0.75 mg SQ QWEEK RF: 0 furosemide 40 mg tablet 40 mg PO DAILY Qty: 90 RF: 3 amiodarone 200 mg tablet 200 mg PO DAILY RF: 0 Discontinued pantoprazole 40 mg tablet,delayed release (DR/EC) 20 mg PO QODAY RF: 0 No Action aspirin 81 mg tablet,chewable 81 mg PO ONCE RF: 0 Referrals / Follow Up: Farhan Mendiola MD [Primary Care Provider] - Within 1 Week Gilberto Rangel DO [STAFF PHYSICIAN] - Within 2 Weeks (call Wednesday for appt) Disposition Disposition (needs filled in before D/C Order can be placed): Home, Self Care Charges/Coding Visit Charges Inpatient E&M: 32663 Disch Hosp
[2021-07-27 10:14] VITALS: BP 139/74; PULSE 61; RESP 18; TEMP 36.6; O2SAT 97
[2021-07-27 11:05] VITALS: PULSE 63
== END 2021-07-27 11:39 | disposition home or self-care (01) | DRG 378 ==
LOC: ED 12:37 → PCU 12:48
PROVIDERS: Internal Medicine Gastroenterology; Admitting Provider Internal Medicine; Emergency Provider Emergency Medicine; PCP Family Medicine; Visit Provider Internal Medicine
PROC: 0DJ08ZZ Inspection of Upper Intestinal Tract, Via Natural or Artificial Opening Endoscopic (ICD-10-PCS; CPT 43235; principal; 2021-07-25 16:25)
DX: K31.82 Dieulafoy lesion (hemorrhagic) of stomach and duodenum (principal); K76.6 Portal hypertension; D62 Acute posthemorrhagic anemia; C15.5 Malignant neoplasm of lower third of esophagus; D69.6 Thrombocytopenia, unspecified; E11.22 Type 2 diabetes mellitus with diabetic chronic kidney disease; K74.60 Unspecified cirrhosis of liver; J44.9 Chronic obstructive pulmonary disease, unspecified; E11.43 Type 2 diabetes mellitus with diabetic autonomic (poly)neuropathy; I48.0 Paroxysmal atrial fibrillation; N18.30 Chronic kidney disease, stage 3 unspecified; I12.9 Hypertensive chronic kidney disease with stage 1 through stage 4 chronic kidney disease, or unspecified chronic kidney disease; E55.9 Vitamin D deficiency, unspecified; I25.5 Ischemic cardiomyopathy; I25.10 Atherosclerotic heart disease of native coronary artery without angina pectoris; K31.89 Other diseases of stomach and duodenum; K75.81 Nonalcoholic steatohepatitis (NASH); I95.1 Orthostatic hypotension; E78.2 Mixed hyperlipidemia; D50.9 Iron deficiency anemia, unspecified; Z79.01 Long term (current) use of anticoagulants; F32.A Depression, unspecified; Z66 Do not resuscitate; Z79.82 Long term (current) use of aspirin; K22.89 Other specified disease of esophagus; G89.29 Other chronic pain; Z79.84 Long term (current) use of oral hypoglycemic drugs; Z87.891 Personal history of nicotine dependence
CPT/HCPCS: 36415; 76705; 80048; 80053; 80076; 82962; 83690; 83735; 84100; 85014; 85018; 85025; 85610; 85730; 86850; 86900; 86901; 86920; 86922; 93005; 97110; 97162; 97165; 97535; 99285; J7030; J7040; J7120; P9016; A4216; A4648; J2405; J3490

== ENCOUNTER → 2021-08-15 | Outpatient (CLI) | payer MEDICARE, MEDICAID, SELFPAY ==
--- NOTE | 2021-08-15 07:19 | CT_ITS ---
STUDY: CTA CHEST REASON FOR EXAM: Female, [address] Short [facility]: Possible Watchman Device -- Prednisone for dye allergy ordered RADIATION DOSAGE (If Supplied By Facility): CTDIvol = ( 19.14 ) mGy, DLP = ( 537.25 ) mGycm TECHNIQUE: The examination was performed with the intravenous administration of IV 100mL Isovue-370. Post-processing of the angiographic images was performed, with multiplanar reformation and 3D reconstruction. Individualized dose optimization techniques were used for this CT. COMPARISON: None. FINDINGS: Normal enhancement of the main pulmonary artery and right and left pulmonary arteries. Normal enhancement of the bilateral peripheral pulmonary arteries. There is no demonstrated pulmonary embolism. Calcified thoracic aorta and visualized great vessels. There is no demonstrated aortic dissection. Normal heart and pericardium. Normal mediastinum. Normal hilar regions. Normal visualized trachea and bronchi. The lungs are well expanded. There are upper lobe peripheral subcentimeter nodules bilaterally up to 5 mm. Normal pleura. Normal chest wall structures. Degenerative vertebral changes. Cirrhotic changes in the liver. CT/CTA Chest W/WO Contrast IMPRESSION: No demonstrated pulmonary embolism or arterial dissection. Subcentimeter upper lobe peripheral nodules likely granulomatous in nature. Cirrhosis. Electronically Signed: Griffin Rainey DO at 8:21 EDT Reading Location ID and State: [facility] / [place] Tel [phone], Service support ,
--- NOTE | 2021-08-15 07:19 | RAD_ITS ---
STUDY: X-RAY CHEST REASON FOR EXAM: Female, 76 years old. HX VT X 2, CARDIAC STENTS INSERTION, HEART ABLATION AND CARDIOVERSION TECHNIQUE: PA and lateral views of the chest. COMPARISON: 06/07/2021 FINDINGS: The lungs are clear and expanded. There is no demonstrated pleural abnormality. There is borderline cardiomegaly. Normal mediastinum and destiny. Normal visualized pulmonary arteries. There is atherosclerotic calcification of the aortic arch with tortuosity. There are diffuse degenerative changes of the visualized thoracic spine. Normal visualized ribs, clavicles, and shoulders. There is no demonstrated abnormality of the visualized soft tissue structures of the upper abdomen. RAD/Chest PA and Lateral IMPRESSION: Stable, nonacute x-ray examination of the chest. Electronically Signed: Bashir Quintero MD ([place]) at 8:29 EDT ,
== END | disposition home or self-care (01) ==
LOC: CT 07:16
PROVIDERS: PCP Family Medicine; Visit Provider Internal Medicine Cardiovascular Disease
DX: Z01.818 Encounter for other preprocedural examination (principal); I42.9 Cardiomyopathy, unspecified; I48.0 Paroxysmal atrial fibrillation; I21.9 Acute myocardial infarction, unspecified; I25.10 Atherosclerotic heart disease of native coronary artery without angina pectoris; Z95.5 Presence of coronary angioplasty implant and graft
CPT/HCPCS: 71046; 71275; 93225; 93226; Q9967

== ENCOUNTER → 2021-09-01 | Outpatient (CLI) | payer MEDICARE, MEDICAID, SELFPAY ==
--- NOTE | 2021-09-01 07:50 | ECHOD_ITS ---
Reason For Study: ATRIAL FIB-FLUTTER Procedure This was a 2D Doppler, Color Flow transthoracic echocardiogram. The study was technically difficult. Exam performed in department. Left Ventricle Normal LV size. Moderate segmental systolic dysfunction (see wall motion). The estimated ejection fraction is 40 %. Diastolic function is indeterminate. Basal inferoseptal: Hypokinetic. Basal anteroseptal: Hypokinetic. Mid-Anterior : Hypokinetic. Mid-Lateral : Hypokinetic. Mid-Posterior: Hypokinetic. Mid-Inferior: Akinetic. Mid-inferoseptal : Akinetic. Mid-anteroseptal : Akinetic. Anterior [place] : Hypokinetic. Inferior [place] : Akinetic. Lateral [place] : Akinetic. Septal [place] : Akinetic. Right Ventricle Normal RV size. Normal systolic function. Atria The left atrium is mildly enlarged. Normal right atrium. No doppler evidence for ASD. Mitral Valve There is no mitral annular calcification. The mitral papillary muscle appears thickened and/or calcified. Mild-Moderate (1-2+) mitral valve insufficiency. Tricuspid Valve Normal tricuspid valve. Trivial tricuspid valve insufficiency. Right ventricular systolic pressure estimated to be 32 mmHg. Aortic Valve Trisinus/trileaflet aortic valve. Mild focal aortic valve calcification. Pulmonic Valve The pulmonic valve is not well visualized. Trivial pulmonic valve insufficiency. Great Vessels Normal sized aortic root. Pericardium/Pleural No pericardial effusion. MMode/2D Measurements & Calculations LVIDd: 5.7 cm IVSd: 1.1 cm Ao root diam: 3.3 cm LVIDs: 3.9 cm LVPWd: 1.0 cm RVDd: 3.3 cm FS: 31.2 % LAV(MOD-bp): 67.2 ml LVAd ap4: 31.4 cm2 SV(MOD-sp4): 62.6 ml LAV(MOD-bp) Indexed: 32.9 ml/m2 LVLd ap4: 7.5 cm LAV(MOD-sp2): 70.7 ml EDV(MOD-sp4): 107.4 ml LAV(MOD-sp4): 62.0 ml EDV(sp4-el): 111.1 ml LVAs ap4: 19.3 cm2 LVLs ap4: 7.0 cm ESV(MOD-sp4): 44.8 ml ESV(sp4-el): 45.5 ml EF(MOD-sp4): 58.3 % EF(sp4-el): 59.1 % SV(sp4-el): 65.6 ml LA A4 area: 21.1 cm2 LA dimension(2D): 4.4 cm RA A4 area: 16.8 cm2 Time Measurements MV dec time: 0.32 sec Doppler Measurements & Calculations MV E max brad: 80.4 cm/sec Lat Peak E' Brad: 4.7 cm/sec Med Peak E' Brad: 4.1 cm/sec MV A max brad: 86.9 cm/sec E/E' lat: 17.3 E/E' med: 19.8 MV E/A: 0.93 Ao V2 max: 159.6 cm/sec LV V1 max: 125.3 cm/sec PA V2 max: 101.6 cm/sec Ao max P.2 mmHg LV V1 max P.3 mmHg TR max brad: 268.5 cm/sec TR max P.8 mmHg ECHO/Echo Complete Interpretation Summary The study was technically difficult. Moderate segmental systolic dysfunction (see wall motion). The estimated ejection fraction is 40 %. The left atrium is mildly enlarged. The mitral papillary muscle appears thickened and/or calcified. Mild-Moderate (1-2+) mitral valve insufficiency. Trivial tricuspid valve insufficiency. Mild focal aortic valve calcification. Trivial pulmonic valve insufficiency. Right ventricular systolic pressure estimated to be 32 mmHg. Diastolic function is indeterminate. Ordering Physician: Joe Snigh Referring Physician: SYDNEY GODWIN Performed By: Emily Brenner RDCS
== END | disposition home or self-care (01) ==
LOC: CVS 07:49
PROVIDERS: PCP Family Medicine; Referring Provider Internal Medicine Cardiovascular Disease; Visit Provider Internal Medicine Cardiovascular Disease
DX: I42.9 Cardiomyopathy, unspecified (principal); I48.0 Paroxysmal atrial fibrillation; I21.9 Acute myocardial infarction, unspecified; I25.10 Atherosclerotic heart disease of native coronary artery without angina pectoris; Z95.5 Presence of coronary angioplasty implant and graft
CPT/HCPCS: 93306

== ENCOUNTER → 2021-09-03 | Outpatient (CLI) | payer MEDICARE, MEDICAID, SELFPAY ==
[2021-09-03 11:07] LABS: International Normalized Ratio 1.6; Prothrombin Time (Protime)PT. 18.5 SECONDS (11.7-14.9)
[2021-09-03 11:08] LABS: Erythrocyte Sedimentation Rate 24 mm/hr (0-30)
[2021-09-03 11:33] LABS: ALB/GLOB Ratio 0.8 RATIO (0.9-2.4); AST(SGOT) 54 U/L (15-37); Alanine Aminotransfer ALT/SGPT 50 U/L (13-56); Albumin, Serum 3.6 g/dL (3.2-5.0); Alkaline Phosphatase 91 U/L (45-117); Anion Gap 8 (5-15); BUN 28 mg/dL (7-18); BUN/Creat Ratio 20.6 RATIO (10-20); CRP < 2.90 mg/L (0.0-3.0); Calcium,Total 9.8 mg/dL (8.5-10.1); Chloride 102 mmol/L (98-107); Creatinine, Serum 1.36 mg/dL (0.55-1.02); EST Glomerular Filtration Rate 40 mL/min (>60); Est Glom Filt Rate - Afr Amer 49 mL/min (>60); Ferritin 495 ng/mL (8-252); Globulin 4.5 g/dL (2.2-4.2); Glucose 162 mg/dL (74-106); LDH 218 U/L (84-246); Potassium 4.1 mmol/L (3.5-5.1); Protein, Total 8.1 g/dL (6.4-8.2); Sodium Level 136 mmol/L (136-145)
[2021-09-04 15:18] LABS: Anti-Mitochondrial AB <20.0 Units (0.0-20.0)
[2021-09-05 17:07] LABS: Cytoplasmic Ab (C-ANCA) <1:20 titer (Neg:<1:20)
[2021-09-05 20:45] LABS: AFP, Tumor Marker 9.4 ng/mL (0.0-9.2); Anti-Smooth Muscle ABS 110 Units (0-19); Copper, Serum or Plasma 99 ug/dL (80-158); Haptoglobin 80 mg/dL (42-346); Perinuclear Ab (P-ANCA) <1:20 titer (Neg:<1:20)
== END | disposition home or self-care (01) ==
LOC: LAB 10:40
PROVIDERS: PCP Family Medicine; Referring Provider Nurse Practitioner Adult Health; Visit Provider Nurse Practitioner Adult Health
DX: I25.10 Atherosclerotic heart disease of native coronary artery without angina pectoris (principal); K74.60 Unspecified cirrhosis of liver
CPT/HCPCS: 36415; 80053; 82105; 82140; 82390; 82525; 82728; 83010; 83516; 83615; 85610; 85652; 86140; 86256

== ENCOUNTER 2021-09-07 13:54 | Inpatient (IN) | payer MEDICARE, MEDICAID, SELFPAY ==
[2021-09-07] VITALS (8 sets, daily range): BP systolic 111–138; BP diastolic 62–81; PULSE 69–92; RESP 14–17; TEMP 36.3–36.8; O2SAT 94–98; BMI 33.3; BMI 32.8
--- NOTE | 2021-09-07 14:35 | CT_ITS ---
STUDY: CT BRAIN WITHOUT CONTRAST REASON FOR EXAM: Female, 76 years old. Pain after fall RADIATION DOSAGE (If Supplied By Facility): CTDIvol = ( 44.99 ) mGy, DLP = ( 745.49 ) mGycm TECHNIQUE: Transaxial CT imaging of the brain was performed without administration of intravenous contrast material. Individualized dose optimization techniques were used for this CT. COMPARISON: No relevant priors. FINDINGS: There is no intra-/extra-axial fluid collection, mass effect, or midline shift. The escalera/white matter junction is preserved. Hypoattenuation of periventricular and subcortical white matter suggestive of chronic small vessel ischemic disease. Mild diffuse parenchymal volume loss is noted. There is vascular calcification. The basal cisterns are patent. Visualized paranasal sinuses and mastoid air cells are clear. The calvarium is intact. CT/Brain/Head without Contrast IMPRESSION: No acute intracranial finding. Electronically Signed: Ciro Miller MD at 15:48 EDT ,
--- NOTE | 2021-09-07 14:36 | EKG12_ITS ---
Test Reason : DIZZINESS Blood Pressure : / mmHG Vent. Rate : 081 BPM Atrial Rate : 081 BPM P-R Int : 204 ms QRS Dur : 124 ms QT Int : 428 ms P-R-T Axes : 082 -47 077 degrees QTc Int : 497 ms Normal sinus rhythm Left anterior fascicular block Septal infarct , age undetermined Abnormal ECG Confirmed by JESSICA MONTE, RANJANA ([id number]), commissioning editor KRISTI CLARK ([id number]) on 09/09/2021 1:22:12 PM Referred By: GEMA Confirmed By:RANJANA LOPEZ MD
[2021-09-07 14:48] LABS: Absolute Lymphocyte Count 0.96 X10^3/uL (0.83-4.51); Absolute Neutrophil Count 3.7 X10^3/uL (2.0-7.7); Basophil# 0.04 X10^3/uL; Basophil% 0.7 % (0-1); Eosinophil# 0.29 X10^3/uL; Eosinophils% 5.1 % (0-5); Hematocrit 23.2 % (37-47); Hemoglobin 7.9 g/dL (12.0-15.0); Lymphocyte # 0.96 X10^3/ul (0.83-4.51); Mean Corp Hgb Conc 34.1 g/dL (32-36); Mean Corpuscular Hgb 39.7 pg (27.0-32.0); Mean Corpuscular Volume 116.6 fL (81-99); Monocyte# 0.59 X10^3/uL; Monocyte% 10.5 % (0-10); NRBC Flagged by Analyzer 0.4 % (0-5); Neutrophil % 65.6 % (47-70); POSITIVE MORPHOLOGY YES; Platelet Count 182 K/mm3 (150-450); RBC Distribution Width CV 19.8 % (11.6-14.6); RBC Distribution Width SD 82.1 fl (35.1-43.9); Red Blood Count 1.99 M/mm3 (4.2-5.4); White Blood Count 5.6 K/mm3 (4.4-11.0)
[2021-09-07 14:55] LABS: Differential Indicated SCAN CRITERIA MET
[2021-09-07 14:57] LABS: International Normalized Ratio 1.4; Prothrombin Time (Protime)PT. 17.2 SECONDS (11.7-14.9)
[2021-09-07 14:58] LABS: Partial Thromboplast Time 36.4 Seconds (24.1-36.2)
[2021-09-07 15:03] LABS: Anion Gap 13 (5-15); BUN 44 mg/dL (7-18); BUN/Creat Ratio 24.3 RATIO (10-20); Calcium,Total 9.1 mg/dL (8.5-10.1); Chloride 101 mmol/L (98-107); Creatinine, Serum 1.81 mg/dL (0.55-1.02); EST Glomerular Filtration Rate 29 mL/min (>60); Est Glom Filt Rate - Afr Amer 35 mL/min (>60); Estimated Creatinine Clearance 26.12 ml/min; Glucose 266 mg/dL (74-106); Potassium 4.1 mmol/L (3.5-5.1); Sodium Level 137 mmol/L (136-145)
[2021-09-07] MEDS: 0.9% Normal Saline 1,000 ML 150 ML IV ×2 (15:05→17:47)
[2021-09-07 15:07] LABS: Differential Comment SCANNED
[2021-09-07 15:08] LABS: Anisocytosis 2+; Macrocytosis 1+; Microcytosis 1+
--- NOTE | 2021-09-07 15:15 | EDS_ITS ---
HPI History of Present Illness Chief Complaint: Dizziness Informant: patient Onset/Context/Timing Onset: Days Current Severity: Mild Maximum Severity: Moderate Narrative Narrative: Patient presents secondary to dizziness. She states when she stands she gets lightheaded and dizzy. This is been occurring for the past couple days. Today she fell in the bathroom landing in the tub. She did hit her head and her right calf. No loss of consciousness. She denies headache. Patient is currently on Eliquis. She recently was seen for an upper GI bleed. She is scheduled to have a repeat endoscopy with Dr. Rangel on September 15. Family states that her blood counts were checked on September 02 and her hemoglobin was 10.2 at that time. [facility] Medical History Abnormal stress test Acute myocardial infarction Anemia requiring transfusions Angina pectoris Atherosclerotic heart disease of [place] coronary artery without angina pectoris Atrial fibrillation CAD (coronary artery disease) Cardiomyopathy Chronic anticoagulation Chronic pain Cirrhosis CKD (chronic kidney disease) stage 3, GFR 30-59 ml/min COVID-19 (11/27/20) Diabetes Diverticulosis Essential hypertension Former smoker GERD (gastroesophageal reflux disease) Hepatic cirrhosis History of cardioversion (~04/21/19) History of left heart catheterization (LHC) (~11/25/20) History of neuroendocrine cancer Hypertension Macrocytic anemia Microcytic anemia Mixed hyperlipidemia Neuroendocrine carcinoma Nonalcoholic steatohepatitis (PATRICK) Persistent atrial fibrillation Presence of stent in coronary artery (~12/29/02) Upper GI bleed Vertigo Home Medications nitroglycerin 0.4 mg sublingual tablet 0.4 mg SUBLINGUAL Q5-15M PRN 05/10/18 [History Last Taken Unknown] cholecalciferol (vitamin D3) 125 mcg (5,000 unit) tablet 5,000 unit PO DAILY 07/22/18 [History Last Taken 07/25/21 08:30] pravastatin 40 mg tablet 40 mg PO QHS 04/07/19 [History Last Taken 07/24/21 18:30] Trulicity 0.75 mg SQ QWEEK 07/04/20 [History Last Taken 07/21/21 10:00] magnesium oxide 400 mg (241.3 mg magnesium) tablet 800 mg PO BID tab 10/23/20 [History Last Taken 07/25/21 08:30] metformin 500 mg tablet 500 mg PO BID tab 10/23/20 [History Last Taken 07/25/21 08:30] albuterol sulfate 90 mcg/actuation aerosol inhaler 2 puff INHALATION Q6H PRN 04/16/21 [History Last Taken Unknown] amiodarone 200 mg tablet 200 mg PO DAILY 06/09/21 [History Last Taken 07/25/21 08:30] aspirin 81 mg PO ONCE 07/27/21 [History Last Taken 07/25/21 08:30] furosemide 40 mg PO DAILY #90 tab 07/27/21 [Rx Last Taken 07/24/21 08:30] pantoprazole [Protonix] 40 mg PO BID #60 tab 07/27/21 [Rx Last Taken Unknown] diphenhydramine HCl 25 mg tablet 50 mg PO .COMPLEX #2 tab 08/12/21 [Rx Last Taken Unknown] prednisone 50 mg tablet 50 mg PO .COMPLEX #3 tab 09/04/21 [Rx Last Taken U nknown] apixaban [Eliquis] 5 mg PO BID 09/07/21 [History Last Taken Unknown] Allergy/AdvReac Type Severity Reaction Status Date / Time adhesive Allergy Rash Verified 09/03/21 09:42 fenofibrate nanocrystallized Allergy Rash Verified 09/03/21 09:42 [From Tricor] fenofibrate,micronized Allergy Rash Verified 09/03/21 09:42 [From Tricor] Iodinated Contrast Media Allergy Rash Verified 09/03/21 09:42 [CONTRASTS] ramipril Allergy Rash Verified 09/03/21 09:42 sertraline HCl [From Zoloft] AdvReac made me Verified 09/03/21 09:42 more depressed sulindac [From Clinoril] AdvReac PT UNSURE Verified 09/03/21 09:42 OF REACTION CARDIAC CATH DYE Allergy Rash Uncoded 09/03/21 09:42 Family History Mother CAD (coronary artery disease) Father CAD (coronary artery disease) Sister CAD (coronary artery disease) Brother Heart disease Brother Heart disease Brother Heart disease Surgical History History of appendectomy History of cataract surgery History of cholecystectomy History of coronary artery stent placement History of laparoscopic cholecystectomy History of liver biopsy Presence of coronary angioplasty implant and graft (~12/29/02) Social History Smoking Status: Former smoker alcohol intake: never substance use type: does not use ROS ROS ED Constitutional Constitutional ED: Denies chills or fever(s) Eyes Eyes: Denies change in vision or discharge from eye(s) ENT ENT ED: Denies discharge from eye(s), rhinorrhea or sore throat Cardiovascular Cardiovascular: Denies chest pain or palpitations Respiratory/Chest Respiratory/Chest: Denies cough or dyspnea Gastrointestinal Gastrointestinal: Reports other Details: Dark-colored stools. ; Denies abdominal pain, nausea or vomiting Genitourinary Genitourinary ED: Denies difficulty urinating or dysuria Musculoskeletal Musculoskeletal: Reports arthralgias; Denies back pain or extremity pain Integumentary Denies Abrasions or rash Neurologic Neurologic: Denies headache(s) or weakness Allergic/Immunologic Allergic/Immunologic ED: Denies lip swelling or urticaria EXAM Physical Exam Const Vital Signs: 09/07/21 13:55 09/07/21 14:04 Temperature 98 F Temperature Source Temporal Pulse Rate 92 Respiratory Rate 17 Respiratory Pattern Normal Blood Pressure 118/75 Blood Pressure Mean 89 Pulse Ox 97 Oxygen Delivery Method Room Air Positive well nourished and well developed General Appearance ED: well developed HEENT Reports moist mucous membranes Eyes PERRL and EOMs intact bilaterally Neck supple Chest Wall inspection of chest normal and palpation of chest normal Resp normal respiratory effort and clear to auscultation bilaterally Cardio regular rate and regular rhythm GI normal to inspection, nondistended, normoactive bowel sounds and non-tender Palpation: soft Extremity normal to inspection General Extremety ED: Negative for tenderness Neuro oriented x3 and no sensory deficits noted Sensorium / Orientation: alert Motor Exam: strength 5/5 throughout Psych mental status grossly normal Skin no rashes or lesions noted MDM MDM MDM Narrative Medical decision making narrative: Patient sent for head CT. Lab work obtained. Lab Data Attestation: I reviewed the patient's lab results. Labs: Laboratory Results - last 24 hr 09/07/21 09/07/21 09/07/21 14:30 14:30 14:30 WBC 5.6 RBC 1.99 L Hgb 7.9 L Hct 23.2 L MCV 116.6 H MCH 39.7 H MCHC 34.1 RDW Std Deviation 82.1 H RDW Coeff of Pina 19.8 H Plt Count 182 MPV 11.0 Immature Gran % (Auto) 1.100 H Neut % (Auto) 65.6 Lymph % (Auto) 17.0 L [place] % (Auto) 10.5 H Eos % (Auto) 5.1 H Baso % (Auto) 0.7 Absolute Neuts (auto) 3.7 Absolute Lymphs (auto) 0.96 Nucleated RBC % 0.4 Differential Comment SCANNED Anisocytosis 2+ Microcytosis 1+ Macrocytosis 1+ PT 17.2 H INR 1.4 APTT 36.4 H Sodium 137 Potassium 4.1 Chloride 101 Carbon Dioxide 23.0 Anion Gap 13 BUN 44 H Creatinine 1.81 H Estim Creat Clear Calc 26.12 Est GFR (MDRD) Af Amer 35 L Est GFR (MDRD) Non-Af 29 L BUN/Creatinine Ratio 24.3 H Glucose 266 H Calcium 9.1 Radiography Diagnostic Testing: Clinical Impression(s) from Imaging Studies Brain CT 09/07/21 14:35 IMPRESSION: No acute intracranial finding. Electronically Signed: Ciro Miller MD at 15:48 EDT , EKG Initial EKG: Attestation: I personally reviewed and interpreted this EKG as follows: Interpretation: Sinus Rhythm (Sinus at 81 with no acute ischemia.) Treatment and Re-Evaluation Narrative: On repeat examination patient resting comfortably. Hemoglobin today is 7.9 down from a reported 10.2 on September 02. Stool guaiac is sent. Chemistry studies reveal increased creatinine to 1.81 and BUN of 44. Glucose is 266. Patient is started on IV fluids. IV Protonix is ordered. CT scan of the head reveals chronic changes only. Stool guaiac does return positive. I spoke with Cindy Gupta, nurse practitioner covering for Dr. Rangel. I will also speak with hospitalist. Discharge Plan Triage Chief Complaint: Dizziness Other Complaint: Fall ED Provider: Marlene Arenas Dx/Rx/DC Orders Clinical Impression: GI bleed, Anemia Prescriptions: No Action nitroglycerin 0.4 mg tablet, sublingual 0.4 mg sublingual Q5-15M PRN (Reason: Cardiac/Chest Pain) RF: 0 cholecalciferol (vitamin D3) 5,000 unit tablet 5,000 unit PO DAILY RF: 0 pravastatin 40 mg tablet 40 mg PO QHS RF: 0 magnesium oxide 400 mg (241.3 mg magnesium) tablet 800 mg PO BID RF: 0 albuterol sulfate [Ventolin HFA] 90 mcg/actuation HFA aerosol inhaler 2 puff inhalation Q6H PRN (Reason: Shortness Of Breath) RF: 0 metformin 500 mg tablet 500 mg PO BID RF: 0 prednisone 50 mg tablet 50 mg PO .COMPLEX Qty: 3 RF: 0 Trulicity 0.75 MG/0.5 ML pen injector 0.75 mg SQ QWEEK RF: 0 pantoprazole [Protonix] 40 mg tablet,delayed release (DR/EC) 40 mg PO BID Qty: 60 RF: 0 furosemide 40 mg tablet 40 mg PO DAILY Qty: 90 RF: 3 aspirin 81 mg tablet,chewable 81 mg PO ONCE RF: 0 Eliquis 5 mg tablet 5 mg PO BID RF: 0 amiodarone 200 mg tablet 200 mg PO DAILY RF: 0 diphenhydramine HCl [Benadryl Allergy] 25 mg tablet 50 mg PO .COMPLEX Qty: 2 RF: 1 Primary Care Provider: Farhan Mendiola Referrals: Farhan Mendiola MD [Primary Care Provider] - Disposition Disposition: Acute Care Hospital [facility]
--- NOTE | 2021-09-07 16:09 | HP.PCM.HOS_ITS ---
HPI - General General Date of Admission: 09/07/21 HPI Narrative GRIS RODRIGUEZ, is a 76 F with an extensive PMH as outlined who presents via the ED on 09/07/2021 with a complaint of dizziness. She gets dizzy and lightheaded with standing. She denied any palpitations, chest pain, nausea or vomiting or shortness of breath. She has associated lightheadedness. She fell in the bathroom and hit her head but didnt lose any consciousness. She was recently admitted and managed for GI bleed. She had an EGD which didnt show any evidence of bleeding then. She was to follow up with GI for a repeat scope on September 15, and was actually seen by GI a few days before coming in. She also admitted to having dark stools. Vitals were BP of 118/75, [place] of 92 and RR of 17 and temp of 98F. She was saturating at 97% on room air. CBC showed Hb of 7.9; was ~ 10 a few days ago. WBC is 5.6 and platelets are 182. INR was 1.4. Chemistry showed sodium of 137, with potassium of 4.1 and Cr of 1.81, with a baseline of ~ 1.2-1.3. CT of the brain was negative for any acute intracranial pathology. She is being admitted to be managed for dizziness and near syncope due to acute on chronic anemia from GI bleed. [facility] Medical History Abnormal stress test Acute myocardial infarction Anemia requiring transfusions Angina pectoris Atherosclerotic heart disease of [place] coronary artery without angina pectoris Atrial fibrillation CAD (coronary artery disease) Cardiomyopathy Chronic anticoagulation Chronic pain Cirrhosis CKD (chronic kidney disease) stage 3, GFR 30-59 ml/min COVID-19 (11/27/20) Diabetes Diverticulosis Essential hypertension Former smoker GERD (gastroesophageal reflux disease) Hepatic cirrhosis History of cardioversion (~04/21/19) History of left heart catheterization (LHC) (~11/25/20) History of neuroendocrine cancer Hypertension Macrocytic anemia Microcytic anemia Mixed hyperlipidemia Neuroendocrine carcinoma Nonalcoholic steatohepatitis (PATRICK) Persistent atrial fibrillation Presence of stent in coronary artery (~12/29/02) Upper GI bleed Vertigo Home Medications nitroglycerin 0.4 mg sublingual tablet 0.4 mg SUBLINGUAL Q5-15M PRN 05/10/18 [History Last Taken Unknown] cholecalciferol (vitamin D3) 125 mcg (5,000 unit) tablet 5,000 unit PO DAILY 07/22/18 [History Last Taken 07/25/21 08:30] pravastatin 40 mg tablet 40 mg PO QHS 04/07/19 [History Last Taken 07/24/21 18:30] Trulicity 0.75 mg SQ QWEEK 07/04/20 [History Last Taken 07/21/21 10:00] magnesium oxide 400 mg (241.3 mg magnesium) tablet 800 mg PO BID tab 10/23/20 [History Last Taken 07/25/21 08:30] metformin 500 mg tablet 500 mg PO BID tab 10/23/20 [History Last Taken 07/25/21 08:30] albuterol sulfate 90 mcg/actuation aerosol inhaler 2 puff INHALATION Q6H PRN 08/31 [History Last Taken Unknown] amiodarone 200 mg tablet 200 mg PO DAILY 06/09/21 [History Last Taken 07/25/21 08:30] aspirin 81 mg PO ONCE 07/27/21 [History Last Taken 07/25/21 08:30] pantoprazole [Protonix] 40 mg PO BID #60 tab 07/27/21 [Rx Last Taken Unknown] diphenhydramine HCl 25 mg tablet 50 mg PO .COMPLEX #2 tab 08/12/21 [Rx Last Taken Unknown] prednisone 50 mg tablet 50 mg PO .COMPLEX #3 tab 09/04/21 [Rx Last Taken Unknown] apixaban [Eliquis] 5 mg PO BID 09/07/21 [History Last Taken Unknown] furosemide 20 mg PO DAILY 09/07/21 [History Last Taken Unknown] Allergy/AdvReac Type Severity Reaction Status Date / Time adhesive Allergy Rash Verified 09/03/21 09:42 fenofibrate nanocrystallized Allergy Rash Verified 09/03/21 09:42 [From Tricor] fenofibrate,micronized Allergy Rash Verified 09/03/21 09:42 [From Tricor] Iodinated Contrast Media Allergy Rash Verified 09/03/21 09:42 [CONTRASTS] ramipril Allergy Rash Verified 09/03/21 09:42 sertraline HCl [From Zoloft] AdvReac made me Verified 09/03/21 09:42 more depressed sulindac [From Clinoril] AdvReac PT UNSURE Verified 09/03/21 09:42 OF REACTION CARDIAC CATH DYE Allergy Rash Uncoded 09/03/21 09:42 Family History Mother CAD (coronary artery disease) Father CAD (coronary artery disease) Sister CAD (coronary artery disease) Brother Heart disease Brother Heart disease Brother Heart disease Surgical History History of appendectomy History of cataract surgery History of cholecystectomy History of coronary artery stent placement History of laparoscopic cholecystectomy History of liver biopsy Presence of coronary angioplasty implant and graft (~12/29/02) Social History Smoking Status: Former smoker alcohol intake: never substance use type: does not use ROS Constitutional Constitutional: Denies anorexia, chills, fatigue, malaise or weakness Eyes Eyes: Denies change in vision ENT HEENT: Denies dysphagia or headache(s) Cardiovascular Cardiovascular: Reports lightheadedness; Denies chest pain, dyspnea on exertion, edema, palpitations, paroxysmal nocturnal dyspnea, rapid heart rate or syncope Respiratory/Chest Respiratory/Chest: Denies cough, dyspnea, shortness of breath at rest, shortness of breath with exertion or wheezing Gastrointestinal Gastrointestinal: Reports melena; Denies abdominal pain, hematemesis, hematochezia, nausea or vomiting Genitourinary Genitourinary: Denies burning urination or dysuria Musculoskeletal Musculoskeletal: Denies joint pain Neurologic Neurologic: Reports dizziness; Denies confusion, focal weakness, headache(s) or seizures Psychiatric Psychiatric: Denies anxiety Endocrine Endocrinology: Denies change in body appearance Hematologic/Lymphatic Hematologic/Lymphatic: Reports anemia Vital Signs Vital Signs Vital Signs: 09/07/21 13:55 09/07/21 14:04 Temperature 98 F Temperature Source Temporal Pulse Rate 92 Respiratory Rate 17 Respiratory Pattern Normal Blood Pressure 118/75 Blood Pressure Mean 89 Pulse Ox 97 Oxygen Delivery Method Room Air Weight Weight: 212 lb 8.41 oz Body Mass Index (BMI) 33.3 Physical Exam Const alert, oriented x3 and no apparent distress General Appearance: cooperative HEENT normocephalic, head/scalp atraumatic, hearing grossly normal bilaterally and moist oral mucous membranes Eyes PERRL, EOMs intact bilaterally and conjunctivae normal Neck no lymphadenopathy and supple Resp normal respiratory effort, no use of accessory muscles and clear to auscultation bilaterally Cardio regular rate, regular rhythm, S1 normal heart sound, S2 normal heart sound and no murmurs GI normal to inspection, nondistended, normoactive bowel sounds, soft to palpation, non-tender and non-distended Extremity normal to inspection, full ROM and no clubbing, cyanosis or edema Peripheral Pulses: Yes pulses 2+ throughout Skin no rashes or lesions noted Neuro oriented x3, CN's II-XII intact bilaterally and moves all extremities Sensorium / Orientation: awake and alert Psych affect normal Results Lab / Micro Data Result Diagrams: 09/08/21 05:07 09/08/21 05:07 Labs: Laboratory Results - last 24 hr 09/07/21 14:30: WBC 5.6, RBC 1.99 L, Hgb 7.9 L, Hct 23.2 L, MCV 116.6 H, MCH 39.7 H, MCHC 34.1, RDW Std Deviation 82.1 H, RDW Coeff of Pina 19.8 H, Plt Count 182, MPV 11.0, Immature Gran % (Auto) 1.100 H, Neut % (Auto) 65.6, Lymph % (Auto) 17.0 L, [place] % (Auto) 10.5 H, Eos % (Auto) 5.1 H, Baso % (Auto) 0.7, Absolute Neuts (auto) 3.7, Absolute Lymphs (auto) 0.96, Nucleated RBC % 0.4, Differential Comment SCANNED, Anisocytosis 2+, Microcytosis 1+, Macrocytosis 1+ 09/07/21 14:30: PT 17.2 H, INR 1.4, APTT 36.4 H 09/07/21 14:30: Sodium 137, Potassium 4.1, Chloride 101, Carbon Dioxide 23.0, Anion Gap 13, BUN 44 H, Creatinine 1.81 H, Estim Creat Clear Calc 26.12, Est GFR (MDRD) Af Amer 35 L, Est GFR (MDRD) Non-Af 29 L, BUN/Creatinine Ratio 24.3 H, Glucose 266 H, Calcium 9.1 Micro: Microbiology 09/07/21 15:10 Stool Stool Occult Blood (KEV) - Final Occult Blood Positive Radiology Impression Brain CT 09/07/21 14:35 IMPRESSION: No acute intracranial finding. Electronically Signed: Ciro Miller MD at 15:48 EDT , Assessment & Plan Assessment/Plan (1) GI bleed: (2) Upper GI bleed: (3) Anemia: (4) Dizziness: PLAN: #Dizziness due to symptomatic anemia * admit to PCU with telemetry * Hb is 7.9 * has a history of GI bleed and had EGD recently which showed a bleeding [place] lesion in the stomach which was treated. It also showed portal gastropathy and normal esophagus. * Is due for a repeat scope on September 15 * had associated melena stools * consult GI * hydrate gently with IVF * IV pantoprazole 40mg bid * PT.OT consult * fall precautions * hold any anticoagulants * #Probable recurrent GI bleed * as above * #Type 2 diabetes mellitus * hold metformin and trulicity * ISS. Accuchecks ACHS * #Afib * rate controlled. hold eliquis * hold aspirin also. On amiodarone * #Hyperlipidemia: on statin #Cirrhosis * due to hep C. * on furosemide * stable * #History of neuroendocrine tumor * this was detected when she had an EGD for anemia in 2019. 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 Patient elects to be full code. * Total [id number] time 17 minutes. Charges/Coding Visit Charges Inpatient E&M: 82575 Init Hosp L3 Procedures Hospitalists Procedures: 88909 Advncd Care Plan 30 Min
--- NOTE | 2021-09-07 16:13 | NURSING ---
DR ABURTO FOR DR LYLE
--- NOTE | 2021-09-07 16:22 | NURSING ---
PCU [facility] GI BLEED, ANEMIA
--- NOTE | 2021-09-07 17:07 | CON.PCM_ITS ---
Assessment & Plan Assessment/Plan (1) Upper GI bleed: PLAN: If this is an upper GIB the likely source would be when she had a day lymphoid lesion in the cardia of the stomach. I would recommend PPI drip and octreotide drip. She will also need an upper endoscopy and likely a capsule endoscopy to look for any other vascular abnormalities such as small bowel varices, telangiectasias or arteriovenous malformations of the small bowel. Also she may need a colonoscopy in order to evaluate her lower GI tract for the same vascular abnormalities and less likely neoplasia (2) Neuroendocrine carcinoma: PLAN: She is being followed by oncology and her recent upper endoscopy did not show any remnants of previously diagnosed neuroendocrine tumor of the esophagus. 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 She will need to have her iron studies checked along with B12 and folic acid (4) Cirrhosis: PLAN: She has not shown any signs of decompensated liver disease at this time. She is not thrombocytopenic at this time. We will need to check her INR, PT PTT. Also she may need alpha-fetoprotein and an ammonia level as GI bleed can cause decompensated liver disease and hyperammonianemia. She will also need a CT scan abdomen pelvis for staging purposes to make sure she is not have any underlying mass lesion of the liver that could be contributing to her anemia. HPI Consult Data Date of Consult: 09/07/21 HPI Narrative HPI Narrative: GRIS RODRIGUEZ, is a 76 F who presented status post fall at home when she fell in the bathroom hit her head and her leg. She has a past medical history of macrocytic anemia secondary to recent diagnosis of cirrhosis secondary to Sykes. 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 She recently underwent an upper endoscopy that did not show any remnants of the neuroendocrine tumor. She also underwent an upper endoscopy with EUS that did not reveal any abnormalities in the head of the pancreas after fine-needle aspiration. Tumor markers are pending for any pancreatic lesion and she is being seen by oncology. She says that her anemia has been going on for approximately 2 years. She has been getting hemoglobins checked every 2 weeks for the last 2 years and received over 11 iron transfusions and 10 units of packed red blood cells. I got to know her for the first time about a month ago when she came into the ED with melanotic stools and dizziness. 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 She was recently seen in the office and because of a recent diagnosis of cirrhosis she was scheduled to have a CT scan of the abdomen pelvis for staging. That was scheduled to be done this upcoming week. She gets dizzy and lightheaded with standing. She denied any palpitations, chest pain, nausea or vomiting or shortness of breath. She has associated lightheadedness. She fell in the bathroom and hit her head but didnt lose any consciousness. Vitals were BP of 118/75, VA of 92 and RR of 17 and temp of 98F. She was saturating at 97% on room air. CBC showed Hb of 7.9; was ~ 10 a few days ago. WBC is 5.6 and platelets are 182. INR was 1.4. Chemistry showed sodium of 137, with potassium of 4.1 and Cr of 1.81, with a baseline of ~ 1.2-1.3. CT of the brain was negative for any acute intracranial pathology. She is being admitted to be managed for dizziness and near syncope due to acute on chronic anemia from GI bleed. [facility] Medical History Abnormal stress test Acute myocardial infarction Anemia requiring transfusions Angina pectoris Atherosclerotic heart disease of [place] coronary artery without angina pectoris Atrial fibrillation CAD (coronary artery disease) Cardiomyopathy Chronic anticoagulation Chronic pain Cirrhosis CKD (chronic kidney disease) stage 3, GFR 30-59 ml/min COVID-19 (11/27/20) Diabetes Diverticulosis Essential hypertension Former smoker GERD (gastroesophageal reflux disease) Hepatic cirrhosis History of cardioversion (~04/21/19) History of left heart catheterization (LHC) (~11/25/20) History of neuroendocrine cancer Hypertension Macrocytic anemia Microcytic anemia Mixed hyperlipidemia Neuroendocrine carcinoma Nonalcoholic steatohepatitis (SYKES) Persistent atrial fibrillation Presence of stent in coronary artery (~12/29/02) Upper GI bleed Vertigo Home Medications nitroglycerin 0.4 mg sublingual tablet 0.4 mg SUBLINGUAL Q5-15M PRN 05/10/18 [History Last Taken Unknown] cholecalciferol (vitamin D3) 125 mcg (5,000 unit) tablet 5,000 unit PO DAILY 07/22/18 [History Last Taken 07/25/21 08:30] pravastatin 40 mg tablet 40 mg PO QHS 04/07/19 [History Last Taken 07/24/21 18:30] Trulicity 0.75 mg SQ QWEEK 07/04/20 [History Last Taken 07/21/21 10:00] magnesium oxide 400 mg (241.3 mg magnesium) tablet 800 mg PO BID tab 10/23/20 [History Last Taken 07/25/21 08:30] metformin 500 mg tablet 500 mg PO BID tab 10/23/20 [History Last Taken 07/25/21 08:30] albuterol sulfate 90 mcg/actuation aerosol inhaler 2 puff INHALATION Q6H PRN 04/16/21 [History Last Taken Unknown] amiodarone 200 mg tablet 200 mg PO DAILY 06/09/21 [History Last Taken 07/25/21 08:30] aspirin 81 mg PO ONCE 07/27/21 [History Last Taken 07/25/21 08:30] furosemide 40 mg PO DAILY #90 tab 07/27/21 [Rx Last Taken 07/24/21 08:30] pantoprazole [Protonix] 40 mg PO BID #60 tab 07/27/21 [Rx Last Taken Unknown] diphenhydramine HCl 25 mg tablet 50 mg PO .COMPLEX #2 tab 08/12/21 [Rx Last Taken Unknown] prednisone 50 mg tablet 50 mg PO .COMPLEX #3 tab 09/04/21 [Rx Last Taken Unknown] apixaban [Eliquis] 5 mg PO BID 09/07/21 [History Last Taken Unknown] Allergy/AdvReac Type Severity Reaction Status Date / Time adhesive Allergy Rash Verified 09/03/21 09:42 fenofibrate nanocrystallized Allergy Rash Verified 09/03/21 09:42 [From Tricor] fenofibrate,micronized Allergy Rash Verified 09/03/21 09:42 [From Tricor] Iodinated Contrast Media Allergy Rash Verified 09/03/21 09:42 [CONTRASTS] ramipril Allergy Rash Verified 09/03/21 09:42 sertraline HCl [From Zoloft] AdvReac made me Verified 09/03/21 09:42 more depressed sulindac [From Clinoril] AdvReac PT UNSURE Verified 09/03/21 09:42 OF REACTION CARDIAC CATH DYE Allergy Rash Uncoded 09/03/21 09:42 Family History Mother CAD (coronary artery disease) Father CAD (coronary artery disease) Sister CAD (coronary artery disease) Brother Heart disease Brother Heart disease Brother Heart disease Surgical History History of appendectomy History of cataract surgery History of cholecystectomy History of coronary artery stent placement History of laparoscopic cholecystectomy History of liver biopsy Presence of coronary angioplasty implant and graft (~12/29/02) Social History Smoking Status: Former smoker alcohol intake: never substance use type: does not use ROS Review of Systems ROS Unobtainable: other Constitutional Constitutional: Reports fatigue and lethargy; Denies fever(s), poor appetite, weight gain or weight loss ENT HEENT: Denies mouth lesions Cardiovascular Cardiovascular: Denies abdominal bloating, abdominal edema or abdominal pain Respiratory/Chest Respiratory/Chest: Denies change in mental status, change in phlegm color, chest congestion or chest tightness Gastrointestinal Gastrointestinal: Denies belching, bloating, change in bowel habits, change in stool character, chewing difficulty, coffee ground emesis, constipation, cramping, diarrhea, dyspepsia, dysphagia, early satiety, excessive flatus, fecal incontinence, heartburn, hematemesis, hematochezia, hemorrhoids, loose stools, melena, nausea, odynophagia, rectal bleeding, tenesmus, vomiting or weight changes Genitourinary Genitourinary: Denies abdominal discomfort, burning urination or itching Musculoskeletal Musculoskeletal: Reports as per HPI; Denies muscle weakness or myalgias Integumentary Integumentary: Denies jaundice Neurologic Neurologic: Reports dizziness and weakness; Denies lack of coordination Psychiatric Psychiatric: Denies confusion, depression, memory loss, mood swings, paranoia or suicidal ideation Endocrine Endocrinology: Denies systems reviewed and no addt'l complaints, except as documented Hematologic/Lymphatic Hematologic/Lymphatic: Denies anemia, easy bleeding, easy bruising or lymphadenopathy Allergic/Immunologic Allergic/Immunologic: Denies systems reviewed and no addt'l complaints, except as documented Physical Exam Const alert General Appearance: cooperative Orientation / Consciousness: oriented to person HEENT hearing grossly normal bilaterally Head and Scalp: normal to inspection Face and Sinus: face symmetric Nose: external nose normal Mouth: oral and palatal mucosa normal Eyes conjunctivae normal General Eye: normal appearance of both eyes Neck full ROM General: normal visual inspection Lymph Lymphatic: no lymphadenopathy noted Chest inspection of chest normal and palpation of chest normal Chest: symmetrical chest wall rise Resp normal respiratory effort Effort and Inspection: able to speak in complete sentences Cardio regular rate GI non-distended Percussion: normal to percussion Rectal Exam: deferred Neuro Speech: speech normal Gait (Neuro): normal gait Lab / Micro Data Result Diagrams: 09/07/21 14:30 09/07/21 14:30 Labs: Laboratory Results - last 24 hr 09/07/21 14:30: WBC 5.6, RBC 1.99 L, Hgb 7.9 L, Hct 23.2 L, MCV 116.6 H, MCH 39.7 H, MCHC 34.1, RDW Std Deviation 82.1 H, RDW Coeff of Pina 19.8 H, Plt Count 182, MPV 11.0, Immature Gran % (Auto) 1.100 H, Neut % (Auto) 65.6, Lymph % (Auto) 17.0 L, [place] % (Auto) 10.5 H, Eos % (Auto) 5.1 H, Baso % (Auto) 0.7, Absolute Neuts (auto) 3.7, Absolute Lymphs (auto) 0.96, Nucleated RBC % 0.4, Differential Comment SCANNED, Anisocytosis 2+, Microcytosis 1+, Macrocytosis 1+ 09/07/21 14:30: PT 17.2 H, INR 1.4, APTT 36.4 H 09/07/21 14:30: Sodium 137, Potassium 4.1, Chloride 101, Carbon Dioxide 23.0, Anion Gap 13, BUN 44 H, Creatinine 1.81 H, Estim Creat Clear Calc 26.12, Est GFR (MDRD) Af Amer 35 L, Est GFR (MDRD) Non-Af 29 L, BUN/Creatinine Ratio 24.3 H, Glucose 266 H, Calcium 9.1 09/07/21 15:17: Blood Type O NEGATIVE, Antibody Screen NEGATIVE Micro: Microbiology 09/07/21 15:10 Stool Stool Occult Blood (KEV) - Final Occult Blood Positive Radiology Impression Brain CT 09/07/21 14:35 IMPRESSION: No acute intracranial finding. Electronically Signed: Ciro Miller MD at 15:48 EDT , Charges/Coding Visit Charges Inpatient E&M: 41185 Init Hosp L3
[2021-09-07] MEDS: Magnesium Chloride 64 MG Delay Rel.Tablet 256 MG PO (21:23)
[2021-09-07] MEDS: Pravastatin 40 MG Tablet PO (21:24)
--- NOTE | 2021-09-07 22:12 | PCM.PN.BLA ---
Progress Note Notified by nursing staff that patient is refusing SCDs and wants either CRUZITO hose or Douglas wrap. Douglas wrap ordered.
[2021-09-08] VITALS (18 sets, daily range): BP systolic 110–158; BP diastolic 54–91; PULSE 63–83; RESP 16–18; TEMP 36.3–36.7; O2SAT 93–97; BMI 32.8
[2021-09-08] MEDS: 0.9% Normal Saline 1,000 ML 150 ML IV ×2 (00:30→23:55)
[2021-09-08 05:19] LABS: Absolute Lymphocyte Count 0.96 X10^3/uL (0.83-4.51); Absolute Neutrophil Count 2.8 X10^3/uL (2.0-7.7); Basophil# 0.04 X10^3/uL; Basophil% 0.9 % (0-1); Eosinophil# 0.29 X10^3/uL; Eosinophils% 6.2 % (0-5); Hematocrit 19.6 % (37-47); Hemoglobin 6.4 g/dL (12.0-15.0); Lymphocyte # 0.96 X10^3/ul (0.83-4.51); Lymphocyte % 20.6 % (19-41); Mean Corp Hgb Conc 32.7 g/dL (32-36); Mean Corpuscular Hgb 38.3 pg (27.0-32.0); Mean Corpuscular Volume 117.4 fL (81-99); Mean Platelet Vol. 10.1 fl (6.2-12.0); Monocyte# 0.51 X10^3/uL; Monocyte% 10.9 % (0-10); NRBC Flagged by Analyzer 0.4 % (0-5); Neutrophil # 2.82 X10^3/uL (2.7-7.7); Neutrophil % 60.5 % (47-70); POSITIVE MORPHOLOGY YES; Platelet Count 133 K/mm3 (150-450); RBC Distribution Width CV 19.1 % (11.6-14.6); RBC Distribution Width SD 81.6 fl (35.1-43.9); Red Blood Count 1.67 M/mm3 (4.2-5.4); White Blood Count 4.7 K/mm3 (4.4-11.0)
[2021-09-08 05:27] LABS: Differential Indicated SCAN CRITERIA MET
[2021-09-08 05:40] LABS: Anion Gap 8 (5-15); BUN 31 mg/dL (7-18); Calcium,Total 8.3 mg/dL (8.5-10.1); Chloride 106 mmol/L (98-107); Creatinine, Serum 1.24 mg/dL (0.55-1.02); EST Glomerular Filtration Rate 45 mL/min (>60); Est Glom Filt Rate - Afr Amer 54 mL/min (>60); Estimated Creatinine Clearance 38.12 ml/min; Glucose 177 mg/dL (74-106); Potassium 4.2 mmol/L (3.5-5.1); Sodium Level 138 mmol/L (136-145)
[2021-09-08 05:42] LABS: International Normalized Ratio 1.4; Partial Thromboplast Time 36.1 Seconds (24.1-36.2); Prothrombin Time (Protime)PT. 17.2 SECONDS (11.7-14.9)
--- NOTE | 2021-09-08 05:55 | EKG12_ITS ---
Test Reason : AM EKG Blood Pressure : / mmHG Vent. Rate : 064 BPM Atrial Rate : 064 BPM P-R Int : 206 ms QRS Dur : 120 ms QT Int : 488 ms P-R-T Axes : 091 -47 -37 degrees QTc Int : 503 ms Normal sinus rhythm Left anterior fascicular block Nonspecific ST and T wave abnormality Abnormal ECG When compared with ECG of 07-SEP-2021 14:44, MANUAL COMPARISON REQUIRED, DATA IS UNCONFIRMED Confirmed by JESSICA MONTE, RANJANA ([id number]), editor dictionary JARETT RAMIREZ ([id number]) on 09/10/2021 12:22:16 PM Referred By: Confirmed By:RANJANA LOPEZ MD
--- NOTE | 2021-09-08 06:05 | NURSING ---
[facility] to [facility] at this time.
[2021-09-08 06:42] LABS: Anisocytosis 2+; Differential Comment SCANNED; Macrocytosis 2+; Polychromasia RARE
[2021-09-08 07:40] LABS: Hemoglobin A1c 5.8 % (3.8-5.6)
--- NOTE | 2021-09-08 08:30 | NURSING ---
to endo per bed prbc continue to infuse
[2021-09-08] MEDS: Lactated Ringers 1,000 ML 15 ML IV (08:51)
--- NOTE | 2021-09-08 08:51 | PN.HOSP_ITS ---
Subjective Subjective Patient seen and examined. She still complained of some dizziness with standing up. She had very dark stools again this morning. She denied any abdominal pain, nausea, vomiting or diarrhea. REview of systems is otherwise negative. Objective Data Objective Data Vital Signs: Vital Signs Temp Pulse Resp BP Pulse Ox 97.9 F 68 16 155/80 H 96 09/08/21 07:16 09/08/21 08:16 09/08/21 08:16 09/08/21 08:16 09/08/21 08:16 Oxygen Delivery Method Room Air Weight: 210 lb Body Mass Index (BMI) 32.8 Intake & Output: Intake and Output for Last 24 Hours 09/06/21 09/07/21 09/08/21 23:59 23:59 23:59 Intake Total 560 / 560 1900 / 1900 Output Total 0 / 0 Balance 560 / 560 1900 / 1900 Lab / Micro Data Result Diagrams: 09/08/21 05:07 09/08/21 05:07 Labs: Laboratory Results - last 24 hr 09/07/21 14:30: WBC 5.6, RBC 1.99 L, Hgb 7.9 L, Hct 23.2 L, MCV 116.6 H, MCH 39.7 H, MCHC 34.1, RDW Std Deviation 82.1 H, RDW Coeff of Pina 19.8 H, Plt Count 182, MPV 11.0, Immature Gran % (Auto) 1.100 H, Neut % (Auto) 65.6, Lymph % (Auto) 17.0 L, [place] % (Auto) 10.5 H, Eos % (Auto) 5.1 H, Baso % (Auto) 0.7, Absolute Neuts (auto) 3.7, Absolute Lymphs (auto) 0.96, Nucleated RBC % 0.4, D ifferential Comment SCANNED, Anisocytosis 2+, Microcytosis 1+, Macrocytosis 1+ 09/07/21 14:30: PT 17.2 H, INR 1.4, APTT 36.4 H 09/07/21 14:30: Sodium 137, Potassium 4.1, Chloride 101, Carbon Dioxide 23.0, Anion Gap 13, BUN 44 H, Creatinine 1.81 H, Estim Creat Clear Calc 26.12, Est GFR (MDRD) Af Amer 35 L, Est GFR (MDRD) Non-Af 29 L, BUN/Creatinine Ratio 24.3 H, Glucose 266 H, Calcium 9.1 09/07/21 15:17: Blood Type O NEGATIVE, Antibody Screen NEGATIVE 09/07/21 15:17: Crossmatch See Detail 09/08/21 05:07: Sodium 138, Potassium 4.2, Chloride 106, Carbon Dioxide 24.0, Anion Gap 8, BUN 31 H, Creatinine 1.24 H, Estim Creat Clear Calc 38.12, Est GFR (MDRD) Af Amer 54 L, Est GFR (MDRD) Non-Af 45 L, BUN/Creatinine Ratio 25.0 H, Glucose 177 H, Calcium 8.3 L 09/08/21 05:07: WBC 4.7, RBC 1.67 L, Hgb 6.4 L, Hct 19.6 L, MCV 117.4 H, MCH 38.3 H, MCHC 32.7, RDW Std Deviation 81.6 H, RDW Coeff of Pina 19.1 H, Plt Count 133 L, MPV 10.1, Immature Gran % (Auto) 0.900, Neut % (Auto) 60.5, Lymph % (Auto) 20.6, [place] % (Auto) 10.9 H, Eos % (Auto) 6.2 H, Baso % (Auto) 0.9, Absolute Neuts (auto) 2.8, Absolute Lymphs (auto) 0.96, Nucleated RBC % 0.4, Differential Comment SCANNED, Polychromasia RARE, Anisocytosis 2+, Macrocytosis 2+ 09/08/21 05:07: PT 17.2 H, INR 1.4, APTT 36.1 09/08/21 05:07: Hemoglobin A1c 5.8 H Micro: Microbiology 09/07/21 15:10 Stool Stool Occult Blood (KEV) - Final Occult Blood Positive Radiography Diagnostic Testing: Radiology Impression Brain CT 09/07/21 14:35 IMPRESSION: No acute intracranial finding. Electronically Signed: Ciro Miller MD at 15:48 EDT , Physical Exam Const alert, oriented x3 and no apparent distress General Appearance: cooperative Exam Limitations: no limitations HEENT normocephalic, head/scalp atraumatic, hearing grossly normal bilaterally and moist oral mucous membranes Head and Scalp: normocephalic Eyes PERRL, EOMs intact bilaterally and conjunctivae normal Neck no lymphadenopathy and supple Resp normal respiratory effort, no retractions, no use of accessory muscles and clear to auscultation bilaterally Cardio regular rate, regular rhythm, S1 normal heart sound, S2 normal heart sound and no murmurs GI normal to inspection, nondistended, normoactive bowel sounds, soft to palpation, non-tender and non-distended Extremity normal to inspection, full ROM and no clubbing, cyanosis or edema Peripheral Pulses: Yes pulses 2+ throughout Skin no rashes or lesions noted Neuro oriented x3, CN's II-XII intact bilaterally and moves all extremities Sensorium / Orientation: awake and alert Psych affect normal Assessment & Plan Assessment/Plan (1) GI bleed: (2) Upper GI bleed: (3) Anemia: (4) Dizziness: PLAN: #Dizziness due to symptomatic anemia * still has dizziness with standing up * Hb is down to 6.4 today, from 7.9 on admission * still having very dark stools * to be transfused with one unit of PRBCs * GI on board. * For EGD and capsule endoscopy * on IV pantoprazole drip and octreotide drip * anticoagulants on hold. * for EGD and capsule endoscopy today. 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 It also showed portal gastropathy and normal esophagus. * check iron panel and vitamin B12 as well as folic acid * #Acute on chronic anemia due to recurrent upper GI bleed * as above * #Type 2 diabetes mellitus * hold metformin and trulicity * ISS. Accuchecks ACHS * #Afib * rate controlled. hold eliquis * hold aspirin also. On amiodarone * #Hyperlipidemia: on statin #Cirrhosis * due to hep C. * on furosemide * per GI, will need a CT of the abdomen and pelvis for staging to ensure she doesnt have any underlying liver mass or lesion. * check alpha feto protein and ammonia level as well as INR and apTT * #History of neuroendocrine tumor * this was detected when she had an EGD for anemia in 2019. IT was a well differentiated neuroendocrine tumor of the esophagus * follows with Dr De La Vega at [facility] * per GI, her recent octreotide scan didnt show any evidence of active neuroendocrine tumor * DVT prophylaxis: SCDs Code status; full code * Charges/Coding Visit Charges Inpatient E&M: 37115 Subs Hosp L3
--- NOTE | 2021-09-08 09:37 | PN_ITS ---
Subjective Subjective Patient underwent an upper endoscopy. She was discovered to have a basically normal esophagus. She does have moderate portal gastropathy and gastric antral vascular ectasia that can ooze blood. There were no signs of bleeding. She had no varices in her esophagus stomach or duodenum that I could see during her u pper endoscopy. There was no sign of acute GI blood loss. Objective Data Objective Data Vital Signs: Vital Signs Temp Pulse Resp BP Pulse Ox 97.9 F 68 16 155/80 H 96 09/08/21 07:16 09/08/21 08:16 09/08/21 08:16 09/08/21 08:16 09/08/21 08:16 Oxygen Delivery Method Room Air Weight: 210 lb Body Mass Index (BMI) 32.8 Intake & Output: Intake and Output for Last 24 Hours 09/06/21 09/07/21 09/08/21 23:59 23:59 23:59 Intake Total 560 / 560 1900 / 1900 Output Total 0 / 0 Balance 560 / 560 1900 / 1900 Lab / Micro Data Result Diagrams: 09/08/21 05:07 09/08/21 05:07 Labs: Laboratory Results - last 24 hr 09/07/21 14:30: WBC 5.6, RBC 1.99 L, Hgb 7.9 L, Hct 23.2 L, MCV 116.6 H, MCH 39.7 H, MCHC 34.1, RDW Std Deviation 82.1 H, RDW Coeff of Pina 19.8 H, Plt Count 182, MPV 11.0, Immature Gran % (Auto) 1.100 H, Neut % (Auto) 65.6, Lymph % (Auto) 17.0 L, [place] % (Auto) 10.5 H, Eos % (Auto) 5.1 H, Baso % (Auto) 0.7, Absolute Neuts (auto) 3.7, Absolute Lymphs (auto) 0.96, Nucleated RBC % 0.4, Differential Comment SCANNED, Anisocytosis 2+, Microcytosis 1+, Macrocytosis 1+ 09/07/21 14:30: PT 17.2 H, INR 1.4, APTT 36.4 H 09/07/21 14:30: Sodium 137, Potassium 4.1, Chloride 101, Carbon Dioxide 23.0, Anion Gap 13, BUN 44 H, Creatinine 1.81 H, Estim Creat Clear Calc 26.12, Est GFR (MDRD) Af Amer 35 L, Est GFR (MDRD) Non-Af 29 L, BUN/Creatinine Ratio 24.3 H, Glucose 266 H, Calcium 9.1 09/07/21 15:17: Blood Type O NEGATIVE, Antibody Screen NEGATIVE 09/07/21 15:17: Crossmatch See Detail 09/08/21 05:07: Sodium 138, Potassium 4.2, Chloride 106, Carbon Dioxide 24.0, Anion Gap 8, BUN 31 H, Creatinine 1.24 H, Estim Creat Clear Calc 38.12, Est GFR (MDRD) Af Amer 54 L, Est GFR (MDRD) Non-Af 45 L, BUN/Creatinine Ratio 25.0 H, Gl ucose 177 H, Calcium 8.3 L 09/08/21 05:07: WBC 4.7, RBC 1.67 L, Hgb 6.4 L, Hct 19.6 L, MCV 117.4 H, MCH 38.3 H, MCHC 32.7, RDW Std Deviation 81.6 H, RDW Coeff of Pina 19.1 H, Plt Count 133 L, MPV 10.1, Immature Gran % (Auto) 0.900, Neut % (Auto) 60.5, Lymph % (Auto) 20.6, [place] % (Auto) 10.9 H, Eos % (Auto) 6.2 H, Baso % (Auto) 0.9, Absolute Neuts (auto) 2.8, Absolute Lymphs (auto) 0.96, Nucleated RBC % 0.4, Dif ferential Comment SCANNED, Polychromasia RARE, Anisocytosis 2+, Macrocytosis 2+ 09/08/21 05:07: PT 17.2 H, INR 1.4, APTT 36.1 09/08/21 05:07: Hemoglobin A1c 5.8 H Micro: Microbiology 09/07/21 15:10 Stool Stool Occult Blood (KEV) - Final Occult Blood Positive Radiography Diagnostic Testing: Radiology Impression Brain CT 09/07/21 14:35 IMPRESSION: No acute intracranial finding. Electronically Signed: Ciro Miller MD at 15:48 EDT , Physical Exam Const alert General Appearance: cooperative Orientation / Consciousness: oriented to person HEENT hearing grossly normal bilaterally Head and Scalp: normal to inspection Face and Sinus: face symmetric Nose: external nose normal Mouth: oral and palatal mucosa normal Eyes conjunctivae normal General Eye: normal appearance of both eyes Neck full ROM General: normal visual inspection Lymph Lymphatic: no lymphadenopathy noted Chest inspection of chest normal and palpation of chest normal Chest: symmetrical chest wall rise Resp normal respiratory effort Effort and Inspection: able to speak in complete sentences Cardio regular rate GI non-distended Percussion: normal to percussion Rectal Exam: deferred Neuro Speech: speech normal Gait (Neuro): normal gait Assessment & Plan Assessment/Plan (1) Cirrhosis: PLAN: The patient is not showing any signs of decompensated cirrhosis at this time. She has no appreciable ascites, encephalopathy, renal failure. But she is having a GI bleed that is likely from a soft small source such as an AVM, telangiectasia or Deilafoy lesion. (2) GI bleed: PLAN: She should undergo a capsule endoscopy. However while she is in the hospital she should undergo a colonoscopy to see if we can get into the small bowel from the bottom to see if we can locate a possible source of GI bleeding. (3) Anemia: PLAN: Patient's last hemoglobin 6.4. Commended repeat her hemoglobin and keep H&H greater than 7. Charges/Coding Visit Charges Inpatient E&M: 10074 Subs Hosp L2
--- NOTE | 2021-09-08 09:37 | OP.EGD_ITS ---
Patient Name: Shanna Modi Procedure Date: 09/08/2021 9:06 AM Date of : 1945 Age: 76 Procedure: Upper GI endoscopy Indications: Iron deficiency anemia Providers: Gilberto Rangel DO Medicines: Monitored Anesthesia Care Patient Profile: This is a 76 year old female. Refer to note in patient chart for documentation of history and physical. Patient has symptoms. Complications: No immediate complications. Procedure: Pre-Anesthesia Assessment: - Prior to the procedure, a History and Physical was performed, and patient medications and allergies were reviewed. The risks and benefits of the procedure and the sedation options and risks were discussed with the patient. All questions were answered and informed consent was obtained. Patient identification and proposed procedure were verified by the physician in the pre-procedure area. Mental Status Examination: alert and oriented. Airway Examination: normal oropharyngeal airway and neck mobility. Respiratory Examination: clear to auscultation. CV Examination: normal. Prophylactic Antibiotics: The patient does not require prophylactic antibiotics. Prior Anticoagulants: The patient has taken no previous anticoagulant or antiplatelet agents. After reviewing the risks and benefits, the patient was deemed in satisfactory condition to undergo the procedure. The anesthesia plan was to use moderate sedation / analgesia (conscious sedation). Immediately prior to administration of medications, the patient was re-assessed for adequacy to receive sedatives. The heart rate, respiratory rate, oxygen saturations, blood pressure, adequacy of pulmonary ventilation, and response to care were monitored throughout the procedure. The physical status of the patient was re-assessed after the procedure. After obtaining informed consent, the endoscope was passed under direct vision. Throughout the procedure, the patient's blood pressure, pulse, and oxygen saturations were monitored continuously. The colonoscope was introduced through the mouth, and advanced to the proximal jejunum. The upper GI endoscopy was accomplished without difficulty. The patient tolerated the procedure well. Scope In: 9:22:33 AM Scope Out: 9:31:45 AM Total Procedure Duration Time 0 hours 9 minutes 12 seconds Findings: A single area of ectopic gastric mucosa was found in the upper third of the esophagus, 20 cm from the incisors. 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 Moderate portal hypertensive gastropathy was found in the cardia, in the gastric fundus, in the gastric body, on the greater curvature of the stomach and on the lesser curvature of the stomach. The examined duodenum was normal. Impression: - Ectopic gastric mucosa in the upper third of the esophagus. - Gastric antral vascular ectasia without bleeding. - Portal hypertensive gastropathy. - Normal examined duodenum. - No specimens collected. Recommendation: - [facility] - Full liquid diet today. - Continue present medications. Procedure Code(s): --- Professional --- 03634, Esophagogastroduodenoscopy, flexible, transoral; diagnostic, including collection of specimen(s) by brushing or washing, when performed (separate procedure) CPT copyright 2017 [employer]. All rights reserved. The codes documented in this report are preliminary and upon aircraft load controller review may be revised to meet current compliance requirements. Gilberto Rangel DO 09/08/2021 9:37:32 AM This report has been signed electronically. Number of Addenda: 1 Note Initiated On: 09/08/2021 9:06 AM Addendum Number: 1 Addendum Date: 01/09/2022 6:08:34 AM MAC was used as sedation for this procedure. Gilberto Rangel DO 01/09/2022 6:08:38 AM This report has been signed electronically.
--- NOTE | 2021-09-08 09:38 | OP.CCLET_ITS ---
01/09/2022 Farhan Mendiola [address] [place] [address] Re : Upper GI endoscopy procedure for Shanna Ly Dear Dr. Mendiola This procedure was performed on Wednesday, September 08, 2021. My impressions and recommendations are as follows: Impressions : - Ectopic gastric mucosa in the upper third of the esophagus. - Gastric antral vascular ectasia without bleeding. - Portal hypertensive gastropathy. - Normal examined duodenum. - No specimens collected. Recommendations : - [facility] - Full liquid diet today. - Continue present medications. My findings are described in the full procedure note, which is enclosed. If I can be of further assistance, please feel free to contact me at . Sincerely, Gilberto Rangel, 09/08/2021 9:37:32 AM This report has been signed electronically.
[2021-09-08] MEDS: Magnesium Chloride 64 MG Delay Rel.Tablet 256 MG PO ×2 (10:42→22:27)
[2021-09-08] MEDS: Amiodarone 200 MG Tablet PO (10:43)
[2021-09-08] MEDS: Furosemide 20 MG Tablet PO (10:43)
[2021-09-08] MEDS: Cholecalciferol (Vit D3) 125 MCG CAPSULE (5,000 UNITS) PO (10:43)
[2021-09-08 10:49] LABS: Ferritin 279 ng/mL (8-252); Iron 108 ug/dL (50-170); Iron Binding Capacity,Total 281 ug/dL (250-450); PERCENT IRON SATURATION 38.4 % (15.0-55.0)
[2021-09-08 12:15] LABS: Bedside Glucose 160 mg/dL (74-106)
[2021-09-08] MEDS: Bisacodyl 5 MG Tablet 20 MG PO (16:21)
[2021-09-08 16:40] LABS: Bedside Glucose 166 mg/dL (74-106)
[2021-09-08] MEDS: Polyethylene Glycol 3350 BOWEL PREP 1 BOTTLE PO (16:46)
[2021-09-08] MEDS: Pravastatin 40 MG Tablet PO (22:27)
[2021-09-09] VITALS (18 sets, daily range): BP systolic 116–178; BP diastolic 60–104; PULSE 64–85; RESP 16–18; TEMP 36–36.7; O2SAT 93–98; BMI 33.1
--- NOTE | 2021-09-09 | COLBX_PTH ---
PATIENT: GRIS RODRIGUEZ LOC: [facility] U#:[id number] AGE/SX: 76/F ROOM: [facility] RE09/07/[address]: Dr. Cely Sharma MD : 1945 BED: 1 DIS: 09/11/2021 SPEC #: [id number] RECD: 09/09/21 17:46 STATUS: ARIN TOLLIVER #: [id number] JASBIR: 09/09/21 00:[address]: Gilberto Rangel DEPT: SURGICAL PATHOLOGY RECD BY: Max Hernández ENTERED: 09/10/21 10:25 SP TYPE: COLON BX OTHR DR: MD Dr. Cely Escalante MD Tissues: A - Ascending colon B - Cecum, NOS C - Sigmoid colon biopsy Procedures: Surgery Specimen Level IV Comments: @ Ordering doctor for SUIV edited from to @ by LAUREN at 09/10/21 1514 @ Submitting doctor edited from to @ by CARMENOD at 09/10/21 1514 HEADER OPERATION: Colonoscopy with cautery and biopsy (MAC) PRE-OP DIAGNOSIS: GI bleed, upper GI bleed, anemia TISSUE SUBMITTED: A ? Ascending colon polyp, B ? Cecum polyp, C ? Sigmoid polyp MICROSCOPIC DIAGNOSIS A. Ascending colon polyp, biopsy: Tubular adenoma. B. Cecal polyp, biopsy: Fragments of tubular adenoma. C. Sigmoid colon polyp, biopsy: Fragments of tubular adenoma. AM:genia 09/11/2021 MICROSCOPIC DESCRIPTION Slides are reviewed. GROSS DESCRIPTION A - Received in fixative is one container labeled with the patient's name and designated ascending colon polyp. The specimen consists of one irregular fragment of light jacobs soft tissue that measures 0.5 x 0.3 x 0.1 cm. The specimen is totally submitted in one cassette. B - Received in fixative is one container labeled with the patient's name and designated cecal polyp. The specimen consists of two irregular fragments of light jacobs soft tissue that in aggregate measure 0.7 x 0.4 x 0.1 cm. The specimen is totally submitted in one cassette. C - Received in fixative is one container labeled with the patient's name and designated sigmoid polyp. The specimen consists of one irregular fragment of light jacobs soft tissue that measures 0.3 x 0.3 x 0.1 cm. The specimen is totally submitted in one cassette. / AM:genia 09/10/2021 TC:5 CPT: 27828 x3
--- NOTE | 2021-09-09 04:26 | EKG12_ITS ---
Test Reason : AM EKG Blood Pressure : / mmHG Vent. Rate : 064 BPM Atrial Rate : 064 BPM P-R Int : 194 ms QRS Dur : 124 ms QT Int : 496 ms P-R-T Axes : 073 -49 -18 degrees QTc Int : 511 ms Normal sinus rhythm Left anterior fascicular block Septal infarct , age undetermined Abnormal ECG When compared with ECG of 08-SEP-2021 05:21, MANUAL COMPARISON REQUIRED, DATA IS UNCONFIRMED Confirmed by JESSICA MONTE, RANJANA ([id number]), telegraph editor JARETT RAMIREZ ([id number]) on 09/10/2021 12:21:39 PM Referred By: CRISELDA Confirmed By:RANJANA LOPEZ MD
[2021-09-09 04:53] LABS: Absolute Lymphocyte Count 1.09 X10^3/uL (0.83-4.51); Basophil# 0.04 X10^3/uL; Basophil% 0.8 % (0-1); Eosinophil# 0.31 X10^3/uL; Eosinophils% 6.2 % (0-5); Hematocrit 25.5 % (37-47); Hemoglobin 8.6 g/dL (12.0-15.0); Lymphocyte # 1.09 X10^3/ul (0.83-4.51); Lymphocyte % 21.8 % (19-41); Mean Corp Hgb Conc 33.7 g/dL (32-36); Mean Corpuscular Hgb 37.2 pg (27.0-32.0); Mean Corpuscular Volume 110.4 fL (81-99); Mean Platelet Vol. 9.5 fl (6.2-12.0); Monocyte# 0.53 X10^3/uL; Monocyte% 10.6 % (0-10); NRBC Flagged by Analyzer 0.4 % (0-5); Neutrophil # 2.97 X10^3/uL (2.7-7.7); Neutrophil % 59.4 % (47-70); POSITIVE MORPHOLOGY YES; Platelet Count 174 K/mm3 (150-450); RBC Distribution Width CV 23.9 % (11.6-14.6); RBC Distribution Width SD 91.5 fl (35.1-43.9); Red Blood Count 2.31 M/mm3 (4.2-5.4)
[2021-09-09 04:57] LABS: Differential Indicated SCAN CRITERIA MET
[2021-09-09 05:06] LABS: Anion Gap 8 (5-15); BUN 19 mg/dL (7-18); BUN/Creat Ratio 15.3 RATIO (10-20); Calcium,Total 9.2 mg/dL (8.5-10.1); Chloride 106 mmol/L (98-107); Creatinine, Serum 1.24 mg/dL (0.55-1.02); EST Glomerular Filtration Rate 45 mL/min (>60); Est Glom Filt Rate - Afr Amer 54 mL/min (>60); Estimated Creatinine Clearance 38.12 ml/min; Glucose 192 mg/dL (74-106); Potassium 4.3 mmol/L (3.5-5.1); Sodium Level 138 mmol/L (136-145)
[2021-09-09 05:08] LABS: Anisocytosis 2+; Macrocytosis 2+
[2021-09-09 05:09] LABS: Polychromasia 1+
[2021-09-09 06:33] LABS: International Normalized Ratio 1.2; Prothrombin Time (Protime)PT. 14.6 SECONDS (11.7-14.9)
--- NOTE | 2021-09-09 09:55 | CASEMGMT ---
RN JESSE Face to Face with patient for initial transition planning/care coordination assessment. RN CM introduced self and role at [facility]. Patient sitting at edge of bed, alert and oriented. Patient willing to participate in assessment and is able to answer all questions appropriately. Care providers, pharmacy, and demographics verified. Patient wishes to discharge home with resumption of aide services through [facility]. Patient states she has no further needs or concerns at this time. CM to follow for discharge planning needs that may arise. PCP: [facility] Specialists: Yolette, machine bander and cellophaner helper; Friend, GI; Samantha, hair cutter Preferred Pharmacy: [facility] Insurance: Number 100 [facility] Prescription Benefit: yes Living Will/HPOA: none LNOK: daughters Living Arrangements: Patient lives alone in a first floor apartment with 1 step to enter. Patient states she is independent at home for self care. Transportation: self, daughter DME/HHC: Patient states she has shower chair, raised toilet, walker, rollator, grab bars, and medical alert at home. Patient denies previous HHC or SNF. Patient states she is active with [facility] program but cannot recall name of CM. Patient has aide services 5 hours a week through [facility] for household assistance. Disposition Plan: Patient to discharge home with resumption of aide services, family support, and follow-up plans in place. Julissa LEE, RN, CM
--- NOTE | 2021-09-09 09:58 | PN.HOSP_ITS ---
Subjective Subjective Patient seen and examined. She said she had had diarrhea overnight, but this was due to the prep for colonoscopy today. She said some of her bowel movements were very black, and she also had some bright red blood. REview of systems is otherwise negative. She was due for a CT of hte abdomen pelvis today with contrast on outpatient basis; this has been ordered for today whilst she is inpatient. Objective Data Objective Data Vital Signs: Vital Signs Temp Pulse Resp BP Pulse Ox 96.8 F L 69 16 116/60 95 09/09/21 01:51 09/09/21 07:23 09/09/21 01:51 09/09/21 01:51 09/09/21 01:51 Oxygen Delivery Method Room Air Weight: 211 lb 3.2 oz Body Mass Index (BMI) 33.1 Intake & Output: Intake and Output for Last 24 Hours 09/07/21 09/08/21 09/09/21 23:59 23:59 23:59 Intake Total 560 / 560 4500 / 4500 Output Total 0 / 0 Balance 560 / 560 4500 / 4500 Lab / Micro Data Result Diagrams: 09/09/21 04:49 09/09/21 04:49 Labs: Laboratory Results - last 24 hr 09/08/21 09:45: Ammonia 43.0 H 09/08/21 09:45: Iron 108, TIBC 281, Iron Saturation 38.4, Ferritin 279 H, Folate 12.40 09/08/21 12:09: POC Glucose 160 H 09/08/21 16:20: POC Glucose 166 H 09/09/21 04:49: Sodium 138, Potassium 4.3, Chloride 106, Carbon Dioxide 24.0, Anion Gap 8, BUN 19 H, Creatinine 1.24 H, Estim Creat Clear Calc 38.12, Est GFR (MDRD) Af Amer 54 L, Est GFR (MDRD) Non-Af 45 L, BUN/Creatinine Ratio 15.3, Glucose 192 H, Calcium 9.2 09/09/21 04:49: WBC 5.0, RBC 2.31 L, Hgb 8.6 L, Hct 25.5 L, MCV 110.4 H D, MCH 37.2 H, MCHC 33.7, RDW Std Deviation 91.5 H, RDW Coeff of Pina 23.9 H, Plt Count 174, MPV 9.5, Immature Gran % (Auto) 1.200 H, Neut % (Auto) 59.4, Lymph % (Auto) 21.8, [place] % (Auto) 10.6 H, Eos % (Auto) 6.2 H, Baso % (Auto) 0.8, Absolute Neuts (auto) 3.0, Absolute Lymphs (auto) 1.09, Nucleated RBC % 0.4, Polychromasia 1+, Anisocytosis 2+, Macrocytosis 2+ 09/09/21 06:07: PT 14.6, INR 1.2, APTT 31.0 Micro: Microbiology 09/07/21 15:10 Stool Stool Occult Blood (KEV) - Final Occult Blood Positive Physical Exam Const alert, oriented x3 and no apparent distress General Appearance: cooperative Exam Limitations: no limitations HEENT normocephalic, head/scalp atraumatic, hearing grossly normal bilaterally and moist oral mucous membranes Head and Scalp: normocephalic Eyes PERRL, EOMs intact bilaterally and conjunctivae normal Neck no lymphadenopathy and supple Resp normal respiratory effort, no retractions, no use of accessory muscles and clear to auscultation bilaterally Cardio regular rate, regular rhythm, S1 normal heart sound, S2 normal heart sound and no murmurs GI normal to inspection, nondistended, normoactive bowel sounds, soft to palpation, non-tender and non-distended Extremity normal to inspection, full ROM and no clubbing, cyanosis or edema Peripheral Pulses: Yes pulses 2+ throughout Skin no rashes or lesions noted Neuro oriented x3, CN's II-XII intact bilaterally and moves all extremities Sensorium / Orientation: awake and alert Psych affect normal Assessment & Plan Assessment/Plan (1) GI bleed: (2) Upper GI bleed: (3) Anemia: (4) Dizziness: PLAN: #Dizziness due to symptomatic anemia * hb today is 8.6 * is s/p transfusion of one unit of PRBC * had EGD which showed ectopic gastric mucosa in upper third of esophagus, gastric antral vascular ectasia without bleeding and portal hypertensive gastropathy * for colonoscopy today * on PPI drip * gastroenterology on board. * will need capsule endoscopy also * #Acute on chronic anemia due to recurrent upper GI bleed * as above * #Type 2 diabetes mellitus * hold metformin and trulicity * ISS. Accuchecks ACHS * #Afib * rate controlled. eliquis and aspirin on hold. * on amiodarone. * * #Hyperlipidemia: on statin #Cirrhosis * due to hep C. * on furosemide * CT of the abdomen and pelvis with contrast ordered today, per GI. * to have IV hydrocortisone 200mg 5 hours, then [address],a nd PO benadryl 50mg x1 before the CT due to contrast allergy. * ammonia level was 43, so started on lactulose. To titrate till she is having 2-3 loose stools daily * #History of neuroendocrine tumor * this was detected when she had an EGD for anemia in 2019. 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
--- NOTE | 2021-09-09 10:12 | CASEMGMT ---
Patient is active with [facility]. SW called [facility] and spoke with Jesu Gutierrez on the coverage line. Patient's case liner is Aubrie Hernandez. Patient has and aide through [facility] and a medical alert button through [facility]. Kiah Bautista [employer] [facility]
[2021-09-09 10:26] LABS: Hemoglobin A1c 5.7 % (3.8-5.6)
[2021-09-09] MEDS: Hydrocortisone Sod Succinate 100 MG/2 ML Vial 200 MG IV ×2 (11:04→18:16)
[2021-09-09] MEDS: 0.9% Saline Lock 10 ML Syringe IV ×2 (11:07→20:21)
[2021-09-09 11:20] LABS: Bedside Glucose 189 mg/dL (74-106)
[2021-09-09 13:29] LABS: Vitamin B12 354 pg/mL (211-911)
--- NOTE | 2021-09-09 14:10 | NURSING ---
to endo per bed
--- NOTE | 2021-09-09 16:17 | OP.COLON_ITS ---
Patient Name: Shanna Modi Procedure Date: 09/09/2021 3:19 PM Date of : 1945 Age: 76 Procedure: Colonoscopy Indications: Hematochezia Providers: Gilberto Rangel DO Medicines: Monitored Anesthesia Care Patient Profile: Last Colonoscopy: within the past 3 months. Complications: No immediate complications. Procedure: Pre-Anesthesia Assessment: - Prior to the procedure, a History and Physical was performed, and patient medications and allergies were reviewed. The patient is competent. The risks and benefits of the procedure and the sedation options and risks were discussed with the patient. All questions were answered and informed consent was obtained. Patient identification and proposed procedure were verified by the physician in the pre-procedure area. Mental Status Examination: alert and oriented. Airway Examination: normal oropharyngeal airway and neck mobility. Respiratory Examination: clear to auscultation. CV Examination: normal. Prophylactic Antibiotics: The patient does not require prophylactic antibiotics. Prior Anticoagulants: The patient has taken no previous anticoagulant or antiplatelet agents. ASA Grade Assessment: II - A patient with mild systemic disease. After reviewing the risks and benefits, the patient was deemed in satisfactory condition to undergo the procedure. The anesthesia plan was to use moderate sedation / analgesia (conscious sedation). Immediately prior to administration of medications, the patient was re-assessed for adequacy to receive sedatives. The heart rate, respiratory rate, oxygen saturations, blood pressure, adequacy of pulmonary ventilation, and response to care were monitored throughout the procedure. The physical status of the patient was re-assessed after the procedure. After I obtained informed consent, the scope was passed under direct vision. Throughout the procedure, the patient's blood pressure, pulse, and oxygen saturations were monitored continuously. The colonoscope was introduced through the anus and advanced to the terminal ileum. The colonoscopy was performed without difficulty. The patient tolerated the procedure well. The quality of the bowel preparation was fair. Moderate Sedation: Moderate (conscious) sedation was administered by the endoscopy nurse and supervised by the endoscopist. The patient's oxygen saturation, heart rate, blood pressure and response to care were monitored. Total physician intraservice time was 15 minutes. Scope In: 3:35:34 PM Scope Withdrawal Time 0 hours 11 minutes 38 seconds Scope Out: 3:59:18 PM Total Procedure Duration Time 0 hours 23 minutes 44 seconds Findings: Hemorrhoids were found on perianal exam. Non-bleeding thrombosed external and internal hemorrhoids were found during retroflexion. The hemorrhoids were moderate, large and Grade III (internal hemorrhoids that prolapse but require manual reduction). Multiple small and large-mouthed diverticula were found in the recto-sigmoid colon, sigmoid colon and descending colon. Erythema was seen in association with the diverticular opening. There was evidence of an impacted diverticulum. There was no evidence of diverticular bleeding. Four sessile polyps were found in the sigmoid colon, ascending colon and cecum. The polyps were 1 to 2 mm in size. These polyps were removed with a cold snare. Resection and retrieval were complete. Verification of patient identification for the specimen was done. Estimated blood loss was minimal. Multiple medium-sized angioectasias with bleeding were found at the hepatic flexure and in the ascending colon. Coagulation for bleeding prevention using heater probe was successful. Estimated blood loss was minimal. A small amount of semi-solid stool was found in the recto-sigmoid colon, in the sigmoid colon, in the descending colon and in the transverse colon. Impression: - Preparation of the colon was fair. - Hemorrhoids found on perianal exam. - Non-bleeding thrombosed external and internal hemorrhoids. - Moderate diverticulosis in the recto-sigmoid colon, in the sigmoid colon and in the descending colon. Erythema was seen in association with the diverticular opening. There was evidence of an impacted diverticulum. There was no evidence of diverticular bleeding. - Four 1 to 2 mm polyps in the sigmoid colon, in the ascending colon and in the cecum, removed with a cold snare. Resected and retrieved. - Multiple bleeding colonic angioectasias. Treated with a heater probe. - Stool in the recto-sigmoid colon, in the sigmoid colon, in the descending colon and in the transverse colon. Recommendation: - [facility]. - Resume previous diet. - Continue present medications. - Await pathology results. - No recommendation at this time regarding repeat colonoscopy due to age. Procedure Code(s): --- Professional --- 48480, 59, Colonoscopy, flexible; with control of bleeding, any method 71769, Colonoscopy, flexible; with removal of tumor(s), polyp(s), or other lesion(s) by snare technique G0500, Moderate sedation services provided by the same physician or other qualified health healthcare administration intern performing a gastrointestinal endoscopic service that sedation supports, requiring the presence of an independent trained observer to assist in the monitoring of the patient's level of consciousness and physiological status; initial 15 minutes of intra-service time; patient age 5 years or older (additional time may be reported with 84240, as appropriate) CPT copyright 2017 [employer]. All rights reserved. The codes documented in this report are preliminary and upon italian tutor review may be revised to meet current compliance requirements. Gilberto Rangel DO 09/09/2021 4:17:18 PM This report has been signed electronically. Number of Addenda: 1 Note Initiated On: 09/09/2021 3:19 PM Addendum Number: 1 Addendum Date: 01/09/2022 6:06:52 AM MAC was used as sedation for this procedure. Gilberto Rangel DO 01/09/2022 6:06:58 AM This report has been signed electronically.
--- NOTE | 2021-09-09 16:18 | OP.CCLET_ITS ---
01/09/2022 Farhan Mendiola [address] [place] [address] Re : Colonoscopy procedure for Shanna Morrisonkins Dear Dr. Mendiola This procedure was performed on Thursday, September 09, 2021. My impressions and recommendations are as follows: Impressions : - Preparation of the colon was fair. - Hemorrhoids found on perianal exam. - Non-bleeding thrombosed external and internal hemorrhoids. - Moderate diverticulosis in the recto-sigmoid colon, in the sigmoid colon and in the descending colon. Erythema was seen in association with the diverticular opening. There was evidence of an impacted diverticulum. There was no evidence of diverticular bleeding. - Four 1 to 2 mm polyps in the sigmoid colon, in the ascending colon and in the cecum, removed with a cold snare. Resected and retrieved. - Multiple bleeding colonic angioectasias. Treated with a heater probe. - Stool in the recto-sigmoid colon, in the sigmoid colon, in the descending colon and in the transverse colon. Recommendations : - [facility]. - Resume previous diet. - Continue present medications. - Await pathology results. - No recommendation at this time regarding repeat colonoscopy due to age. My findings are described in the full procedure note, which is enclosed. If I can be of further assistance, please feel free to contact me at . Sincerely, Gilberto Rangel, 09/09/2021 4:17:18 PM This report has been signed electronically.
[2021-09-09 17:26] LABS: Bedside Glucose 277 mg/dL (74-106)
[2021-09-09] MEDS: DiphenhydrAMINE 25 MG Capsule 50 MG PO (17:27)
[2021-09-09] MEDS: Amiodarone 200 MG Tablet PO (17:28)
[2021-09-09] MEDS: Magnesium Chloride 64 MG Delay Rel.Tablet 256 MG PO ×2 (17:28→22:39)
[2021-09-09] MEDS: Cholecalciferol (Vit D3) 125 MCG CAPSULE (5,000 UNITS) PO (17:29)
[2021-09-09] MEDS: Insulin Lispro 100 UNIT/ML INSULN.PEN SC ×2 (18:12→22:38)
--- NOTE | 2021-09-09 19:28 | CT_ITS ---
STUDY: CT Abdomen And Pelvis W/ Contrast Injection 09/09/2021 8:02 PM REASON FOR EXAM: Female, 76 years old. Abdominal pain cirrhosis Individualized dose optimization techniques were used for this CT. COMPARISON: None. TECHNIQUE: CT Abdomen And Pelvis W/ Contrast Injection Oral and amp; IV Gastrografin and amp; 100mL Isovue-300 FINDINGS: There are atherosclerotic calcifications of visualized coronary arteries. The visualized portions of the heart are within normal limits. There is a diffuse contour abnormality of the liver consistent with cirrhotic changes. There is non-visualization of the gallbladder, which may be secondary to either contraction or a prior cholecystectomy. Normal spleen. Normal pancreas. Normal bilateral adrenal glands. No acute findings of the right kidney. There are hypodensities in the left kidney. These are consistent for cysts. No follow up required. Normal visualized stomach. Normal small intestine. There are multiple colonic diverticula consistent with diverticulosis. There is non-visualization of the appendix. There are calcifications of the abdominal aorta. This is consistent for atherosclerotic disease. There is 25 mm abdominal aortic aneurysm. Vascular workup can be obtained based on clinical correlation. Normal inferior vena cava. Subcentimeter mesenteric lymph nodes. Normal urinary bladder. There is atrophy of the uterus. There is scoliosis of the lumbar spine. There is an umbilical hernia containing fat. There are diffuse degenerative changes of the visualized lumbar spine. There is bilateral neural foraminal stenosis from L1 to L5-S1. CT/Abdomen/Pelvis WITH Contrast IMPRESSION: (NOT LISTED IN ORDER OF SIGNIFICANCE) There is a diffuse contour abnormality of the liver consistent with cirrhotic changes. There is 25 mm abdominal aortic aneurysm. Vascular workup can be obtained based on clinical correlation. There are multiple colonic diverticula consistent with diverticulosis. There is bilateral neural foraminal stenosis from L1 to L5-S1. Other findings as above. Electronically Signed: Fantasma Guy MD at 20:13 EDT ,
[2021-09-09] MEDS: 0.9% Normal Saline 1,000 ML 150 ML IV (20:17)
[2021-09-09] MEDS: 0.9% Normal Saline 1,000 ML 100 ML IV (22:37)
[2021-09-09] MEDS: Lactulose 20 GM/30 ML UDC PO (22:38)
[2021-09-09] MEDS: Pravastatin 40 MG Tablet PO (22:39)
[2021-09-09 22:56] LABS: Bedside Glucose 261 mg/dL (74-106)
[2021-09-10] VITALS (10 sets, daily range): BP systolic 130–166; BP diastolic 67–92; PULSE 74–85; RESP 16–18; TEMP 36.6–37; O2SAT 93–99
--- NOTE | 2021-09-10 01:39 | NURSING ---
This rn assuming care of this pt at this time.
[2021-09-10] MEDS: 0.9% Normal Saline 1,000 ML 100 ML IV (04:51)
[2021-09-10] MEDS: Insulin Lispro 100 UNIT/ML INSULN.PEN SC ×4 (06:38→22:34)
[2021-09-10 06:46] LABS: Bedside Glucose 278 mg/dL (74-106)
[2021-09-10 07:22] LABS: Absolute Lymphocyte Count 0.76 X10^3/uL (0.83-4.51); Absolute Neutrophil Count 4.6 X10^3/uL (2.0-7.7); Basophil# 0.02 X10^3/uL; Basophil% 0.3 % (0-1); Hematocrit 23.2 % (37-47); Hemoglobin 7.7 g/dL (12.0-15.0); Lymphocyte # 0.76 X10^3/ul (0.83-4.51); Lymphocyte % 12.9 % (19-41); Mean Corp Hgb Conc 33.2 g/dL (32-36); Mean Corpuscular Hgb 36.3 pg (27.0-32.0); Mean Corpuscular Volume 109.4 fL (81-99); Mean Platelet Vol. 10.2 fl (6.2-12.0); Monocyte% 8.5 % (0-10); NRBC Flagged by Analyzer 0.3 % (0-5); Neutrophil # 4.55 X10^3/uL (2.7-7.7); Neutrophil % 77.4 % (47-70); POSITIVE MORPHOLOGY YES; Platelet Count 161 K/mm3 (150-450); RBC Distribution Width CV 22.2 % (11.6-14.6); RBC Distribution Width SD 86.1 fl (35.1-43.9); Red Blood Count 2.12 M/mm3 (4.2-5.4); White Blood Count 5.9 K/mm3 (4.4-11.0)
[2021-09-10 07:24] LABS: Differential Indicated SCAN CRITERIA MET
[2021-09-10] MEDS: Furosemide 20 MG Tablet PO (07:50)
[2021-09-10] MEDS: Magnesium Chloride 64 MG Delay Rel.Tablet 256 MG PO ×2 (07:54→22:27)
[2021-09-10] MEDS: Amiodarone 200 MG Tablet PO (07:54)
[2021-09-10 08:03] LABS: Macrocytosis 2+
[2021-09-10 08:12] LABS: Anion Gap 10 (5-15); BUN 18 mg/dL (7-18); BUN/Creat Ratio 14.1 RATIO (10-20); Calcium,Total 9.2 mg/dL (8.5-10.1); Chloride 106 mmol/L (98-107); Creatinine, Serum 1.28 mg/dL (0.55-1.02); EST Glomerular Filtration Rate 43 mL/min (>60); Est Glom Filt Rate - Afr Amer 52 mL/min (>60); Estimated Creatinine Clearance 35.55 ml/min; Glucose 299 mg/dL (74-106); Sodium Level 136 mmol/L (136-145)
--- NOTE | 2021-09-10 10:08 | PN.HOSP_ITS ---
Subjective Subjective Patient seen and examined. She said she felt much better today. She denied any fever, chills, nausea, vomiting or abdominal pain or diarrhea. Her dizziness and lightheadedness had resolved. She did had the colonoscopy yesterday. Objective Data Objective Data Vital Signs: Vital Signs Temp Pulse Resp BP Pulse Ox 97.9 F 76 18 166/92 H 99 09/10/21 07:47 09/10/21 07:47 09/10/21 07:47 09/10/21 07:47 09/10/21 07:47 Oxygen Delivery Method Room Air Weight: 211 lb 3.21 oz Body Mass Index (BMI) 33.1 Intake & Output: Intake and Output for Last 24 Hours 09/08/21 09/09/21 09/10/21 23:59 23:59 23:59 Intake Total 4500 / 4500 2311.25 / 2311.25 1530.00 / 1530.00 Balance 4500 / 4500 2311.25 / 2311.25 1530.00 / 1530.00 Lab / Micro Data Result Diagrams: 09/10/21 06:50 09/10/21 06:50 Labs: Laboratory Results - last 24 hr 09/08/21 09:45: Vitamin B12 354 09/09/21 04:49: Hemoglobin A1c 5.7 H 09/09/21 11:11: POC Glucose 189 H 09/09/21 17:20: POC Glucose 277 H 09/09/21 22:32: POC Glucose 261 H 09/10/21 06:37: POC Glucose 278 H 09/10/21 06:50: Sodium 136, Potassium 4.0, Chloride 106, Carbon Dioxide 20.0 L, Anion Gap 10, BUN 18, Creatinine 1.28 H, Estim Creat Clear Calc 35.55, Est GFR (MDRD) Af Amer 52 L, Est GFR (MDRD) Non-Af 43 L, BUN/Creatinine Ratio 14.1, Glucose 299 H, Calcium 9.2 09/10/21 06:50: WBC 5.9, RBC 2.12 L, Hgb 7.7 L, Hct 23.2 L, MCV 109.4 H, MCH 36.3 H, MCHC 33.2, RDW Std Deviation 86.1 H, RDW Coeff of Pina 22.2 H, Plt Count 161, MPV 10.2, Immature Gran % (Auto) 0.900, Neut % (Auto) 77.4 H, Lymph % (Auto) 12.9 L, [place] % (Auto) 8.5, Eos % (Auto) 0.0, Baso % (Auto) 0.3, Absolute Neuts (auto) 4.6, Absolute Lymphs (auto) 0.76 L, Nucleated RBC % 0.3, Macrocytosis 2+ Micro: Microbiology 09/07/21 15:10 Stool Stool Occult Blood (KEV) - Final Occult Blood Positive Radiography Diagnostic Testing: Radiology Impression Abdomen/Pelvis CT 09/09/21 19:28 IMPRESSION: (NOT LISTED IN ORDER OF SIGNIFICANCE) There is a diffuse contour abnormality of the liver consistent with cirrhotic changes. There is 25 mm abdominal aortic aneurysm. Vascular workup can be obtained based on clinical correlation. There are multiple colonic diverticula consistent with diverticulosis. There is bilateral neural foraminal stenosis from L1 to L5-S1. Other findings as above. Electronically Signed: Fantasma Guy MD at 20:13 EDT Reading Location ID and State: [facility] / [place] , Service support , Physical Exam Const alert, oriented x3 and no apparent distress General Appearance: cooperative Exam Limitations: no limitations HEENT normocephalic, head/scalp atraumatic, hearing grossly normal bilaterally and moist oral mucous membranes Head and Scalp: normocephalic Eyes PERRL, EOMs intact bilaterally and conjunctivae normal Neck no lymphadenopathy and supple Resp normal respiratory effort, no retractions, no use of accessory muscles and clear to auscultation bilaterally Cardio regular rate, regular rhythm, S1 normal heart sound, S2 normal heart sound and n o murmurs GI normal to inspection, nondistended, normoactive bowel sounds, soft to palpation, non-tender and non-distended Extremity normal to inspection, full ROM and no clubbing, cyanosis or edema Peripheral Pulses: Yes pulses 2+ throughout Skin no rashes or lesions noted Neuro oriented x3, CN's II-XII intact bilaterally and moves all extremities Sensorium / Orientation: awake and alert Psych affect normal Assessment & Plan Assessment/Plan (1) GI bleed: (2) Upper GI bleed: (3) Anemia: (4) Dizziness: PLAN: #Dizziness due to symptomatic anemia * hb today is 8.6 * is s/p transfusion of one unit of PRBC * had EGD which showed 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 These were removed with a cold snare. She also had multiple bleeding colonic angioectasias treated with a heater probe. * GI board. * gastroenterology on board. * GI to determined whether she will still have the capsule endoscopy or otherwise. * #Acute on chronic anemia due to recurrent upper GI bleed * as above * #Type 2 diabetes mellitus * hold metformin and trulicity * ISS. Accuchecks ACHS * #Afib * rate controlled. eliquis and aspirin on hold. * on amiodarone. * * #Hyperlipidemia: on statin #Cirrhosis * due to hep C. * on furosemide * CT of the abdomen and pelvis with contrast showed cirrhosis of the liver and a 25mm abdominal aortic aneurysm, multiple colonic diverticulae and bilateral neural foraminal stenosis from L5 - S1 * also on lactulose due to elevated ammonia * #History of neuroendocrine tumor * this was detected when she had an EGD for anemia in 2019. 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
[2021-09-10 11:00] LABS: Bedside Glucose 305 mg/dL (74-106)
[2021-09-10 11:27] LABS: AFP, Tumor Marker 7.5 ng/mL (0.0-9.2)
[2021-09-10 16:15] LABS: Bedside Glucose 252 mg/dL (74-106)
--- NOTE | 2021-09-10 17:43 | PCM.PROGNOTE ---
Subjective Subjective The patient Is tolerating a diet without any problems. She has not had any signs or symptoms of GI bleeding today. Objective Data Objective Data Vital Signs: Vital Signs Temp Pulse Resp BP Pulse Ox 98.0 F 80 18 152/78 H 98 09/10/21 14:00 09/10/21 16:14 09/10/21 14:00 09/10/21 14:00 09/10/21 14:00 Oxygen Delivery Method Room Air Weight: 211 lb 3.21 oz Body Mass Index (BMI) 33.1 Intake & Output: Intake and Output for Last 24 Hours 09/08/21 09/09/21 09/10/21 23:59 23:59 23:59 Intake Total 4500 / 4500 2311.25 / 2311.25 Balance 4500 / 4500 2311.25 / 2311.25 Lab / Micro Data Result Diagrams: 09/10/21 06:50 09/10/21 06:50 Labs: Laboratory Results - last 24 hr 09/07/21 15:17: Crossmatch See Detail 09/08/21 09:45: Tumor Marker AFP 7.5 09/09/21 22:32: POC Glucose 261 H 09/10/21 06:37: POC Glucose 278 H 09/10/21 06:50: Sodium 136, Potassium 4.0, Chloride 106, Carbon Dioxide 20.0 L, Anion Gap 10, BUN 18, Creatinine 1.28 H, Estim Creat Clear Calc 35.55, Est GFR (MDRD) Af Amer 52 L, Est GFR (MDRD) Non-Af 43 L, BUN/Creatinine Ratio 14.1, Glucose 299 H, Calcium 9.2 09/10/21 06:50: WBC 5.9, RBC 2.12 L, Hgb 7.7 L, Hct 23.2 L, MCV 109.4 H, MCH 36.3 H, MCHC 33.2, RDW Std Deviation 86.1 H, RDW Coeff of Pina 22.2 H, Plt Count 161, MPV 10.2, Immature Gran % (Auto) 0.900, Neut % (Auto) 77.4 H, Lymph % (Auto) 12.9 L, [place] % (Auto) 8.5, Eos % (Auto) 0.0, Baso % (Auto) 0.3, Absolute Neuts (auto) 4.6, Absolute Lymphs (auto) 0.76 L, Nucleated RBC % 0.3, Macrocytosis 2+ 09/10/21 10:52: POC Glucose 305 H 09/10/21 16:02: POC Glucose 252 H Micro: Microbiology 09/07/21 15:10 Stool Stool Occult Blood (KEV) - Final Occult Blood Positive Radiography Diagnostic Testing: Radiology Impression Abdomen/Pelvis CT 09/09/21 19:28 IMPRESSION: (NOT LISTED IN ORDER OF SIGNIFICANCE) There is a diffuse contour abnormality of the liver consistent with cirrhotic changes. There is 25 mm abdominal aortic aneurysm. Vascular workup can be obtained based on clinical correlation. There are multiple colonic diverticula consistent with diverticulosis. There is bilateral neural foraminal stenosis from L1 to L5-S1. Other findings as above. Electronically Signed: Fantasma Guy MD at 20:13 EDT Reading Location ID and State: [facility] / [place] , Service support , Physical Exam Const alert General Appearance: cooperative Orientation / Consciousness: oriented to person HEENT hearing grossly normal bilaterally Head and Scalp: normal to inspection Face and Sinus: face symmetric Nose: external nose normal Mouth: oral and palatal mucosa normal Eyes conjunctivae normal General Eye: normal appearance of both eyes Neck full ROM General: normal visual inspection Lymph Lymphatic: no lymphadenopathy noted Chest inspection of chest normal and palpation of chest normal Chest: symmetrical chest wall rise Resp normal respiratory effort Effort and Inspection: able to speak in complete sentences Cardio regular rate GI non-distended Percussion: normal to percussion Rectal Exam: deferred Neuro Speech: speech normal Gait (Neuro): normal gait Assessment & Plan Assessment/Plan (1) Cirrhosis: PLAN: She has not shown any signs of decompensated cirrhosis at this time. She still has a very low meld at 8. Her CT scan abdomen pelvis did not show any signs of masses or severe varicosities. She was discovered to have a 25 mm abdominal leg aneurysm that she should see vascular surgery about in the future. She has not shown any signs of encephalopathy, ascites or jaundice at this time. (2) GI bleed: PLAN: She underwent colonoscopy yesterday and was discovered to have 4 AVMs that were treated endoscopically and 4 adenomatous polyps that were removed. She is not having any bleeding from the procedure. (3) Anemia: PLAN: Her hemoglobin is 7.7-7.3. Recommend to transfuse 1 unit packed red blood cells. She has an outpatient capsule endoscopy scheduled on September 15. Charges/Coding Visit Charges Inpatient E&M: 82638 Subs Hosp L2
--- NOTE | 2021-09-10 22:15 | NURSING ---
This RN speaks with Dr Mohr regarding a 2nd unit of PRBC's as per recommendation from Dr Rangel's evening note. No blood to be given at this time. Will continue to monitor.
[2021-09-10] MEDS: Lactulose 20 GM/30 ML UDC PO (22:27)
[2021-09-10] MEDS: Pravastatin 40 MG Tablet PO (22:28)
[2021-09-10 22:56] LABS: Bedside Glucose 301 mg/dL (74-106)
[2021-09-11 04:30] VITALS: BP 155/82; PULSE 76; RESP 16; TEMP 37.1; O2SAT 96
[2021-09-11 05:00] VITALS: PULSE 65
[2021-09-11] MEDS: Insulin Lispro 100 UNIT/ML INSULN.PEN SC ×2 (05:57→11:27)
[2021-09-11 06:31] LABS: Bedside Glucose 274 mg/dL (74-106)
[2021-09-11 06:56] LABS: Absolute Lymphocyte Count 1.09 X10^3/uL (0.83-4.51); Absolute Neutrophil Count 3.7 X10^3/uL (2.0-7.7); Basophil# 0.03 X10^3/uL; Basophil% 0.5 % (0-1); Eosinophil# 0.17 X10^3/uL; Eosinophils% 3.1 % (0-5); Hematocrit 24.9 % (37-47); Lymphocyte # 1.09 X10^3/ul (0.83-4.51); Lymphocyte % 19.9 % (19-41); Mean Corp Hgb Conc 32.1 g/dL (32-36); Mean Corpuscular Hgb 36.9 pg (27.0-32.0); Mean Corpuscular Volume 114.7 fL (81-99); Mean Platelet Vol. 9.8 fl (6.2-12.0); Monocyte# 0.46 X10^3/uL; Monocyte% 8.4 % (0-10); NRBC Flagged by Analyzer 0.4 % (0-5); Neutrophil # 3.69 X10^3/uL (2.7-7.7); Neutrophil % 67.2 % (47-70); POSITIVE MORPHOLOGY YES; Platelet Count 167 K/mm3 (150-450); RBC Distribution Width CV 22.5 % (11.6-14.6); RBC Distribution Width SD 92.6 fl (35.1-43.9); Red Blood Count 2.17 M/mm3 (4.2-5.4); White Blood Count 5.5 K/mm3 (4.4-11.0)
[2021-09-11 06:57] LABS: Differential Indicated SCAN CRITERIA MET
[2021-09-11 07:08] VITALS: PULSE 74
[2021-09-11 07:17] LABS: Anion Gap 8 (5-15); BUN 22 mg/dL (7-18); BUN/Creat Ratio 16.5 RATIO (10-20); Calcium,Total 8.6 mg/dL (8.5-10.1); Chloride 106 mmol/L (98-107); Creatinine, Serum 1.33 mg/dL (0.55-1.02); EST Glomerular Filtration Rate 41 mL/min (>60); Est Glom Filt Rate - Afr Amer 50 mL/min (>60); Estimated Creatinine Clearance 34.21 ml/min; Glucose 280 mg/dL (74-106); Sodium Level 137 mmol/L (136-145)
[2021-09-11 07:39] LABS: Anisocytosis 2+
[2021-09-11 08:53] VITALS: BP 166/100; PULSE 78; RESP 16; TEMP 36.6; O2SAT 97
[2021-09-11] MEDS: Amiodarone 200 MG Tablet PO (08:57)
[2021-09-11] MEDS: Magnesium Chloride 64 MG Delay Rel.Tablet 256 MG PO (08:57)
[2021-09-11] MEDS: Cholecalciferol (Vit D3) 125 MCG CAPSULE (5,000 UNITS) PO (08:57)
[2021-09-11] MEDS: Furosemide 20 MG Tablet PO (08:57)
--- NOTE | 2021-09-11 11:02 | PCM.DC.SUM ---
Providers Date of Admission: 09/07/21 Primary Care Physician: Dr. Farhan Mendiola MD Consultations 09/07/21 17:13 Consult: Gastroenterology Routine Consulting Provider: [facility] Reason for Consult: acute on chronic anemia, EMERGENT Consult: No MD Notified: Yes Date Notified: 09/07/21 Time Notified: 16:46 Method of Notification: Text Reason For Visit: DIZZINESS DUE TO SYMPTOMATIC ANEMIA Diagnosis Discharge Diagnosis (1) Cirrhosis: Status: Acute Code(s): K74.60 - Unspecified cirrhosis of liver (2) GI bleed: Status: Acute Code(s): K92.2 - Gastrointestinal hemorrhage, unspecified (3) Anemia: Status: Acute Code(s): D64.9 - Anemia, unspecified Medications at Discharge Home Medications nitroglycerin 0.4 mg sublingual tablet 0.4 mg SUBLINGUAL Q5-15M PRN 05/10/18 cholecalciferol (vitamin D3) 125 mcg (5,000 unit) tablet 5,000 unit PO DAILY 07/22/18 pravastatin 40 mg tablet 40 mg PO QHS 04/07/19 Trulicity 0.75 mg SQ QWEEK 07/04/20 magnesium oxide 400 mg (241.3 mg magnesium) tablet 800 mg PO BID tab 10/23/20 metformin 500 mg tablet 500 mg PO BID tab 10/23/20 albuterol sulfate 90 mcg/actuation aerosol inhaler 2 puff INHALATION Q6H PRN 04/16/21 amiodarone 200 mg tablet 200 mg PO DAILY 06/09/21 pantoprazole [Protonix] 40 mg PO BID #60 tab 07/27/21 diphenhydramine HCl 25 mg tablet 50 mg PO .COMPLEX #2 tab 08/12/21 Eliquis 5 mg PO BID 09/07/21 furosemide 20 mg PO DAILY 09/07/21 lactulose 20 g PO BID #3000 ml 09/11/21 Hospital Course Operations None Procedures Colonoscopy and EGD Summary of Care Provided Minutes Spent on Discharge: 45 Hospital Course: GRIS RODRIGUEZ, is a 76 F with an extensive PMH as outlined who presents via the ED on 09/07/2021 with a complaint of dizziness. She gets dizzy and lightheaded with standing. She denied any palpitations, chest pain, nausea or vomiting or shortness of breath. She has associated lightheadedness. She fell in the bathroom and hit her head but didnt lose any consciousness. She was recently admitted and managed for GI bleed. She had an EGD which didnt show any evidence of bleeding then. She was to follow up with GI for a repeat scope on September 15, and was actually seen by GI a few days before coming in. She also admitted to having dark stools. Vitals were BP of 118/75, [place] of 92 and RR of 17 and temp of 98F. She was saturating at 97% on room air. CBC showed Hb of 7.9; was ~ 10 a few days ago. WBC is 5.6 and platelets are 182. INR was 1.4. Chemistry showed sodium of 137, with potassium of 4.1 and Cr of 1.81, with a baseline of ~ 1.2-1.3. CT of the brain was negative for any acute intracranial pathology. She is was admitted to be managed for dizziness and near syncope due to acute on chronic anemia from GI bleed. She was hydrated with IVF and gastroenterology was consulted. She was also placed on IV pantoprazole. She had EGD which showed ectopic gastric mucosa in upper 30s of esophagus with gastric antral vascular ectasia without bleeding and portal hypertensive gastropathy. She subsequently had EGD which showed moderate diverticulosis in the rectosigmoid colon, sigmoid colon and descending colon as well as erythema in association with diverticular opening for 1 to 2 mm polyps in the sigmoid colon, ascending colon and cecum which was removed with a cold snare. She also had multiple bleeding colonic angioectasias which was treated with heater probe. She was transfused with 1 unit of packed red blood cells during this admission. Patient symptoms improved and she felt much better. She remained stable and was discharged home on 09/11/2021. She is to follow-up with her primary care doctor and follow-up with gastroenterology on outpatient basis. She is due for capsule endoscopy on 09/15/2021 with gastroenterology. Patient seen and examined prior to discharge. She had no active complaints and had an uneventful night. Review of systems otherwise negative. Labs and vitals reviewed. Home medication reviewed and reconciled. I discussed with GI about resuming her eliquis, and per GI, patient was ok to resume her eliquis. Physical Exam Const alert, oriented x3 and no apparent distress General Appearance: cooperative, comfortable and well kempt Exam Limitations: no limitations HEENT normocephalic, head/scalp atraumatic, hearing grossly normal bilaterally and moist oral mucous membranes Eyes PERRL, EOMs intact bilaterally and conjunctivae normal Neck no lymphadenopathy and supple Resp normal respiratory effort, no retractions, no use of accessory muscles and clear to auscultation bilaterally Cardio regular rate, regular rhythm, S1 normal heart sound, S2 normal heart sound and no murmurs GI normal to inspection, nondistended, normoactive bowel sounds, soft to palpation, non-tender and non-distended Extremity normal to inspection, full ROM and no clubbing, cyanosis or edema Skin no rashes or lesions noted Neuro oriented x3, CN's II-XII intact bilaterally and moves all extremities Sensorium / Orientation: awake and alert Psych affect normal Weight / BMI Weight Weight: 211 lb 3.21 oz Body Mass Index (BMI) 33.1 ABG / Lab / Microbiology Data Result Diagrams: 09/11/21 06:10 09/11/21 06:10 Laboratory: Laboratory Results - last 24 hr 09/07/21 15:17: Crossmatch See Detail 09/08/21 09:45: Tumor Marker AFP 7.5 09/10/21 16:02: POC Glucose 252 H 09/10/21 22:33: POC Glucose 301 H 09/11/21 05:55: POC Glucose 274 H 09/11/21 06:10: Sodium 137, Potassium 4.0, Chloride 106, Carbon Dioxide 23.0, Anion Gap 8, BUN 22 H, Creatinine 1.33 H, Estim Creat Clear Calc 34.21, Est GFR (MDRD) Af Amer 50 L, Est GFR (MDRD) Non-Af 41 L, BUN/Creatinine Ratio 16.5, Glucose 280 H, Calcium 8.6 09/11/21 06:10: WBC 5.5, RBC 2.17 L, Hgb 8.0 L, Hct 24.9 L, MCV 114.7 H, MCH 36.9 H, MCHC 32.1, RDW Std Deviation 92.6 H, RDW Coeff of Pina 22.5 H, Plt Count 167, MPV 9.8, Immature Gran % (Auto) 0.900, Neut % (Auto) 67.2, Lymph % (Auto) 19.9, [place] % (Auto) 8.4, Eos % (Auto) 3.1, Baso % (Auto) 0.5, Absolute Neuts (auto) 3.7, Absolute Lymphs (auto) 1.09, Nucleated RBC % 0.4, Anisocytosis 2+ Microbiology: Microbiology 09/07/21 15:10 Stool Stool Occult Blood (KEV) - Final Occult Blood Positive D/C Instructions Discharge Diet: Low fat / Low cholesterol Discharge Activity: Return to Normal Activity Weight Bearing Status: Weight bearing as tolerated Call your doctor if you observe: Fever of 101 or Higher, Shortness of breath, Dizziness, Swelling in the ankles and Increased palpitations (irregular heartbeat) Meaningful Use Info Meaningful Use Diagnoses (Choose all that apply): None applicable Discharge Plan Admission Admit Date/Time: 09/07/21 16:41 Primary Reason for Your Visit: acute on chronic anemia due to GI bleed Attending Provider: Cely Sharma Primary Care Provider: Farhan Mendiola Instructions Patient Instructions: Bleeding Gastrointestinal, Lower GI Endoscopy, Upper GI Endoscopy Discharge Orders/Prescriptions Prescriptions: New lactulose 20 gram/30 mL solution 20 g PO BID Qty: 3000 RF: 1 Continued nitroglycerin 0.4 mg tablet, sublingual 0.4 mg sublingual Q5-15M PRN (Reason: Cardiac/Chest Pain) RF: 0 cholecalciferol (vitamin D3) 5,000 unit tablet 5,000 unit PO DAILY RF: 0 pravastatin 40 mg tablet 40 mg PO QHS RF: 0 magnesium oxide 400 mg (241.3 mg magnesium) tablet 800 mg PO BID RF: 0 albuterol sulfate [Ventolin HFA] 90 mcg/actuation HFA aerosol inhaler 2 puff inhalation Q6H PRN (Reason: Shortness Of Breath) RF: 0 metformin 500 mg tablet 500 mg PO BID RF: 0 Trulicity 0.75 MG/0.5 ML pen injector 0.75 mg SQ QWEEK RF: 0 pantoprazole [Protonix] 40 mg tablet,delayed release (DR/EC) 40 mg PO BID Qty: 60 RF: 0 Eliquis 5 mg tablet 5 mg PO BID RF: 0 furosemide 20 mg Tablet 20 mg PO DAILY RF: 0 amiodarone 200 mg tablet 200 mg PO DAILY RF: 0 diphenhydramine HCl [Benadryl Allergy] 25 mg tablet 50 mg PO .COMPLEX Qty: 2 RF: 1 Discontinued prednisone 50 mg tablet 50 mg PO .COMPLEX Qty: 3 RF: 0 aspirin 81 mg tablet,chewable 81 mg PO ONCE RF: 0 Referrals / Follow Up: Farhan Mendiola MD [Primary Care Provider] - Within 2 Weeks Gilberto Rangel DO [STAFF PHYSICIAN] - Within 1 Week Disposition Disposition (needs filled in before D/C Order can be placed): Home, Self Care Charges/Coding Visit Charges Inpatient E&M: 94868 Disch Hosp
--- NOTE | 2021-09-11 11:34 | CASEMGMT ---
Addendum entered by Jossy Larios 09/11/21 11:36: Clarification: Pt wants to resume home health aides through [facility] and states the aide was scheduled to come today. She denies need for skilled nurse or therapy. Original Note: STANFORD MOLINA NOTE: Pt being discharged home. STANFORD MOLINA to room to talk w/pt. Pt denies having any discharge planning needs or concerns. She denies need for HHC. Elena LEE RN CM
[2021-09-11 11:35] LABS: Bedside Glucose 391 mg/dL (74-106)
--- NOTE | 2021-09-11 11:40 | CASEMGMT ---
ARIE called [facility] and spoke with Jesu Gutierrez on the coverage line. ARIE let Jesu know patient is being discharged today. ARIE explained patient was hoping her aide would be out today. Jesu said he would call the provider and let them know. ARIE spoke with patient letting her know ARIE called [facility]. Patient said she go a hold of her aide and she will be out today. Kiah MENDEZ
--- NOTE | 2021-09-11 12:10 | NURSING ---
Pt discharged home with all belongings. Pt's daughter at bedside to transport pt home. PIVs removed per hospital policy without complications.
== END 2021-09-11 12:10 | disposition home or self-care (01) | DRG 378 ==
LOC: ED 16:15 → PCU 16:28
PROVIDERS: Anesthesiology; Internal Medicine Gastroenterology; Admitting Provider Student in an Organized Health Care Education/Training Program; Emergency Provider Emergency Medicine; PCP Family Medicine; Visit Provider Student in an Organized Health Care Education/Training Program
PROC: 0DJ08ZZ Inspection of Upper Intestinal Tract, Via Natural or Artificial Opening Endoscopic (ICD-10-PCS; CPT 43235; principal; 2021-09-08 10:00)
PROC: 0DJD8ZZ Inspection of Lower Intestinal Tract, Via Natural or Artificial Opening Endoscopic (ICD-10-PCS; CPT 45378; principal; 2021-09-09 15:25)
DX: K55.21 Angiodysplasia of colon with hemorrhage (principal); K76.6 Portal hypertension; I42.9 Cardiomyopathy, unspecified; I48.19 Other persistent atrial fibrillation; D62 Acute posthemorrhagic anemia; C7A.8 Other malignant neuroendocrine tumors; E11.22 Type 2 diabetes mellitus with diabetic chronic kidney disease; K74.60 Unspecified cirrhosis of liver; I48.91 Unspecified atrial fibrillation; N18.30 Chronic kidney disease, stage 3 unspecified; D53.9 Nutritional anemia, unspecified; K31.819 Angiodysplasia of stomach and duodenum without bleeding; B19.20 Unspecified viral hepatitis C without hepatic coma; I25.10 Atherosclerotic heart disease of native coronary artery without angina pectoris; I12.9 Hypertensive chronic kidney disease with stage 1 through stage 4 chronic kidney disease, or unspecified chronic kidney disease; E78.2 Mixed hyperlipidemia; K57.30 Diverticulosis of large intestine without perforation or abscess without bleeding; D12.5 Benign neoplasm of sigmoid colon; K64.2 Third degree hemorrhoids; M48.07 Spinal stenosis, lumbosacral region; K64.8 Other hemorrhoids; I25.2 Old myocardial infarction; K21.9 Gastro-esophageal reflux disease without esophagitis; K75.81 Nonalcoholic steatohepatitis (NASH); D12.2 Benign neoplasm of ascending colon; D12.0 Benign neoplasm of cecum; K92.2 Gastrointestinal hemorrhage, unspecified; Z87.891 Personal history of nicotine dependence; Z79.84 Long term (current) use of oral hypoglycemic drugs; Z79.82 Long term (current) use of aspirin; Z79.01 Long term (current) use of anticoagulants; Z79.899 Other long term (current) drug therapy; Z86.16 Personal history of COVID-19
CPT/HCPCS: 36415; 70450; 74177; 80048; 82105; 82140; 82274; 82607; 82728; 82746; 82962; 83036; 83540; 83550; 85025; 85610; 85730; 86850; 86900; 86901; 86920; 88305; 93005; 97161; 97166; 97530; 99285; J7030; J7040; J7120; P9016; Q9967; A4216; J2405; J3490

== ENCOUNTER → 2021-09-23 | Outpatient (CLI) | payer MEDICARE, MEDICAID, SELFPAY ==
[2021-09-23 10:11] LABS: Absolute Lymphocyte Count 0.79 X10^3/uL (0.83-4.51); Absolute Neutrophil Count 3.5 X10^3/uL (2.0-7.7); Basophil# 0.04 X10^3/uL; Basophil% 0.8 % (0-1); Eosinophil# 0.21 X10^3/uL; Eosinophils% 4.2 % (0-5); Hematocrit 30.3 % (37-47); Lymphocyte # 0.79 X10^3/ul (0.83-4.51); Lymphocyte % 15.8 % (19-41); Mean Corpuscular Hgb 37.5 pg (27.0-32.0); Mean Corpuscular Volume 113.5 fL (81-99); Mean Platelet Vol. 10.6 fl (6.2-12.0); Monocyte# 0.42 X10^3/uL; Monocyte% 8.4 % (0-10); NRBC Flagged by Analyzer 0 % (0-5); Neutrophil # 3.51 X10^3/uL (2.7-7.7); Neutrophil % 70.4 % (47-70); POSITIVE MORPHOLOGY YES; Platelet Count 160 K/mm3 (150-450); RBC Distribution Width CV 18.9 % (11.6-14.6); RBC Distribution Width SD 77.6 fl (35.1-43.9); Red Blood Count 2.67 M/mm3 (4.2-5.4)
[2021-09-23 10:13] LABS: Differential Indicated SCAN CRITERIA MET
[2021-09-23 10:28] LABS: Vitamin D,25 Hydroxy 74.9 ng/mL
[2021-09-23 10:32] LABS: Microalbumin,Random Urine 34.7 mg/L (NO RANGE EST.); Microalbumin:Creatinine Ratio 42.1 mg/g CRE (<30 mg/g CRE); Protein, Urine (Random) 19.4 mg/dL (<11.9); Protein:Creat Ratio 235 mg/g CRE (0-200)
[2021-09-23 10:39] LABS: Anisocytosis 1+
[2021-09-23 11:07] LABS: ALB/GLOB Ratio 0.8 RATIO (0.9-2.4); AST(SGOT) 54 U/L (15-37); Alanine Aminotransfer ALT/SGPT 44 U/L (13-56); Albumin, Serum 3.3 g/dL (3.2-5.0); Alkaline Phosphatase 84 U/L (45-117); Anion Gap 9 (5-15); BUN 19 mg/dL (7-18); BUN/Creat Ratio 14.6 RATIO (10-20); Calcium,Total 9.6 mg/dL (8.5-10.1); Chloride 102 mmol/L (98-107); Cholesterol 136 mg/dL (200); EST Glomerular Filtration Rate 42 mL/min (>60); Est Glom Filt Rate - Afr Amer 51 mL/min (>60); Globulin 4.2 g/dL (2.2-4.2); Glucose 164 mg/dL (74-106); High Density Lipoprotein 30 mg/dL; Phosphorus 3.2 mg/dL (2.5-4.9); Potassium 4.2 mmol/L (3.5-5.1); Protein, Total 7.5 g/dL (6.4-8.2); Sodium Level 137 mmol/L (136-145); Thyroid Stim Hormone (TSH) 6.96 uIU/mL (0.358-3.74); Triglycerides 299 mg/dL; Very Low Density Lipoprotein 60 mg/dL (5-40)
== END | disposition home or self-care (01) ==
LOC: MTLAB 08:21
PROVIDERS: PCP Family Medicine; Referring Provider Family Medicine; Visit Provider Family Medicine
DX: E11.22 Type 2 diabetes mellitus with diabetic chronic kidney disease (principal); N18.30 Chronic kidney disease, stage 3 unspecified
CPT/HCPCS: 36415; 80053; 80061; 82043; 82306; 82570; 83036; 83970; 84100; 84156; 84443; 85025

== ENCOUNTER 2021-10-14 17:37 | Emergency (ER) | payer MEDICARE, MEDICAID, SELFPAY ==
[2021-10-14 17:39] VITALS: BP 163/83; PULSE 85; RESP 15; TEMP 36.8; O2SAT 98; BMI 32.4
[2021-10-14 18:21] LABS: Absolute Lymphocyte Count 1.15 X10^3/uL (0.83-4.51); Absolute Neutrophil Count 3.3 X10^3/uL (2.0-7.7); Basophil# 0.05 X10^3/uL; Basophil% 0.9 % (0-1); Eosinophil# 0.19 X10^3/uL; Eosinophils% 3.6 % (0-5); Hematocrit 24.1 % (37-47); Hemoglobin 8.1 g/dL (12.0-15.0); Lymphocyte # 1.15 X10^3/ul (0.83-4.51); Lymphocyte % 21.6 % (19-41); Mean Corp Hgb Conc 33.6 g/dL (32-36); Mean Corpuscular Hgb 38.6 pg (27.0-32.0); Mean Corpuscular Volume 114.8 fL (81-99); Mean Platelet Vol. 10.4 fl (6.2-12.0); Monocyte# 0.57 X10^3/uL; Monocyte% 10.7 % (0-10); NRBC Flagged by Analyzer 0.4 % (0-5); Neutrophil # 3.34 X10^3/uL (2.7-7.7); Neutrophil % 62.8 % (47-70); POSITIVE MORPHOLOGY YES; Platelet Count 183 K/mm3 (150-450); RBC Distribution Width CV 16.8 % (11.6-14.6); RBC Distribution Width SD 70.6 fl (35.1-43.9); White Blood Count 5.3 K/mm3 (4.4-11.0)
[2021-10-14 18:24] LABS: Differential Indicated SCAN CRITERIA MET
[2021-10-14 18:47] LABS: Anion Gap 9 (5-15); BUN 28 mg/dL (7-18); BUN/Creat Ratio 18.3 RATIO (10-20); Calcium,Total 9.8 mg/dL (8.5-10.1); Chloride 104 mmol/L (98-107); Creatinine, Serum 1.53 mg/dL (0.55-1.02); EST Glomerular Filtration Rate 35 mL/min (>60); Est Glom Filt Rate - Afr Amer 43 mL/min (>60); Glucose 217 mg/dL (74-106); Potassium 4.5 mmol/L (3.5-5.1); Sodium Level 138 mmol/L (136-145)
[2021-10-14 18:58] LABS: Anisocytosis 1+; Differential Comment SCANNED
--- NOTE | 2021-10-14 18:59 | EX.ED.DYSGE1 ---
HPI History of Present Illness Chief Complaint: Abn Labs Narrative Narrative: 76-year-old female presenting with concern for GI bleed. Apparently she had blood work done today and she is anemic again. Her hemoglobin is down to 8.1. She was sent to the emergency room. Apparently Dr. Rangel had done a upper endoscopy and did some ablations on some AVMs which she could reach and did a pill endoscopy which showed several AVMs which he could not stop from bleeding. Patient does report some black stools but does not note any bloody stools. She feels otherwise well other than some mild lightheadedness with ambulation. She does not have any abdominal pain. [facility] Medical History Abnormal stress test Acute myocardial infarction Anemia Anemia requiring transfusions Angina pectoris Atherosclerotic heart disease of [place] coronary artery without angina pectoris Atrial fibrillation CAD (coronary artery disease) Cardiomyopathy Chronic anticoagulation Chronic pain Cirrhosis Cirrhosis CKD (chronic kidney disease) stage 3, GFR 30-59 ml/min COVID-19 (11/27/20) Diabetes Diverticulosis Essential hypertension Former smoker GERD (gastroesophageal reflux disease) GI bleed Hepatic cirrhosis History of cardioversion (~04/21/19) History of left heart catheterization (LHC) (~11/25/20) History of neuroendocrine cancer Hypertension Macrocytic anemia Microcytic anemia Mixed hyperlipidemia Neuroendocrine carcinoma Nonalcoholic steatohepatitis (PATRICK) Persistent atrial fibrillation Presence of stent in coronary artery (~12/29/02) Upper GI bleed Vertigo Home Medications nitroglycerin 0.4 mg sublingual tablet 0.4 mg sublingual Q5-15M PRN Cardiac/Chest Pain 05/10/18 [History Last Taken Unknown] cholecalciferol (vitamin D3) 125 mcg (5,000 unit) tablet 5,000 unit PO DAILY supplement 07/22/18 [History Last Taken 07/25/21 08:30] pravastatin 40 mg tablet 40 mg PO QHS cholesterol 04/07/19 [History Last Taken 07/24/21 18:30] dulaglutide 0.75 mg/0.5 mL subcutaneous pen injector (Trulicity) 0.75 mg SQ QWEEK diabetes 07/04/20 [History Last Taken 07/21/21 10:00] magnesium oxide 400 mg (241.3 mg magnesium) tablet 800 mg PO BID supplement 10/23/20 [History Last Taken 07/25/21 08:30] metformin 500 mg tablet 500 mg PO BID diabetes 10/23/20 [History Last Taken 07/25/21 08:30] albuterol sulfate 90 mcg/actuation aerosol inhaler (Ventolin HFA) 2 puff inhalation Q6H PRN Shortness Of Breath 04/16/21 [History Last Taken Unknown] pantoprazole 40 mg tablet,delayed release (Protonix) 40 mg PO BID #60 tabs 07/27/21 [Rx Last Taken Unknown] diphenhydramine HCl 25 mg tablet (Benadryl Allergy) 50 mg PO .COMPLEX #2 tabs 08/12/21 [Rx Last Taken Unknown] apixaban 5 mg tablet (Eliquis) 5 mg PO BID 09/07/21 [History Last Taken Unknown] amiodarone 200 mg tablet 200 mg PO DAILY heart #90 tabs 10/01/21 [Rx Last Taken Unknown] Allergy/AdvReac Type Severity Reaction Status Date / Time adhesive Allergy Rash Verified 10/14/21 17:43 fenofibrate nanocrystallized Allergy Rash Verified 10/14/21 17:43 [From Tricor] fenofibrate,micronized Allergy Rash Verified 10/14/21 17:43 [From Tricor] Iodinated Contrast Media Allergy Rash Verified 10/14/21 17:43 [CONTRASTS] ramipril Allergy Rash Verified 10/14/21 17:43 sertraline HCl [From Zoloft] AdvReac made me Verified 10/14/21 17:43 more depressed sulindac [From Clin[place]] AdvReac PT UNSURE Verified 10/14/21 17:43 OF REACTION CARDIAC CATH DYE Allergy Rash Uncoded 10/14/21 17:43 Family History Mother CAD (coronary artery disease) Father CAD (coronary artery disease) Sister CAD (coronary artery disease) Brother Heart disease Brother Heart disease Brother Heart disease Surgical History History of appendectomy History of cataract surgery History of cholecystectomy History of coronary artery stent placement History of laparoscopic cholecystectomy History of liver biopsy Presence of coronary angioplasty implant and graft (~12/29/02) Social History Smoking Status: Former smoker alcohol intake: never substance use type: does not use ROS ROS ED ROS Narrative Mild lightheadedness with walking Eyes Eyes: Denies blurry vision or change in vision ENT ENT ED: Denies rhinorrhea or sore throat Cardiovascular Cardiovascular: Denies chest pain Respiratory/Chest Respiratory/Chest: Denies cough or dyspnea Gastrointestinal Gastrointestinal: Denies abdominal pain or constipation Genitourinary Genitourinary ED: Denies dysuria or hematuria Musculoskeletal Musculoskeletal: Denies arthralgias or back pain Integumentary Denies abscess Neurologic Neurologic: Denies headache(s) or paresthesias Psychiatric Psychiatric: Denies anxiety or depression EXAM Physical Exam Const Vital Signs: 10/14/21 17:39 10/14/21 18:35 10/14/21 20:00 Temperature 98.3 F Temperature Source Temporal Pulse Rate 85 78 Respiratory Rate 15 19 H Respiratory Pattern Normal Blood Pressure 163/83 H 151/81 H Blood Pressure Mean 109 104 Pulse Ox 98 94 Oxygen Delivery Method Room Air Room Air 10/14/21 20:51 10/14/21 21:21 Temperature Temperature Source Pulse Rate 76 79 Respiratory Rate 17 17 Respiratory Pattern Blood Pressure 177/73 H 168/84 H Blood Pressure Mean 107 112 Pulse Ox 96 94 Oxygen Delivery Method Room Air Positive well nourished General Appearance ED: NAD; Negative for pallor HEENT Reports moist mucous membranes and dry mucous membranes Negative for trauma Mouth ED: Yes dry mucous membranes Mouth: dry mucous membranes Eyes PERRL and EOMs intact bilaterally Chest Wall inspection of chest normal Resp normal respiratory effort and clear to auscultation bilaterally Effort and Inspection: Negative for retractions or pain with movement Cardio regular rate and regular rhythm GI normal to inspection, nondistended, normoactive bowel sounds Neuro oriented x3 and CN's II-XII intact bilaterally Sensorium / Orientation: alert Psych mental status grossly normal Skin no rashes or lesions noted General Skin Exam: Negative for jaundice or pallor MDM MDM MDM Narrative Medical decision making narrative: Patient with some mild lightheadedness but otherwise looks well-appearing. Her vital signs are stable. She is afebrile. Hemoglobin today is 8.1. She was typed and screened but does not currently need a blood transfusion. Creatinine slightly above her baseline at 1.53 and she is given IV fluids. BUN is also elevated consistent with GI bleed history. I did obtain a type and screen. Since Dr. Rangel will not be able to help her with her AVMs I did speak with [facility] and currently waiting for callback. Patient was accepted to [facility]. . Patient consented for transport. She did not require blood while she was here. She has been hemodynamically stable. She is transported in stable condition. Impression: 1. GI bleed 2. History of small bowel AVMs 3. Blood loss anemia Lab Data Labs: Laboratory Results - last 24 hr 10/14/21 10/14/21 10/14/21 18:10 18:10 19:10 WBC 5.3 RBC 2.10 L Hgb 8.1 L Hct 24.1 L MCV 114.8 H MCH 38.6 H MCHC 33.6 RDW Std Deviation 70.6 H RDW Coeff of Pina 16.8 H Plt Count 183 MPV 10.4 Immature Gran % (Auto) 0.400 Neut % (Auto) 62.8 Lymph % (Auto) 21.6 Coal % (Auto) 10.7 H Eos % (Auto) 3.6 Baso % (Auto) 0.9 Absolute Neuts (auto) 3.3 Absolute Lymphs (auto) 1.15 Nucleated RBC % 0.4 Differential Comment SCANNED Anisocytosis 1+ Sodium 138 Potassium 4.5 Chloride 104 Carbon Dioxide 25.0 Anion Gap 9 BUN 28 H Creatinine 1.53 H Estim Creat Clear Calc 30.90 Est GFR (MDRD) Af Amer 43 L Est GFR (MDRD) Non-Af 35 L BUN/Creatinine Ratio 18.3 Glucose 217 H Calcium 9.8 Blood Type O NEGATIVE Antibody Screen NEGATIVE Discharge Plan Triage Chief Complaint: Abn Labs ED Provider: Jimmie Torres Dx/Rx/DC Orders Prescriptions: No Action nitroglycerin 0.4 mg tablet, sublingual 0.4 mg sublingual Q5-15M PRN (Reason: Cardiac/Chest Pain) cholecalciferol (vitamin D3) 5,000 unit tablet 5,000 unit PO DAILY pravastatin 40 mg tablet 40 mg PO QHS magnesium oxide 400 mg (241.3 mg magnesium) tablet 800 mg PO BID albuterol sulfate [Ventolin HFA] 90 mcg/actuation HFA aerosol inhaler 2 puff inhalation Q6H PRN (Reason: Shortness Of Breath) metformin 500 mg tablet 500 mg PO BID Trulicity 0.75 MG/0.5 ML pen injector 0.75 mg SQ QWEEK pantoprazole [Protonix] 40 mg tablet,delayed release (DR/EC) 40 mg PO BID Qty: 60 0RF Eliquis 5 mg tablet 5 mg PO BID Label Comments: TAKE 1 TABLET BY MOUTH TWICE DAILY diphenhydramine HCl [Benadryl Allergy] 25 mg tablet 50 mg PO .COMPLEX Qty: 2 1RF Rx Instructions: 50 mg PO; 1 hour prior to CTA of chest on WednesdayAugust 15 amiodarone 200 mg tablet 200 mg PO DAILY Qty: 90 3RF Primary Care Provider: Farhan Mendiola Referrals: Farhan Mendiola MD [Primary Care Provider] - Disposition Disposition: Acute Care Hospital Discharge Location: [facility] Discharge Date/Time: 10/14/21 21:41
[2021-10-14 20:00] VITALS: BP 151/81; PULSE 78; RESP 19; O2SAT 94
[2021-10-14 20:51] VITALS: BP 177/73; PULSE 76; RESP 17; O2SAT 96
[2021-10-14 21:21] VITALS: BP 168/84; PULSE 79; RESP 17; O2SAT 94
--- NOTE | 2021-10-14 21:28 | ED.RN ---
[facility]. [facility] here within 30 minutes.
== END 2021-10-14 21:41 | disposition short-term general hospital (02) ==
PROVIDERS: Emergency Provider Student in an Organized Health Care Education/Training Program; PCP Family Medicine; Visit Provider Student in an Organized Health Care Education/Training Program
DX: K92.2 Gastrointestinal hemorrhage, unspecified (principal); I42.9 Cardiomyopathy, unspecified; E11.22 Type 2 diabetes mellitus with diabetic chronic kidney disease; N18.30 Chronic kidney disease, stage 3 unspecified; I12.9 Hypertensive chronic kidney disease with stage 1 through stage 4 chronic kidney disease, or unspecified chronic kidney disease; R42 Dizziness and giddiness; E78.2 Mixed hyperlipidemia; D50.0 Iron deficiency anemia secondary to blood loss (chronic); I25.10 Atherosclerotic heart disease of native coronary artery without angina pectoris; Z87.891 Personal history of nicotine dependence; Z86.16 Personal history of COVID-19
CPT/HCPCS: 80048; 85025; 86850; 86900; 86901; 87811; 99285; J7040; A4216

== ENCOUNTER → 2021-12-30 | Outpatient (CLI) | payer MEDICAID, SELFPAY ==
[2021-12-30 11:42] LABS: Absolute Lymphocyte Count 0.89 X10^3/uL (0.83-4.51); Absolute Neutrophil Count 3.6 X10^3/uL (2.0-7.7); Basophil# 0.04 X10^3/uL; Basophil% 0.8 % (0-1); Eosinophil# 0.16 X10^3/uL; Hematocrit 34.8 % (37-47); Hemoglobin 11.6 g/dL (12.0-15.0); Lymphocyte # 0.89 X10^3/ul (0.83-4.51); Lymphocyte % 16.9 % (19-41); Mean Corp Hgb Conc 33.3 g/dL (32-36); Mean Corpuscular Hgb 36.9 pg (27.0-32.0); Mean Corpuscular Volume 110.8 fL (81-99); Mean Platelet Vol. 11.1 fl (6.2-12.0); Monocyte# 0.56 X10^3/uL; Monocyte% 10.6 % (0-10); NRBC Flagged by Analyzer 0 % (0-5); Neutrophil % 68.1 % (47-70); POSITIVE MORPHOLOGY YES; Platelet Count 159 K/mm3 (150-450); RBC Distribution Width SD 69.7 fl (35.1-43.9); Red Blood Count 3.14 M/mm3 (4.2-5.4); White Blood Count 5.3 K/mm3 (4.4-11.0)
[2021-12-30 11:44] LABS: Differential Indicated SCAN CRITERIA MET
[2021-12-30 11:52] LABS: International Normalized Ratio 1.1; Prothrombin Time (Protime)PT. 13.4 SECONDS (11.7-14.9)
[2021-12-30 12:34] LABS: Hemoglobin A1c 7.4 % (3.8-5.6)
[2021-12-30 12:45] LABS: ALB/GLOB Ratio 0.7 RATIO (0.9-2.4); AST(SGOT) 72 U/L (15-37); Alanine Aminotransfer ALT/SGPT 59 U/L (13-56); Albumin, Serum 3.3 g/dL (3.2-5.0); Alkaline Phosphatase 114 U/L (45-117); Anion Gap 10 (5-15); BUN 28 mg/dL (7-18); BUN/Creat Ratio 20.6 RATIO (10-20); Calcium,Total 9.3 mg/dL (8.5-10.1); Chloride 104 mmol/L (98-107); Creatinine, Serum 1.36 mg/dL (0.55-1.02); EST Glomerular Filtration Rate 40 mL/min (>60); Est Glom Filt Rate - Afr Amer 49 mL/min (>60); Ferritin 346 ng/mL (8-252); Globulin 4.8 g/dL (2.2-4.2); Glucose 162 mg/dL (74-106); LDH 195 U/L (84-246); Potassium 4.5 mmol/L (3.5-5.1); Protein, Total 8.1 g/dL (6.4-8.2); Sodium Level 140 mmol/L (136-145)
== END | disposition home or self-care (01) ==
PROVIDERS: PCP Family Medicine; Referring Provider Internal Medicine Gastroenterology; Visit Provider Internal Medicine Gastroenterology
DX: K75.81 Nonalcoholic steatohepatitis (NASH) (principal); K74.60 Unspecified cirrhosis of liver; I21.9 Acute myocardial infarction, unspecified
CPT/HCPCS: 36415; 80053; 82105; 82140; 82728; 83036; 83615; 85025; 85610

== ENCOUNTER → 2022-01-01 | Outpatient (CLI) | payer MEDICAID, SELFPAY ==
[2022-01-01 10:36] LABS: Mucous, Urine 0 SEEN /hpf (<or=2+)
[2022-01-01 12:36] LABS: Color, Urine Yellow (Yellow); Glucose, Dipstick 50 mg/dl (Normal); Ketone-Dipstick Negative (Negative); Leukocyte Esterase-Dipstick 25 /ul (Negative); Nitrite-Dipstick Negative (Negative); Occult Blood-Urine Negative /ul (Negative); Protein-Dipstick 30 mg/dl (Negative); Urine Bilirubin Dipstick Negative (Negative); Urine Clarity Clear (Clear); Urine Urobilinogen Normal (Normal)
[2022-01-01 12:43] LABS: Bacteria RARE /hpf (None Seen); Red Blood Cells-Urine 0-5 SEEN /hpf (0-5); Squamous Epithelial Cells - UA 10-25 SEEN /hpf (5-10); White Blood Cells 0-5 SEEN /hpf (0-5)
[2022-01-01 12:47] LABS: Cholesterol 129 mg/dL (200); High Density Lipoprotein 36 mg/dL; Phosphorus 3.2 mg/dL (2.5-4.9); Triglycerides 200 mg/dL; Very Low Density Lipoprotein 40 mg/dL (5-40)
[2022-01-01 12:49] LABS: Protein, Urine (Random) 30.4 mg/dL (<11.9); Protein:Creat Ratio 354 mg/g CRE (0-200)
== END | disposition home or self-care (01) ==
LOC: MFPLAB 10:34
PROVIDERS: PCP Family Medicine; Referring Provider Family Medicine; Visit Provider Family Medicine
DX: E11.22 Type 2 diabetes mellitus with diabetic chronic kidney disease (principal); E11.69 Type 2 diabetes mellitus with other specified complication; E83.42 Hypomagnesemia
CPT/HCPCS: 36415; 80061; 81001; 82306; 82570; 83735; 84100; 84156

== ENCOUNTER → 2022-01-21 | Outpatient (CLI) | payer MEDICAID, SELFPAY ==
[2022-01-21 10:44] LABS: ALB/GLOB Ratio 0.8 RATIO (0.9-2.4); AST(SGOT) 52 U/L (15-37); Alanine Aminotransfer ALT/SGPT 64 U/L (13-56); Albumin, Serum 3.3 g/dL (3.2-5.0); Alkaline Phosphatase 120 U/L (45-117); Anion Gap 9 (5-15); BUN 25 mg/dL (7-18); BUN/Creat Ratio 18.5 RATIO (10-20); Calcium,Total 9.8 mg/dL (8.5-10.1); Chloride 102 mmol/L (98-107); Creatinine, Serum 1.35 mg/dL (0.55-1.02); EST Glomerular Filtration Rate 41 mL/min (>60); Est Glom Filt Rate - Afr Amer 49 mL/min (>60); Globulin 4.4 g/dL (2.2-4.2); Glucose 184 mg/dL (74-106); Potassium 4.4 mmol/L (3.5-5.1); Protein, Total 7.7 g/dL (6.4-8.2); Sodium Level 138 mmol/L (136-145)
[2022-01-21 10:57] LABS: Vitamin B12 > 2000 pg/mL (211-911)
[2022-01-28 09:06] LABS: VITAMIN B6 4.5 ug/L (3.4-65.2)
== END | disposition home or self-care (01) ==
LOC: MFPLAB 08:49
PROVIDERS: PCP Family Medicine; Referring Provider Family Medicine; Visit Provider Family Medicine
DX: G62.9 Polyneuropathy, unspecified (principal); K74.60 Unspecified cirrhosis of liver
CPT/HCPCS: 36415; 80053; 82140; 82607; 84207; 84425

== ENCOUNTER 2022-03-03 11:00 | Outpatient (RCR) | payer MEDICARE, MEDICAID, SELFPAY ==
--- NOTE | 2022-01-28 09:47 | HP.PTEVAL ---
Patient's Visit Information GRIS RODRIGUEZ is a 76 year old F referred to Physical Therapy by Dr. Farhan Mendiola MD with a diagnosis of Loss of balance. neuroapthy.. Date of Evaluation: 01/28/22 Physical Therapist: Arya Lopez, DPT, OCS, CSCS - Visit Plan Frequency: 2x /Week Duration: 4-6 Weeks Plan: balance testing then. 2x/week for 4-6 for... balance per results likely needing foam and ec balance ex for vest, stretching of gastroc and soleus, VOR ex, general strength for LE /core/posture that patient can do at home. Work al as safety allows with pictures to HEP. - Subjective My feet make me off balance and I have diabetic neuropathy. Keeps staggering and hard to walk a straight line. Had a couple falls. Does get dizzy from low blood count as she has variances in GI tract. That happened once per month but then they cauterized it and doing better. Can get around with neuropathy but dizzyness is too much. Last October was in hospital with the dizzyness due to low blood but has not happened since. No dizzyness lately but still unsteady with neuropathy. Has OA in back and walking too far will hurt her low back. can only do a few things at home before she has to sit due to LBP. Sleep is not great, not sure why. Not employed, disabled. Doing housework is main chore but has to limit time on feet. Takes nap during day. Basic ADLs are done I. No stairs at home. No walker or cane used but has them. No regular ex. - Pain LBP Pain Intensity (Out of 10): 0 Pain Intensity Range: 0, 5 - Objective Walks slowly with short steps into PT I. trasnfers I bed and chair. Steps reciprocal with one rail but slow and weak. Catches toe 2x while walking today. Sensation distal LE at deficit B. Strength hips 3+, knees 4- and ankles 4 B. Tightness obvious in gastroc and soleus at -2 AROM DF B. reflexes 1/3 patella and achilles. coordination to reciprocal toe tap is fair and heel to espinoza test is fair. VOR walking is challenging as she cannot keep her head moving...unsteady. - Balance/Special Test Scores Functional Gait Assessment Score: 22 % Disability: 26.6700 CATSIB Score (Max score 120 seconds): 100 Lower Extremity Functional Score: 21 - Goals Goal 1:: 25/30 FGA to diminish fall risk Goal Time Frame: 4-6 Weeks Goal 2:: pt I iin appropriate HEP for managing condition Goal Time Frame: 4-6 Weeks Goal 3:: Patient ambulate through department and steps without catching toes Goal Time Frame: 4-6 Weeks Goal 4:: Pt feel 75% better in overall mobility and safety with gait. Goal Time Frame: 4-6 Weeks - Rehabilitation Potential Physical Therapy Diagnosis: unsteadiness with gait. Rehabilitation Potential: Fair - Anticipated Interventions Patient/Client Instruction: Educate patient on: Condition, Plan of Care For the Purpose of:: To improve nutrient delivery to tissue, To improve muscle performance and motor function, To increase tolerance to activity/condition/position, To improve ability of physical actions for home/community/work/leisure, To improve gait and locomotor functions Therapeutic Exercise to Include: Strength training, Balance training, Postural training, Flexibilty training, Gait and locomotor training, Passive ROM, Active ROM For the Purpose of:: To decrease pain, To increase ROM, To improve nutrient delivery to tissue, To increase tolerance to activity/condition/position, To improve ability of physical actions for home/community/work/leisure, To improve gait and locomotor functions, To improve balance, To improve safety with gait Thank you for the opportunity to evaluate your patient. For Medicare and Medicare HMO plans, please review the plan of care and approve it. It will need to be FAXED BACK to us at [phone] for Medicare purposes. For Medicare only, by signing this I certify the plan of care. Please let me know if there are questions or concerns regarding this plan of care. Physician Signature: Date:
--- NOTE | 2022-02-04 09:29 | HP.PTCOM ---
PT Communication Note 02/04/[address] Farhan Mendiola MD , Thank you for the referral of Shanna Modi to [facility] for balance treatment. I have enclosed a copy of her test results for your review. In summation, she scored low on the CTSIB eyes open firm surface condition at 37% impairment. She did well on the Limits of stability test. She scored slightly low on the eyes closed, narrow stance Fall risk Assessment. With these results in mind, I plan to see her for stretching, strengthening and balance exercises and rogress to a home program per her original plan of care. Thank you for this referral. Sincerely, Arya Lopez, DPT, OCS, CSCS Contact Information
--- NOTE | 2022-03-03 11:41 | HP.PTDCSUM ---
It has been my pleasure to treat GRIS RODRIGUEZ referred by Dr. Farhan Mendiola MD, with the diagnosis of Loss of balance. neuroapthy. for a total of 9 visit(s). Discharge Date: 03/03/22 Please see the following information for a summary of their discharge status. Subjective: Doing pretty well. Most things are better than they were. No more falls. Balance is quite a bit better. No more dizzyness. Doing exercises at home that are challenging. LBP Pain Intensity (Out of 10): 0 % Improvement: 90 Objective/Function: FGA +3. Walking today without stumble or catching toe. More confidence and has a busy decemebr so wishes to continue via HEP at [facility] vs more therapy. Goal 1:: FGA to diminish fall risk Goal Progress: Goal Met Goal 2:: pt I iin appropriate HEP for managing condition Goal Progress: Goal Met Goal 3:: Patient ambulate through department and steps without catching toes Goal Progress: Goal Met Goal 4:: Pt feel 75% better in overall mobility and safety with gait. Goal Progress: Goal Met Plan: d/c to HEP If there are questions or concerns regarding this patient's physical therapy, please feel free to call me at [phone]. Thank you for the referral of this patient. Sincerely, Arya Lopez, DPT, OCS, CSCS Balance/Gait/Functional tests - Balance/Special Test Scores Functional Gait Assessment Score: 25 % Disability: 16.6700 CATSIB Score (Max score 120 seconds): 100 Lower Extremity Functional Score: 43
== END 2022-03-03 19:00 | disposition home or self-care (01) ==
LOC: PT 11:00
PROVIDERS: PCP Family Medicine; Referring Provider Family Medicine; Visit Provider Family Medicine
DX: R41.0 Disorientation, unspecified (principal); G62.9 Polyneuropathy, unspecified
CPT/HCPCS: 97110; 97162; 97164; 97750

== ENCOUNTER → 2022-03-19 | Outpatient (CLI) | payer MEDICARE, MEDICAID, SELFPAY ==
[2022-03-19 09:43] LABS: Erythrocyte Sedimentation Rate 42 mm/hr (0-30)
[2022-03-19 09:45] LABS: Absolute Lymphocyte Count 0.96 X10^3/uL (0.83-4.51); Absolute Neutrophil Count 3.4 X10^3/uL (2.0-7.7); Ammonia < 10.0 umol/L (11-32); Basophil# 0.04 X10^3/uL; Basophil% 0.8 % (0-1); Eosinophils% 5.6 % (0-5); Hematocrit 36.2 % (37-47); Hemoglobin 12.5 g/dL (12.0-15.0); Lymphocyte # 0.96 X10^3/ul (0.83-4.51); Lymphocyte % 18.1 % (19-41); Mean Corp Hgb Conc 34.5 g/dL (32-36); Mean Corpuscular Hgb 39.1 pg (27.0-32.0); Mean Corpuscular Volume 113.1 fL (81-99); Mean Platelet Vol. 10.7 fl (6.2-12.0); Monocyte% 11.3 % (0-10); NRBC Flagged by Analyzer 0 % (0-5); Neutrophil # 3.38 X10^3/uL (2.7-7.7); Neutrophil % 63.6 % (47-70); Platelet Count 148 K/mm3 (150-450); RBC Distribution Width CV 13.2 % (11.6-14.6); RBC Distribution Width SD 55.5 fl (35.1-43.9); White Blood Count 5.3 K/mm3 (4.4-11.0)
[2022-03-19 09:46] LABS: International Normalized Ratio 1.1; Prothrombin Time (Protime)PT. 13.5 SECONDS (11.7-14.9)
[2022-03-19 09:55] LABS: ALB/GLOB Ratio 0.7 RATIO (0.9-2.4); AST(SGOT) 64 U/L (15-37); Alanine Aminotransfer ALT/SGPT 62 U/L (13-56); Albumin, Serum 3.4 g/dL (3.2-5.0); Alkaline Phosphatase 113 U/L (45-117); Anion Gap 6 (5-15); BUN 24 mg/dL (7-18); BUN/Creat Ratio 17.8 RATIO (10-20); CRP < 2.90 mg/L (0.0-3.0); Calcium,Total 9.9 mg/dL (8.5-10.1); Chloride 101 mmol/L (98-107); Creatinine, Serum 1.35 mg/dL (0.55-1.02); EST Glomerular Filtration Rate 41 mL/min (>60); Est Glom Filt Rate - Afr Amer 49 mL/min (>60); Globulin 4.7 g/dL (2.2-4.2); Glucose 194 mg/dL (74-106); LDH 198 U/L (84-246); Potassium 4.5 mmol/L (3.5-5.1); Protein, Total 8.1 g/dL (6.4-8.2); Sodium Level 137 mmol/L (136-145)
== END | disposition home or self-care (01) ==
LOC: LAB 09:07
PROVIDERS: PCP Family Medicine; Referring Provider Internal Medicine Gastroenterology; Visit Provider Internal Medicine Gastroenterology
DX: I48.0 Paroxysmal atrial fibrillation (principal); K74.60 Unspecified cirrhosis of liver
CPT/HCPCS: 36415; 80053; 82140; 83615; 85025; 85610; 85652; 86140

== ENCOUNTER → 2022-06-16 | Outpatient (CLI) | payer MEDICARE, MEDICAID, SELFPAY ==
[2022-06-16 11:02] LABS: Mucous, Urine 0 SEEN /hpf (<or=2+); Red Blood Cells-Urine 0 SEEN /hpf (0-5)
[2022-06-16 12:37] LABS: Color, Urine Yellow (Yellow); Glucose, Dipstick Normal (Normal); Ketone-Dipstick Negative (Negative); Leukocyte Esterase-Dipstick 25 /ul (Negative); Nitrite-Dipstick Negative (Negative); Occult Blood-Urine Negative /ul (Negative); Protein-Dipstick 30 mg/dl (Negative); Specific Gravity, Urine 1.015 (1.002-1.030); Urine Bilirubin Dipstick Negative (Negative); Urine Clarity Clear (Clear); Urine Urobilinogen Normal (Normal)
[2022-06-16 12:44] LABS: Microalbumin:Creatinine Ratio 452.3 mg/g CRE (<30 mg/g CRE); Protein, Urine (Random) 57.9 mg/dL (<11.9); Protein:Creat Ratio 824 mg/g CRE (0-200)
[2022-06-16 12:47] LABS: Absolute Lymphocyte Count 1.02 X10^3/uL (0.83-4.51); Absolute Neutrophil Count 3.4 X10^3/uL (2.0-7.7); Basophil# 0.06 X10^3/uL; Basophil% 1.1 % (0-1); Eosinophil# 0.31 X10^3/uL; Eosinophils% 5.8 % (0-5); Hematocrit 36.7 % (37-47); Hemoglobin 12.2 g/dL (12.0-15.0); Lymphocyte # 1.02 X10^3/ul (0.83-4.51); Lymphocyte % 19.2 % (19-41); Mean Corp Hgb Conc 33.2 g/dL (32-36); Mean Corpuscular Volume 114.3 fL (81-99); Mean Platelet Vol. 11.2 fl (6.2-12.0); Monocyte# 0.54 X10^3/uL; Monocyte% 10.2 % (0-10); NRBC Flagged by Analyzer 0 % (0-5); Neutrophil # 3.36 X10^3/uL (2.7-7.7); Neutrophil % 63.3 % (47-70); Platelet Count 158 K/mm3 (150-450); RBC Distribution Width CV 13.2 % (11.6-14.6); RBC Distribution Width SD 55.8 fl (35.1-43.9); Red Blood Count 3.21 M/mm3 (4.2-5.4); White Blood Count 5.3 K/mm3 (4.4-11.0)
[2022-06-16 13:06] LABS: Vitamin D,25 Hydroxy 79.8 ng/mL
[2022-06-16 13:16] LABS: Bacteria 1+ /hpf (None Seen); Squamous Epithelial Cells - UA 5-10 SEEN /hpf (5-10); White Blood Cells 0-5 SEEN /hpf (0-5)
[2022-06-16 13:18] LABS: ALB/GLOB Ratio 0.8 RATIO (0.9-2.4); AST(SGOT) 69 U/L (15-37); Alanine Aminotransfer ALT/SGPT 59 U/L (13-56); Albumin, Serum 3.3 g/dL (3.2-5.0); Alkaline Phosphatase 118 U/L (45-117); Anion Gap 7 (5-15); BUN 29 mg/dL (7-18); BUN/Creat Ratio 22.7 RATIO (10-20); Calcium,Total 9.8 mg/dL (8.5-10.1); Chloride 101 mmol/L (98-107); Cholesterol 125 mg/dL (200); Creatinine, Serum 1.28 mg/dL (0.55-1.02); EST Glomerular Filtration Rate 43 mL/min (>60); Est Glom Filt Rate - Afr Amer 52 mL/min (>60); Globulin 4.4 g/dL (2.2-4.2); Glucose 141 mg/dL (74-106); High Density Lipoprotein 37 mg/dL; Magnesium 2.2 mg/dL (1.6-2.6); Phosphorus 3.1 mg/dL (2.5-4.9); Potassium 4.3 mmol/L (3.5-5.1); Protein, Total 7.7 g/dL (6.4-8.2); Sodium Level 137 mmol/L (136-145); Thyroid Stim Hormone (TSH) 7.54 uIU/mL (0.358-3.74); Triglycerides 197 mg/dL; Very Low Density Lipoprotein 39 mg/dL (5-40)
[2022-06-16 13:19] LABS: Hemoglobin A1c 7.6 % (3.8-5.6)
[2022-06-17 10:43] LABS: T4 Free Direct 1.04 ng/dL (0.76-1.46)
[2022-06-18 19:36] LABS: Anti-Thyroglobulin AB < 1.0 IU/mL (0.0-0.9); Thyroglobulin, Serum Qt. 227.8 ng/mL (1.5-38.5); Thyroid Peroxidase AB 10 IU/mL (0-34)
== END | disposition home or self-care (01) ==
LOC: MFPLAB 11:00
PROVIDERS: PCP Family Medicine; Referring Provider Family Medicine; Visit Provider Family Medicine
DX: R79.89 Other specified abnormal findings of blood chemistry (principal); E11.22 Type 2 diabetes mellitus with diabetic chronic kidney disease; I48.91 Unspecified atrial fibrillation; R51.0 Headache with orthostatic component, not elsewhere classified; N18.9 Chronic kidney disease, unspecified
CPT/HCPCS: 36415; 80053; 80061; 81001; 82043; 82306; 82570; 83036; 83735; 84100; 84156; 84432; 84439; 84443; 85025; 86376; 86800

== ENCOUNTER → 2022-06-23 | Outpatient (CLI) | payer MEDICARE, MEDICAID, SELFPAY ==
--- NOTE | 2022-06-23 12:40 | US_ITS ---
STUDY: THYROID ULTRASOUND REASON FOR EXAM: Female, 77 years old. Elevated TSH TECHNIQUE: Ultrasound evaluation of the thyroid was performed with real-time and static escalera-scale imaging. COMPARISON: None. FINDINGS: RIGHT LOBE: The right lobe of the thyroid gland measures 5.0 x 2.0 x 2.5 cm. There is a heterogeneous echotexture. 2 separate complex solid and cystic nodules, both measuring 4 mm LEFT LOBE: The left lobe of the thyroid gland measures 4.4 x 1.7 x 2.0 cm. There is a heterogeneous echotexture. There is a complex solid/cystic 0.8 cm nodule ISTHMUS: The isthmus measures 4 mm. The regional lymph nodes are normal. US/Thyroid IMPRESSION: Normal-sized heterogeneous thyroid gland with bilateral solid/cystic nodules, no specific follow-up needed. Electronically Signed: Aaron Cheng MD at 13:21 EDT ,
== END | disposition home or self-care (01) ==
LOC: US 12:38
PROVIDERS: PCP Family Medicine; Referring Provider Family Medicine; Visit Provider Family Medicine
DX: R79.89 Other specified abnormal findings of blood chemistry (principal)
CPT/HCPCS: 76536

== ENCOUNTER → 2022-08-05 | Outpatient (CLI) | payer MEDICARE, MEDICAID, SELFPAY ==
--- NOTE | 2022-08-05 07:08 | MRI_ITS ---
STUDY: MRI ABDOMEN WITH AND WITHOUT CONTRAST REASON FOR EXAM: Female, 77 years old. CIRRHOSIS TECHNIQUE: Standardized fat and water weighted pulse sequences were obtained in all 3 orthogonal planes post contrast administration. IV 19ml clariscan was administered for the contrast portion of the examination. COMPARISON: CT 09/09/2021 FINDINGS: Base of the chest is unremarkable in its visualized extent. Nodular contours of the liver compatible with history provided of cirrhosis. Mildly inhomogenous signal intensity throughout the liver. However, no discrete focal solid or cystic mass. No abnormal contrast enhancement following IV contrast. No focal areas of restricted diffusion demonstrated. The portal vein enhances normally without evidence of thrombus. The gallbladder is absent. Normal spleen. Normal pancreas. Normal bilateral adrenal glands. Simple nonenhancing left renal cyst. No required imaging follow-up needed given high likelihood of benign nature. No hydronephrosis. Hollow viscus structures are unremarkable. Ectasia of the abdominal aorta partially visualized. Normal inferior vena cava. Normal retroperitoneum. Normal abdominal wall. No bone marrow edema. Degenerative changes of the thoracolumbar spine. MRI/MRI Abd WITH and W/O Contrast IMPRESSION: 1. Cirrhosis. 2. No hepatic mass. Electronically Signed: Bashir Quintero ([place]), at 15:26 EDT ,
[2022-08-05 07:45] LABS: CREATININE FINGERSTICK 1.3 mg/dL (0.55-1.02)
== END | disposition home or self-care (01) ==
LOC: MRI 07:08
PROVIDERS: PCP Family Medicine; Referring Provider Internal Medicine Gastroenterology; Visit Provider Internal Medicine Gastroenterology
DX: K74.60 Unspecified cirrhosis of liver (principal)
CPT/HCPCS: 74183; A9575; A4216

== ENCOUNTER → 2022-08-18 | Outpatient (CLI) | payer MEDICARE, MEDICAID, SELFPAY ==
[2022-08-18 11:30] LABS: Erythrocyte Sedimentation Rate 29 mm/hr (0-30)
[2022-08-18 11:33] LABS: International Normalized Ratio 1.1; Prothrombin Time (Protime)PT. 14.6 SECONDS (11.7-14.9)
[2022-08-18 11:35] LABS: Absolute Lymphocyte Count 0.92 X10^3/uL (0.83-4.51); Absolute Neutrophil Count 3.5 X10^3/uL (2.0-7.7); Basophil# 0.05 X10^3/uL; Basophil% 0.9 % (0-1); Eosinophil# 0.27 X10^3/uL; Eosinophils% 5.1 % (0-5); Hemoglobin 11.8 g/dL (12.0-15.0); Lymphocyte # 0.92 X10^3/ul (0.83-4.51); Lymphocyte % 17.2 % (19-41); Mean Corp Hgb Conc 32.8 g/dL (32-36); Mean Corpuscular Hgb 38.1 pg (27.0-32.0); Mean Corpuscular Volume 116.1 fL (81-99); Monocyte# 0.54 X10^3/uL; Monocyte% 10.1 % (0-10); NRBC Flagged by Analyzer 0 % (0-5); Neutrophil # 3.53 X10^3/uL (2.7-7.7); Neutrophil % 66.1 % (47-70); Platelet Count 140 K/mm3 (150-450); RBC Distribution Width CV 13.4 % (11.6-14.6); RBC Distribution Width SD 56.8 fl (35.1-43.9); White Blood Count 5.3 K/mm3 (4.4-11.0)
[2022-08-18 12:04] LABS: ALB/GLOB Ratio 0.7 RATIO (0.9-2.4); AST(SGOT) 77 U/L (15-37); Alanine Aminotransfer ALT/SGPT 71 U/L (13-56); Albumin, Serum 3.5 g/dL (3.2-5.0); Alkaline Phosphatase 129 U/L (45-117); Anion Gap 7 (5-15); BUN 24 mg/dL (7-18); BUN/Creat Ratio 16.3 RATIO (10-20); CRP < 2.90 mg/L (0.0-3.0); Calcium,Total 9.8 mg/dL (8.5-10.1); Chloride 105 mmol/L (98-107); Creatinine, Serum 1.47 mg/dL (0.55-1.02); EST Glomerular Filtration Rate 37 mL/min (>60); Est Glom Filt Rate - Afr Amer 44 mL/min (>60); Ferritin 76 ng/mL (8-252); Globulin 4.7 g/dL (2.2-4.2); Glucose 233 mg/dL (74-106); LDH 178 U/L (84-246); Potassium 4.4 mmol/L (3.5-5.1); Protein, Total 8.2 g/dL (6.4-8.2); Sodium Level 139 mmol/L (136-145)
[2022-08-20 16:09] LABS: Anti-Smooth Muscle ABS 135 Units (0-19); Cytoplasmic Ab (C-ANCA) <1:20 titer (Neg:<1:20); Perinuclear Ab (P-ANCA) <1:20 titer (Neg:<1:20)
== END | disposition home or self-care (01) ==
PROVIDERS: PCP Family Medicine; Referring Provider Internal Medicine Gastroenterology; Visit Provider Internal Medicine Gastroenterology
DX: K74.60 Unspecified cirrhosis of liver (principal); I48.0 Paroxysmal atrial fibrillation
CPT/HCPCS: 36415; 80053; 82105; 82140; 82728; 83516; 83615; 85025; 85610; 85652; 86140; 86256

== ENCOUNTER → 2022-10-14 | Outpatient (CLI) | payer MEDICARE, MEDICAID, SELFPAY ==
[2022-10-14 09:49] LABS: Absolute Lymphocyte Count 0.83 X10^3/uL (0.83-4.51); Absolute Neutrophil Count 3.2 X10^3/uL (2.0-7.7); Basophil# 0.04 X10^3/uL; Basophil% 0.8 % (0-1); Eosinophil# 0.16 X10^3/uL; Eosinophils% 3.3 % (0-5); Hematocrit 36.3 % (37-47); Hemoglobin 11.7 g/dL (12.0-15.0); Lymphocyte # 0.83 X10^3/ul (0.83-4.51); Mean Corp Hgb Conc 32.2 g/dL (32-36); Mean Corpuscular Volume 114.9 fL (81-99); Monocyte# 0.61 X10^3/uL; Monocyte% 12.5 % (0-10); NRBC Flagged by Analyzer 0 % (0-5); Neutrophil # 3.21 X10^3/uL (2.7-7.7); Neutrophil % 65.6 % (47-70); Platelet Count 185 K/mm3 (150-450); RBC Distribution Width CV 13.7 % (11.6-14.6); RBC Distribution Width SD 58.8 fl (35.1-43.9); Red Blood Count 3.16 M/mm3 (4.2-5.4); White Blood Count 4.9 K/mm3 (4.4-11.0)
[2022-10-14 10:10] LABS: Hemoglobin A1c 7.4 % (3.8-5.6)
[2022-10-14 10:29] LABS: ALB/GLOB Ratio 0.7 RATIO (0.9-2.4); AST(SGOT) 80 U/L (15-37); Alanine Aminotransfer ALT/SGPT 60 U/L (13-56); Albumin, Serum 3.2 g/dL (3.2-5.0); Alkaline Phosphatase 129 U/L (45-117); Anion Gap 10 (5-15); BUN 21 mg/dL (7-18); BUN/Creat Ratio 14.1 RATIO (10-20); Calcium,Total 9.3 mg/dL (8.5-10.1); Chloride 105 mmol/L (98-107); Cholesterol 141 mg/dL (200); Creatinine, Serum 1.49 mg/dL (0.55-1.02); EST Glomerular Filtration Rate 36 mL/min (>60); Est Glom Filt Rate - Afr Amer 44 mL/min (>60); Globulin 4.8 g/dL (2.2-4.2); Glucose 157 mg/dL (74-106); High Density Lipoprotein 46 mg/dL; Potassium 4.1 mmol/L (3.5-5.1); Sodium Level 139 mmol/L (136-145); Thyroid Stim Hormone (TSH) 9.03 uIU/mL (0.358-3.74); Triglycerides 196 mg/dL; Very Low Density Lipoprotein 39 mg/dL (5-40)
[2022-10-14 13:39] LABS: Microalbumin:Creatinine Ratio 202.6 mg/g CRE (<30 mg/g CRE)
[2022-10-15 11:00] LABS: T4 Free Direct 0.93 ng/dL (0.76-1.46)
[2022-10-16 15:08] LABS: Thyroglobulin Antibody < 1.0 IU/mL (0.0-0.9); Thyroid Peroxidase AB < 9 IU/mL (0-34)
== END | disposition home or self-care (01) ==
LOC: MFPLAB 09:13
PROVIDERS: PCP Family Medicine; Visit Provider Family Medicine
DX: R79.89 Other specified abnormal findings of blood chemistry (principal); I48.91 Unspecified atrial fibrillation; E11.9 Type 2 diabetes mellitus without complications
CPT/HCPCS: 36415; 80053; 80061; 82043; 82570; 83036; 83735; 84439; 84443; 85025; 86376; 86800

== ENCOUNTER → 2023-01-06 | Outpatient (CLI) | payer MEDICARE, MEDICAID, SELFPAY ==
[2023-01-06 09:52] LABS: Erythrocyte Sedimentation Rate 20 mm/hr (0-30)
[2023-01-06 09:53] LABS: Absolute Lymphocyte Count 0.78 X10^3/uL (0.83-4.51); Absolute Neutrophil Count 3.1 X10^3/uL (2.0-7.7); Basophil# 0.04 X10^3/uL; Basophil% 0.8 % (0-1); Eosinophil# 0.21 X10^3/uL; Eosinophils% 4.4 % (0-5); Hematocrit 34.4 % (37-47); Hemoglobin 10.7 g/dL (12.0-15.0); Lymphocyte # 0.78 X10^3/ul (0.83-4.51); Lymphocyte % 16.4 % (19-41); Mean Corp Hgb Conc 31.1 g/dL (32-36); Mean Corpuscular Hgb 35.4 pg (27.0-32.0); Mean Corpuscular Volume 113.9 fL (81-99); Mean Platelet Vol. 11.4 fl (6.2-12.0); Monocyte# 0.58 X10^3/uL; Monocyte% 12.2 % (0-10); NRBC Flagged by Analyzer 0 % (0-5); Neutrophil # 3.11 X10^3/uL (2.7-7.7); Neutrophil % 65.4 % (47-70); POSITIVE MORPHOLOGY YES; Platelet Count 165 K/mm3 (150-450); RBC Distribution Width CV 19.5 % (11.6-14.6); RBC Distribution Width SD 81.4 fl (35.1-43.9); Red Blood Count 3.02 M/mm3 (4.2-5.4); White Blood Count 4.8 K/mm3 (4.4-11.0)
[2023-01-06 09:56] LABS: Differential Indicated SCAN CRITERIA MET; International Normalized Ratio 1.1; Prothrombin Time (Protime)PT. 14.4 SECONDS (11.7-14.9)
[2023-01-06 10:38] LABS: Anisocytosis 2+
[2023-01-06 10:46] LABS: ALB/GLOB Ratio 0.7 RATIO (0.9-2.4); AST(SGOT) 72 U/L (15-37); Alanine Aminotransfer ALT/SGPT 59 U/L (13-56); Albumin, Serum 3.4 g/dL (3.2-5.0); Alkaline Phosphatase 115 U/L (45-117); Anion Gap 5 (5-15); BUN 27 mg/dL (7-18); BUN/Creat Ratio 19.3 RATIO (10-20); CRP < 2.90 mg/L (0.0-3.0); Calcium,Total 9.6 mg/dL (8.5-10.1); Chloride 106 mmol/L (98-107); EST Glomerular Filtration Rate 39 mL/min (>60); Est Glom Filt Rate - Afr Amer 47 mL/min (>60); Globulin 4.7 g/dL (2.2-4.2); Glucose 164 mg/dL (74-106); LDH 184 U/L (84-246); Potassium 4.5 mmol/L (3.5-5.1); Protein, Total 8.1 g/dL (6.4-8.2); Sodium Level 138 mmol/L (136-145)
== END | disposition home or self-care (01) ==
PROVIDERS: PCP Family Medicine; Referring Provider Internal Medicine Gastroenterology; Visit Provider Internal Medicine Gastroenterology
DX: K74.60 Unspecified cirrhosis of liver (principal); I48.0 Paroxysmal atrial fibrillation; K75.4 Autoimmune hepatitis
CPT/HCPCS: 36415; 80053; 82140; 83615; 85025; 85610; 85652; 86140

== ENCOUNTER → 2023-01-13 | Outpatient (CLI) | payer MEDICARE, MEDICAID, SELFPAY ==
[2023-01-13 11:15] LABS: Bacteria 0 SEEN /hpf (None Seen); Mucous, Urine 0 SEEN /hpf (<or=2+); Red Blood Cells-Urine 0 SEEN /hpf (0-5); White Blood Cells 0 SEEN /hpf (0-5)
[2023-01-13 15:11] LABS: Absolute Lymphocyte Count 0.64 X10^3/uL (0.83-4.51); Absolute Neutrophil Count 3.3 X10^3/uL (2.0-7.7); Basophil# 0.04 X10^3/uL; Basophil% 0.9 % (0-1); Eosinophil# 0.22 X10^3/uL; Eosinophils% 4.7 % (0-5); Hematocrit 33.6 % (37-47); Hemoglobin 10.1 g/dL (12.0-15.0); Lymphocyte # 0.64 X10^3/ul (0.83-4.51); Lymphocyte % 13.6 % (19-41); Mean Corp Hgb Conc 30.1 g/dL (32-36); Mean Corpuscular Hgb 35.4 pg (27.0-32.0); Mean Corpuscular Volume 117.9 fL (81-99); Mean Platelet Vol. 11.5 fl (6.2-12.0); Monocyte# 0.44 X10^3/uL; Monocyte% 9.4 % (0-10); NRBC Flagged by Analyzer 0 % (0-5); Neutrophil # 3.34 X10^3/uL (2.7-7.7); POSITIVE MORPHOLOGY YES; Platelet Count 167 K/mm3 (150-450); RBC Distribution Width CV 19.8 % (11.6-14.6); RBC Distribution Width SD 85.5 fl (35.1-43.9); Red Blood Count 2.85 M/mm3 (4.2-5.4); White Blood Count 4.7 K/mm3 (4.4-11.0)
[2023-01-13 15:12] LABS: Differential Indicated SCAN CRITERIA MET
[2023-01-13 15:14] LABS: Color, Urine Yellow (Yellow); Glucose, Dipstick 1000 mg/dl (Normal); Ketone-Dipstick Negative (Negative); Leukocyte Esterase-Dipstick 25 /ul (Negative); Nitrite-Dipstick Negative (Negative); Occult Blood-Urine Negative /ul (Negative); Protein-Dipstick 15 mg/dl (Negative); Specific Gravity, Urine 1.015 (1.002-1.030); Urine Bilirubin Dipstick Negative (Negative); Urine Clarity Clear (Clear); Urine Urobilinogen Normal (Normal)
[2023-01-13 15:37] LABS: Microalbumin,Random Urine 63.9 mg/L (NO RANGE EST.); Microalbumin:Creatinine Ratio 110.2 mg/g CRE (<30 mg/g CRE); Protein, Urine (Random) 15.2 mg/dL (<11.9); Protein:Creat Ratio 262 mg/g CRE (0-200)
[2023-01-13 15:43] LABS: Vitamin B12 800 pg/mL (211-911); Vitamin D,25 Hydroxy 64.7 ng/mL
[2023-01-13 15:59] LABS: ALB/GLOB Ratio 0.8 RATIO (0.9-2.4); AST(SGOT) 63 U/L (15-37); Alanine Aminotransfer ALT/SGPT 57 U/L (13-56); Albumin, Serum 3.3 g/dL (3.2-5.0); Alkaline Phosphatase 105 U/L (45-117); Anion Gap 7 (5-15); BUN 26 mg/dL (7-18); Calcium,Total 9.4 mg/dL (8.5-10.1); Chloride 105 mmol/L (98-107); Cholesterol 115 mg/dL (200); Creatinine, Serum 1.53 mg/dL (0.55-1.02); EST Glomerular Filtration Rate 35 mL/min (>60); Est Glom Filt Rate - Afr Amer 42 mL/min (>60); Ferritin 252 ng/mL (8-252); Globulin 4.2 g/dL (2.2-4.2); Glucose 313 mg/dL (74-106); High Density Lipoprotein 37 mg/dL; Iron 124 ug/dL (50-170); Iron Binding Capacity,Total 337 ug/dL (250-450); Magnesium 2.1 mg/dL (1.6-2.6); Potassium 4.7 mmol/L (3.5-5.1); Protein, Total 7.5 g/dL (6.4-8.2); Sodium Level 135 mmol/L (136-145); Thyroid Stim Hormone (TSH) 6.56 uIU/mL (0.358-3.74); Triglycerides 181 mg/dL; Very Low Density Lipoprotein 36 mg/dL (5-40)
[2023-01-13 16:03] LABS: Anisocytosis 1+; Differential Comment SCANNED
[2023-01-13 16:26] LABS: Squamous Epithelial Cells - UA 0-5 SEEN /hpf (5-10); Yeast-Urine RARE /hpf (None Seen)
[2023-01-13 22:02] LABS: Hemoglobin A1c 6.5 % (3.8-5.6)
[2023-01-15 04:07] LABS: Haptoglobin 92 mg/dL (42-346)
[2023-01-15 08:52] LABS: T4 Free Direct 0.86 ng/dL (0.76-1.46)
[2023-01-19 09:09] LABS: Anti-Thyroglobulin AB < 1.0 IU/mL (0.0-0.9); Thyroglobulin, Serum Qt. 198.8 ng/mL (1.5-38.5); Thyroid Peroxidase AB 10 IU/mL (0-34)
== END | disposition home or self-care (01) ==
LOC: MFPLAB 11:10
PROVIDERS: PCP Family Medicine; Visit Provider Family Medicine
DX: E11.22 Type 2 diabetes mellitus with diabetic chronic kidney disease (principal); I48.91 Unspecified atrial fibrillation; K90.9 Intestinal malabsorption, unspecified
CPT/HCPCS: 36415; 80053; 80061; 81001; 82043; 82306; 82570; 82607; 82728; 82746; 83010; 83036; 83540; 83550; 83735; 84156; 84432; 84439; 84443; 85025; 86376; 86800

== ENCOUNTER → 2023-03-22 | Outpatient (CLI) | payer MEDICARE, MEDICAID, SELFPAY | END | disposition home or self-care (01) | PROVIDERS: PCP Family Medicine; Referring Provider Internal Medicine; Visit Provider Internal Medicine | DX: K75.4 Autoimmune hepatitis (principal) ==

== ENCOUNTER 2023-05-27 13:43 | Outpatient (CLI) | payer MEDICARE, MEDICAID, SELFPAY ==
--- NOTE | 2023-05-27 13:45 | RAD_ITS ---
EXAM: XR BILATERAL HIPS WITH PELVIS WHEN PERFORMED, 2 VIEWS CLINICAL INDICATION: pain TECHNIQUE: Frontal view of the bilateral hips with pelvis when performed. COMPARISON: No relevant prior studies available. FINDINGS: BONES/JOINTS: Degenerative changes lower lumbar spine. No displaced fracture. No destructive or sclerotic lesions. Note that overlapping bowel shadows may however obscure fine detail. Sacroiliac joint is unremarkable. No widening of the pubic symphysis. SOFT TISSUES: Unremarkable. No soft tissue swelling or gas. RAD/Hips B/L min 2 views w/ Pelvis IMPRESSION: 1. Degenerative changes lower lumbar spine. 2. Normal hips bilaterally. Electronically Signed: Sourav Prado MD at 6:53 EST ,
--- NOTE | 2023-05-27 13:45 | RAD_ITS ---
EXAM: XR LUMBOSACRAL SPINE, 2 OR 3 VIEWS CLINICAL INDICATION: pain, facet arthropathy TECHNIQUE: Frontal and lateral views of the lumbar spine and sacrum. COMPARISON: No relevant prior studies available. FINDINGS: VERTEBRAE: Dextroscoliosis measuring 30 degrees centered at L2. Bilateral multilevel facet arthropathy. Preserved vertebral body height. No fracture. No spondylolisthesis. DISC SPACES: Severe degenerative disc disease L1-L2 through L4-L5. GASTROINTESTINAL TRACT: Unremarkable as visualized. Included bowel gas pattern is non-obstructive. RAD/Lumbar Spine 2 or 3 Views IMPRESSION: 1. Dextroscoliosis measuring 30 degrees centered at L2. 2. Severe degenerative disc disease L1-L2 through L4-L5. 3. Bilateral multilevel facet arthropathy. 4. No acute fractures. Electronically Signed: Sourav Prado MD at 6:48 EST ,
[2023-05-27 14:19] LABS: Absolute Lymphocyte Count 0.94 X10^3/uL (0.83-4.51); Absolute Neutrophil Count 3.4 X10^3/uL (2.0-7.7); Basophil# 0.04 X10^3/uL; Basophil% 0.8 % (0-1); Eosinophil# 0.22 X10^3/uL; Eosinophils% 4.2 % (0-5); Hematocrit 35.3 % (37-47); Lymphocyte # 0.94 X10^3/ul (0.83-4.51); Mean Corp Hgb Conc 31.2 g/dL (32-36); Mean Corpuscular Hgb 34.8 pg (27.0-32.0); Mean Corpuscular Volume 111.7 fL (81-99); Mean Platelet Vol. 11.4 fl (6.2-12.0); Monocyte# 0.55 X10^3/uL; Monocyte% 10.5 % (0-10); NRBC Flagged by Analyzer 0 % (0-5); Neutrophil # 3.44 X10^3/uL (2.7-7.7); Neutrophil % 65.7 % (47-70); Platelet Count 187 K/mm3 (150-450); RBC Distribution Width CV 14.6 % (11.6-14.6); RBC Distribution Width SD 60.7 fl (35.1-43.9); Red Blood Count 3.16 M/mm3 (4.2-5.4); White Blood Count 5.2 K/mm3 (4.4-11.0)
[2023-05-27 14:49] LABS: Vitamin D,25 Hydroxy 78.3 ng/mL
[2023-05-27 14:54] LABS: ALB/GLOB Ratio 0.7 RATIO (0.9-2.4); AST(SGOT) 58 U/L (15-37); Alanine Aminotransfer ALT/SGPT 46 U/L (13-56); Albumin, Serum 3.3 g/dL (3.2-5.0); Alkaline Phosphatase 107 U/L (45-117); Anion Gap 7 (5-15); BUN 26 mg/dL (7-18); Calcium,Total 9.6 mg/dL (8.5-10.1); Chloride 106 mmol/L (98-107); Cholesterol 116 mg/dL (200); Creatinine, Serum 1.37 mg/dL (0.55-1.02); EST Glomerular Filtration Rate 40 mL/min (>60); Est Glom Filt Rate - Afr Amer 48 mL/min (>60); Glucose 211 mg/dL (74-106); High Density Lipoprotein 34 mg/dL; Magnesium 1.8 mg/dL (1.6-2.6); Potassium 4.5 mmol/L (3.5-5.1); Protein, Total 8.3 g/dL (6.4-8.2); Sodium Level 138 mmol/L (136-145); Thyroid Stim Hormone (TSH) 8.03 uIU/mL (0.358-3.74); Triglycerides 213 mg/dL; Very Low Density Lipoprotein 43 mg/dL (5-40)
[2023-05-27 15:17] LABS: Hemoglobin A1c 7.8 % (3.8-5.6)
[2023-05-27 18:00] LABS: Protein, Urine (Random) 34.9 mg/dL (<11.9); Protein:Creat Ratio 1242 mg/g CRE (0-200)
== END 2023-05-27 23:59 | disposition home or self-care (01) ==
LOC: MTLAB 13:45
PROVIDERS: PCP Family Medicine; Referring Provider Family Medicine; Visit Provider Family Medicine
DX: M47.819 Spondylosis without myelopathy or radiculopathy, site unspecified (principal); E11.22 Type 2 diabetes mellitus with diabetic chronic kidney disease; I48.91 Unspecified atrial fibrillation; M25.551 Pain in right hip; K90.9 Intestinal malabsorption, unspecified; E55.9 Vitamin D deficiency, unspecified
CPT/HCPCS: 36415; 72100; 73521; 80053; 80061; 82306; 82570; 83036; 83735; 84100; 84156; 84443; 85025

== ENCOUNTER → 2023-06-22 | Outpatient (CLI) | payer MEDICARE, MEDICAID, SELFPAY ==
--- NOTE | 2023-06-22 09:11 | US_ITS ---
STUDY: ABDOMINAL ULTRASOUND - RIGHT UPPER QUADRANT; ELASTOGRAPHY REASON FOR VISIT: Female, 78 years old. Autoimmune cirrhosis. TECHNIQUE: Ultrasound evaluation of the right upper quadrant was performed with real-time and static escalera-scale imaging. Point quantification shear wave elastography was performed ([place]). TECHNICAL QUALITY: Adequate. COMPARISON: Comparison is made with prior study dated July 25, 2021. FINDINGS: Liver: The liver is enlarged and measures 18.8 cm. There is increased echogenicity consistent with fatty infiltration. The bile ducts are within normal limits. There is hepatic color flow. The direction of portal flow is hepatopetal. There is no demonstrated mass lesion. Median liver stiffness measured 9.8 kPa. Gallbladder: The patient is status post cholecystectomy. Common Bile Duct (C.B.D.): The common bile duct measures 8 mm. Pancreas: There is normal echogenicity of the visualized pancreas. There is no demonstrated pancreatic mass or cyst. Right Kidney: Normal size of the right kidney. The right kidney measures 9.2 cm x 5.9 cm x 4.6 cm. Normal renal cortex. The right cortex measures 1.4 cm. There is no demonstrated renal mass or cyst. There is no right hydronephrosis. US/ABD Limited w/ Elastography IMPRESSION: 1. Liver stiffness measures 9.8 kPa compatible with F2-F3 (Mild to moderate liver fibrosis) Metavir score. Electronically Signed: Kristofer Nation MD at 13:50 EDT ,
== END | disposition home or self-care (01) ==
LOC: US 09:10
PROVIDERS: PCP Family Medicine; Referring Provider Internal Medicine; Visit Provider Internal Medicine
DX: K75.4 Autoimmune hepatitis (principal); R76.8 Other specified abnormal immunological findings in serum
CPT/HCPCS: 76705; 76981

== ENCOUNTER 2023-06-25 13:52 | Outpatient (CLI) | payer MEDICARE, MEDICAID, SELFPAY ==
[2023-06-25 17:21] LABS: T4 Free Direct 0.92 ng/dL (0.76-1.46)
[2023-06-28 13:08] LABS: Anti-Mitochondrial AB <20.0 Units (0.0-20.0)
[2023-06-28 16:09] LABS: PROEL- A/G Ratio 0.9 (0.7-1.7); PROEL- Albumin 3.5 g/dL (2.9-4.4); PROEL- Alpha-1 Globulin 0.2 g/dL (0.0-0.4); PROEL- Alpha-2 Globulin 0.8 g/dL (0.4-1.0); PROEL- Beta Globulin 1.6 g/dL (0.7-1.3); PROEL- Gamma Globulin 1.3 g/dL (0.4-1.8); PROEL- Globulin, Total 3.9 g/dL (2.2-3.9); PROEL- TOTAL PROTEIN 7.4 g/dL (6.0-8.5); PROEL-M-Spike Not Observed g/dL (Not Observed); Thyroglobulin Antibody < 1.0 IU/mL (0.0-0.9); Thyroid Peroxidase AB 10 IU/mL (0-34)
== END 2023-06-25 23:59 | disposition home or self-care (01) ==
LOC: MTLAB 13:53
PROVIDERS: PCP Family Medicine; Referring Provider Family Medicine; Visit Provider Family Medicine
DX: R79.89 Other specified abnormal findings of blood chemistry (principal); E88.09 Other disorders of plasma-protein metabolism, not elsewhere classified
CPT/HCPCS: 36415; 83516; 84165; 84439; 86376; 86800

== ENCOUNTER 2023-07-08 10:23 | Outpatient (CLI) | payer MEDICARE, MEDICAID, SELFPAY ==
[2023-07-08 12:18] LABS: Absolute Lymphocyte Count 0.89 X10^3/uL (0.83-4.51); Absolute Neutrophil Count 3.4 X10^3/uL (2.0-7.7); Basophil# 0.04 X10^3/uL; Basophil% 0.8 % (0-1); Eosinophils% 3.9 % (0-5); Hematocrit 32.2 % (37-47); Hemoglobin 9.9 g/dL (12.0-15.0); Lymphocyte # 0.89 X10^3/ul (0.83-4.51); Lymphocyte % 17.5 % (19-41); Mean Corp Hgb Conc 30.7 g/dL (32-36); Mean Corpuscular Hgb 33.2 pg (27.0-32.0); Mean Corpuscular Volume 108.1 fL (81-99); Monocyte# 0.59 X10^3/uL; Monocyte% 11.6 % (0-10); NRBC Flagged by Analyzer 0 % (0-5); Neutrophil # 3.35 X10^3/uL (2.7-7.7); Neutrophil % 65.8 % (47-70); Platelet Count 183 K/mm3 (150-450); RBC Distribution Width CV 15.8 % (11.6-14.6); RBC Distribution Width SD 61.8 fl (35.1-43.9); Red Blood Count 2.98 M/mm3 (4.2-5.4); White Blood Count 5.1 K/mm3 (4.4-11.0)
[2023-07-08 12:32] LABS: Vitamin D,25 Hydroxy 86.8 ng/mL
[2023-07-08 12:53] LABS: ALB/GLOB Ratio 0.7 RATIO (0.9-2.4); AST(SGOT) 58 U/L (15-37); Alanine Aminotransfer ALT/SGPT 38 U/L (13-56); Albumin, Serum 3.3 g/dL (3.2-5.0); Alkaline Phosphatase 92 U/L (45-117); Anion Gap 7 (5-15); BUN 32 mg/dL (7-18); BUN/Creat Ratio 22.1 RATIO (10-20); Calcium,Total 9.5 mg/dL (8.5-10.1); Chloride 105 mmol/L (98-107); Cholesterol 100 mg/dL (200); Creatinine, Serum 1.45 mg/dL (0.55-1.02); EST Glomerular Filtration Rate 37 mL/min (>60); Est Glom Filt Rate - Afr Amer 45 mL/min (>60); Globulin 4.5 g/dL (2.2-4.2); Glucose 166 mg/dL (74-106); High Density Lipoprotein 34 mg/dL; Phosphorus 3.4 mg/dL (2.5-4.9); Potassium 4.7 mmol/L (3.5-5.1); Protein, Total 7.8 g/dL (6.4-8.2); Sodium Level 136 mmol/L (136-145); Thyroid Stim Hormone (TSH) 7.42 uIU/mL (0.358-3.74); Triglycerides 129 mg/dL; Very Low Density Lipoprotein 26 mg/dL (5-40)
[2023-07-08 16:06] LABS: Hemoglobin A1c 7.5 % (3.8-5.6)
[2023-07-09 13:07] LABS: Immunoglobulin A 885 mg/dL (64-422); Immunoglobulin G 1422 mg/dL (586-1602); Immunoglobulin M 48 mg/dL (26-217)
== END 2023-07-08 23:59 | disposition home or self-care (01) ==
LOC: LAB.FUTURE 10:23
PROVIDERS: PCP Family Medicine; Visit Provider Family Medicine
DX: R77.1 Abnormality of globulin (principal); E11.8 Type 2 diabetes mellitus with unspecified complications; E11.22 Type 2 diabetes mellitus with diabetic chronic kidney disease; R79.89 Other specified abnormal findings of blood chemistry
CPT/HCPCS: 36415; 80053; 80061; 82306; 82784; 83036; 83970; 84100; 84443; 85025; 86334

== ENCOUNTER → 2023-09-01 | Outpatient (CLI) | payer MEDICARE, MEDICAID, SELFPAY ==
--- NOTE | 2023-09-01 11:07 | RAD_ITS ---
STUDY: X-RAY CHEST REASON FOR EXAM: Female, 78 years old. Cough. TECHNIQUE: Frontal and lateral views of the chest on 3 images. COMPARISON: August 15, 2021 FINDINGS: Mild hyperinflation with linear scarring/atelectasis at both bases, unchanged. Stable healed granulomatous calcifications. There is no demonstrated pleural abnormality. Cardiomegaly unchanged. Normal mediastinum and destiny. Stable prominent central pulmonary arteries. Aortic tortuosity with calcification unchanged. Thoracic osteopenia, diffuse spondylosis and dextroscoliosis, unchanged. Normal visualized ribs, clavicles, and shoulders. No abnormality of the visualized soft tissue structures of the upper abdomen. RAD/Chest PA and Lateral IMPRESSION: Stable chest with no acute superimposed finding. Electronically Signed: Jules Giraldo MD at 12:34 EDT ,
== END | disposition home or self-care (01) ==
PROVIDERS: PCP Family Medicine; Referring Provider Family Medicine; Visit Provider Family Medicine
DX: R05.9 Cough, unspecified (principal)
CPT/HCPCS: 71046

== ENCOUNTER → 2023-09-14 | Outpatient (CLI) | payer MEDICARE, MEDICAID, SELFPAY | END | disposition home or self-care (01) | LOC: PSN 08:55 | PROVIDERS: PCP Family Medicine; Referring Provider Internal Medicine Cardiovascular Disease; Visit Provider Internal Medicine Cardiovascular Disease | DX: I48.0 Paroxysmal atrial fibrillation (principal) | CPT/HCPCS: 93225; 93226 ==

== ENCOUNTER → 2023-09-21 | Outpatient (CLI) | payer MEDICARE, MEDICAID, SELFPAY ==
[2023-09-21 12:21] LABS: Absolute Lymphocyte Count 0.76 X10^3/uL (0.83-4.51); Absolute Neutrophil Count 3.4 X10^3/uL (2.0-7.7); Basophil# 0.03 X10^3/uL; Basophil% 0.6 % (0-1); Differential Indicated SCAN CRITERIA MET; Eosinophil# 0.14 X10^3/uL; Eosinophils% 2.9 % (0-5); Lymphocyte # 0.76 X10^3/ul (0.83-4.51); Lymphocyte % 15.8 % (19-41); Mean Corp Hgb Conc 32.4 g/dL (32-36); Mean Corpuscular Hgb 36.1 pg (27.0-32.0); Mean Corpuscular Volume 111.4 fL (81-99); Mean Platelet Vol. 11.5 fl (6.2-12.0); Monocyte# 0.42 X10^3/uL; Monocyte% 8.8 % (0-10); NRBC Flagged by Analyzer 0 % (0-5); Neutrophil # 3.43 X10^3/uL (2.7-7.7); Neutrophil % 71.5 % (47-70); POSITIVE MORPHOLOGY YES; Platelet Count 111 K/mm3 (150-450); RBC Distribution Width CV 17.9 % (11.6-14.6); RBC Distribution Width SD 74.3 fl (35.1-43.9); Red Blood Count 3.32 M/mm3 (4.2-5.4); White Blood Count 4.8 K/mm3 (4.4-11.0)
[2023-09-21 12:47] LABS: Anisocytosis 2+; Differential Comment SCANNED
[2023-09-21 13:10] LABS: Microalbumin,Random Urine 67.3 mg/L (NO RANGE EST.); Microalbumin:Creatinine Ratio 99.7 mg/g CRE (<30 mg/g CRE)
[2023-09-21 13:26] LABS: Vitamin D,25 Hydroxy 70.1 ng/mL
[2023-09-21 13:30] LABS: ALB/GLOB Ratio 0.8 RATIO (0.9-2.4); AST(SGOT) 62 U/L (15-37); Alanine Aminotransfer ALT/SGPT 52 U/L (13-56); Albumin, Serum 3.3 g/dL (3.2-5.0); Alkaline Phosphatase 108 U/L (45-117); Anion Gap 7 (5-15); BUN 22 mg/dL (7-18); BUN/Creat Ratio 17.3 RATIO (10-20); Calcium,Total 9.6 mg/dL (8.5-10.1); Chloride 105 mmol/L (98-107); Cholesterol 136 mg/dL (200); Creatinine, Serum 1.27 mg/dL (0.55-1.02); EST Glomerular Filtration Rate 43 mL/min (>60); Est Glom Filt Rate - Afr Amer 52 mL/min (>60); Globulin 4.2 g/dL (2.2-4.2); Glucose 200 mg/dL (74-106); High Density Lipoprotein 43 mg/dL; Magnesium 1.8 mg/dL (1.6-2.6); Potassium 4.6 mmol/L (3.5-5.1); Protein, Total 7.5 g/dL (6.4-8.2); Sodium Level 137 mmol/L (136-145); Thyroid Stim Hormone (TSH) 6.38 uIU/mL (0.358-3.74); Triglycerides 182 mg/dL; Very Low Density Lipoprotein 36 mg/dL (5-40)
[2023-09-21 14:44] LABS: Hemoglobin A1c 7.6 % (3.8-5.6)
== END | disposition home or self-care (01) ==
PROVIDERS: PCP Family Medicine; Referring Provider Family Medicine; Visit Provider Family Medicine
DX: E55.9 Vitamin D deficiency, unspecified (principal); I48.91 Unspecified atrial fibrillation; E11.8 Type 2 diabetes mellitus with unspecified complications
CPT/HCPCS: 36415; 80053; 80061; 82043; 82306; 82570; 83036; 83735; 84443; 85025

== ENCOUNTER → 2024-01-04 | Outpatient (CLI) | payer MEDICARE, MEDICAID, SELFPAY ==
[2024-01-04 09:17] LABS: Mucous, Urine 0 SEEN /hpf (<or=2+)
[2024-01-04 09:54] LABS: Color, Urine Yellow (Yellow); Glucose, Dipstick 1000 mg/dl (Normal); Ketone-Dipstick Negative (Negative); Leukocyte Esterase-Dipstick 100 /ul (Negative); Nitrite-Dipstick Negative (Negative); Occult Blood-Urine 10 /ul (Negative); Protein-Dipstick 15 mg/dl (Negative); Specific Gravity, Urine 1.015 (1.002-1.030); Urine Bilirubin Dipstick Negative (Negative); Urine Clarity Sl. Cloudy (Clear); Urine Urobilinogen Normal (Normal)
[2024-01-04 09:58] LABS: Absolute Lymphocyte Count 0.67 X10^3/uL (0.83-4.51); Absolute Neutrophil Count 3.8 X10^3/uL (2.0-7.7); Basophil# 0.04 X10^3/uL; Basophil% 0.8 % (0-1); Eosinophil# 0.15 X10^3/uL; Eosinophils% 2.9 % (0-5); Hematocrit 37.3 % (37-47); Hemoglobin 12.6 g/dL (12.0-15.0); Lymphocyte # 0.67 X10^3/ul (0.83-4.51); Lymphocyte % 13.1 % (19-41); Mean Corp Hgb Conc 33.8 g/dL (32-36); Mean Corpuscular Hgb 38.7 pg (27.0-32.0); Mean Corpuscular Volume 114.4 fL (81-99); Mean Platelet Vol. 11.2 fl (6.2-12.0); Monocyte# 0.49 X10^3/uL; Monocyte% 9.6 % (0-10); NRBC Flagged by Analyzer 0 % (0-5); Neutrophil # 3.75 X10^3/uL (2.7-7.7); Platelet Count 122 K/mm3 (150-450); RBC Distribution Width CV 13.7 % (11.6-14.6); RBC Distribution Width SD 58.8 fl (35.1-43.9); Red Blood Count 3.26 M/mm3 (4.2-5.4); White Blood Count 5.1 K/mm3 (4.4-11.0)
[2024-01-04 10:19] LABS: PTHIN 43.3 pg/mL (18.4-80.1)
[2024-01-04 10:22] LABS: Bacteria 4+ /hpf (None Seen); Squamous Epithelial Cells - UA 5-10 SEEN /hpf (5-10); White Blood Cells 50-100 SEEN /hpf (0-5)
[2024-01-04 10:23] LABS: Red Blood Cells-Urine 0-5 SEEN /hpf (0-5); Vitamin D,25 Hydroxy 70.4 ng/mL
[2024-01-04 10:24] LABS: Microalbumin,Random Urine 82.5 mg/L (NO RANGE EST.); Microalbumin:Creatinine Ratio 122.2 mg/g CRE (<30 mg/g CRE); Protein, Urine (Random) 24.3 mg/dL (<11.9); Protein:Creat Ratio 360 mg/g CRE (0-200); Renal Epithelial Cells 5-10 SEEN /hpf (0-5)
[2024-01-04 10:52] LABS: ALB/GLOB Ratio 0.8 RATIO (0.9-2.4); AST(SGOT) 57 U/L (15-37); Alanine Aminotransfer ALT/SGPT 47 U/L (13-56); Albumin, Serum 3.4 g/dL (3.2-5.0); Alkaline Phosphatase 96 U/L (45-117); Anion Gap 7 (5-15); BUN 19 mg/dL (7-18); BUN/Creat Ratio 16.4 RATIO (10-20); Calcium,Total 9.9 mg/dL (8.5-10.1); Chloride 106 mmol/L (98-107); Cholesterol 125 mg/dL (200); Creatinine, Serum 1.16 mg/dL (0.55-1.02); EST Glomerular Filtration Rate 48 mL/min (>60); Est Glom Filt Rate - Afr Amer 58 mL/min (>60); Globulin 4.2 g/dL (2.2-4.2); Glucose 156 mg/dL (74-106); High Density Lipoprotein 48 mg/dL; Magnesium 1.8 mg/dL (1.6-2.6); Phosphorus 3.5 mg/dL (2.5-4.9); Potassium 4.2 mmol/L (3.5-5.1); Protein, Total 7.6 g/dL (6.4-8.2); Sodium Level 138 mmol/L (136-145); T4 Free Direct 0.98 ng/dL (0.76-1.46); Triglycerides 166 mg/dL; Very Low Density Lipoprotein 33 mg/dL (5-40)
[2024-01-04 14:01] LABS: Hemoglobin A1c 6.9 % (3.8-5.6)
== END | disposition home or self-care (01) ==
LOC: MFPLAB 09:15
PROVIDERS: PCP Family Medicine; Visit Provider Family Medicine
DX: R82.81 Pyuria (principal); I48.91 Unspecified atrial fibrillation; E11.69 Type 2 diabetes mellitus with other specified complication; E11.22 Type 2 diabetes mellitus with diabetic chronic kidney disease; E83.42 Hypomagnesemia; E03.8 Other specified hypothyroidism
CPT/HCPCS: 36415; 80053; 80061; 81001; 82043; 82306; 82570; 83036; 83735; 83970; 84100; 84156; 84439; 85025; 87086

== ENCOUNTER 2024-01-26 20:15 | Emergency (ER) | payer MEDICARE, MEDICAID, SELFPAY ==
[2024-01-26 20:16] VITALS: BP 162/76; PULSE 74; RESP 19; TEMP 36.8; O2SAT 95; BMI 33.6
--- NOTE | 2024-01-26 20:32 | EKG12_ITS ---
Test Reason : CP Blood Pressure : / mmHG Vent. Rate : 070 BPM Atrial Rate : 070 BPM P-R Int : 214 ms QRS Dur : 116 ms QT Int : 442 ms P-R-T Axes : 064 -51 058 degrees QTc Int : 477 ms Sinus rhythm with 1st degree A-V block Left axis deviation Minimal voltage criteria for LVH, may be normal variant ( Leon product ) Cannot rule out Septal infarct , age undetermined Abnormal ECG Confirmed by Sourav Hastings ([id number]), movie editor JARETT RAMIREZ ([id number]) on 01/28/2024 1:31:28 PM Referred By: Confirmed By:Sourav Hastings
--- NOTE | 2024-01-26 20:38 | ED.VIS.CHEST ---
HPI History of Present Illness Chief Complaint: Chest Pain Informant: patient Onset/Context/Timing Onset: Today and Hours Activity at onset: gradual Timing: Continuous Quality: Positive for Pain Location: Left Chest (Pain radiates from below her left shoulder blade to her chest.) Current Severity: Mild Maximum Severity: Mild Worsened By: Nothing Relieved By: Nothing Associated Symptoms: Negative for Nausea, Vomiting, Diaphoresis, Dyspnea, Cough, Fever, Lightheadedness or Acid Reflux Narrative Narrative: Some 8-year-old female history of HI, CAD 2 stents. History of A-fib and chronic kidney disease. Says around 7 AM this morning so going on close to 14 hours she had left pain below her shoulder blade that radiates to her chest. Midsternal. Says because of. Nothing particular makes it better or worse. Again at rest. She took 2 hydrocodone without relief. Denies any new or worsening shortness of breath that she has chronic shortness of breath. No change with position. She has had a prior HI that she said she had similar pain to this. Denies any nausea. No diaphoresis. Prior Similar Symptoms: Yes Recent Illness/Hospitalization: No CVD Risk Factors: Positive for Hypertension; Negative for Diabetes PE Risk Factors: Negative for Recent Travel/Surgery, Recent Immobilization, Prior DVT or PE, Cancer or OCP + Smoking + >/=35 TAD Risk Factors: Negative for Marfan's Syndrome [facility] Medical History Bloating Recurrent gastrointestinal hemorrhage Anemia GI bleed Upper GI bleed History of neuroendocrine cancer Cirrhosis Microcytic anemia Anemia requiring transfusions COVID-19 (11/27/20) History of left heart catheterization (LHC) (~11/25/20) Cardiomyopathy CAD (coronary artery disease) Angina pectoris Diabetes Chronic pain GERD (gastroesophageal reflux disease) Former smoker Atrial fibrillation Hypertension Abnormal stress test Macrocytic anemia Chronic anticoagulation Neuroendocrine carcinoma Vertigo History of cardioversion (~04/21/19) Presence of stent in coronary artery (~12/29/02) CKD (chronic kidney disease) stage 3, GFR 30-59 ml/min Diverticulosis Essential hypertension Mixed hyperlipidemia Acute myocardial infarction Persistent atrial fibrillation Atherosclerotic heart disease of [place] coronary artery without angina pectoris Home Medications ?Medication ?Instructions ?Recorded ?Last Taken ?Type nitroglycerin 0.4 mg sublingual 0.4 mg sublingual Q5-15M PRN 05/10/18 Unknown History tablet Cardiac/Chest Pain cholecalciferol (vitamin D3) 125 5,000 unit PO DAILY supplement 07/22/18 07/25/21 08:30 History mcg (5,000 unit) tablet pravastatin 40 mg tablet 40 mg PO QHS cholesterol 04/07/19 07/24/21 18:30 History metformin 500 mg tablet 500 mg PO BID diabetes 10/23/20 07/25/21 08:30 History albuterol sulfate 90 mcg/actuation 2 puff inhalation Q6H PRN 04/16/21 Unknown History aerosol inhaler (Ventolin HFA) Shortness Of Breath carvedilol 6.25 mg tablet 6.25 mg PO BID 03/24/23 Unknown History amlodipine 5 mg tablet 5 mg PO DAILY #90 tabs 07/05/23 Unknown Rx rifaximin 550 mg tablet (Xifaxan) 550 mg PO BID #60 tabs 07/08/23 Unknown Rx azathioprine 50 mg tablet 50 mg PO DAILY #30 tabs 07/26/23 Unknown Rx pantoprazole 40 mg tablet,delayed 40 mg PO DAILY #60 tabs 07/26/23 Unknown Rx release (Protonix) spironolactone 25 mg tablet 12.5 mg (1/2 x 25 mg) PO DAILY 1 07/26/23 Unknown Rx month #30 tabs dapagliflozin propanediol 10 mg 10 mg PO DAILY 09/13/23 Unknown History tablet (Farxiga) aspirin 81 mg tablet,delayed 81 mg PO DAILY 11/15/23 Unknown History release (Adult Aspirin Regimen) dulaglutide 3 mg/0.5 mL 3 mg subcut QWEEK 11/15/23 Unknown History subcutaneous pen injector (Trulicity) furosemide 40 mg tablet 40 mg PO DAILY PRN diuretic 11/15/23 Unknown History amiodarone 200 mg tablet 200 mg PO DAILY #90 TABLETS 01/26/24 Unknown Rx Allergy/AdvReac Type Severity Reaction Status Date / Time adhesive Allergy Rash Verified 11/15/23 09:16 fenofibrate nanocrystallized Allergy Rash Verified 11/15/23 09:16 (From Tricor) fenofibrate,micronized (From Allergy Rash Verified 11/15/23 09:16 Tricor) Iodinated Contrast Media Allergy Rash Verified 11/15/23 09:16 (CONTRASTS) ramipril Allergy Rash Verified 11/15/23 09:16 sertraline HCl (From Zoloft) AdvReac made me Verified 11/15/23 09:16 more depressed sulindac (From Clinoril) AdvReac PT UNSURE Verified 11/15/23 09:16 OF REACTION Family History Mother CAD (coronary artery disease) Father CAD (coronary artery disease) Sister CAD (coronary artery disease) Brother Heart disease Brother Heart disease Brother Heart disease Surgical History Status post radiofrequency ablation (RFA) operation for arrhythmia Presence of Watchman left atrial appendage closure device History of cholecystectomy History of coronary artery stent placement History of cataract surgery Presence of coronary angioplasty implant and graft (~12/29/02) History of liver biopsy History of laparoscopic cholecystectomy History of appendectomy Social History Smoking Status: Former smoker alcohol intake: never substance use type: does not use ROS ROS ED ROS Narrative Left chest pain inferior shoulder blade. Radiating to her chest. But no recent illness. Constitutional Constitutional ED: Denies chills or fever(s) Eyes Eyes: Reports none ENT ENT ED: Denies ear pain Cardiovascular Cardiovascular: Reports as per HPI and chest pain; Denies palpitations or racing heartbeat Respiratory/Chest Respiratory/Chest: Denies cough or dyspnea Gastrointestinal Gastrointestinal: Denies abdominal pain Genitourinary Genitourinary ED: Denies dysuria Musculoskeletal Musculoskeletal: Reports back pain; Denies arthralgias Integumentary Denies abscess Neurologic Neurologic: Denies headache(s) Psychiatric Psychiatric: Denies anxiety Endocrine Endocrinology: Denies cold intolerance Hematologic/Lymphatic Hematologic/Lymphatic: Denies easy bleeding, easy bruising or lymphadenopathy Allergic/Immunologic Allergic/Immunologic ED: Denies mouth swelling, tongue swelling or urticaria EXAM Physical Exam Narrative Exam Narrative: female sitting upright in bed. Vital signs are stable afebrile. Pulse ox 95% room air no hypoxia. H EENT exam unremarkable. Mytrex members. Neck nontender no JVD. Lungs clear to auscultation bilaterally. Heart regular rate and rhythm rate about 70 no murmur. Chest wall ribs nontender. Abdomen soft nontender. Back she has reproducible pain over the parathoracic soft tissue inferior and medial to her shoulder blade. This could be consistent with muscle spasm or strain to her back. Moving all 4 extremities. Nontender no edema. Neurologically she is awake and alert. Answer questions following commands. No focal motor deficits. Const Vital Signs: 01/26/24 20:16 01/26/24 20:24 01/26/24 20:32 Temperature 98.2 F Temperature Source Oral Pulse Rate 74 Respiratory Rate 19 H Respiratory Effort Normal Non-Labored Blood Pressure 162/76 H Blood Pressure Mean 104 Pulse Ox 95 Oxygen Delivery Method Room Air Room Air 01/26/24 21:15 01/26/24 22:00 01/26/24 23:00 Temperature Temperature Source Pulse Rate 78 77 66 Respiratory Rate 15 15 18 Respiratory Effort Blood Pressure 134/79 H 145/81 H 148/76 H Blood Pressure Mean 97 102 100 Pulse Ox 93 94 94 Oxygen Delivery Method Room Air Room Air Room Air 01/26/24 23:25 Temperature 97.6 F L Temperature Source Pulse Rate 64 Respiratory Rate 17 Respiratory Effort Blood Pressure 148/76 H Blood Pressure Mean 100 Pulse Ox 93 Oxygen Delivery Method Positive well nourished and well developed; Negative for cachectic, contractures or unkempt General Appearance ED: well developed and NAD; Negative for unkempt, cachectic, contractures or pallor Nutritional Appearance: Negative for cachectic HEENT Reports moist mucous membranes normocephalic and atraumatic Eyes PERRL and EOMs intact bilaterally Neck no lymphadenopathy General: Negative for tenderness Chest Wall inspection of chest normal and palpation of chest normal Chest: Negative for tenderness Resp normal respiratory effort and clear to auscultation bilaterally Effort and Inspection: Negative for respiratory distress Auscultation: Negative for rales, rhonchi or wheezes Cardio regular rate, regular rhythm, S1 normal heart sound, S2 normal heart sound and no murmurs GI normal to inspection, nondistended, normoactive bowel sounds, soft to palpation, non-tender, non-distended and no masses Back/Spine no CVA tenderness and no thoracic nor lumbar tenderness General Back: Negative for CVA tenderness or other Cervical Spine: Negative for cervical spine tenderness Extremity normal to inspection General Extremety ED: Negative for edema or pulses abnormal General Extremity: Negative for edema or pulses abnormal Neuro oriented x3 and CN's II-XII intact bilaterally Sensorium / Orientation: oriented to person and oriented to time Motor Exam: strength 5/5 throughout Psych mental status grossly normal Appearance: Negative for unkempt Mood & Affect: Negative for depressed, anxious or tearful Skin no rashes or lesions noted and no wounds General Skin Exam: Negative for jaundice or pallor Rashes: No rashes noted Trauma: Negative for abrasion, laceration or puncture Image ED - Body Diagram Man: 1. Reproducible soft tissue pain inferior and medial to her inferior shoulder blade. Consistent with soft tissue pain. MDM MDM MDM Narrative Medical decision making narrative: 78-year-old female with atypical left posterior shoulder back pain radiating to her chest. There is reproducible pain. She undergo a cardiac workup. She has no reproducible chest pain. Repeat exam patient is doing well at 10:37 PM. Awaiting her second troponin. States she is feeling better. She and I went over her test. They will be a 2-hour troponin drawn right around 11 PM. If that is negative she will be discharged home. Is back pain. She was offered some for pain does not want a thing at this time. Repeat exam patient is doing well at 11:28 PM. We discussed her test results. She is feeling much better. I think this is reproducible musculoskeletal pain in her back. She has been feels comfortable being discharged to home. No Feltz cardiac. History & Record Review Discussion w/independent historian: Patient Additional record(s) reviewed:: Prior inpatient record, Prior outpatient record, Prior ED visit and Prior labs Lab Data Attestation: I reviewed the patient's lab results. Lab results narrative: CBC white count of 4. H&H 12 and 37. Platelets 137. Electrolytes show gap 11. BUN and creatinine 24 and 1.43. Glucose 171. Initial troponin 11. 2-hour troponin was 12. Labs: Laboratory Results - last 24 hr 01/26/24 01/26/24 20:25 22:58 WBC 4.8 RBC 3.27 L Hgb 12.6 Hct 37.4 MCV 114.4 H MCH 38.5 H MCHC 33.7 RDW Std Deviation 59.9 H RDW Coeff of Pina 14.1 Plt Count 137 L MPV 10.9 Immature Gran % (Auto) 1.000 H Neut % (Auto) 67.6 Lymph % (Auto) 10.9 L [place] % (Auto) 16.3 H Eos % (Auto) 3.6 Baso % (Auto) 0.6 Absolute Neuts (auto) 3.2 Absolute Lymphs (auto) 0.52 L Nucleated RBC % 0 Sodium 139 Potassium 4.4 Chloride 104 Carbon Dioxide 24.0 Anion Gap 11 BUN 24 H Creatinine 1.43 H Estim Creat Clear Calc 39.49 Est GFR (MDRD) Af Amer 46 L Est GFR (MDRD) Non-Af 38 L BUN/Creatinine Ratio 16.8 Glucose 171 H Calcium 10.0 Troponin I High Sens 11 12 Radiography Chest X-Ray - ED: 1 View, Read by ED Physician, Heart, Lungs, Mediastinum, Bony Structures, No Acute Disease and Chronic Changes Diagnostic Testing: Clinical Impression(s) from Imaging Studies Chest X-Ray 01/26/24 21:00 IMPRESSION: Given low lung volumes, chest with no acute disease. Electronically Signed: Salomón Fletcher MD at 22:58 EDT , Chest x-ray, formal, single view shows no acute abnormality. Normal cardiac silhouette. Normal lung mejia. Chronic changes. Interpreted by myself. Rhythm Strip Rhythm Strip: Sinus Rhythm Rate: 70 Ectopy: None EKG Initial EKG: Attestation: I personally reviewed and interpreted this EKG as follows: Interpretation: Sinus Rhythm and No Acute Injury Pattern Comments: Normal sinus rhythm rate of 70. First-degree AV block with parable 214. No acute signs of HI or ischemia. No ST elevation. Discharge Plan Triage Chief Complaint: Chest Pain ED Provider: Magdi Umana Dx/Rx/DC Orders Clinical Impression: Musculoskeletal back pain, Atypical chest pain, History of CAD (coronary artery disease), History of HI (myocardial infarction) Instructions: ED Back Spasm, No Trauma Prescriptions: No Action nitroglycerin 0.4 mg tablet, sublingual 0.4 mg sublingual Q5-15M PRN (Reason: Cardiac/Chest Pain) cholecalciferol (vitamin D3) 5,000 unit tablet 5,000 unit PO DAILY pravastatin 40 mg tablet 40 mg PO QHS albuterol sulfate [Ventolin HFA] 90 mcg/actuation HFA aerosol inhaler 2 puff inhalation Q6H PRN (Reason: Shortness Of Breath) metformin 500 mg tablet 500 mg PO BID carvedilol 6.25 mg tablet 6.25 mg PO BID azathioprine 50 mg tablet 50 mg PO DAILY Qty: 30 4RF pantoprazole [Protonix] 40 mg tablet,delayed release (DR/EC) 40 mg PO DAILY Qty: 60 0RF spironolactone 25 mg tablet 12.5 mg PO DAILY 30 Days Qty: 30 2RF Rx Instructions: Hold if serum potassium more than 5.1. dapagliflozin propanediol [Farxiga] 10 mg tablet 10 mg PO DAILY aspirin [Adult Aspirin Regimen] 81 mg tablet,delayed release (DR/EC) 81 mg PO DAILY Trulicity 3 mg/0.5 mL pen injector 3 mg subcut QWEEK Patient Comments: [NO ORIGINAL SIG] furosemide 40 mg tablet 40 mg PO DAILY PRN (Reason: diuretic) amlodipine 5 mg tablet 5 mg PO DAILY Qty: 90 3RF Xifaxan 550 mg tablet 550 mg PO BID Qty: 60 6RF amiodarone 200 mg tablet 200 mg PO DAILY Qty: 90 3RF Primary Care Provider: Farhan Mendiola Referrals: Farhan Mendiola MD [Primary Care Provider] - 3-5 Days if not improving Activity Restrictions/Additional Instructions: This does not appear to be your heart. Appears to be either muscle spasm or back pain coming from your back rate in your chest. Hot shower and warm bath to relax the muscles in your back. Massage. Tylenol and/or Motrin. Follow-up with your doctor if not improving. Print Language: Latvian Disposition Disposition: Home, Self Care
--- NOTE | 2024-01-26 21:00 | RAD_ITS ---
INDICATION: chest pain EXAMINATION/TECHNIQUE: X-RAY - XR Chest 1 View COMPARISON: 09/01/2023 chest radiograph. Findings: Single frontal view of the chest. Low lung volumes. LUNG PARENCHYMA: No acute focal airspace disease or mass lesion. PLEURA: No pleural effusion. No pneumothorax. HEART/GREAT VESSELS: Cardiomediastinal silhouette is unremarkable. BONES: Osseous structures are unremarkable for age. RAD/Chest 1 View (Portable) IMPRESSION: Given low lung volumes, chest with no acute disease. Electronically Signed: Salomón Fletcher MD at 22:58 EDT ,
[2024-01-26 21:04] LABS: Absolute Lymphocyte Count 0.52 X10^3/uL (0.83-4.51); Absolute Neutrophil Count 3.2 X10^3/uL (2.0-7.7); Basophil# 0.03 X10^3/uL; Basophil% 0.6 % (0-1); Eosinophil# 0.17 X10^3/uL; Eosinophils% 3.6 % (0-5); Hematocrit 37.4 % (37-47); Hemoglobin 12.6 g/dL (12.0-15.0); Lymphocyte # 0.52 X10^3/ul (0.83-4.51); Lymphocyte % 10.9 % (19-41); Mean Corp Hgb Conc 33.7 g/dL (32-36); Mean Corpuscular Hgb 38.5 pg (27.0-32.0); Mean Corpuscular Volume 114.4 fL (81-99); Mean Platelet Vol. 10.9 fl (6.2-12.0); Monocyte# 0.78 X10^3/uL; Monocyte% 16.3 % (0-10); NRBC Flagged by Analyzer 0 % (0-5); Neutrophil # 3.23 X10^3/uL (2.7-7.7); Neutrophil % 67.6 % (47-70); POSITIVE DIFFERENTIAL YES; Platelet Count 137 K/mm3 (150-450); RBC Distribution Width CV 14.1 % (11.6-14.6); RBC Distribution Width SD 59.9 fl (35.1-43.9); Red Blood Count 3.27 M/mm3 (4.2-5.4); White Blood Count 4.8 K/mm3 (4.4-11.0)
[2024-01-26 21:15] VITALS: BP 134/79; PULSE 78; RESP 15; O2SAT 93
[2024-01-26 21:22] LABS: Anion Gap 11 (5-15); BUN 24 mg/dL (7-18); BUN/Creat Ratio 16.8 RATIO (10-20); Chloride 104 mmol/L (98-107); Creatinine, Serum 1.43 mg/dL (0.55-1.02); EST Glomerular Filtration Rate 38 mL/min (>60); Est Glom Filt Rate - Afr Amer 46 mL/min (>60); Estimated Creatinine Clearance 39.49 ml/min; Glucose 171 mg/dL (74-106); Potassium 4.4 mmol/L (3.5-5.1); Sodium Level 139 mmol/L (136-145); Troponin-I HS (w/2H Reflex) 11 pg/mL (3.0-54.0)
[2024-01-26 22:00] VITALS: BP 145/81; PULSE 77; RESP 15; O2SAT 94
[2024-01-26 23:00] VITALS: BP 148/76; PULSE 66; RESP 18; O2SAT 94
[2024-01-26 23:00] LABS: Reflex Troponin-HS? (from REC) Y
[2024-01-26 23:24] LABS: Troponin-I HS 12 pg/mL (3.0-54.0)
[2024-01-26 23:25] VITALS: BP 148/76; PULSE 64; RESP 17; TEMP 36.4; O2SAT 93
== END 2024-01-26 23:34 | disposition home or self-care (01) ==
PROVIDERS: Emergency Provider Emergency Medicine; PCP Family Medicine; Visit Provider Emergency Medicine
DX: R07.89 Other chest pain (principal); E11.22 Type 2 diabetes mellitus with diabetic chronic kidney disease; N18.30 Chronic kidney disease, stage 3 unspecified; I25.10 Atherosclerotic heart disease of native coronary artery without angina pectoris; Z87.891 Personal history of nicotine dependence; E78.2 Mixed hyperlipidemia; I12.9 Hypertensive chronic kidney disease with stage 1 through stage 4 chronic kidney disease, or unspecified chronic kidney disease; I25.2 Old myocardial infarction; Z86.16 Personal history of COVID-19; K21.9 Gastro-esophageal reflux disease without esophagitis; Z90.49 Acquired absence of other specified parts of digestive tract; Z95.5 Presence of coronary angioplasty implant and graft; M54.9 Dorsalgia, unspecified; Z79.82 Long term (current) use of aspirin; Z82.49 Family history of ischemic heart disease and other diseases of the circulatory system
CPT/HCPCS: 71045; 80048; 84484; 85025; 93005; 99285; A4216

== ENCOUNTER 2024-02-03 11:16 | Emergency (ER) | payer MEDICARE, MEDICAID, SELFPAY ==
[2024-02-03] VITALS (9 sets, daily range): BP systolic 83–132; BP diastolic 68–94; PULSE 95–101; RESP 16–20; TEMP 36.3–36.6; O2SAT 92–97; BMI 33.0
--- NOTE | 2024-02-03 12:00 | CT_ITS ---
EXAM: CT HEAD WITHOUT INTRAVENOUS CONTRAST CLINICAL INDICATION: ataxia TECHNIQUE: Multiple axial images were obtained of the head without intravenous contrast. This CT exam was performed using one or more of the following dose reduction techniques: automated exposure control, adjustment of the mA and/or kV according to patient size, and/or use of iterative reconstruction technique. COMPARISON: CT Head dated 09/07/2021 FINDINGS: BRAIN AND EXTRA-AXIAL SPACES: Small vessel No intra- or extra-axial hemorrhage. No acute infarct. No intracranial mass or mass effect. There is preservation of the escalera/white matter interface. Posterior fossa structures are unremarkable. Ventricles are appropriate for age. No hydrocephalus. Basal cisterns are patent. BONES/JOINTS: Normal calvarium. SINUSES: No acute sinusitis. MASTOID AIR CELLS: Normal. Clear. CT/Brain/Head without Contrast IMPRESSION: 1. No acute intracranial abnormality. 2. Stable senescent changes. Electronically Signed: Ravinder Petersen MD at 12:35 EDT ,
--- NOTE | 2024-02-03 12:00 | RAD_ITS ---
EXAM: XR CHEST, 2 VIEWS CLINICAL INDICATION: productive cough TECHNIQUE: Frontal and lateral views of the chest. COMPARISON: XR Chest dated 01/26/2024 FINDINGS: LUNGS AND PLEURAL SPACES: Normal. No consolidation or edema. No pneumothorax. No effusion. HEART: Normal heart size. MEDIASTINUM: No mediastinal or hilar mass. BONES/JOINTS: No acute abnormality. RAD/Chest PA and Lateral IMPRESSION: No acute cardiopulmonary abnormality. No interval change. Electronically Signed: Ravinder Petersen MD at 12:46 EDT ,
--- NOTE | 2024-02-03 12:01 | EKG12_ITS ---
Test Reason : DIZZINESS Blood Pressure : / mmHG Vent. Rate : 104 BPM Atrial Rate : 105 BPM P-R Int : 200 ms QRS Dur : 118 ms QT Int : 390 ms P-R-T Axes : 000 -54 075 degrees QTc Int : 512 ms Sinus tachycardia Left axis deviation Minimal voltage criteria for LVH, may be normal variant ( Leon product ) Septal infarct (cited on or before 09-SEP-2021) Abnormal ECG Confirmed by JESSICA MONTE, RANJANA ([id number]), subeditor KRISTI CLARK ([id number]) on 02/04/2024 9:55:14 AM Referred By: ANATOLIY Confirmed By:RANJANA LOPEZ MD
--- NOTE | 2024-02-03 12:02 | EX.ED.DYSGE1 ---
HPI History of Present Illness Chief Complaint: Dizziness Informant: patient and family Narrative Narrative: 78-year-old female sent down to ER from GI office because of dizziness. Patient states this morning it started around 9:30 AM when she got out of bed and stood up. She states she feels faint and her vision goes black when she feels near syncopal, which is often when she gets up or stands up. When she sits back down she feels better. She also is off balance and walking crooked like she is drunk. She does not drink. She states she has this when she feels near syncopal/orthostatic, however she has this at other times. However, there are times when she can walk closer to normal and does not have ataxic symptoms. She states all of the symptoms have been going on off and on for several months. She denies any sensation of motion in her head such as spinning. She denies any nausea or vomiting associated with this her headaches. No tinnitus. No changes in her hearing. She has a history of A-fib and had Watchman device placed so she is not on any anticoagulants anymore. She has a history of kidney problems and was sent to nephrology Dr. Nash has not seen her yet. She has a history of nonalcoholic cirrhosis for which she was seeing GI today. She has a history of coronary disease for which she has a couple of stents and takes a baby aspirin daily. She has a history of edema in her legs as a result of some of this, and takes a daily furosemide and spironolactone. [facility] Medical History Bloating Recurrent gastrointestinal hemorrhage Anemia GI bleed Upper GI bleed History of neuroendocrine cancer Cirrhosis Microcytic anemia Anemia requiring transfusions COVID-19 (11/27/20) History of left heart catheterization (LHC) (~11/25/20) Cardiomyopathy CAD (coronary artery disease) Angina pectoris Diabetes Chronic pain GERD (gastroesophageal reflux disease) Former smoker Atrial fibrillation Hypertension Abnormal stress test Macrocytic anemia Chronic anticoagulation Neuroendocrine carcinoma Vertigo History of cardioversion (~04/21/19) Presence of stent in coronary artery (~12/29/02) CKD (chronic kidney disease) stage 3, GFR 30-59 ml/min Diverticulosis Essential hypertension Mixed hyperlipidemia Acute myocardial infarction Persistent atrial fibrillation Atherosclerotic heart disease of [place] coronary artery without angina pectoris Home Medications ?Medication ?Instructions ?Recorded ?Last Taken ?Type nitroglycerin 0.4 mg sublingual 0.4 mg sublingual Q5-15M PRN 05/10/18 Unknown History tablet Cardiac/Chest Pain cholecalciferol (vitamin D3) 125 5,000 unit PO DAILY supplement 07/22/18 07/25/21 08:30 History mcg (5,000 unit) tablet pravastatin 40 mg tablet 40 mg PO QHS cholesterol 04/07/19 07/24/21 18:30 History metformin 500 mg tablet 500 mg PO BID diabetes 10/23/20 07/25/21 08:30 History albuterol sulfate 90 mcg/actuation 2 puff inhalation Q6H PRN 04/16/21 Unknown History aerosol inhaler (Ventolin HFA) Shortness Of Breath carvedilol 6.25 mg tablet 6.25 mg PO BID 03/24/23 Unknown History amlodipine 5 mg tablet 5 mg PO DAILY #90 tabs 07/05/23 Unknown Rx rifaximin 550 mg tablet (Xifaxan) 550 mg PO BID #60 tabs 07/08/23 Unknown Rx pantoprazole 40 mg tablet,delayed 40 mg PO DAILY #60 tabs 07/26/23 Unknown Rx release (Protonix) dapagliflozin propanediol 10 mg 10 mg PO DAILY 09/13/23 Unknown History tablet (Farxiga) aspirin 81 mg tablet,delayed 81 mg PO DAILY 11/15/23 Unknown History release (Adult Aspirin Regimen) dulaglutide 3 mg/0.5 mL 3 mg subcut QWEEK 11/15/23 Unknown History subcutaneous pen injector (Trulicity) amiodarone 200 mg tablet 200 mg PO DAILY #90 TABLETS 01/26/24 Unknown Rx azathioprine 50 mg tablet 75 mg (1.5 x 50 mg) PO DAILY 3 02/03/24 Unknown Rx months #135 tabs insulin glargine U-300 conc 300 18 unit subcut QDAY 02/03/24 Unknown History unit/mL (1.5 mL) subcutaneous pen (Toujeo SoloStar U-300 Insulin) spironolactone 25 mg tablet 25 mg PO DAILY 1 month #30 tabs 02/03/24 Unknown Rx Allergy/AdvReac Type Severity Reaction Status Date / Time adhesive Allergy Rash Verified 02/03/24 11:18 fenofibrate nanocrystallized Allergy Rash Verified 02/03/24 11:18 (From Tricor) fenofibrate,micronized (From Allergy Rash Verified 02/03/24 11:18 Tricor) Iodinated Contrast Media Allergy Rash Verified 02/03/24 11:18 (CONTRASTS) ramipril Allergy Rash Verified 02/03/24 11:18 sertraline HCl (From Zoloft) AdvReac made me Verified 02/03/24 11:18 more depressed sulindac (From Clinoril) AdvReac PT UNSURE Verified 02/03/24 11:18 OF REACTION Family History Mother CAD (coronary artery disease) Father CAD (coronary artery disease) Sister CAD (coronary artery disease) Brother Heart disease Brother Heart disease Brother Heart disease Surgical History Status post radiofrequency ablation (RFA) operation for arrhythmia Presence of Watchman left atrial appendage closure device History of cholecystectomy History of coronary artery stent placement History of cataract surgery Presence of coronary angioplasty implant and graft (~12/29/02) History of liver biopsy History of laparoscopic cholecystectomy History of appendectomy Social History Smoking Status: Former smoker alcohol intake: never substance use type: does not use ROS ROS ED Constitutional Constitutional ED: Denies chills or fever(s) Eyes Eyes: Reports other Details: Only changes that vision goes near-black when she feels near syncopal. No diplopia or focal vision field changes. ; Denies change in vision or diplopia ENT ENT ED: Denies ear pain, rhinorrhea or sore throat Cardiovascular Cardiovascular: Reports orthostatic symptoms; Denies chest pain, palpitations or syncope Respiratory/Chest Respiratory/Chest: Reports cough, sputum and other Details: Productive cough with yellow sputum no blood for the last 2 or 3 days no dyspnea ; Denies dyspnea Gastrointestinal Gastrointestinal: Denies abdominal pain, diarrhea, nausea or vomiting Genitourinary Genitourinary ED: Denies dysuria or hematuria Musculoskeletal Musculoskeletal: Denies back pain or neck pain Integumentary Denies abscess or rash Neurologic Neurologic: Reports as per HPI and abnormal gait; Denies abnormal hearing, abnormal speech, confusion, convulsions, headache(s), paresthesias, syncope, vertigo or weakness Psychiatric Psychiatric: Denies anxiety or suicidal thoughts EXAM Physical Exam Const Vital Signs: 02/03/24 11:17 02/03/24 11:37 02/03/24 12:17 Temperature 97.3 F L Temperature Source Temporal Pulse Rate 101 H 100 100 Pulse Rate [Lying] Respiratory Rate 18 16 16 Blood Pressure 101/81 H 108/90 H 99/79 Blood Pressure [Lying] Blood Pressure [Sitting (for 1 minute prior to obtaining)] Blood Pressure [Standing (for 1 minute prior to obtaining)] Blood Pressure Mean 87 96 85 Blood Pressure Mean [Lying] Blood Pressure Mean [Sitting (for 1 minute prior to obtaining)] Blood Pressure Mean [Standing (for 1 minute prior to obtaining)] Pulse Ox 96 95 97 Oxygen Delivery Method Room Air 02/03/24 13:00 02/03/24 13:12 02/03/24 14:00 Temperature Temperature Source Pulse Rate 97 98 Pulse Rate [Lying] 100 Respiratory Rate 20 H 16 Blood Pressure 86/68 L 100/82 H Blood Pressure [Lying] 98/78 Blood Pressure [Sitting (for 1 minute prior to obtaining)] 83/68 L Blood Pressure [Standing (for 1 minute prior to obtaining)] 86/68 L Blood Pressure Mean 74 88 Blood Pressure Mean [Lying] 84 Blood Pressure Mean [Sitting (for 1 minute prior to obtaining)] 73 Blood Pressure Mean [Standing (for 1 minute prior to obtaining)] 74 Pulse Ox 92 93 Oxygen Delivery Method Room Air Room Air 02/03/24 15:00 02/03/24 16:00 Temperature Temperature Source Pulse Rate 100 101 H Pulse Rate [Lying] Respiratory Rate 18 17 Blood Pressure 122/88 H 120/84 H Blood Pressure [Lying] Blood Pressure [Sitting (for 1 minute prior to obtaining)] Blood Pressure [Standing (for 1 minute prior to obtaining)] Blood Pressure Mean 99 96 Blood Pressure Mean [Lying] Blood Pressure Mean [Sitting (for 1 minute prior to obtaining)] Blood Pressure Mean [Standing (for 1 minute prior to obtaining)] Pulse Ox 93 92 Oxygen Delivery Method Room Air Room Air Positive well nourished and well developed General Appearance ED: well developed and NAD HEENT Reports moist mucous membranes normocephalic and atraumatic Eyes PERRL and EOMs intact bilaterally Neck full ROM and supple Resp normal respiratory effort and clear to auscultation bilaterally Cardio regular rate, regular rhythm and no murmurs GI non-tender and non-distended Auscultation: normoactive bowel sounds Palpation: soft Back/Spine no CVA tenderness General Back: other FROM Extremity normal to inspection General Extremety ED: Yes edema; Negative for pulses abnormal or tenderness General Extremity: edema bilateral lower extremity Details: trace; Negative for pulses abnormal Neuro oriented x3, CN's II-XII intact bilaterally and no sensory deficits noted Neuro Narrative: Normal speech without aphasia or dysarthria. No nystagmus. Normal [id number] and [id number] bilaterally. NIHSS 0 normal neurologic exam. Sensorium / Orientation: awake and alert Motor Exam: strength 5/5 throughout Psych mental status grossly normal Skin no rashes or lesions noted and no wounds MDM MDM MDM Narrative Medical decision making narrative: I do not think the patient is having an acute stroke, I think she is having orthostatic hypotension, it may be related to her pressure being on the low side and her taking diuretics and having a history of kidney disease. However with the ataxic symptoms I think a CT of the head is warranted especially with her history of vascular disease. Labs noted, she has some mild JEREMI compared to her recent kidney numbers, and she is a little prerenal, all likely caused by her furosemide, and she is noted to be orthostatic positive, which is also probably related to her furosemide. She was given a liter of IV fluids and after which she is feeling much better. Her blood pressure numbers are better, 120/84. She says she got up to go to the bathroom and did not feel orthostatic anymore. She wants to go home. I am okay with this but I would discontinue her furosemide until she follows up and has repeat numbers done. She is concerned about getting edema in her legs, I told her I would wait to see if that happens before I restarted her furosemide. We did do a CT of the head it was negative I reviewed the images and report which I agree with. Lab Data Attestation: I reviewed the patient's lab results. Labs: Laboratory Results - last 24 hr 02/03/24 11:30 WBC 7.4 RBC 3.63 L Hgb 14.2 Hct 41.3 MCV 113.8 H MCH 39.1 H MCHC 34.4 RDW Std Deviation 57.6 H RDW Coeff of Pina 13.7 Plt Count 170 MPV 11.5 Immature Gran % (Auto) 0.800 Neut % (Auto) 71.0 H Lymph % (Auto) 13.9 L [place] % (Auto) 10.8 H Eos % (Auto) 3.0 Baso % (Auto) 0.5 Absolute Neuts (auto) 5.3 Absolute Lymphs (auto) 1.03 Nucleated RBC % 0.3 Sodium 136 Potassium 4.3 Chloride 102 Carbon Dioxide 24.0 Anion Gap 10 BUN 26 H Creatinine 1.60 H Estim Creat Clear Calc 35.01 Est GFR (MDRD) Af Amer 40 L Est GFR (MDRD) Non-Af 33 L BUN/Creatinine Ratio 16.2 Glucose 244 H Calcium 9.8 Radiography Diagnostic Testing: Clinical Impression(s) from Imaging Studies Brain CT 02/03/24 12:00 IMPRESSION: 1. No acute intracranial abnormality. 2. Stable senescent changes. Electronically Signed: Ravinder Petersen MD at 12:35 EDT , Chest X-Ray 02/03/24 12:00 IMPRESSION: No acute cardiopulmonary abnormality. No interval change. Electronically Signed: Ravinder Petersen MD at 12:46 EDT , Rhythm Strip Rhythm Strip: Sinus Tach Rate: 103 Ectopy: None EKG Initial EKG: Attestation: I personally reviewed and interpreted this EKG as follows: Interpretation: No Acute Injury Pattern, Sinus Tachycardia and LAFB Comments: Poor R wave progression Prior EKG tracings: available for review Prior: Unchanged Discharge Plan Triage Chief Complaint: Dizziness ED Provider: Maikol Burton Dx/Rx/DC Orders Clinical Impression: Orthostatic hypotension, Mild dehydration, Acute kidney injury superimposed on chronic kidney disease Instructions: ED Hypotension, Orthostatic Prescriptions: Continued nitroglycerin 0.4 mg tablet, sublingual 0.4 mg sublingual Q5-15M PRN (Reason: Cardiac/Chest Pain) cholecalciferol (vitamin D3) 5,000 unit tablet 5,000 unit PO DAILY pravastatin 40 mg tablet 40 mg PO QHS albuterol sulfate [Ventolin HFA] 90 mcg/actuation HFA aerosol inhaler 2 puff inhalation Q6H PRN (Reason: Shortness Of Breath) metformin 500 mg tablet 500 mg PO BID carvedilol 6.25 mg tablet 6.25 mg PO BID pantoprazole [Protonix] 40 mg tablet,delayed release (DR/EC) 40 mg PO DAILY Qty: 60 0RF dapagliflozin propanediol [Farxiga] 10 mg tablet 10 mg PO DAILY aspirin [Adult Aspirin Regimen] 81 mg tablet,delayed release (DR/EC) 81 mg PO DAILY Trulicity 3 mg/0.5 mL pen injector 3 mg subcut QWEEK Patient Comments: [NO ORIGINAL SIG] insulin glargine U-300 conc [Toujeo SoloStar U-300 Insulin] 300 unit/mL (1.5 mL) insulin pen 18 unit subcut QDAY spironolactone 25 mg tablet 25 mg PO DAILY 30 Days Qty: 30 4RF Rx Instructions: Hold if serum potassium more than 5.1. azathioprine 50 mg tablet 75 mg PO DAILY 90 Days Qty: 135 1RF amlodipine 5 mg tablet 5 mg PO DAILY Qty: 90 3RF Xifaxan 550 mg tablet 550 mg PO BID Qty: 60 6RF amiodarone 200 mg tablet 200 mg PO DAILY Qty: 90 3RF Discontinued furosemide 40 mg tablet 40 mg PO DAILY PRN (Reason: diuretic) Primary Care Provider: Farhan Mendiola Referrals: Farhan Mendiola MD [Primary Care Provider] - 1-2 Weeks Print Language: Sinhala Disposition Disposition: Home, Self Care
[2024-02-03 12:15] LABS: Absolute Lymphocyte Count 1.03 X10^3/uL (0.83-4.51); Absolute Neutrophil Count 5.3 X10^3/uL (2.0-7.7); Basophil# 0.04 X10^3/uL; Basophil% 0.5 % (0-1); Eosinophil# 0.22 X10^3/uL; Hematocrit 41.3 % (37-47); Hemoglobin 14.2 g/dL (12.0-15.0); Lymphocyte # 1.03 X10^3/ul (0.83-4.51); Lymphocyte % 13.9 % (19-41); Mean Corp Hgb Conc 34.4 g/dL (32-36); Mean Corpuscular Hgb 39.1 pg (27.0-32.0); Mean Corpuscular Volume 113.8 fL (81-99); Mean Platelet Vol. 11.5 fl (6.2-12.0); Monocyte% 10.8 % (0-10); NRBC Flagged by Analyzer 0.3 % (0-5); Neutrophil # 5.25 X10^3/uL (2.7-7.7); Platelet Count 170 K/mm3 (150-450); RBC Distribution Width CV 13.7 % (11.6-14.6); RBC Distribution Width SD 57.6 fl (35.1-43.9); Red Blood Count 3.63 M/mm3 (4.2-5.4); White Blood Count 7.4 K/mm3 (4.4-11.0)
[2024-02-03 12:31] LABS: Anion Gap 10 (5-15); BUN 26 mg/dL (7-18); BUN/Creat Ratio 16.2 RATIO (10-20); Calcium,Total 9.8 mg/dL (8.5-10.1); Chloride 102 mmol/L (98-107); EST Glomerular Filtration Rate 33 mL/min (>60); Est Glom Filt Rate - Afr Amer 40 mL/min (>60); Estimated Creatinine Clearance 35.01 ml/min; Glucose 244 mg/dL (74-106); Potassium 4.3 mmol/L (3.5-5.1); Sodium Level 136 mmol/L (136-145)
[2024-02-03] MEDS: 0.9% Normal Saline (1000mL) 1,000 ML 999 ML IV (15:33)
== END 2024-02-03 16:54 | disposition home or self-care (01) ==
PROVIDERS: Emergency Provider Emergency Medicine; PCP Family Medicine; Visit Provider Emergency Medicine
DX: I95.1 Orthostatic hypotension (principal); E11.22 Type 2 diabetes mellitus with diabetic chronic kidney disease; N18.30 Chronic kidney disease, stage 3 unspecified; N17.9 Acute kidney failure, unspecified; I25.10 Atherosclerotic heart disease of native coronary artery without angina pectoris; Z95.5 Presence of coronary angioplasty implant and graft; I12.9 Hypertensive chronic kidney disease with stage 1 through stage 4 chronic kidney disease, or unspecified chronic kidney disease; Z87.891 Personal history of nicotine dependence; E78.2 Mixed hyperlipidemia; E86.0 Dehydration; Z90.49 Acquired absence of other specified parts of digestive tract; I25.2 Old myocardial infarction; Z79.82 Long term (current) use of aspirin; Z86.16 Personal history of COVID-19
CPT/HCPCS: 70450; 71046; 80048; 85025; 93005; 96360; 99285; J7030; A4216

== ENCOUNTER → 2024-02-08 | Outpatient (CLI) | payer MEDICARE, MEDICAID, SELFPAY ==
[2024-02-08 15:36] LABS: Anion Gap 8 (5-15); BUN 23 mg/dL (7-18); BUN/Creat Ratio 16.5 RATIO (10-20); Calcium,Total 9.5 mg/dL (8.5-10.1); Chloride 104 mmol/L (98-107); Creatinine, Serum 1.39 mg/dL (0.55-1.02); EST Glomerular Filtration Rate 39 mL/min (>60); Est Glom Filt Rate - Afr Amer 47 mL/min (>60); Glucose 207 mg/dL (74-106); Potassium 4.7 mmol/L (3.5-5.1); Sodium Level 137 mmol/L (136-145)
== END | disposition home or self-care (01) ==
LOC: MFPLAB 12:14
PROVIDERS: PCP Family Medicine; Referring Provider Family Medicine; Visit Provider Family Medicine
DX: N17.9 Acute kidney failure, unspecified (principal)
CPT/HCPCS: 36415; 80048

== ENCOUNTER → 2024-02-15 | Outpatient (CLI) | payer MEDICARE, MEDICAID, SELFPAY ==
[2024-02-15 12:54] LABS: Absolute Lymphocyte Count 0.93 X10^3/uL (0.83-4.51); Absolute Neutrophil Count 4.5 X10^3/uL (2.0-7.7); Basophil# 0.07 X10^3/uL; Basophil% 1.1 % (0-1); Eosinophil# 0.19 X10^3/uL; Eosinophils% 2.9 % (0-5); Hemoglobin 12.9 g/dL (12.0-15.0); Lymphocyte # 0.93 X10^3/ul (0.83-4.51); Lymphocyte % 14.2 % (19-41); Mean Corp Hgb Conc 33.9 g/dL (32-36); Mean Corpuscular Volume 114.8 fL (81-99); Mean Platelet Vol. 10.9 fl (6.2-12.0); Monocyte# 0.76 X10^3/uL; Monocyte% 11.6 % (0-10); NRBC Flagged by Analyzer 0 % (0-5); Neutrophil # 4.53 X10^3/uL (2.7-7.7); Neutrophil % 69.4 % (47-70); Platelet Count 180 K/mm3 (150-450); RBC Distribution Width CV 13.5 % (11.6-14.6); RBC Distribution Width SD 57.7 fl (35.1-43.9); Red Blood Count 3.31 M/mm3 (4.2-5.4); White Blood Count 6.5 K/mm3 (4.4-11.0)
[2024-02-15 13:02] LABS: International Normalized Ratio 1.2; Prothrombin Time (Protime)PT. 15.3 SECONDS (11.7-14.9)
[2024-02-15 13:18] LABS: Vitamin B12 1252 pg/mL (211-911); Vitamin D,25 Hydroxy 74.3 ng/mL
[2024-02-15 13:35] LABS: ALB/GLOB Ratio 0.7 RATIO (0.9-2.4); AST(SGOT) 46 U/L (15-37); Alanine Aminotransfer ALT/SGPT 33 U/L (13-56); Albumin, Serum 3.3 g/dL (3.2-5.0); Alkaline Phosphatase 98 U/L (45-117); Anion Gap 8 (5-15); BUN 33 mg/dL (7-18); BUN/Creat Ratio 22.9 RATIO (10-20); CRP < 2.90 mg/L (0.0-3.0); Calcium,Total 9.5 mg/dL (8.5-10.1); Chloride 103 mmol/L (98-107); Cholesterol 107 mg/dL (200); Creatinine, Serum 1.44 mg/dL (0.55-1.02); EST Glomerular Filtration Rate 38 mL/min (>60); Est Glom Filt Rate - Afr Amer 45 mL/min (>60); Globulin 4.5 g/dL (2.2-4.2); Glucose 119 mg/dL (74-106); High Density Lipoprotein 38 mg/dL; Potassium 4.8 mmol/L (3.5-5.1); Protein, Total 7.8 g/dL (6.4-8.2); Sodium Level 135 mmol/L (136-145); T4 Free Direct 1.06 ng/dL (0.76-1.46); Triglycerides 177 mg/dL; Very Low Density Lipoprotein 35 mg/dL (5-40)
[2024-02-15 13:43] LABS: Hemoglobin A1c 6.8 % (3.8-5.6)
[2024-02-16 16:10] LABS: ANTINUCLEAR ANTIBODIES DIRECT Negative (Negative); Anti-Mitochondrial AB <20.0 Units (0.0-20.0)
[2024-02-20 00:06] LABS: AFP, Tumor Marker 6.7 ng/mL (0.0-9.2); Anti-Smooth Muscle ABS 145 Units (0-19); Cytoplasmic Ab (C-ANCA) <1:20 titer (Neg:<1:20); Immunoglobulin A 764 mg/dL (64-422); Immunoglobulin E 38 IU/mL (6-495); Immunoglobulin G 1494 mg/dL (586-1602); Immunoglobulin M 50 mg/dL (26-217); Perinuclear Ab (P-ANCA) <1:20 titer (Neg:<1:20)
== END | disposition home or self-care (01) ==
LOC: LAB 12:09
PROVIDERS: PCP Family Medicine; Referring Provider Internal Medicine; Visit Provider Internal Medicine
DX: I48.0 Paroxysmal atrial fibrillation (principal); K74.60 Unspecified cirrhosis of liver; I21.9 Acute myocardial infarction, unspecified; K75.4 Autoimmune hepatitis; N18.30 Chronic kidney disease, stage 3 unspecified; R76.8 Other specified abnormal immunological findings in serum; I25.10 Atherosclerotic heart disease of native coronary artery without angina pectoris; R63.4 Abnormal weight loss; D53.9 Nutritional anemia, unspecified; M81.0 Age-related osteoporosis without current pathological fracture
CPT/HCPCS: 36415; 80053; 80061; 82105; 82140; 82306; 82607; 82746; 82784; 82785; 83036; 83516; 84439; 84443; 85025; 85610; 86037; 86038; 86140; 86225; 86235

== ENCOUNTER → 2024-03-06 | Outpatient (CLI) | payer MEDICARE, MEDICAID, SELFPAY ==
--- NOTE | 2024-03-06 07:24 | MRI_ITS ---
EXAM: MR ABDOMEN WITHOUT AND WITH INTRAVENOUS CONTRAST CLINICAL INDICATION: cirrhosis -- R/O HCC, Triple phase protocol TECHNIQUE: Multiplanar and multisequence MR images of the abdomen without and with intravenous contrast. CONTRAST: IV CLARISCAN 19CC COMPARISON: MR Abdomen dated 08/05/2022 FINDINGS: LOWER THORAX: Normal. No pleural effusion. LIVER: The enlarged liver with nodular contour again noted unchanged from prior exam consistent with cirrhosis. No evidence of liver mass. GALLBLADDER AND BILE DUCTS: Cholecystectomy. No intra- or extrahepatic biliary ductal dilation. PANCREAS: Normal. No focal cystic or solid mass. SPLEEN: Normal. Normal size without focal cystic or solid mass. ADRENALS: Normal. No nodules. KIDNEYS AND URETERS: Stable 2.6 cm nonenhancing lesion of the lower pole left kidney again seen consistent with complex cyst. No specific follow-up indicated. INTRAPERITONEAL SPACE: Normal. No ascites or other fluid collection. No free air. BONES/JOINTS: Prominent degenerative changes are noted within the spine. VASCULATURE: Normal. Abdominal aorta is non-dilated. LYMPH NODES: No enlarged lymph nodes. MRI/MRI Abd WITH and W/O Contrast IMPRESSION: Enlarged liver with nodular contour again noted unchanged from prior exam consistent with cirrhosis. No evidence of liver mass. Electronically Signed: Ravinder Petersen MD at 8:18 EST ,
== END | disposition home or self-care (01) ==
LOC: MRI 07:03
PROVIDERS: PCP Family Medicine; Referring Provider Internal Medicine; Visit Provider Internal Medicine
DX: K75.4 Autoimmune hepatitis (principal); K74.60 Unspecified cirrhosis of liver; N18.30 Chronic kidney disease, stage 3 unspecified; D53.9 Nutritional anemia, unspecified
CPT/HCPCS: 74183; A9575; A4216

== ENCOUNTER → 2024-08-01 | Outpatient (CLI) | payer MEDICARE, MEDICAID, SELFPAY ==
--- NOTE | 2024-08-01 10:10 | BD_ITS ---
PROCEDURE: DEXA BONE DENSITY STUDY 08/01/2024 REASON FOR EXAM: F, age 79 y/o . Postmenopausal. TECHNIQUE: DXA scan of the lumbar spine and both hips., Using make and model. REFERENCE LINKS: ISCD Adult Positions COMPARISON: None FINDINGS: BMD and T-SCORES Lumbar spine: 1.285 g/cm2, T-Score 2.2 L1 through L4 Left femoral neck: 0.828 g/cm2, T-Score -0.2 Femoral neck comparison data not recommended for monitoring change. Left total hip: 1.030 g/cm2, T-Score 0.7 Right femoral neck: 0.892 g/cm2, T-Score 0.4 Femoral neck comparison data not recommended for monitoring change. Right total hip: 1.051 g/cm2, T-Score 0.9 Fracture Risk Calculation: FRAX (10-year Fracture Risk) Score: FRAX scores should never be reported in a patient with osteoporosis on DEXA or for any patient that is on bone medication. The patient doesmeet the pharmacological treatment recommendations for prevention of osteoporosis BD/Dexa Bone Density Study IMPRESSION: NORMAL T-SCORES. Recommend follow-up as clinically warranted. Reading Location: [place] [id number]
== END | disposition home or self-care (01) ==
LOC: OPBD 10:10
PROVIDERS: PCP Family Medicine
DX: Z13.820 Encounter for screening for osteoporosis (principal); Z78.0 Asymptomatic menopausal state
CPT/HCPCS: 77080

== ENCOUNTER 2024-08-29 13:49 | Outpatient (CLI) | payer MEDICARE, MEDICAID, SELFPAY ==
[2024-08-29 18:12] LABS: Hemoglobin A1c 6.2 % (<=5.6)
[2024-08-29 18:26] LABS: EST Glomerular Filtration Rate 42 (>60)
[2024-08-29 18:29] LABS: ALB/GLOB Ratio 0.9 RATIO (0.9-2.4); AST(SGOT) 62 U/L (<=31); Alanine Aminotransfer ALT/SGPT 35 U/L (<=34); Albumin, Serum 3.6 g/dL (3.4-4.8); Alkaline Phosphatase 123 U/L (35-104); Anion Gap 13 (5-15); BUN 22 mg/dL (4-19); BUN/Creat Ratio 18.3 RATIO (10-20); Calcium,Total 9.3 mg/dL (7.6-11.0); Carbon Dioxide 22.8 mmol/L (21.0-32.0); Chloride 101 mmol/L (98-108); Creatinine, Serum 1.19 mg/dL (0.70-1.20); Globulin 3.8 g/dL (2.2-4.2); Glucose 102 mg/dL (70-99); Potassium 4.5 mmol/L (3.3-5.1); Protein, Total 7.4 g/dL (5.9-8.4); Sodium Level 137 mmol/L (133-145); Vitamin B12 746 pg/mL (180-914); Vitamin D,25 Hydroxy 78.9 ng/mL (30-100)
[2024-08-29 18:31] LABS: CRP < 3.00 mg/L (0.0-3.0); Magnesium 1.7 mg/dL (1.5-2.2)
[2024-08-29 18:57] LABS: PTHIN 50 pg/mL (11-61)
[2024-08-29 19:02] LABS: Absolute Lymphocyte Count 0.56 X10^3/uL (0.83-4.51); Absolute Neutrophil Count 2.3 X10^3/uL (2.0-7.7); Basophil# 0.03 X10^3/uL; Basophil% 0.9 % (0-1); Eosinophil# 0.17 X10^3/uL; Eosinophils% 4.8 % (0-5); Hematocrit 36.9 % (37-47); Hemoglobin 13.2 g/dL (12.0-15.0); Lymphocyte # 0.56 X10^3/ul (0.83-4.51); Mean Corp Hgb Conc 35.8 g/dL (32-36); Mean Corpuscular Hgb 40.9 pg (27.0-32.0); Mean Corpuscular Volume 114.2 fL (81-99); Mean Platelet Vol. 11.6 fl (6.2-12.0); Monocyte% 11.4 % (0-10); NRBC Flagged by Analyzer 0 % (0-5); Neutrophil # 2.32 X10^3/uL (2.7-7.7); POSITIVE DIFFERENTIAL YES; POSITIVE MORPHOLOGY YES; Platelet Count 146 K/mm3 (150-450); RBC Distribution Width CV 16.2 % (11.6-14.6); RBC Distribution Width SD 67.8 fl (35.1-43.9); Red Blood Count 3.23 M/mm3 (4.2-5.4); White Blood Count 3.5 K/mm3 (4.4-11.0)
[2024-08-29 19:06] LABS: Differential Indicated SCAN CRITERIA MET
[2024-08-29 19:45] LABS: International Normalized Ratio 1.2; Prothrombin Time (Protime)PT. 15.1 SECONDS (11.7-14.9)
[2024-08-29 19:59] LABS: Anisocytosis 2+; Differential Comment SCANNED; Platelet Estimate SLT DEC (ADEQ); Polychromasia 1+
[2024-08-29 20:00] LABS: Macrocytosis 2+; Ovalocyte 2+; Tear Drop Cell 1+
[2024-08-29 21:21] LABS: FOLATES,SERUM (FOLIC ACID) 8.71 ng/mL (4.60-34.80)
[2024-08-31 15:08] LABS: PROEL- A/G Ratio 0.9 (0.7-1.7); PROEL- Albumin 3.2 g/dL (2.9-4.4); PROEL- Alpha-1 Globulin 0.3 g/dL (0.0-0.4); PROEL- Alpha-2 Globulin 0.7 g/dL (0.4-1.0); PROEL- Beta Globulin 1.4 g/dL (0.7-1.3); PROEL- Gamma Globulin 1.3 g/dL (0.4-1.8); PROEL- Globulin, Total 3.7 g/dL (2.2-3.9); PROEL- TOTAL PROTEIN 6.9 g/dL (6.0-8.5); PROEL-M-Spike Not Observed g/dL (Not Observed)
== END 2024-08-29 23:59 | disposition home or self-care (01) ==
LOC: MTLAB 13:50
PROVIDERS: PCP Family Medicine; Referring Provider Internal Medicine; Visit Provider Internal Medicine
DX: E11.22 Type 2 diabetes mellitus with diabetic chronic kidney disease (principal); I48.91 Unspecified atrial fibrillation; D51.0 Vitamin B12 deficiency anemia due to intrinsic factor deficiency
CPT/HCPCS: 36415; 80053; 82306; 82607; 82746; 82784; 83036; 83735; 83970; 84165; 85025; 85610; 86140; 86334

== ENCOUNTER → 2024-10-03 | Outpatient (CLI) | payer MEDICARE, MEDICAID, SELFPAY ==
[2024-10-03] MEDS: Zaleplon 5 MG Capsule PO (21:30)
== END | disposition home or self-care (01) ==
LOC: SL 19:43
PROVIDERS: PCP Family Medicine; Referring Provider Nurse Practitioner Family; Visit Provider Nurse Practitioner Family
DX: G47.10 Hypersomnia, unspecified (principal)
CPT/HCPCS: 95810

== ENCOUNTER → 2024-11-02 | Outpatient (CLI) | payer MEDICARE, SELFPAY ==
[2024-11-02 14:31] LABS: Mucous, Urine 0 SEEN /hpf (<or=2+)
[2024-11-02 17:35] LABS: Color, Urine Yellow (Yellow); Glucose, Dipstick 1000 mg/dl (Normal); Ketone-Dipstick Negative (Negative); Leukocyte Esterase-Dipstick Negative /ul (Negative); Nitrite-Dipstick Negative (Negative); Occult Blood-Urine Negative /ul (Negative); Protein-Dipstick 30 mg/dl (Negative); Specific Gravity, Urine 1.020 (1.002-1.030); Urine Bilirubin Dipstick Negative (Negative)
[2024-11-02 17:39] LABS: Hematocrit 38.5 % (37-47); Hemoglobin 13.0 g/dL (12.0-15.0); Immature Granulocytes Count 0.020 X10^3/uL (0.0-0.0); Mean Corp Hgb Conc 33.8 g/dL (32-36); Mean Corpuscular Volume 116.3 fL (81-99); Mean Platelet Vol. 11.6 fl (6.2-12.0); NRBC Flagged by Analyzer 0 % (0-5); Platelet Count 135 K/mm3 (150-450); RBC Distribution Width CV 14.6 % (11.6-14.6); RBC Distribution Width SD 62.4 fl (35.1-43.9); Red Blood Count 3.31 M/mm3 (4.2-5.4); White Blood Count 3.8 K/mm3 (4.4-11.0)
[2024-11-02 18:19] LABS: PTHIN 53 pg/mL (11-61)
[2024-11-02 18:20] LABS: AST(SGOT) 59 U/L (<=31); Alanine Aminotransfer ALT/SGPT 41 U/L (<=34); Albumin, Serum 3.8 g/dL (3.4-4.8); Alkaline Phosphatase 109 U/L (35-104); Anion Gap 16 (5-15); BUN 28 mg/dL (4-19); BUN/Creat Ratio 19.2 RATIO (10-20); Calcium,Total 9.4 mg/dL (7.6-11.0); Carbon Dioxide 22.2 mmol/L (21.0-32.0); Chloride 101 mmol/L (98-108); Creatinine, Urine (random) 75.90 mg/dL (28.00-217.00); Globulin 3.6 g/dL (2.2-4.2); Glucose 120 mg/dL (70-99); Magnesium 1.6 mg/dL (1.5-2.2); Potassium 4.6 mmol/L (3.3-5.1)
[2024-11-02 18:44] LABS: Red Blood Cells-Urine 0-5 SEEN /hpf (0-5); Squamous Epithelial Cells - UA 0-5 SEEN /hpf (5-10)
[2024-11-02 19:07] LABS: Microalbumin,Random Urine 54.6 mg/L (<20 mg/L); Protein, Urine (Random) 16.2 mg/dL (0.0-12.0); Protein:Creat Ratio 213 mg/g CRE (0-200)
[2024-11-02 19:13] LABS: Cholesterol 129 mg/dL (<=200); Low Density Lipoprotein Calc. 50 mg/dL; Triglycerides 217 mg/dL; Very Low Density Lipoprotein 43 mg/dL (5-40); cholesterol:hdl ratio screen 3.63
== END | disposition home or self-care (01) ==
PROVIDERS: PCP Family Medicine; Referring Provider Family Medicine; Visit Provider Family Medicine
DX: E11.22 Type 2 diabetes mellitus with diabetic chronic kidney disease (principal)
CPT/HCPCS: 36415; 80053; 80061; 81001; 82043; 82570; 83036; 83735; 83970; 84156; 85025

== ENCOUNTER → 2024-11-29 | Outpatient (CLI) | payer MEDICARE, MEDICAID, SELFPAY ==
--- NOTE | 2024-11-29 08:29 | US_ITS ---
PROCEDURE: ABD LIMITED W/ ELASTOGRAPHY REASON FOR EXAM: AIH CIRRHOSIS COMPARISON: None. TECHNIQUE: Right upper quadrant abdominal ultrasound. Esau ElastQ Imaging shear wave elastography for non-invasive assessment of liver tissue stiffness. Esau EPIQ Elite. FINDINGS: LIVER: Size: Unremarkable Length: 14.1 cm Echotexture: Diffusely echogenic suggesting fatty infiltration Contour: Nodular Lesions: None identified Elastography: EQI Med: 17.1 kPa EQI Med Brad: 2.37 m/s IQR/Med: 23.5 %* GALLBLADDER: Surgically absent. COMMON BILE DUCT: Dilated measuring up to 8 mm . PANCREAS: Normal Visualized portions of the right kidney are unremarkable. No right upper quadrant ascites. US/ABD Limited w/ Elastography IMPRESSION: SEVERE HEPATIC FIBROSIS / CIRRHOSIS Reference Values: SRU <1.37 m/s (5.7kPa): No to mild fibrosis 1.37 m/s - 2.2 m/s: Moderate to severe fibrosis >2.2 m/s (15kPa): Significant fibrosis / cirrhosis METAVIR Score F2 or higher: 1.34 m/s (5.7kPa) F3 or higher: 1.55 m/s (7.3kPa) F4: 1.80 m/s (10kPa) * If the IQR/Med is >30%, the variance in the measurements is a large and the a ccuracy of the measurement may be in question. Reading Location: [id number]
[2024-11-29 08:51] LABS: Hematocrit 38.7 % (37-47); Hemoglobin 13.3 g/dL (12.0-15.0); Immature Granulocytes Count 0.020 X10^3/uL (0.0-0.0); Mean Corp Hgb Conc 34.4 g/dL (32-36); Mean Corpuscular Volume 115.2 fL (81-99); Mean Platelet Vol. 10.4 fl (6.2-12.0); NRBC Flagged by Analyzer 0 % (0-5); POSITIVE DIFFERENTIAL YES; Platelet Count 123 K/mm3 (150-450); RBC Distribution Width CV 13.9 % (11.6-14.6); RBC Distribution Width SD 58.9 fl (35.1-43.9); Red Blood Count 3.36 M/mm3 (4.2-5.4); White Blood Count 3.9 K/mm3 (4.4-11.0)
[2024-11-29 08:59] LABS: Prothrombin Time (Protime)PT. 14.9 SECONDS (11.7-14.9)
[2024-11-29 09:38] LABS: AST(SGOT) 53 U/L (<=31); Alanine Aminotransfer ALT/SGPT 27 U/L (<=34); Albumin, Serum 3.7 g/dL (3.4-4.8); Alkaline Phosphatase 109 U/L (35-104); Anion Gap 14 (5-15); BUN 23 mg/dL (4-19); BUN/Creat Ratio 21.3 RATIO (10-20); Calcium,Total 9.6 mg/dL (7.6-11.0); Carbon Dioxide 23.7 mmol/L (21.0-32.0); Chloride 102 mmol/L (98-108); Cholesterol 129 mg/dL (<=200); Globulin 3.9 g/dL (2.2-4.2); Glucose 130 mg/dL (70-99); Low Density Lipoprotein Calc. 60 mg/dL; Potassium 4.6 mmol/L (3.3-5.1); Triglycerides 152 mg/dL; Very Low Density Lipoprotein 30 mg/dL (5-40); cholesterol:hdl ratio screen 3.37
[2024-11-29 09:40] LABS: CRP < 3.00 mg/L (0.0-3.0)
== END | disposition home or self-care (01) ==
PROVIDERS: PCP Family Medicine; Referring Provider Internal Medicine; Visit Provider Internal Medicine
DX: K74.60 Unspecified cirrhosis of liver (principal); K75.4 Autoimmune hepatitis; E11.9 Type 2 diabetes mellitus without complications; D53.9 Nutritional anemia, unspecified; I25.10 Atherosclerotic heart disease of native coronary artery without angina pectoris; E03.9 Hypothyroidism, unspecified; R63.4 Abnormal weight loss
CPT/HCPCS: 36415; 76705; 76981; 80053; 80061; 82105; 83036; 84439; 84443; 85025; 85610; 86140

== ENCOUNTER → 2025-02-01 | Outpatient (CLI) | payer MEDICARE, MEDICAID, SELFPAY ==
[2025-02-01 18:54] LABS: Creatinine, Urine (random) 101.00 mg/dL (28.00-217.00); Protein, Urine (Random) 17.5 mg/dL (0.0-12.0); Protein:Creat Ratio 173 mg/g CRE (0-200)
[2025-02-01 19:29] LABS: Cholesterol 117 mg/dL (<=200); Low Density Lipoprotein Calc. 48 mg/dL; Magnesium 1.7 mg/dL (1.5-2.2); Triglycerides 245 mg/dL; Very Low Density Lipoprotein 49 mg/dL (5-40); cholesterol:hdl ratio screen 3.86
[2025-02-01 20:01] LABS: Vitamin B12 > 4000 pg/mL (180-914); Vitamin D,25 Hydroxy 60.2 ng/mL (30-100)
[2025-02-09 16:09] LABS: VITAMIN B6 8.3 ug/L (3.4-65.2); Vitamin B1, Thiamine 150.6 nmol/L (66.5-200.0)
== END | disposition home or self-care (01) ==
LOC: MFPLAB 14:18
PROVIDERS: PCP Family Medicine; Visit Provider Family Medicine
DX: E03.8 Other specified hypothyroidism (principal); I48.91 Unspecified atrial fibrillation; E11.69 Type 2 diabetes mellitus with other specified complication; E11.22 Type 2 diabetes mellitus with diabetic chronic kidney disease; E53.9 Vitamin B deficiency, unspecified; E55.9 Vitamin D deficiency, unspecified
CPT/HCPCS: 36415; 80061; 82306; 82570; 82607; 83036; 83735; 84156; 84207; 84425; 84439; 84443